=== PATIENT | female | born 1980 | race Caucasian/White ===

== ENCOUNTER → 2016-03-31 | Outpatient (CLI) | payer OTHER ==
[~2016-03-31] MED LIST: ABIL15TA2 PO; CYCL10TA PO; CYMB60CA3 PO; HYDR25T PO; LAMO25TA2 PO; LEVO200T4 PO; MORP-38 PO; NEUR600T PO; NORC10TA2 PO; NORT25CA2 PO; PROP120C PO; SERT-141 PO; ULTR50TA PO; VITA200016 PO; [UNRECOGNIZED DRUG - CODE] PO
== END ==
LOC: M PAIN 09:40
PROVIDERS: ATTEND Nurse Practitioner Family
DX: M54.5 Low back pain (principal); M79.7 Fibromyalgia; M05.79 Rheumatoid arthritis with rheumatoid factor of multiple sites without organ or systems involvement; Z79.891 Long term (current) use of opiate analgesic; Z79.899 Other long term (current) drug therapy; Z88.1 Allergy status to other antibiotic agents; Z88.8 Allergy status to other drugs, medicaments and biological substances; E11.9 Type 2 diabetes mellitus without complications; G43.909 Migraine, unspecified, not intractable, without status migrainosus; Z08 Encounter for follow-up examination after completed treatment for malignant neoplasm; Z85.850 Personal history of malignant neoplasm of thyroid

== ENCOUNTER → 2016-06-03 | Outpatient (REF) | payer OTHER ==
[~2016-06-03] MED LIST changes: -SERT-141 PO; +SERT50TA PO
[2016-06-04 11:09] LABS: PRETREATED FOLATE FOR RBCFOL 15.3 NG/ML
== END ==
LOC: M LABDRAWC 11:45
PROVIDERS: ATTEND Surgery
DX: K91.2 Postsurgical malabsorption, not elsewhere classified (principal); Z98.84 Bariatric surgery status

== ENCOUNTER → 2016-06-03 | Outpatient (REF) | payer OTHER | LOC: M SFHCCLAY 08:01 | PROVIDERS: ATTEND Nurse Practitioner | DX: E87.0 Hyperosmolality and hypernatremia (principal) ==

== ENCOUNTER → 2016-06-14 | Outpatient (CLI) | payer OTHER ==
--- NOTE | 2016-06-26 01:00 | ECWPNPC ---
PATIENT NAME: PADMINI SANTA : 1980 GENDER: FEMALE VISIT DATE: 06/14/2016 DISCHARGE DATE: 06/14/16937 VISIT LOCKED DATE TIME: PHYSICIAN: BRIANNA KIMBLE RESOURCE: BRIANNA KIMBLE REASON FOR APPOINTMENT 1. LOW BACK HISTORY OF PRESENT ILLNESS HISTORY OF PRESENT ILLNESS: HERE FOR F/U OF CHRONIC GENERALIZED BACK PAIN..RATING PAIN VAS 8/10.CURRENT MEDICATION FOR CHRONIC PAIN IS HYDROCODONE 10/325 UP TO 2 TAB PER DAY AND DILAUDID 2MG BID.HAVING SOME FATIGUE WITH THIS .DOES NOT DRIVE AFTER SHE TAKES THIS.SHE HAS EPISODES OF SEVERE LEG PAIN LATELY AFTER STOPPING RA MEDICATIONS.HAS THYROID SURGERY SCHEDULED IN 3 DAYS AT [facility]. PAIN THE PATIENT DESCRIBES THE PAIN... THE PATIENT DESCRIBES THE PAIN... THE PATIENT DESCRIBES THE PAIN... FALL RISK SCREENING: SCREENING :NO FALLS IN THE PAST YEAR CURRENT MEDICATIONS TAKING PROMETHAZINE HCL 12.5 MG TABLET 1 TABLET NEEDED ORALLY EVERY 12 HRS TAKING NORTRIPTYLINE HCL 25 MG CAPSULE 1-2 CAPS ORALLY ONCE A DAY AT BEDTIME PRN TAKING TOPIRAMATE 50 MG TABLET 1 TABLET ORALLY BEFORE BEDTIME TAKING VALIUM 5 MG TABLET 2 TABS ORALLY ONCE DAILY NEEDED TAKING VITAMIN D3 2000 UNIT CAPSULE 1 CAPSULE ORALLY ONCE A DAY TAKING TOPAMAX 100 MG TABLET 1 TABLET ORALLY BEFORE BEDTIME TAKING LEVOTHROYXINE 200 MCG 1 TAB ORALLY DAILY TAKING LEVOTHYROXINE SODIUM 150 MCG TABLET 1 TAB ORALLY DAILY TAKING FAMOTIDINE 20 MG TABLET 1 TABLET ORALLY TWICE A DAY TAKING GABAPENTIN 600 MG TABLET 1 TABLET ORALLY THREE TIMES DAILY TAKING DIAZEPAM 5 MG MISCELLANEOUS 1 TAB ORALLY TWICE A DAY TAKING DILAUDID 2 MG TABLET 1 TABLET NEEDED ORALLY EVERY 6 HRS PRN MDD4 TAKING NORCO 10-325 MG TABLET 1 TABLET NEEDED ORALLY Q4-6H PRN MDD4 TAKING SERTRALINE HCL 100 MG TABLET 2 TABLETS ORALLY ONCE A DAY TAKING MULTI VITAMIN DAILY - TABLET 1 TABLET ORALLY ONCE A DAY TAKING PEPCID COMPLETE 10-800-165 MG TABLET CHEWABLE 1 TABLET ORALLY TWICE A DAY TAKING VITAMIN B-12 1000 MCG TABLET 1 TABLET ORALLY ONCE A DAY TAKING TOPAMAX 100 MG TABLET 1 TABLET ORALLY DAILY NOT-TAKING NORCO 10-325 MG TABLET 1 TABLET NEEDED ORALLY EVERY 6 HRS MEDICATION LIST REVIEWED AND RECONCILED WITH THE PATIENT PAST MEDICAL HISTORY THYROID CANCER X 2, FIRST OPERATION 2010, SECOND ONE 2014 (?TYPE) RIGHT LUNG NODULE (WATCHING IT FOR NOW) L4 HERNIATED DISC FATTY LIVER DIABETES MIGRAINES ALLERGIES GLIPIZIDE XL: RASH: ALLERGY CIPRO: RASH: ALLERGY HYDROXYCHLOROQUINE SULFATE: INCREASED LIVER ENZYMES: ALLERGY SOCIAL HISTORY GENERAL: PAIN CLINIC PFS, CLERGY, PUBLIC HEALTH REFERRALS CLERGY REFERRAL NEEDED?NO WAS THE PROVIDER NOTIFIED OF ANY PERTINENT INFO?NO PFS REFERRAL NEEDED?NO PUBLIC HEALTH REFERRAL NEEDED?NO PATIENT: ____. REVIEW OF SYSTEMS CONSTITUTIONAL: ANY CHANGE IN YOUR MEDICAL CONDITION? NO . CHILLS NO . FEVER NO . INFECTION: DO YOU HAVE NEW INFECTIONS? NO . DO YOU HAVE HISTORY OF MRSA? NO . MUSCULOSKELETAL: ANY NEW PATTERNS OF PAIN OR NUMBNESS? YES . GASTROENTEROLOGY: ANY NEW CHANGE IN BOWEL CONTROL? NO . GENITOURINARY: ANY NEW CHANGE IN BLADDER CONTROL? NO . IS THERE A CHANCE YOU COULD BE ? NO . HEMATOLOGY/LYMPH: DO YOU TAKE ANY BLOOD THINNERS? (FOR EXAMPLE- COUMADIN, PLAVIX, AGGRENOX, PLATEL, PRADAXA, OR XARELTO) NO . WHEN WAS YOUR LAST DOSE? DATE: TIME: . NEUROLOGY: HAVE YOU FALLEN IN THE PAST 6 MONTHS? NO . ANY NEW EXTREMITY NUMBNESS OR WEAKNESS? NO . CARDIOLOGY: DO YOU HAVE A PACEMAKER OR DEFIBRILLATOR? NO . RESPIRATORY: HAVE YOU BEEN SICK IN THE PAST WEEK? NO . FEVER NO . FLU LIKE SYMPTOMS? NO . COUGH NO . INTEGUMENTARY: DO YOU HAVE ANY RASHES OR OPEN SORES? NO . ALLERGIC/IMMUNO: ARE YOU ALLERGIC TO SHELLFISH OR IV DYE? NO . ANY NEW ALLERGIES? NO . PSYCHIATRIC: DO YOU HAVE THOUGHTS OF HURTING YOURSELF OR SOMEONE ELSE? NO . ARE YOU ABUSED, NEGLECTED, OR IN AN UNSAFE ENVIRONMENT? NO . ENDOCRINOLOGY: ARE YOU DIABETIC? NO . OTHER: DO YOU NEED ANY PRESCRIPTIONS? YES . IF YES, PLEASE LIST: ____ . ANY NEW PROBLEMS WITH YOUR MEDICATIONS? NO . WHEN DID YOU LAST EAT? ____ . WHEN DID YOU LAST DRINK? ____ . WHAT DID YOU LAST DRINK? ____ . NAME OF PERSON DRIVING YOU HOME? ____ . DO YOU HAVE ANY OTHER QUESTIONS OR CONCERNS NO . REVIEWED BY: PROVIDER: BRIANNA MARINO . VITAL SIGNS WT 228.8 LBS, HT 70 IN, BMI 32.83 INDEX, BP 132/89 MM HG, HR 88 /MIN, RR 18 /MIN, TEMP 96.9 F, OXYGEN SAT % 97%, NA INITIALS SC 09:00. EXAMINATION GENERAL EXAMINATION: LUNGS:LUNG SOUNDS ARE CLEAR. HEART:HEART RATE REGULAR. MUSCULOSKELETAL:*, MUSCLE STRENGTH TESTING 5/5 BILATERAL, PALPATION: POSITIVE FOR PAIN OVER L/S SPINE. POSITIVE FOR PAIN OVER L/S PARASPINALS. MULTIPLE AREAS OF TENDER SPOTS INDICATIVE OF FIBROMYALGIA.AREA OF DISCOLORATION OVER LOWER THORACIC AND L/S PARASPINALS.PATIENT HAS BEEN USING HEATING PAD.. DIAGNOSTIC: . ASSESSMENTS CHRONIC BILATERAL LOW BACK PAIN WITHOUT SCIATICA - M54.5 (PRIMARY) FIBROMYALGIA - M79.7 CHRONIC PRESCRIPTION OPIATE USE - Z79.891 RHEUMATOID ARTHRITIS INVOLVING MULTIPLE SITES WITH POSITIVE RHEUMATOID FACTOR - M05.79 TREATMENT CHRONIC BILATERAL LOW BACK PAIN WITHOUT SCIATICA CONTINUE DILAUDID TABLET, 2 MG, 1 TABLET NEEDED, ORALLY, EVERY 6 HRS PRN MDD4, 30 DAY(S), 120, REFILLS 0 CONTINUE NORCO TABLET, 10-325 MG, 1 TABLET NEEDED, ORALLY, Q4-6H PRN MDD4, 30 DAY(S), 120, REFILLS 0 PROCEDURE CODES FA211 ESTABILISHED PATIENT [facility] CHARGE DISPOSITION & COMMUNICATION FOLLOW UP 6 WEEKS ELECTRONICALLY SIGNED BY NED GOMEZ ON 06/25/2016 AT 09:39 AM EDT DISCLAIMER : THIS IS A VISIT SUMMARY EXTRACTED FROM THE [employer] CHART. IT IS NOT A COPY OF THE [employer] PROGRESS NOTE. JAMIE
== END ==
LOC: M PAIN 08:40
PROVIDERS: ATTEND Nurse Practitioner Family
DX: G89.29 Other chronic pain (principal); M54.5 Low back pain; M79.7 Fibromyalgia; M05.79 Rheumatoid arthritis with rheumatoid factor of multiple sites without organ or systems involvement; E11.9 Type 2 diabetes mellitus without complications; G43.909 Migraine, unspecified, not intractable, without status migrainosus; E89.0 Postprocedural hypothyroidism; Z88.8 Allergy status to other drugs, medicaments and biological substances; Z79.899 Other long term (current) drug therapy; E66.9 Obesity, unspecified; Z68.32 Body mass index [BMI] 32.0-32.9, adult; F41.9 Anxiety disorder, unspecified; R74.8 Abnormal levels of other serum enzymes

== ENCOUNTER → 2016-07-28 | Outpatient (CLI) | payer MEDICARE, MEDICAID ==
[2016-07-28 12:54] LABS: INR 0.98
[2016-07-28 12:59] LABS: ALBUMIN 3.6 GM/DL (3.2-5.2); ALBUMIN/GLOBULIN RATIO 1.09 (1.00-1.93); ALKALINE PHOSPHATASE 421 U/L (45-117); ALT/SGPT 66 U/L (12-78); ANION GAP 10 MEQ/L (8-16); AST/SGOT 48 U/L (15-37); BILIRUBIN,DIRECT 0.2 MG/DL (0.0-0.2); BILIRUBIN,TOTAL 0.5 MG/DL (0.2-1.0); BLOOD UREA NITROGEN 12 MG/DL (7-18); CALCIUM LEVEL 8.3 MG/DL (8.5-10.1); CARBON DIOXIDE LEVEL 22 MEQ/L (21-32); CHLORIDE LEVEL 112 MEQ/L (98-107); CREATININE FOR GFR 0.71 MG/DL (0.55-1.02); FERRITIN 75 NG/ML (8-252); GLOMERULAR FILTRATION RATE > 60.0 (>60); GLUCOSE, FASTING 86 MG/DL (70-105); PERCENT SATURATION 14.6 % (13.2-37.4); POTASSIUM SERUM 3.8 MEQ/L (3.5-5.1); SODIUM LEVEL 144 MEQ/L (136-145); TOTAL IRON BINDING CAPACITY 267 UG/DL (250-450); TOTAL PROTEIN 6.9 GM/DL (6.4-8.2)
== END ==
LOC: M LAB 11:22
PROVIDERS: ATTEND Internal Medicine Gastroenterology
DX: R79.89 Other specified abnormal findings of blood chemistry (principal); K74.60 Unspecified cirrhosis of liver
CPT/HCPCS: 36415; 80048; 80076; 82105; 82728; 83550; 84550; 85610; G0463

== ENCOUNTER → 2016-07-28 | Outpatient (REF) | payer MEDICARE, MEDICAID | LOC: M SFHCCLAY 15:34 | PROVIDERS: ATTEND Nurse Practitioner | DX: M25.572 Pain in left ankle and joints of left foot (principal) ==

== ENCOUNTER → 2016-07-28 | Outpatient (CLI) | payer MEDICARE, MEDICAID ==
[~2016-07-28] MED LIST changes: -ABIL15TA2 PO; +ABIL1TAB12 PO; +HYDR-3363 PO; -HYDR25T PO; -NORC10TA2 PO; +NORC10TA21 PO; -ULTR50TA PO; +ULTR50TA8 PO
--- NOTE | 2016-08-18 02:35 | ECWPNPC ---
PATIENT NAME: PADMINI SANTA : 1980 GENDER: FEMALE VISIT DATE: 07/28/2016 DISCHARGE DATE: 07/28/16 1038 VISIT LOCKED DATE TIME: PHYSICIAN: BRIANNA KIMBLE RESOURCE: BRIANNA KIMBLE REASON FOR APPOINTMENT 1. BACK PAIN 6 WK F/U HISTORY OF PRESENT ILLNESS HISTORY OF PRESENT ILLNESS: HERE FOR F/U OF CHRONIC GENERALIZED BACK PAIN..RATING PAIN VAS 8/10.CURRENT MEDICATION FOR CHRONIC PAIN IS HYDROCODONE 10/325 UP TO 2 TAB PER DAY AND DILAUDID 2MG BID.HAVING SOME FATIGUE WITH THIS .DOES NOT DRIVE AFTER SHE TAKES THIS.SHE HAS EPISODES OF SEVERE LEG PAIN LATELY AFTER STOPPING RA MEDICATIONS.HAD THYROID SURGERY LAST MONTH AT [facility]. PAIN THE PATIENT DESCRIBES THE PAIN... THE PATIENT DESCRIBES THE PAIN... THE PATIENT DESCRIBES THE PAIN... THE PATIENT DESCRIBES THE PAIN... FALL RISK SCREENING: SCREENING :NO FALLS IN THE PAST YEAR CURRENT MEDICATIONS TAKING PROMETHAZINE HCL 12.5 MG TABLET 1 TABLET NEEDED ORALLY EVERY 12 HRS TAKING NORTRIPTYLINE HCL 25 MG CAPSULE 1-2 CAPS ORALLY ONCE A DAY AT BEDTIME PRN TAKING TOPIRAMATE 50 MG TABLET 1 TABLET ORALLY BEFORE BEDTIME TAKING VALIUM 5 MG TABLET 2 TABS ORALLY ONCE DAILY NEEDED TAKING TOPAMAX 100 MG TABLET 1 TABLET ORALLY BEFORE BEDTIME TAKING LEVOTHROYXINE 200 MCG 1 TAB ORALLY DAILY TAKING LEVOTHYROXINE SODIUM 50 MCG TABLET 1 TAB ORALLY DAILY TAKING GABAPENTIN 600 MG TABLET 1 TABLET ORALLY THREE TIMES DAILY TAKING DIAZEPAM 5 MG MISCELLANEOUS 1 TAB ORALLY TWICE A DAY TAKING SERTRALINE HCL 100 MG TABLET 2 TABLETS ORALLY ONCE A DAY TAKING MULTI VITAMIN DAILY - TABLET 1 TABLET ORALLY ONCE A DAY TAKING PEPCID COMPLETE 10-800-165 MG TABLET CHEWABLE 1 TABLET ORALLY TWICE A DAY TAKING VITAMIN B-12 1000 MCG TABLET 1 TABLET ORALLY ONCE A DAY TAKING TOPAMAX 100 MG TABLET 1 TABLET ORALLY DAILY TAKING DILAUDID 2 MG TABLET 1 TABLET NEEDED ORALLY EVERY 6 HRS PRN MDD4 TAKING NORCO 10-325 MG TABLET 1 TABLET NEEDED ORALLY Q4-6H PRN MDD4 TAKING VITAMIN D3 2000 UNIT CAPSULE 1 CAPSULE ORALLY ONCE A DAY TAKING FAMOTIDINE 20 MG TABLET 1 TABLET ORALLY TWICE A DAY TAKING XANAX 0.25 MG TABLET 2 TABLET ORALLY THREE TIMES DAILY NEEDED NOT-TAKING ESTRADIOL 1 MG TABLET 1 TABLET ORALLY DAILY NOT-TAKING NORCO 10-325 MG TABLET 1 TABLET NEEDED ORALLY EVERY 6 HRS MEDICATION LIST REVIEWED AND RECONCILED WITH THE PATIENT PAST MEDICAL HISTORY THYROID CANCER X 2, FIRST OPERATION 2010, SECOND ONE 2014 (?TYPE) RIGHT LUNG NODULE (WATCHING IT FOR NOW) L4 HERNIATED DISC FATTY LIVER DIABETES MIGRAINES ANXIETY OSTEOPENIA ALLERGIES GLIPIZIDE XL: RASH: ALLERGY CIPRO: RASH: ALLERGY HYDROXYCHLOROQUINE SULFATE: INCREASED LIVER ENZYMES: ALLERGY SURGICAL HISTORY COMPLETE HYSTERECTOMY DUE TO MENORRHAGIA 2012 THYROIDECTOMY, PARTIAL WAS DONE FIRST AND THEN THE REST TAKEN OUT 05/2014 TONSILECTOMY, ADENOIDECTOMY C- SECTION X 2 LAP BAND, AUGUST 2013 GALLBLADDER REMOVAL 05/2015 GASTRIC BYPASS 12/15/2015 BREAST/ NEEDLE BX 09/22/2015 THYROID NODULE REMOVED AND REST OF THYROID REMOVED 05/2016 HOSPITALIZATION/MAJOR DIAGNOSTIC PROCEDURE FOR [facility] 05/2016 REVIEW OF SYSTEMS CONSTITUTIONAL: ANY CHANGE IN YOUR MEDICAL CONDITION? YES REMOVAL OF RESIDUAL THYRIOD 05/2016 . CHILLS NO . FEVER NO . INFECTION: DO YOU HAVE NEW INFECTIONS? NO . DO YOU HAVE HISTORY OF MRSA? NO . MUSCULOSKELETAL: ANY NEW PATTERNS OF PAIN OR NUMBNESS? YES, LEFT ANKLE PAIN AND EDEMA, PT RATES PAIN 10/07 . GASTROENTEROLOGY: ANY NEW CHANGE IN BOWEL CONTROL? NO . GENITOURINARY: ANY NEW CHANGE IN BLADDER CONTROL? NO . IS THERE A CHANCE YOU COULD BE ? NO . HEMATOLOGY/LYMPH: DO YOU TAKE ANY BLOOD THINNERS? (FOR EXAMPLE- COUMADIN, PLAVIX, AGGRENOX, PLATEL, PRADAXA, OR XARELTO) NO . WHEN WAS YOUR LAST DOSE? DATE: TIME: . NEUROLOGY: HAVE YOU FALLEN IN THE PAST 6 MONTHS? NO . ANY NEW EXTREMITY NUMBNESS OR WEAKNESS? NO . CARDIOLOGY: DO YOU HAVE A PACEMAKER OR DEFIBRILLATOR? NO . RESPIRATORY: HAVE YOU BEEN SICK IN THE PAST WEEK? NO . FEVER NO . FLU LIKE SYMPTOMS? NO . COUGH NO . INTEGUMENTARY: DO YOU HAVE ANY RASHES OR OPEN SORES? NO . ALLERGIC/IMMUNO: ARE YOU ALLERGIC TO SHELLFISH OR IV DYE? NO . ANY NEW ALLERGIES? NO . PSYCHIATRIC: DO YOU HAVE THOUGHTS OF HURTING YOURSELF OR SOMEONE ELSE? NO . ARE YOU ABUSED, NEGLECTED, OR IN AN UNSAFE ENVIRONMENT? NO . ENDOCRINOLOGY: ARE YOU DIABETIC? NO . OTHER: DO YOU NEED ANY PRESCRIPTIONS? YES, HYDROCODONE-APAP 10/325, HYDROMORPHONE 2 . IF YES, PLEASE LIST: ____ . ANY NEW PROBLEMS WITH YOUR MEDICATIONS? NO . WHEN DID YOU LAST EAT? ____ . WHEN DID YOU LAST DRINK? ____ . WHAT DID YOU LAST DRINK? ____ . NAME OF PERSON DRIVING YOU HOME? ____ . DO YOU HAVE ANY OTHER QUESTIONS OR CONCERNS NO . REVIEWED BY: PROVIDER: BRIANNA MARINO . VITAL SIGNS WT 223.0 LBS, HT 70 IN, BMI 31.99 INDEX, BP 114/63 MM HG, HR 76 /MIN, RR 16 /MIN, TEMP 97.5 F, OXYGEN SAT % 98%, SAFE IN ENV? (Y/N) Y, NA INITIALS TL 0946, REVIEWED BY: EM. EXAMINATION GENERAL EXAMINATION: LUNGS:LUNG SOUNDS ARE CLEAR. HEART:HEART RATE REGULAR. MUSCULOSKELETAL:*, MUSCLE STRENGTH TESTING 5/5 BILATERAL, PALPATION: POSITIVE FOR PAIN OVER L/S SPINE. POSITIVE FOR PAIN OVER L/S PARASPINALS. MULTIPLE AREAS OF TENDER SPOTS INDICATIVE OF FIBROMYALGIA.AREA OF DISCOLORATION OVER LOWER THORACIC AND L/S PARASPINALS.PATIENT HAS BEEN USING HEATING PAD.1/4 LEFT ANKLE SWELLING. DIAGNOSTIC: . ASSESSMENTS CHRONIC BILATERAL LOW BACK PAIN WITHOUT SCIATICA - M54.5 (PRIMARY) FIBROMYALGIA - M79.7 CHRONIC PRESCRIPTION OPIATE USE - Z79.891 RHEUMATOID ARTHRITIS INVOLVING MULTIPLE SITES WITH POSITIVE RHEUMATOID FACTOR - M05.79 TREATMENT CHRONIC BILATERAL LOW BACK PAIN WITHOUT SCIATICA REFILL DILAUDID TABLET, 2 MG, 1 TABLET NEEDED, ORALLY, EVERY 6 HRS PRN MDD4, 30 DAY(S), 120, REFILLS 0 REFILL NORCO TABLET, 10-325 MG, 1 TABLET NEEDED, ORALLY, Q4-6H PRN MDD4, 30 DAY(S), 120, REFILLS 0 PROCEDURE CODES FA211 ESTABILISHED PATIENT [facility] CHARGE H8087 BMI CALC BUT PT NOT ELIG F/U PLAN G8783 BP SCR PRFRM RCMDD DEFIND SCR INTVL G8730 PAIN ASSESS POS TOOL F/U PLAN DOC 3016F PT SCRND UNHLTHY OH USE 1123F ACP DISCUSS/DSCN MKR DOCD 1036F TOBACCO NON-USER G4587 DOC MEDS VERIFIED W/PT OR RE DISPOSITION & COMMUNICATION FOLLOW UP 2 MONTHS ELECTRONICALLY SIGNED BY NED GOMEZ ON 08/16/2016 AT 06:07 PM EDT DISCLAIMER : THIS IS A VISIT SUMMARY EXTRACTED FROM THE [employer] CHART. IT IS NOT A COPY OF THE [employer] PROGRESS NOTE. JAMIE
== END ==
LOC: M PAIN 09:20
PROVIDERS: ATTEND Nurse Practitioner Family
DX: G89.29 Other chronic pain (principal); M54.5 Low back pain; M79.7 Fibromyalgia; M05.79 Rheumatoid arthritis with rheumatoid factor of multiple sites without organ or systems involvement; E11.9 Type 2 diabetes mellitus without complications; G43.009 Migraine without aura, not intractable, without status migrainosus; F41.9 Anxiety disorder, unspecified; M85.80 Other specified disorders of bone density and structure, unspecified site; D64.9 Anemia, unspecified; Z68.39 Body mass index [BMI] 39.0-39.9, adult; K74.60 Unspecified cirrhosis of liver; Z88.2 Allergy status to sulfonamides; Z88.8 Allergy status to other drugs, medicaments and biological substances; Z79.891 Long term (current) use of opiate analgesic; Z79.899 Other long term (current) drug therapy

== ENCOUNTER → 2016-08-04 | Outpatient (CLI) | payer MEDICARE, MEDICAID ==
[~2016-08-04] MED LIST changes: +ABIL15TA2 PO; -ABIL1TAB12 PO; -HYDR-3363 PO; +HYDR25T PO; +NORC10TA2 PO; -NORC10TA21 PO; +ULTR50TA PO; -ULTR50TA8 PO
--- NOTE | 2016-08-04 10:47 | REP ---
Abdominal upper quadrant ultrasound: Comparison is 05/16/2015. The the patient has a cholecystectomy. The hepatic parenchyma is echogenic compatible with hepato steatosis. Note from the technologist states the liver appears enlarged, however no liver measurements are performed. There are no focal hepatic masses. There is no intrahepatic or extrahepatic biliary duct dilatation, the common duct measures 7.4 mm in diameter which is normal in a postcholecystectomy patient. The pancreas is obscured by bowel gas. There is no right renal hydronephrosis, calculus, mass or cyst. Right kidney is normal size measuring 12.7 cm craniocaudad length. Impression: Findings are compatible with hepato steatosis. No hepatic masses. No biliary duct dilatation. The patient has a cholecystectomy. Pancreas is obscured by bowel. Right kidney is unremarkable. Signed by German Trammell MD 08/04/2016 10:39 A
== END ==
LOC: M RAD 08:30
PROVIDERS: ATTEND Internal Medicine Gastroenterology
DX: R74.8 Abnormal levels of other serum enzymes (principal)

== ENCOUNTER → 2016-08-10 | Outpatient (CLI) | payer MEDICARE, MEDICAID ==
--- NOTE | 2016-08-10 10:43 | REP ---
LEFT ANKLE, FOUR VIEW: HISTORY: Pain There is no acute fracture or dislocation. The joint space is normal in appearance. An osteophyte is present on the posterior calcaneus. IMPRESSION: Degenerative change as described above. Signed by Mynor Panchal MD 08/10/2016 11:10 A
== END ==
LOC: M SMT 09:57
PROVIDERS: ATTEND Physician Assistant
DX: M25.572 Pain in left ankle and joints of left foot (principal)

== ENCOUNTER → 2016-09-14 | Outpatient (CLI) | payer MEDICARE, MEDICAID ==
[~2016-09-14] MED LIST changes: -ABIL15TA2 PO; +ABIL1TAB12 PO; +HYDR-3363 PO; -HYDR25T PO; -NORC10TA2 PO; +NORC10TA21 PO; -ULTR50TA PO; +ULTR50TA8 PO
--- NOTE | 2016-09-14 23:21 | ECWPNPC ---
PATIENT NAME: PADMINI SANTA : 1980 GENDER: FEMALE VISIT DATE: 09/14/2016 DISCHARGE DATE: 09/14/16 1033 VISIT LOCKED DATE TIME: PHYSICIAN: BRIANAN KIMBLE RESOURCE: BRIANNA KIMBLE REASON FOR APPOINTMENT 1. BACK HISTORY OF PRESENT ILLNESS HISTORY OF PRESENT ILLNESS: HERE FOR F/U OF CHRONIC GENERALIZED BACK PAIN..RATING PAIN VAS 8/10.CURRENT MEDICATION FOR CHRONIC PAIN IS HYDROCODONE 10/325 UP TO 3 TAB PER DAY AND DILAUDID 2MG AT HS. .DOES NOT DRIVE AFTER SHE TAKES THIS.SHE HAS EPISODES OF SEVERE LEG PAIN LATELY AFTER STOPPING RA MEDICATIONS. HAD TO STOP RHEUMATOID MEDICINE DUE TO ELEVATED LIVER ENZYMES.HAD THYROID SURGERY AT [facility] TWO MONTHS AGO.HAD RADIOACTIVE IODINE TREATMENT X2 THIS PAST MONTH. PAIN THE PATIENT DESCRIBES THE PAIN... THE PATIENT DESCRIBES THE PAIN... THE PATIENT DESCRIBES THE PAIN... THE PATIENT DESCRIBES THE PAIN... THE PATIENT DESCRIBES THE PAIN... FALL RISK SCREENING: SCREENING :NO FALLS IN THE PAST YEAR CURRENT MEDICATIONS TAKING PROMETHAZINE HCL 12.5 MG TABLET 1 TABLET NEEDED ORALLY EVERY 12 HRS TAKING NORTRIPTYLINE HCL 25 MG CAPSULE 1-2 CAPS ORALLY ONCE A DAY AT BEDTIME PRN TAKING TOPIRAMATE 50 MG TABLET 1 TABLET ORALLY BEFORE BEDTIME TAKING VALIUM 5 MG TABLET 2 TABS ORALLY ONCE DAILY NEEDED TAKING TOPAMAX 100 MG TABLET 1 TABLET ORALLY BEFORE BEDTIME TAKING LEVOTHROYXINE 200 MCG 1 TAB ORALLY DAILY TAKING LEVOTHYROXINE SODIUM 50 MCG TABLET 1 TAB ORALLY DAILY TAKING SERTRALINE HCL 100 MG TABLET 2 TABLETS ORALLY ONCE A DAY TAKING MULTI VITAMIN DAILY - TABLET 1 TABLET ORALLY ONCE A DAY TAKING VITAMIN B-12 1000 MCG TABLET 1 TABLET ORALLY ONCE A DAY TAKING DILAUDID 2 MG TABLET 1 TABLET NEEDED ORALLY EVERY 6 HRS PRN MDD4 TAKING VITAMIN D3 2000 UNIT CAPSULE 1 CAPSULE ORALLY ONCE A DAY TAKING FAMOTIDINE 20 MG TABLET 1 TABLET ORALLY TWICE A DAY TAKING NORCO 10-325 MG TABLET 1 TABLET NEEDED ORALLY Q4-6H PRN MDD4 TAKING ATIVAN 0.5 MG TABLET 1 TABLET NEEDED ORALLY THREE TIMES A DAY NEEDED NOT-TAKING GABAPENTIN 600 MG TABLET 1 TABLET ORALLY THREE TIMES DAILY NOT-TAKING DIAZEPAM 5 MG MISCELLANEOUS 1 TAB ORALLY TWICE A DAY NOT-TAKING PEPCID COMPLETE 10-800-165 MG TABLET CHEWABLE 1 TABLET ORALLY TWICE A DAY NOT-TAKING TOPAMAX 100 MG TABLET 1 TABLET ORALLY DAILY NOT-TAKING XANAX 0.25 MG TABLET 2 TABLET ORALLY THREE TIMES DAILY NEEDED NOT-TAKING ESTRADIOL 1 MG TABLET 1 TABLET ORALLY DAILY NOT-TAKING NORCO 10-325 MG TABLET 1 TABLET NEEDED ORALLY EVERY 6 HRS MEDICATION LIST REVIEWED AND RECONCILED WITH THE PATIENT PAST MEDICAL HISTORY THYROID CANCER X 2, FIRST OPERATION 2010, SECOND ONE 2014 (?TYPE) RIGHT LUNG NODULE (WATCHING IT FOR NOW) L4 HERNIATED DISC FATTY LIVER DIABETES MIGRAINES ANXIETY OSTEOPENIA ALLERGIES GLIPIZIDE XL: RASH: ALLERGY CIPRO: RASH: ALLERGY HYDROXYCHLOROQUINE SULFATE: INCREASED LIVER ENZYMES: ALLERGY SOCIAL HISTORY GENERAL: TOBACCO USE ARE YOU A:FORMER SMOKER HOW LONG HAS IT BEEN SINCE YOU LAST SMOKED?1-5 YEARS BMI CARE GOAL FOLLOW-UP ABOVE NORMAL BMI FOLLOW-UPDIETARY MANAGEMENT EDUCATION, GUIDANCE, AND COUNSELING ALCOHOL SCREENING DID YOU HAVE A DRINK CONTAINING ALCOHOL IN THE PAST YEAR?NO POINTS0 INTERPRETATIONNEGATIVE RECREATIONAL DRUG USE DRUG USE?NO CAFFEINE CAFFEINE USE?YES HOW OFTEN AND HOW MUCH? 4 TEAS A DAY SEXUAL HX HAD SEX IN THE LAST 12 MONTHS (VAGINAL, ORAL, OR ANAL)?NO HAVE YOU EVER HAD AN STD?NO HIV / HEP-C SCREENING HIV TEST OFFERED TO PATIENT:YES DATE OFFERED:07/16/2016 TEST ACCEPTED:NO REASON:PATIENT DECLINED HEP-C TEST OFFERED TO PATIENT:YES DATE OFFERED:07/16/2016 TEST ACCEPTED:NO REASON:PATIENT DECLINED OCCUPATION: DISABLED. DIET: REGULAR. EXERCISE: WALKS. MARITAL STATUS: . OTHERS AT HOME: MOTHER, CHILDREN. PETS: NONE. FAITH [id number] ANGLICAN LANGUAGE LANGUAGES SPOKEN:TONGAN EDUCATION LEVEL OF EDUCATION:HIGH SCHOOL LEARNING BARRIERS / SPECIAL NEEDS CHANGE FROM LAST VISIT?NO 07/28/16 BARRIERS TO LEARNING?NO HEARING IMPAIRED?NO VISION IMPAIRED?YES :CORRECTIVE LENSES COGNITIVELY IMPAIRED?NO READINESS TO LEARN?YES LEARNING PREFERENCES?NO LEARNING CAPABILITIES PRESENT?YES EMOTIONAL BARRIERS?NO SPECIAL DEVICES?NO FERRY ENGINEER NEEDED?NO PAIN CLINIC PFS, CLERGY, PUBLIC HEALTH REFERRALS PFS REFERRAL NEEDED?NO CLERGY REFERRAL NEEDED?NO PUBLIC HEALTH REFERRAL NEEDED?NO HAS THE PATIENT BEEN EDUCATED REGARDING HIS/HER PLAN OF CARE?YES HAS THE PATIENT BEEN EDUCATED REGARDING PAIN, THE RISK FOR PAIN, THE IMPORTANCE OF EFFECTIVE PAIN MANAGEMENT, AND THE PAIN ASSESSMENT PROCESS?YES PATIENT: ____. REVIEW OF SYSTEMS REVIEWED BY: PROVIDER: BRIANNA MARINO . CONSTITUTIONAL: ANY CHANGE IN YOUR MEDICAL CONDITION? YES, IODINE RADIATION X2 WITH 2 INJECTIONS AFTER TREATMENT . CHILLS NO . FEVER NO . INFECTION: DO YOU HAVE NEW INFECTIONS? NO . DO YOU HAVE HISTORY OF MRSA? NO . MUSCULOSKELETAL: ANY NEW PATTERNS OF PAIN OR NUMBNESS? NO . GASTROENTEROLOGY: ANY NEW CHANGE IN BOWEL CONTROL? NO . GENITOURINARY: ANY NEW CHANGE IN BLADDER CONTROL? NO . IS THERE A CHANCE YOU COULD BE ? NO . HEMATOLOGY/LYMPH: DO YOU TAKE ANY BLOOD THINNERS? (FOR EXAMPLE- COUMADIN, PLAVIX, AGGRENOX, PLATEL, PRADAXA, OR XARELTO) NO . WHEN WAS YOUR LAST DOSE? DATE: TIME: . NEUROLOGY: HAVE YOU FALLEN IN THE PAST 6 MONTHS? NO . ANY NEW EXTREMITY NUMBNESS OR WEAKNESS? NO . CARDIOLOGY: DO YOU HAVE A PACEMAKER OR DEFIBRILLATOR? NO . RESPIRATORY: HAVE YOU BEEN SICK IN THE PAST WEEK? NO . FEVER NO . FLU LIKE SYMPTOMS? NO . COUGH NO . INTEGUMENTARY: DO YOU HAVE ANY RASHES OR OPEN SORES? NO . ALLERGIC/IMMUNO: ARE YOU ALLERGIC TO SHELLFISH OR IV DYE? NO . ANY NEW ALLERGIES? NO . PSYCHIATRIC: DO YOU HAVE THOUGHTS OF HURTING YOURSELF OR SOMEONE ELSE? NO . ARE YOU ABUSED, NEGLECTED, OR IN AN UNSAFE ENVIRONMENT? NO . ENDOCRINOLOGY: ARE YOU DIABETIC? NO . OTHER: DO YOU NEED ANY PRESCRIPTIONS? YES . IF YES, PLEASE LIST: ____ . ANY NEW PROBLEMS WITH YOUR MEDICATIONS? NO . WHEN DID YOU LAST EAT? ____ . WHEN DID YOU LAST DRINK? ____ . WHAT DID YOU LAST DRINK? ____ . NAME OF PERSON DRIVING YOU HOME? ____ . DO YOU HAVE ANY OTHER QUESTIONS OR CONCERNS NO . VITAL SIGNS WT 215 LBS, HT 70 IN, BMI 30.85 INDEX, BP 119/81 MM HG, HR 74 /MIN, RR 16 /MIN, TEMP 97.2 F, OXYGEN SAT % 98%, NA INITIALS SC 09:46, REVIEWED BY: ALECIA. EXAMINATION GENERAL EXAMINATION: LUNGS:LUNG SOUNDS ARE CLEAR. HEART:HEART RATE REGULAR. MUSCULOSKELETAL:*, MUSCLE STRENGTH TESTING 5/5 BILATERAL, PALPATION: POSITIVE FOR PAIN OVER L/S SPINE. POSITIVE FOR PAIN OVER L/S PARASPINALS. MULTIPLE AREAS OF TENDER SPOTS INDICATIVE OF FIBROMYALGIA.AREA OF DISCOLORATION OVER LOWER THORACIC AND L/S PARASPINALS.PATIENT HAS BEEN USING HEATING PAD.1/4 LEFT ANKLE SWELLING. DIAGNOSTIC: . ASSESSMENTS CHRONIC PRESCRIPTION OPIATE USE - Z79.891 (PRIMARY) RHEUMATOID ARTHRITIS INVOLVING MULTIPLE SITES WITH POSITIVE RHEUMATOID FACTOR - M05.79 BILATERAL SACROILIITIS - M46.1 TREATMENT CHRONIC PRESCRIPTION OPIATE USE REFILL NORCO TABLET, 10-325 MG, 1 TABLET NEEDED, ORALLY, Q4-6H PRN MDD4, 30 DAY(S), 120, REFILLS 0 REFILL DILAUDID TABLET, 2 MG, 1 TABLET NEEDED, ORALLY, EVERY 6 HRS PRN MDD4, 30 DAY(S), 120, REFILLS 0 NOTES: BILAT. SIJ INJECTION. PREVENTIVE MEDICINE PAIN CLINIC TEACHING: PROCEDURE TEACHING PRE-PROCEDURE TEACHING DONE AND PATIENT VERBALIZES UNDERSTANDING.. PROCEDURE CODES FA211 ESTABILISHED PATIENT [facility] CHARGE G8730 PAIN ASSESS POS TOOL F/U PLAN DOC G8427 DOC MEDS VERIFIED W/PT OR RE DISPOSITION & COMMUNICATION FOLLOW UP 2WK POST (REASON: BILAT. SIJ INJECTION) ELECTRONICALLY SIGNED BY NED GOMEZ ON 09/14/2016 AT 02:45 PM EDT DISCLAIMER : THIS IS A VISIT SUMMARY EXTRACTED FROM THE [employer] CHART. IT IS NOT A COPY OF THE [employer] PROGRESS NOTE. JANIED
== END ==
LOC: M PAIN 09:40
PROVIDERS: ATTEND Nurse Practitioner Family
DX: G89.29 Other chronic pain (principal); M05.79 Rheumatoid arthritis with rheumatoid factor of multiple sites without organ or systems involvement; M46.1 Sacroiliitis, not elsewhere classified; E11.9 Type 2 diabetes mellitus without complications; G43.909 Migraine, unspecified, not intractable, without status migrainosus; F41.9 Anxiety disorder, unspecified; M85.80 Other specified disorders of bone density and structure, unspecified site; Z88.8 Allergy status to other drugs, medicaments and biological substances; Z88.2 Allergy status to sulfonamides; Z79.899 Other long term (current) drug therapy; Z87.891 Personal history of nicotine dependence

== ENCOUNTER → 2016-10-01 | Outpatient (CLI) | payer MEDICARE, MEDICAID ==
[2016-10-01 12:55] LABS: ALKALINE PHOSPHATASE 278 U/L (45-117); FREE T4 1.19 NG/DL (0.76-1.46); TOTAL PROTEIN 6.7 GM/DL (6.4-8.2)
[2016-10-04 11:54] LABS: ALBUMIN % 57.6 % (55.8-66.1)
[2016-10-04 11:55] LABS: ALBUMIN 3.86 GM/DL (3.29-5.55); GAMMA GLOBULIN % 13.6 % (11.1-18.8)
== END ==
LOC: M LAB 11:02
PROVIDERS: ATTEND Internal Medicine Endocrinology, Diabetes & Metabolism
DX: E03.9 Hypothyroidism, unspecified (principal); M85.80 Other specified disorders of bone density and structure, unspecified site; C73 Malignant neoplasm of thyroid gland; R74.8 Abnormal levels of other serum enzymes

== ENCOUNTER → 2016-10-05 | Outpatient (CLI) | payer MEDICARE, MEDICAID ==
[~2016-10-05] MED LIST changes: +BUPIVACAINE HCL 0.25% 30 ML VIAL As Ordered ONE; +ISOVUE-M 300 61% 15ML VIAL (Q9967) As Ordered ONE; +LIDOCAINE 1% SDV INJ 30 ML VIAL As Ordered ONE; +TRIAMCINOLONE ACETONIDE SUSP 40 MG/ML VIAL (J3301) As Ordered ONE; +oxyCODONE 5MG TAB As Ordered ONE
--- NOTE | 2016-10-05 14:52 | REP ---
FLUOROSCOPIC GUIDANCE FOR BILATERAL SI JOINT INJECTION: 10/05/2016 CLINICAL HISTORY: Low back pain. FINDINGS: Four images from C-arm fluoroscopy provided to Dr. Coyle of the pain clinic for bilateral SI joint injections. The needle in the mid level of the SI joint and then extending further with some contrast adjacent to it. Second set of images on the right side shows a needle to the lower end of the SI joint. Fluoroscopy time: 32 seconds. Signed by Mp Winslow MD 10/05/2016 05:44 P
--- NOTE | 2016-10-19 01:10 | ECWPNPC ---
PATIENT NAME: PADMINI SANTA : 1980 GENDER: FEMALE VISIT DATE: 10/05/2016 DISCHARGE DATE: 10/05/16 1007 VISIT LOCKED DATE TIME: PHYSICIAN: DESTINY CHAIDEZ RESOURCE: DESTINY CHAIDEZ REASON FOR APPOINTMENT 1. BILAT. SIJ INJECTION HISTORY OF PRESENT ILLNESS HISTORY OF PRESENT ILLNESS: PAIN THE PATIENT DESCRIBES THE PAIN... FALL RISK SCREENING: SCREENING :NO FALLS IN THE PAST YEAR CURRENT MEDICATIONS TAKING PROMETHAZINE HCL 12.5 MG TABLET 1 TABLET NEEDED ORALLY EVERY 12 HRS, NOTES: NONE LATELY TAKING NORTRIPTYLINE HCL 25 MG CAPSULE 1-2 CAPS ORALLY ONCE A DAY AT BEDTIME PRN TAKING TOPIRAMATE 50 MG TABLET 1 TABLET ORALLY BEFORE BEDTIME, NOTES: 10/04/16 1900 TAKING VALIUM 5 MG TABLET 2 TABS ORALLY ONCE DAILY NEEDED, NOTES: NONE LATELY TAKING TOPAMAX 100 MG TABLET 1 TABLET ORALLY BEFORE BEDTIME, NOTES: 10/04/16 190 TAKING LEVOTHROYXINE 200 MCG 1 TAB ORALLY DAILY, NOTES: 10/05/16 06 TAKING LEVOTHYROXINE SODIUM 50 MCG TABLET 1 TAB ORALLY DAILY, NOTES: 10/05/16 06 TAKING SERTRALINE HCL 100 MG TABLET 2 TABLETS ORALLY ONCE A DAY, NOTES: 10/04/16 1900 TAKING MULTI VITAMIN DAILY - TABLET 1 TABLET ORALLY ONCE A DAY, NOTES: 10/03/16 1000 TAKING VITAMIN B-12 1000 MCG TABLET 1 TABLET ORALLY ONCE A DAY, NOTES: 10/03/16 1000 TAKING VITAMIN D3 2000 UNIT CAPSULE 1 CAPSULE ORALLY ONCE A DAY, NOTES: 10/04/16 1000 TAKING FAMOTIDINE 20 MG TABLET 1 TABLET ORALLY TWICE A DAY, NOTES: NONE LATELY TAKING ATIVAN 0.5 MG TABLET 1 TABLET NEEDED ORALLY THREE TIMES A DAY NEEDED, NOTES: 10/05/16 0730 TAKING NORCO 10-325 MG TABLET 1 TABLET NEEDED ORALLY Q4-6H PRN MDD4, NOTES: 10/05/16 0600 TAKING DILAUDID 2 MG TABLET 1 TABLET NEEDED ORALLY EVERY 6 HRS PRN MDD4, NOTES: 10/04/161999 NOT-TAKING GABAPENTIN 600 MG TABLET 1 TABLET ORALLY THREE TIMES DAILY NOT-TAKING DIAZEPAM 5 MG MISCELLANEOUS 1 TAB ORALLY TWICE A DAY NOT-TAKING PEPCID COMPLETE 10-800-165 MG TABLET CHEWABLE 1 TABLET ORALLY TWICE A DAY NOT-TAKING TOPAMAX 100 MG TABLET 1 TABLET ORALLY DAILY NOT-TAKING XANAX 0.25 MG TABLET 2 TABLET ORALLY THREE TIMES DAILY NEEDED NOT-TAKING ESTRADIOL 1 MG TABLET 1 TABLET ORALLY DAILY NOT-TAKING NORCO 10-325 MG TABLET 1 TABLET NEEDED ORALLY EVERY 6 HRS MEDICATION LIST REVIEWED AND RECONCILED WITH THE PATIENT PAST MEDICAL HISTORY THYROID CANCER X 2, FIRST OPERATION 2010, SECOND ONE 2014 (?TYPE) RIGHT LUNG NODULE (WATCHING IT FOR NOW) L4 HERNIATED DISC FATTY LIVER DIABETES MIGRAINES ANXIETY OSTEOPENIA ALLERGIES GLIPIZIDE XL: RASH: ALLERGY CIPRO: RASH: ALLERGY HYDROXYCHLOROQUINE SULFATE: INCREASED LIVER ENZYMES: ALLERGY SURGICAL HISTORY COMPLETE HYSTERECTOMY DUE TO MENORRHAGIA 2012 THYROIDECTOMY, PARTIAL WAS DONE FIRST AND THEN THE REST TAKEN OUT 05/2014 TONSILECTOMY, ADENOIDECTOMY C- SECTION X 2 LAP BAND, AUGUST 2013 GALLBLADDER REMOVAL 05/2015 GASTRIC BYPASS 12/15/2015 BREAST/ NEEDLE BX 09/22/2015 THYROID NODULE REMOVED AND REST OF THYROID REMOVED 05/2016 HOSPITALIZATION/MAJOR DIAGNOSTIC PROCEDURE FOR [facility] 05/2016 REVIEW OF SYSTEMS REVIEWED BY: PROVIDER: . CONSTITUTIONAL: ANY CHANGE IN YOUR MEDICAL CONDITION? NO . CHILLS NO . FEVER NO . INFECTION: DO YOU HAVE NEW INFECTIONS? NO . DO YOU HAVE HISTORY OF MRSA? NO . MUSCULOSKELETAL: ANY NEW PATTERNS OF PAIN OR NUMBNESS? NO . GASTROENTEROLOGY: ANY NEW CHANGE IN BOWEL CONTROL? NO . GENITOURINARY: ANY NEW CHANGE IN BLADDER CONTROL? NO . IS THERE A CHANCE YOU COULD BE ? NO . HEMATOLOGY/LYMPH: DO YOU TAKE ANY BLOOD THINNERS? (FOR EXAMPLE- COUMADIN, PLAVIX, AGGRENOX, PLATEL, PRADAXA, OR XARELTO) NO . WHEN WAS YOUR LAST DOSE? DATE: TIME: . NEUROLOGY: HAVE YOU FALLEN IN THE PAST 6 MONTHS? NO . ANY NEW EXTREMITY NUMBNESS OR WEAKNESS? NO . CARDIOLOGY: DO YOU HAVE A PACEMAKER OR DEFIBRILLATOR? NO . RESPIRATORY: HAVE YOU BEEN SICK IN THE PAST WEEK? NO . FEVER NO . FLU LIKE SYMPTOMS? NO . COUGH NO . INTEGUMENTARY: DO YOU HAVE ANY RASHES OR OPEN SORES? NO . ALLERGIC/IMMUNO: ARE YOU ALLERGIC TO SHELLFISH OR IV DYE? NO . ANY NEW ALLERGIES? NO . PSYCHIATRIC: DO YOU HAVE THOUGHTS OF HURTING YOURSELF OR SOMEONE ELSE? NO . ARE YOU ABUSED, NEGLECTED, OR IN AN UNSAFE ENVIRONMENT? NO . ENDOCRINOLOGY: ARE YOU DIABETIC? NO . OTHER: DO YOU NEED ANY PRESCRIPTIONS? YES, NORCO . IF YES, PLEASE LIST: ____ . ANY NEW PROBLEMS WITH YOUR MEDICATIONS? NO . WHEN DID YOU LAST EAT? 10/04/16 2100 . WHEN DID YOU LAST DRINK? 10/05/16 0600 . WHAT DID YOU LAST DRINK? WATER . NAME OF PERSON DRIVING YOU HOME? EVERARDO SANTA . DO YOU HAVE ANY OTHER QUESTIONS OR CONCERNS NO . VITAL SIGNS WT 214 LBS, HT 70 IN, BMI 30.70 INDEX, BP 121/76 MM HG, HR 84 /MIN, RR 16 /MIN, TEMP 98.2 F, OXYGEN SAT % 98%, NA INITIALS AW 0841, REVIEWED BY: CARLENE. ASSESSMENTS SACROILIITIS, NOT ELSEWHERE CLASSIFIED - M46.1 (PRIMARY) PROCEDURES PN SI PRE PROCEDURE DIAGNOSIS SACROILIITIS, SACROILIAC JOINT DYSFUNCTION POST PROCEDURE DIAGNOSIS SACROILIITIS, SACROILIAC JOINT DYSFUNCTION PROCEDURE BILATERAL SACROILIAC JOINT BLOCK SURGEON DR. DESTINY CHAIDEZ COMMERCIAL ATTORNEY NONE ANESTHESIA LOCAL PRE PROCEDURE NOTE PATIENT WITH HISTORY OF CHRONIC LOW BACK PAIN. I EVALUATED THE PATIENT AND REVIEWED THE CHART. I WENT OVER THE RISKS, ALTERNATIVES, AND BENEFITS ASSOCIATED WITH THIS PROCEDURE. THE PATIENT WOULD LIKE TO PROCEED AND GAVE CONSENT TO PERFORM THE PROCEDURE. THE PATIENT DENIES UNEXPLAINABLE WEIGHT LOSS, FEVER, CHILLS, OR NEW CHANGES IN URINARY OR BOWEL CONTROL DESCRIPTION OF PROCEDURE THE PATIENT WAS BROUGHT TO THE PROCEDURE ROOM AND PLACED IN THE PRONE POSITION. THE LUMBOSACRAL AREA WAS CLEANED WITH CHLORAPREP SOLUTION AND DRAPED ASEPTICALLY. THE PROCEDURE WAS DONE UNDER STERILE CONDITIONS. I CHECKED LATERALITY AND THE LEVEL WHERE THE PROCEDURE WAS GOING TO BE PERFORMED WITH THE PATIENT AND THE SUPPORTING STAFF AT THE MOMENT OF THE TIME OUT IN THE PROCEDURE ROOM. UNDER FLUOROSCOPIC GUIDANCE, TARGET POINT WAS SELECTED AT THE LOWER BORDER OF THE RIGHT AND LEFT SACROILIAC JOINT. TARGET POINT WAS SELECTED AFTER MEDIAL ROTATION AND TILT OF THE MAGNIFIER OF THE C-ARM. LIDOCAINE WAS USED TO NUMB THE SKIN AND SUBCUTANEOUS TISSUE BELOW IT. A SPINAL NEEDLE, 22-GAUGE, WAS ADVANCED UNDER FLUOROSCOPIC GUIDANCE AND FOLLOWING PATIENT FEEDBACK UNTIL THE TARGET AREA WAS TOUCHED. THE POSITION OF THE NEEDLE WAS VERIFIED WITH AP AND LATERAL VIEWS. AFTER PROPER POSITION OF THE NEEDLE WAS ACHIEVED, ISOVUE M DYE 30%, 0.25 ML, WAS INJECTED SHOWING SPREAD OF THE DYE. THEN, A SOLUTION OF 20 MG OF KENALOG WAS INJECTED IN RIGHT JOINT WITH 3 ML OF BUPIVACAINE 0.125%. THERE WAS NO EVIDENCE OF BLOOD, PARESTHESIA OR CEREBROSPINAL FLUID DURING THE PROCEDURE. THE PATIENT WAS SENT TO THE RECOVERY ROOM. THE PATIENT WAS MOVING THE EXTREMITIES AND DOING WELL. THERE WAS NO COMPLICATION DURING THE PROCEDURE. FLUOROSCOPY TIME WAS 32 SECONDS POST PROCEDURE NOTE THE PATIENT WILL BE SEEN IN A FOLLOW UP IN THE NEXT FEW WEEKS. INSTRUCTIONS WERE GIVEN, QUESTIONS WERE ANSWERED, AND THE PATIENT EXPRESSED UNDERSTANDING AND AGREED WITH THE PLAN. I, JORGE GREGORY, DOCUMENTED THE ABOVE INFORMATION ACTING A SCRIBE FOR DR. CHAIDEZ. I HAVE REVIEWED THE ABOVE DOCUMENT, WRITTEN BY JORGE FUNG AND I VERIFY THAT IT IS [facility] FLUORO GUIDANCE (PAIN)[id number] PROCEDURE CODES 86666 INJECT SACROILIAC JOINT 6045F RADXPS IN END [id number] PXD DISPOSITION & COMMUNICATION FOLLOW UP 3 WEEKS ELECTRONICALLY SIGNED BY DESTINY CHAIDEZ MD ON 10/18/2016 AT 05:50 PM EDT DISCLAIMER : THIS IS A VISIT SUMMARY EXTRACTED FROM THE HW CHART. IT IS NOT A COPY OF THE HW PROGRESS NOTE. MTDD
== END ==
LOC: M PAIN 08:40
PROVIDERS: ATTEND Anesthesiology
DX: G89.29 Other chronic pain (principal); M46.1 Sacroiliitis, not elsewhere classified; M53.88 Other specified dorsopathies, sacral and sacrococcygeal region; F41.9 Anxiety disorder, unspecified; G43.909 Migraine, unspecified, not intractable, without status migrainosus; M85.80 Other specified disorders of bone density and structure, unspecified site; C73 Malignant neoplasm of thyroid gland; R74.8 Abnormal levels of other serum enzymes; E03.9 Hypothyroidism, unspecified; Z79.899 Other long term (current) drug therapy
CPT/HCPCS: 81050; 82340; 82530; 82570; G0260; J3301; Q9967

== ENCOUNTER → 2016-10-05 | Outpatient (REF) | payer MEDICARE, MEDICAID ==
[~2016-10-05] MED LIST changes: -BUPIVACAINE HCL 0.25% 30 ML VIAL As Ordered ONE; -ISOVUE-M 300 61% 15ML VIAL (Q9967) As Ordered ONE; -LIDOCAINE 1% SDV INJ 30 ML VIAL As Ordered ONE; -TRIAMCINOLONE ACETONIDE SUSP 40 MG/ML VIAL (J3301) As Ordered ONE; -oxyCODONE 5MG TAB As Ordered ONE
[2016-10-05 08:09] LABS: TOTAL VOLUME, URINE 1800 ML
[2016-10-05 09:38] LABS: CALCIUM, URINE < 5.0 MG/DL
[2016-10-09 08:06] LABS: FREE CORTISOL 24HR URINE 13 ug/24 hr (0-50); FREE CORTISOL URINE 7 ug/L (Undefined)
== END ==
LOC: M LAB REF 08:05
DX: M85.80 Other specified disorders of bone density and structure, unspecified site (principal); C73 Malignant neoplasm of thyroid gland; R74.8 Abnormal levels of other serum enzymes; E03.9 Hypothyroidism, unspecified

== ENCOUNTER → 2016-11-17 | Outpatient (CLI) | payer MEDICARE, MEDICAID ==
[2016-11-17 09:50] LABS: ALBUMIN 3.7 GM/DL (3.2-5.2); ALBUMIN/GLOBULIN RATIO 1.09 (1.00-1.93); BILIRUBIN,DIRECT 0.1 MG/DL (0.0-0.2); BILIRUBIN,TOTAL 0.4 MG/DL (0.2-1.0); TOTAL PROTEIN 7.1 GM/DL (6.4-8.2)
[2016-11-20 00:06] LABS: TOTAL ALK PHOS 353 IU/L (39-117)
== END ==
LOC: M LAB 08:48
PROVIDERS: ATTEND Internal Medicine Gastroenterology
DX: R74.8 Abnormal levels of other serum enzymes (principal)

== ENCOUNTER → 2016-11-19 | Outpatient (CLI) | payer MEDICARE, MEDICAID ==
--- NOTE | 2016-12-12 23:58 | ECWPNPC ---
PATIENT NAME: PADMINI SANTA : 1980 GENDER: FEMALE VISIT DATE: 11/19/2016 DISCHARGE DATE: 11/19/16938 VISIT LOCKED DATE TIME: PHYSICIAN: BRIANNA KIMBLE RESOURCE: BRIANNA KIMBLE REASON FOR APPOINTMENT 1. BACK HISTORY OF PRESENT ILLNESS HISTORY OF PRESENT ILLNESS: HERE FOR POST PROCEDURE F/U.HAD BILATERAL SIJ ON 10-05-16.REPORTS NO IMPROVEMENT AND AGGREVATION POST PROCEDURE. PAIN THE PATIENT DESCRIBES THE PAIN... FALL RISK SCREENING: SCREENING :NO FALLS IN THE PAST YEAR CURRENT MEDICATIONS TAKING PROMETHAZINE HCL 12.5 MG TABLET 1 TABLET NEEDED ORALLY EVERY 12 HRS TAKING NORTRIPTYLINE HCL 25 MG CAPSULE 1-2 CAPS ORALLY ONCE A DAY AT BEDTIME PRN TAKING TOPIRAMATE 50 MG TABLET 1 TABLET ORALLY BEFORE BEDTIME TAKING VALIUM 5 MG TABLET 2 TABS ORALLY ONCE DAILY NEEDED TAKING TOPAMAX 100 MG TABLET 1 TABLET ORALLY BEFORE BEDTIME TAKING LEVOTHROYXINE 200 MCG 1 TAB ORALLY DAILY TAKING LEVOTHYROXINE SODIUM 50 MCG TABLET 1 TAB ORALLY DAILY TAKING SERTRALINE HCL 100 MG TABLET 2 TABLETS ORALLY ONCE A DAY TAKING MULTI VITAMIN DAILY - TABLET 1 TABLET ORALLY ONCE A DAY TAKING VITAMIN B-12 1000 MCG TABLET 1 TABLET ORALLY ONCE A DAY TAKING VITAMIN D3 2000 UNIT CAPSULE 1 CAPSULE ORALLY ONCE A DAY TAKING ATIVAN 0.5 MG TABLET 1 TABLET NEEDED ORALLY THREE TIMES A DAY NEEDED TAKING NORCO 10-325 MG TABLET 1 TABLET NEEDED ORALLY Q4-6H PRN MDD4 TAKING DILAUDID 2 MG TABLET 1 TABLET NEEDED ORALLY EVERY 6 HRS PRN MDD4 NOT-TAKING FAMOTIDINE 20 MG TABLET 1 TABLET ORALLY TWICE A DAY, NOTES: NONE LATELY NOT-TAKING GABAPENTIN 600 MG TABLET 1 TABLET ORALLY THREE TIMES DAILY NOT-TAKING DIAZEPAM 5 MG MISCELLANEOUS 1 TAB ORALLY TWICE A DAY NOT-TAKING PEPCID COMPLETE 10-800-165 MG TABLET CHEWABLE 1 TABLET ORALLY TWICE A DAY NOT-TAKING TOPAMAX 100 MG TABLET 1 TABLET ORALLY DAILY NOT-TAKING XANAX 0.25 MG TABLET 2 TABLET ORALLY THREE TIMES DAILY NEEDED NOT-TAKING ESTRADIOL 1 MG TABLET 1 TABLET ORALLY DAILY NOT-TAKING NORCO 10-325 MG TABLET 1 TABLET NEEDED ORALLY EVERY 6 HRS MEDICATION LIST REVIEWED AND RECONCILED WITH THE PATIENT PAST MEDICAL HISTORY THYROID CANCER X 2, FIRST OPERATION 2010, SECOND ONE 2014 (?TYPE) RIGHT LUNG NODULE (WATCHING IT FOR NOW) L4 HERNIATED DISC FATTY LIVER DIABETES MIGRAINES ANXIETY OSTEOPENIA ALLERGIES GLIPIZIDE XL: RASH: ALLERGY CIPRO: RASH: ALLERGY HYDROXYCHLOROQUINE SULFATE: INCREASED LIVER ENZYMES: ALLERGY REVIEW OF SYSTEMS REVIEWED BY: PROVIDER: BRIANNA MARINO . CONSTITUTIONAL: ANY CHANGE IN YOUR MEDICAL CONDITION? NO . CHILLS NO . FEVER NO . INFECTION: DO YOU HAVE NEW INFECTIONS? NO . DO YOU HAVE HISTORY OF MRSA? NO . MUSCULOSKELETAL: ANY NEW PATTERNS OF PAIN OR NUMBNESS? NO . GASTROENTEROLOGY: ANY NEW CHANGE IN BOWEL CONTROL? NO . GENITOURINARY: ANY NEW CHANGE IN BLADDER CONTROL? NO . IS THERE A CHANCE YOU COULD BE ? NO . HEMATOLOGY/LYMPH: DO YOU TAKE ANY BLOOD THINNERS? (FOR EXAMPLE- COUMADIN, PLAVIX, AGGRENOX, PLATEL, PRADAXA, OR XARELTO) NO . WHEN WAS YOUR LAST DOSE? DATE: TIME: . NEUROLOGY: HAVE YOU FALLEN IN THE PAST 6 MONTHS? NO . ANY NEW EXTREMITY NUMBNESS OR WEAKNESS? NO . CARDIOLOGY: DO YOU HAVE A PACEMAKER OR DEFIBRILLATOR? NO . RESPIRATORY: HAVE YOU BEEN SICK IN THE PAST WEEK? NO . FEVER NO . FLU LIKE SYMPTOMS? NO . COUGH NO . INTEGUMENTARY: DO YOU HAVE ANY RASHES OR OPEN SORES? NO . ALLERGIC/IMMUNO: ARE YOU ALLERGIC TO SHELLFISH OR IV DYE? NO . ANY NEW ALLERGIES? NO . PSYCHIATRIC: DO YOU HAVE THOUGHTS OF HURTING YOURSELF OR SOMEONE ELSE? NO . ARE YOU ABUSED, NEGLECTED, OR IN AN UNSAFE ENVIRONMENT? NO . ENDOCRINOLOGY: ARE YOU DIABETIC? NO . OTHER: DO YOU NEED ANY PRESCRIPTIONS? YES . IF YES, PLEASE LIST: DILAUDID . ANY NEW PROBLEMS WITH YOUR MEDICATIONS? NO . WHEN DID YOU LAST EAT? ____ . WHEN DID YOU LAST DRINK? ____ . WHAT DID YOU LAST DRINK? ____ . NAME OF PERSON DRIVING YOU HOME? ____ . DO YOU HAVE ANY OTHER QUESTIONS OR CONCERNS NEED TO TALK TO YOU ABOUT HYDROCODONE . VITAL SIGNS WT 212 LBS, HT 70 IN, BMI 30.42 INDEX, BP 117/72 MM HG, HR 80 /MIN, RR 16 /MIN, TEMP 96.5 F, OXYGEN SAT % 97%, NA INITIALS SC 09:09, REVIEWED BY: NL. EXAMINATION GENERAL EXAMINATION: LUNGS:LUNG SOUNDS ARE CLEAR. HEART:HEART RATE REGULAR. MUSCULOSKELETAL:*, MUSCLE STRENGTH TESTING 5/5 BILATERAL, PALPATION: POSITIVE FOR PAIN OVER L/S SPINE. POSITIVE FOR PAIN OVER L/S PARASPINALS. MULTIPLE AREAS OF TENDER SPOTS INDICATIVE OF FIBROMYALGIA.. DIAGNOSTIC: . ASSESSMENTS CHRONIC PRESCRIPTION OPIATE USE - Z79.891 (PRIMARY) RHEUMATOID ARTHRITIS INVOLVING MULTIPLE SITES WITH POSITIVE RHEUMATOID FACTOR - M05.79 BILATERAL SACROILIITIS - M46.1 TREATMENT CHRONIC PRESCRIPTION OPIATE USE DECREASE NORCO TABLET, 10-325 MG, 1 TABLET NEEDED, ORALLY, Q12H PRN MDD2, 30 DAY(S), 60, REFILLS 0 DECREASE DILAUDID TABLET, 2 MG, 1 TABLET NEEDED, ORALLY, Q24H PRN SEVERE PAIN MDD1, 30 DAY(S), 30, REFILLS 0 START TIZANIDINE HCL TABLET, 4 MG, 1 TABLET NEEDED, ORALLY, THREE TIMES A DAY, 30 DAY(S), 30, REFILLS 1 NOTES: ISTOP REGISTRY REVIEWED [id number] AND DEMNOSTRATES COMPLLIANCE. BRINGS IN MEDICATIONS WHICH IS APPROPRIATE FOR WHAT WAS DISPENSED. RECENT URINE TOXICOLOGY REVIEWED. NO UNAUTHORIZED MEDICATIONS. NO ILLICIT SUBSTANCES AND PRESCRIBED MEDICATIONS WERE PRESENT. , RISKS AND BENEFITS OF NARCOTIC/OPIOD MEDICATIONS WERE REVIEWED WITH PATIENT - THIS INCLUDES BUT IS NOT LIMITED TO RISK OF DEPENDANCE/DEVELOPMENT OF ADDICTION, MOOD DISTURBANCE AND DEPRESSION, OSTEOPOROSIS, HORMONAL AND LABIDAL CHANGES, RESPIRATORY DEPRESSION AND . PATIENT IS ADVISED NOT TO DRIVE WHILE ON THESE MEDICATIONS, REVIEWED WITH PATIENT THE POTENTIAL RISK OF INCREASED SEDATION, RESPIRATORY SUPPRESSION AND WITH THE COMBINATION OF BENZODIAZAPINE AND OPIOD MEDICATIONS. PATIENT STATES HE UNDERSTANDS THIS RISK AND WISHES TO CONTINUE WITH THERAPY. PROCEDURE CODES FA211 ESTABILISHED PATIENT [facility] CHARGE G8730 PAIN ASSESS POS TOOL F/U PLAN DOC G8427 DOC MEDS VERIFIED W/PT OR RE DISPOSITION & COMMUNICATION FOLLOW UP 4 WEEKS ELECTRONICALLY SIGNED BY NED GOMEZ ON 12/12/2016 AT 07:44 PM EDT DISCLAIMER : THIS IS A VISIT SUMMARY EXTRACTED FROM THE [employer] CHART. IT IS NOT A COPY OF THE [employer] PROGRESS NOTE. JAMIE
== END ==
LOC: M PAIN 08:45
PROVIDERS: ATTEND Nurse Practitioner Family
DX: G89.29 Other chronic pain (principal); M05.79 Rheumatoid arthritis with rheumatoid factor of multiple sites without organ or systems involvement; M46.1 Sacroiliitis, not elsewhere classified; E11.9 Type 2 diabetes mellitus without complications; E03.9 Hypothyroidism, unspecified; G43.009 Migraine without aura, not intractable, without status migrainosus; F41.9 Anxiety disorder, unspecified; K74.60 Unspecified cirrhosis of liver; Z88.2 Allergy status to sulfonamides; Z88.8 Allergy status to other drugs, medicaments and biological substances; Z79.899 Other long term (current) drug therapy

== ENCOUNTER → 2016-12-28 | Outpatient (CLI) | payer MEDICARE, MEDICAID ==
[2016-12-28 11:16] LABS: BASO % 0.7 % (0.0-1.0); EOS # 0.1 10^3/uL (0.0-0.50); EOS % 1.8 % (0.0-3.0); IMMATURE GRANULOCYTE % 0.2 % (0-0); LYMPH # 2.2 10^3/uL (1.5-4.5); LYMPH % 39.9 % (24.0-44.0); MEAN CORPUSCULAR HEMOGLOBIN 26.7 pg (27.0-33.0); MEAN CORPUSCULAR HGB CONC 32.5 g/dl (32.0-36.5); MEAN CORPUSCULAR VOLUME 82.3 fl (80.0-96.0); MONO # 0.4 10^3/uL (0.0-0.8); NEUTROPHILS # 2.7 10^3/uL (1.8-7.7); NEUTROPHILS % 49.4 % (36.0-66.0); PLATELET COUNT, AUTOMATED 148 10^3/uL (150-450); RED CELL DISTRIBUTION WIDTH 15.1 % (11.5-14.5); WHITE BLOOD COUNT 5.5 10^3/uL (4.0-10.0)
[2016-12-28 11:47] LABS: VITAMIN B12 LEVEL 442 PG/ML (247-911)
[2016-12-28 11:51] LABS: ALBUMIN 3.5 GM/DL (3.2-5.2); ALBUMIN/GLOBULIN RATIO 1.06 (1.00-1.93); ALKALINE PHOSPHATASE 237 U/L (45-117); ALT/SGPT 36 U/L (12-78); ANION GAP 8 MEQ/L (8-16); AST/SGOT 29 U/L (7-37); BILIRUBIN,TOTAL 0.4 MG/DL (0.2-1.0); BLOOD UREA NITROGEN 11 MG/DL (7-18); CALCIUM LEVEL 8.3 MG/DL (8.5-10.1); CARBON DIOXIDE LEVEL 24 MEQ/L (21-32); CHLORIDE LEVEL 111 MEQ/L (98-107); CREATININE FOR GFR 0.57 MG/DL (0.55-1.02); FERRITIN 18 NG/ML (8-252); GLOMERULAR FILTRATION RATE > 60.0 (>60); GLUCOSE, FASTING 85 MG/DL (70-105); MAGNESIUM LEVEL 2.2 MG/DL (1.8-2.4); PHOSPHORUS LEVEL 3.7 MG/DL (2.5-4.9); POTASSIUM SERUM 3.7 MEQ/L (3.5-5.1); SODIUM LEVEL 143 MEQ/L (136-145); TOTAL PROTEIN 6.8 GM/DL (6.4-8.2)
[2016-12-28 13:23] LABS: PRETREATED FOLATE FOR RBCFOL 13.6 NG/ML
== END ==
LOC: M LAB 10:47
PROVIDERS: ATTEND Surgery
DX: K91.2 Postsurgical malabsorption, not elsewhere classified (principal); Z98.84 Bariatric surgery status; E55.9 Vitamin D deficiency, unspecified; E89.0 Postprocedural hypothyroidism

== ENCOUNTER → 2016-12-28 | Outpatient (CLI) | payer MEDICARE, MEDICAID ==
[2016-12-28 11:48] LABS: FREE T4 1.5 NG/DL (0.76-1.46)
== END ==
LOC: M LAB 10:43
PROVIDERS: ATTEND Internal Medicine Endocrinology, Diabetes & Metabolism
DX: E89.0 Postprocedural hypothyroidism (principal)

== ENCOUNTER → 2017-01-06 | Outpatient (CLI) | payer MEDICARE, MEDICAID ==
--- NOTE | 2017-01-25 01:03 | ECWPNPC ---
PATIENT NAME: PADMINI SANTA : 1980 GENDER: FEMALE VISIT DATE: 01/06/2017 DISCHARGE DATE: 01/06/17 1437 VISIT LOCKED DATE TIME: PHYSICIAN: BRIANNA KIMBLE RESOURCE: BRIANNA KIMBLE HISTORY OF PRESENT ILLNESS HISTORY OF PRESENT ILLNESS: HERE FOR F/U OF CHRONIC GENERALIZED BACK PAIN..RATING PAIN VAS 9/10.FELL 3 WEEKS AGO AND WAS EVALUATED AT ER FOR BACK ,LEG AND ABDOMINAL PAIN.CHIEF CONCERN FOR PATIENT IS BILATERAL LEG PAINL>R AND SWELLING OF LEFT LOWER EXTREMITY.CURRENT MEDICATION FOR CHRONIC PAIN IS HYDROCODONE 10/325 UP TO 3 TAB PER DAY AND DILAUDID 2MG AT HS. .DOES NOT DRIVE AFTER SHE TAKES THIS.SHE HAS EPISODES OF SEVERE LEG PAIN LATELY AFTER STOPPING RA MEDICATIONS. HAD TO STOP RHEUMATOID MEDICINE DUE TO ELEVATED LIVER ENZYMES.HAD THYROID SURGERY AT [facility] SEVERAL MONTHS AGO.HAD RADIOACTIVE IODINE TREATMENTS FINISHED 3-4 MONTHS AGO. PAIN THE PATIENT DESCRIBES THE PAIN... THE PATIENT DESCRIBES THE PAIN... THE PATIENT DESCRIBES THE PAIN... THE PATIENT DESCRIBES THE PAIN... THE PATIENT DESCRIBES THE PAIN... THE PATIENT DESCRIBES THE PAIN... FALL RISK SCREENING: SCREENING :NO FALLS IN THE PAST YEAR CURRENT MEDICATIONS TAKING PROMETHAZINE HCL 12.5 MG TABLET 1 TABLET NEEDED ORALLY EVERY 12 HRS TAKING NORTRIPTYLINE HCL 25 MG CAPSULE 1-2 CAPS ORALLY ONCE A DAY AT BEDTIME PRN TAKING TOPIRAMATE 50 MG TABLET 1 TABLET ORALLY BEFORE BEDTIME TAKING TOPAMAX 100 MG TABLET 1 TABLET ORALLY BEFORE BEDTIME TAKING LEVOTHROYXINE 200 MCG 1 TAB ORALLY DAILY TAKING LEVOTHYROXINE SODIUM 50 MCG TABLET 1 TAB ORALLY DAILY TAKING SERTRALINE HCL 100 MG TABLET 2 TABLETS ORALLY ONCE A DAY TAKING MULTI VITAMIN DAILY - TABLET 1 TABLET ORALLY ONCE A DAY TAKING VITAMIN B-12 1000 MCG TABLET 1 TABLET ORALLY ONCE A DAY TAKING VITAMIN D3 2000 UNIT CAPSULE 1 CAPSULE ORALLY ONCE A DAY TAKING ATIVAN 0.5 MG TABLET 1 TABLET NEEDED ORALLY THREE TIMES A DAY NEEDED TAKING DILAUDID 2 MG TABLET 1 TABLET NEEDED ORALLY Q24H PRN SEVERE PAIN MDD1 TAKING TIZANIDINE HCL 4 MG TABLET 1 TABLET NEEDED ORALLY THREE TIMES A DAY TAKING NORCO 10-325 MG TABLET 1 TABLET NEEDED ORALLY Q12H PRN MDD2 TAKING XANAX 0.25 MG TABLET 2 TABLET ORALLY THREE TIMES DAILY NEEDED NOT-TAKING VALIUM 5 MG TABLET 2 TABS ORALLY ONCE DAILY NEEDED NOT-TAKING FAMOTIDINE 20 MG TABLET 1 TABLET ORALLY TWICE A DAY, NOTES: NONE LATELY NOT-TAKING GABAPENTIN 600 MG TABLET 1 TABLET ORALLY THREE TIMES DAILY NOT-TAKING DIAZEPAM 5 MG MISCELLANEOUS 1 TAB ORALLY TWICE A DAY NOT-TAKING PEPCID COMPLETE 10-800-165 MG TABLET CHEWABLE 1 TABLET ORALLY TWICE A DAY NOT-TAKING TOPAMAX 100 MG TABLET 1 TABLET ORALLY DAILY NOT-TAKING ESTRADIOL 1 MG TABLET 1 TABLET ORALLY DAILY NOT-TAKING NORCO 10-325 MG TABLET 1 TABLET NEEDED ORALLY EVERY 6 HRS MEDICATION LIST REVIEWED AND RECONCILED WITH THE PATIENT PAST MEDICAL HISTORY THYROID CANCER X 2, FIRST OPERATION 2010, SECOND ONE 2014 (?TYPE) RIGHT LUNG NODULE (WATCHING IT FOR NOW) L4 HERNIATED DISC FATTY LIVER DIABETES MIGRAINES ANXIETY OSTEOPENIA ALLERGIES GLIPIZIDE XL: RASH: ALLERGY CIPRO: RASH: ALLERGY HYDROXYCHLOROQUINE SULFATE: INCREASED LIVER ENZYMES: ALLERGY SURGICAL HISTORY COMPLETE HYSTERECTOMY DUE TO MENORRHAGIA 2012 THYROIDECTOMY, PARTIAL WAS DONE FIRST AND THEN THE REST TAKEN OUT 05/2014 TONSILECTOMY, ADENOIDECTOMY C- SECTION X 2 LAP BAND, AUGUST 2013 GALLBLADDER REMOVAL 05/2015 GASTRIC BYPASS 12/15/2015 BREAST/ NEEDLE BX 09/22/2015 THYROID NODULE REMOVED AND REST OF THYROID REMOVED 05/2016 SOCIAL HISTORY GENERAL: TOBACCO USE ARE YOU A:FORMER SMOKER HOW LONG HAS IT BEEN SINCE YOU LAST SMOKED?1-5 YEARS LUNG CANCER SCREENING SMOKING STATUS:FORMER SMOKER BMI CARE GOAL FOLLOW-UP ABOVE NORMAL BMI FOLLOW-UPDIETARY MANAGEMENT EDUCATION, GUIDANCE, AND COUNSELING ALCOHOL SCREENING DID YOU HAVE A DRINK CONTAINING ALCOHOL IN THE PAST YEAR?NO POINTS0 INTERPRETATIONNEGATIVE RECREATIONAL DRUG USE DRUG USE?NO CAFFEINE CAFFEINE USE?YES HOW OFTEN AND HOW MUCH? 4 TEAS A DAY SEXUAL HX HAD SEX IN THE LAST 12 MONTHS (VAGINAL, ORAL, OR ANAL)?NO HAVE YOU EVER HAD AN STD?NO HIV / HEP-C SCREENING HIV TEST OFFERED TO PATIENT:YES DATE OFFERED:07/16/2016 TEST ACCEPTED:NO HEP-C TEST OFFERED TO PATIENT:YES DATE OFFERED:07/16/2016 REASON:PATIENT DECLINED TEST ACCEPTED:NO REASON:PATIENT DECLINED OCCUPATION: DISABLED. DIET: REGULAR. EXERCISE: WALKS. MARITAL STATUS: . OTHERS AT HOME: MOTHER, CHILDREN. PETS: NONE. SHINTO [id number] ROMAN CATHOLIC LANGUAGE LANGUAGES SPOKEN:FINNISH EDUCATION LEVEL OF EDUCATION:HIGH SCHOOL LEARNING BARRIERS / SPECIAL NEEDS CHANGE FROM LAST VISIT?NO 07/28/16 BARRIERS TO LEARNING?NO HEARING IMPAIRED?NO VISION IMPAIRED?YES COGNITIVELY IMPAIRED?NO :CORRECTIVE LENSES READINESS TO LEARN?YES LEARNING PREFERENCES?NO LEARNING CAPABILITIES PRESENT?YES EMOTIONAL BARRIERS?NO SPECIAL DEVICES?NO PIECE HAND NEEDED?NO PAIN CLINIC PFS, CLERGY, PUBLIC HEALTH REFERRALS PFS REFERRAL NEEDED?NO CLERGY REFERRAL NEEDED?NO PUBLIC HEALTH REFERRAL NEEDED?NO HAS THE PATIENT BEEN EDUCATED REGARDING HIS/HER PLAN OF CARE?YES HAS THE PATIENT BEEN EDUCATED REGARDING PAIN, THE RISK FOR PAIN, THE IMPORTANCE OF EFFECTIVE PAIN MANAGEMENT, AND THE PAIN ASSESSMENT PROCESS?YES PATIENT: ____. ADVANCE DIRECTIVES HEALTH CARE PROXY?NO DECLINES INFOMATION AT THIS TIME DO YOU HAVE A DNR?NO LIVING WILL?NO POWER OF DIGITAL SALES MANAGER?NO DECLINES HOSPITALIZATION/MAJOR DIAGNOSTIC PROCEDURE FOR [facility] 05/2016 REVIEW OF SYSTEMS REVIEWED BY: PROVIDER: BRIANNA MARINO . CONSTITUTIONAL: ANY CHANGE IN YOUR MEDICAL CONDITION? NO . CHILLS NO . FEVER NO . INFECTION: DO YOU HAVE NEW INFECTIONS? NO . DO YOU HAVE HISTORY OF MRSA? NO . MUSCULOSKELETAL: ANY NEW PATTERNS OF PAIN OR NUMBNESS? YES, PT C/O LEG PAIN AND PAIN IS CREEPING HIGHER IN THE BACK . GASTROENTEROLOGY: ANY NEW CHANGE IN BOWEL CONTROL? NO . GENITOURINARY: ANY NEW CHANGE IN BLADDER CONTROL? NO . IS THERE A CHANCE YOU COULD BE ? NO . HEMATOLOGY/LYMPH: DO YOU TAKE ANY BLOOD THINNERS? (FOR EXAMPLE- COUMADIN, PLAVIX, AGGRENOX, PLATEL, PRADAXA, OR XARELTO) NO . WHEN WAS YOUR LAST DOSE? DATE: TIME: . NEUROLOGY: HAVE YOU FALLEN IN THE PAST 6 MONTHS? YES, PT STATES THREE WEEKS AGO FALLING DOWN 5 STEPS FROM LEFT LEG PAIN. DARLINE LANDING WAS TILE, PT WENT TO ER WHERE A MRI OF ABD DONE AND DOPPLER TO CHECK FOR PULSES IN FEET. PT WAS TX'D WITH PAIN MEDS AND SENT HOME . ANY NEW EXTREMITY NUMBNESS OR WEAKNESS? NO . CARDIOLOGY: DO YOU HAVE A PACEMAKER OR DEFIBRILLATOR? NO . RESPIRATORY: HAVE YOU BEEN SICK IN THE PAST WEEK? NO . FEVER NO . FLU LIKE SYMPTOMS? NO . COUGH NO . INTEGUMENTARY: DO YOU HAVE ANY RASHES OR OPEN SORES? NO . ALLERGIC/IMMUNO: ARE YOU ALLERGIC TO SHELLFISH OR IV DYE? NO . ANY NEW ALLERGIES? NO . PSYCHIATRIC: DO YOU HAVE THOUGHTS OF HURTING YOURSELF OR SOMEONE ELSE? NO . ARE YOU ABUSED, NEGLECTED, OR IN AN UNSAFE ENVIRONMENT? NO . ENDOCRINOLOGY: ARE YOU DIABETIC? NO . OTHER: DO YOU NEED ANY PRESCRIPTIONS? NO . IF YES, PLEASE LIST: ____ . ANY NEW PROBLEMS WITH YOUR MEDICATIONS? NO . WHEN DID YOU LAST EAT? ____ . WHEN DID YOU LAST DRINK? ____ . WHAT DID YOU LAST DRINK? ____ . NAME OF PERSON DRIVING YOU HOME? ____ . DO YOU HAVE ANY OTHER QUESTIONS OR CONCERNS NO . VITAL SIGNS WT 228.2 LBS, HT 70 IN, BMI 32.74 INDEX, BP 131/62 MM HG, HR 84 /MIN, RR 16 /MIN, TEMP 96.9 F, OXYGEN SAT % 97%, NA INITIALS SC 13:18, REVIEWED BY: MARK. EXAMINATION GENERAL EXAMINATION: GENERAL APPEARANCE:AWAKE,ALERT. PSYCHAFFECT FLAT. LUNGS:LUNG CHAN ARE CLEAR TO AUSCULTATION BILATERALLY. GOOD MOVEMENT OF AIR. HEART:S1, S2 IN A REGULAR RATE AND RHYTHM. NO SIGNIFICANT MURMURS, RUBS OR GALLOPS NOTED. LUMBAR SACRAL SPINEMUSCLE STRENGTH TESTING 5/5 BILATERAL LOWER EXTREMITIES, TRIGGER POINTS:, ELICITED WITH PALPATION OVER MID THORACIC MUSCLES.. PERIPHERAL PULSES:PEDAL PULSES NOT PALPABLE.BILATERAL FEET WARM TO TOUCH.HUERTA CAPILLARY REFILL BILAT.MILD ANKLE SWELLING NOTED LEFT ANKLE. ASSESSMENTS ACUTE BILATERAL THORACIC BACK PAIN - M54.6 (PRIMARY) INTERVERTEBRAL DISC DISORDER WITH RADICULOPATHY OF LUMBOSACRAL REGION - M51.17 RHEUMATOID ARTHRITIS INVOLVING MULTIPLE SITES WITH POSITIVE RHEUMATOID FACTOR - M05.79 TREATMENT ACUTE BILATERAL THORACIC BACK PAIN STOP TIZANIDINE HCL TABLET, 4 MG, 1 TABLET NEEDED, ORALLY, THREE TIMES A DAY REFILL DILAUDID TABLET, 2 MG, 1 TABLET NEEDED, ORALLY, Q24H PRN SEVERE PAIN MDD1, 30 DAY(S), 30, REFILLS 0 REFILL NORCO TABLET, 10-325 MG, 1 TABLET NEEDED, ORALLY, Q12H PRN MDD2, 30 DAY(S), 60, REFILLS 0 START ROBAXIN TABLET, 500 MG, 1, ORALLY, Q8H PRN PAIN, 30 DAY(S), 45, REFILLS 2 [facility] MRI SPINE,THORACIC WITHOUT [id number] 01/06/2017 2:38:07 PM > NO AUTH REQUIRED, MEDICARE PART A/B NOTES: ISTOP REGISTRY REVIEWED AND DEMNOSTRATES COMPLLIANCE. BRINGS IN MEDICATIONS WHICH IS APPROPRIATE FOR WHAT WAS DISPENSED. RECENT URINE TOXICOLOGY REVIEWED. NO UNAUTHORIZED MEDICATIONS. NO ILLICIT SUBSTANCES AND PRESCRIBED MEDICATIONS WERE PRESENT. URINE TOX TODAY, RISKS AND BENEFITS OF NARCOTIC/OPIOD MEDICATIONS WERE REVIEWED WITH PATIENT - THIS INCLUDES BUT IS NOT LIMITED TO RISK OF DEPENDANCE/DEVELOPMENT OF ADDICTION, MOOD DISTURBANCE AND DEPRESSION, OSTEOPOROSIS, HORMONAL AND LABIDAL CHANGES, RESPIRATORY DEPRESSION AND . PATIENT IS ADVISED NOT TO DRIVE WHILE ON THESE MEDICATIONS, REVIEWED WITH PATIENT THE POTENTIAL RISK OF INCREASED SEDATION, RESPIRATORY SUPPRESSION AND WITH THE COMBINATION OF BENZODIAZAPINE AND OPIOD MEDICATIONS. PATIENT STATES HE UNDERSTANDS THIS RISK AND WISHES TO CONTINUE WITH THERAPY. CLINICAL NOTES: JUANCARLOS PT HAND OUT PRINTED, REVIEWED AND GIVEN TO PT. PROCEDURE CODES FA211 ESTABILISHED PATIENT [facility] CHARGE G8730 PAIN ASSESS POS TOOL F/U PLAN DOC G8427 DOC MEDS VERIFIED W/PT OR RE DISPOSITION & COMMUNICATION FOLLOW UP 4 WEEKS ELECTRONICALLY SIGNED BY NED GOMEZ ON 01/24/2017 AT 07:44 PM EST DISCLAIMER : THIS IS A VISIT SUMMARY EXTRACTED FROM THE [employer] CHART. IT IS NOT A COPY OF THE [employer] PROGRESS NOTE. JAMIE
== END ==
LOC: M PAIN 13:00
PROVIDERS: ATTEND Nurse Practitioner Family
DX: G89.29 Other chronic pain (principal); M51.17 Intervertebral disc disorders with radiculopathy, lumbosacral region; M05.79 Rheumatoid arthritis with rheumatoid factor of multiple sites without organ or systems involvement; E89.0 Postprocedural hypothyroidism; G43.009 Migraine without aura, not intractable, without status migrainosus; F41.9 Anxiety disorder, unspecified; K74.60 Unspecified cirrhosis of liver; E55.9 Vitamin D deficiency, unspecified; Z88.8 Allergy status to other drugs, medicaments and biological substances; Z79.899 Other long term (current) drug therapy; Z87.891 Personal history of nicotine dependence; Z98.84 Bariatric surgery status

== ENCOUNTER → 2017-01-10 | Outpatient (CLI) | payer MEDICARE, MEDICAID ==
--- NOTE | 2017-01-11 09:50 | REP ---
MRI THORACIC SPINE WITHOUT CONTRAST: HISTORY: Back pain. A small central disc protrusion is present at the T5-6 level. There is minimal effacement of the thecal sac without spinal cord compression. The T5 neural foramina are patent. A small central disc protrusion is present at the T7-8 level. There is minimal effacement of the thecal sac without spinal cord compression. The T7 neural foramina are patent. A small central disc protrusion is present at the T8-9 level. There is minimal effacement of the thecal sac without spinal cord compression. The T8 neural foramina are patent. A small central disc protrusion is present at the T9-10 level. There is minimal effacement of the thecal sac without spinal cord compression. The T9 neural foramina are patent. There is no other disc bulge or herniation. The remaining neural foramina are patent. The spinal cord is normal in signal intensity. A hemangioma is present in the T8 vertebral body. Normal signal intensity is present in the remaining thoracic vertebral bodies. IMPRESSION: Small disc protrusion of the T5-6 and T7-8 through T9-10 levels without spinal cord compression. Signed by Mynor Panchal MD 01/11/2017 10:01 A
== END ==
LOC: M RAD 17:39
PROVIDERS: ATTEND Nurse Practitioner Family
DX: M54.6 Pain in thoracic spine (principal)

== ENCOUNTER → 2017-01-17 | Outpatient (CLI) | payer MEDICARE, MEDICAID ==
[2017-01-17 09:22] LABS: REASON FOR REVIEW COMPREHENSIVE REVIEW
[2017-01-17 09:56] LABS: TOTAL PROTEIN 6.8 GM/DL (6.4-8.2)
[2017-01-18 13:49] LABS: ALBUMIN 3.88 GM/DL (3.29-5.55); GAMMA GLOBULIN % 13.3 % (11.1-18.8)
== END ==
LOC: M LAB 08:23
PROVIDERS: ATTEND Family Medicine
DX: D72.821 Monocytosis (symptomatic) (principal)

== ENCOUNTER → 2017-02-03 | Outpatient (CLI) | payer MEDICARE, MEDICAID | LOC: M PAIN 09:45 | DX: M51.17 Intervertebral disc disorders with radiculopathy, lumbosacral region (principal); M05.79 Rheumatoid arthritis with rheumatoid factor of multiple sites without organ or systems involvement; E11.9 Type 2 diabetes mellitus without complications; G43.909 Migraine, unspecified, not intractable, without status migrainosus; F41.9 Anxiety disorder, unspecified; E55.9 Vitamin D deficiency, unspecified; M85.80 Other specified disorders of bone density and structure, unspecified site; Z98.84 Bariatric surgery status; Z86.39 Personal history of other endocrine, nutritional and metabolic disease; Z87.891 Personal history of nicotine dependence; Z88.6 Allergy status to analgesic agent; Z88.2 Allergy status to sulfonamides; Z88.8 Allergy status to other drugs, medicaments and biological substances; Z79.891 Long term (current) use of opiate analgesic; Z79.899 Other long term (current) drug therapy | CPT/HCPCS: G0463 ==

== ENCOUNTER 2017-03-07 10:54 | Outpatient (CLI) | payer MEDICARE, MEDICAID ==
[2017-03-07] MEDS: NS IV (11:48)
[2017-03-07] MEDS: IRON SUCROSE IV (11:48)
== END 2017-03-07 15:45 | disposition home or self-care (01) ==
LOC: M INFU 10:54
DX: D50.9 Iron deficiency anemia, unspecified (principal); I10 Essential (primary) hypertension; K21.9 Gastro-esophageal reflux disease without esophagitis; E03.9 Hypothyroidism, unspecified; M54.5 Low back pain; F32.9 Major depressive disorder, single episode, unspecified; F41.9 Anxiety disorder, unspecified; Z79.891 Long term (current) use of opiate analgesic; Z79.899 Other long term (current) drug therapy; Z88.1 Allergy status to other antibiotic agents; Z88.8 Allergy status to other drugs, medicaments and biological substances; Z87.891 Personal history of nicotine dependence; Z98.84 Bariatric surgery status
CPT/HCPCS: 96365

== ENCOUNTER → 2017-03-17 | Outpatient (CLI) | payer MEDICARE, MEDICAID ==
[2017-03-17 14:53] LABS: BASO % 0.8 % (0.0-1.0); EOS # 0.1 10^3/uL (0.0-0.50); EOS % 2.1 % (0.0-3.0); HEMATOCRIT 39.3 % (36.0-47.0); HEMOGLOBIN 12.6 g/dl (12.0-16.0); IMMATURE GRANULOCYTE % 0.2 % (0-0); LYMPH # 2.3 10^3/uL (1.5-4.5); LYMPH % 47.1 % (24.0-44.0); MEAN CORPUSCULAR HEMOGLOBIN 26.4 pg (27.0-33.0); MEAN CORPUSCULAR HGB CONC 32.1 g/dl (32.0-36.5); MEAN CORPUSCULAR VOLUME 82.2 fl (80.0-96.0); MONO # 0.2 10^3/uL (0.0-0.8); MONO % 4.8 % (0.0-5.0); NEUTROPHILS # 2.2 10^3/uL (1.8-7.7); PLATELET COUNT, AUTOMATED 146 10^3/uL (150-450); RED BLOOD COUNT 4.78 10^6/uL (4.00-5.40); RED CELL DISTRIBUTION WIDTH 15.5 % (11.5-14.5); WHITE BLOOD COUNT 4.8 10^3/uL (4.0-10.0)
[2017-03-17 15:16] LABS: FERRITIN 157 NG/ML (8-252); IRON (FE) 55 UG/DL (50-170); PERCENT SATURATION 18.5 % (13.2-45.0); TOTAL IRON BINDING CAPACITY 298 UG/DL (250-450)
== END ==
LOC: M LAB 14:15
DX: E61.1 Iron deficiency (principal)
CPT/HCPCS: 83550

== ENCOUNTER → 2017-03-23 | Outpatient (CLI) | payer MEDICARE, MEDICAID | LOC: M PAIN 09:00 | DX: G89.29 Other chronic pain (principal); M51.17 Intervertebral disc disorders with radiculopathy, lumbosacral region; M05.79 Rheumatoid arthritis with rheumatoid factor of multiple sites without organ or systems involvement; K76.0 Fatty (change of) liver, not elsewhere classified; E11.9 Type 2 diabetes mellitus without complications; G43.909 Migraine, unspecified, not intractable, without status migrainosus; R91.1 Solitary pulmonary nodule; F41.9 Anxiety disorder, unspecified; M85.80 Other specified disorders of bone density and structure, unspecified site; Z79.891 Long term (current) use of opiate analgesic; Z87.891 Personal history of nicotine dependence; Z85.850 Personal history of malignant neoplasm of thyroid; Z79.899 Other long term (current) drug therapy; Z88.8 Allergy status to other drugs, medicaments and biological substances; Z88.6 Allergy status to analgesic agent; Z88.1 Allergy status to other antibiotic agents; Z98.84 Bariatric surgery status | CPT/HCPCS: G0463 ==

== ENCOUNTER → 2017-03-27 | Outpatient (CLI) | payer MEDICARE, MEDICAID ==
[2017-03-27 13:30] LABS: ALBUMIN 3.9 GM/DL (3.2-5.2); ANION GAP 9 MEQ/L (8-16); BLOOD UREA NITROGEN 12 MG/DL (7-18); CALCIUM LEVEL 8.4 MG/DL (8.5-10.1); CARBON DIOXIDE LEVEL 24 MEQ/L (21-32); CHLORIDE LEVEL 112 MEQ/L (98-107); CREATININE FOR GFR 0.71 MG/DL (0.55-1.02); FREE T4 1.21 NG/DL (0.76-1.46); GLOMERULAR FILTRATION RATE > 60.0 (>60); GLUCOSE, FASTING 80 MG/DL (70-100); PHOSPHORUS LEVEL 3.5 MG/DL (2.5-4.9); POTASSIUM SERUM 4.2 MEQ/L (3.5-5.1); SODIUM LEVEL 145 MEQ/L (136-145)
[2017-03-28 10:10] LABS: TOTAL 25(OH) VITAMIN D 57.1 NG/ML (30.0-100.0)
[2017-03-29 14:15] LABS: THRYOGLOBULIN ANTIBODIES (ATA) < 1.0 IU/mL (0.0-0.9); THYROGLOBULIN QUANTITATIVE < 0.1 ng/mL (1.5-38.5)
== END ==
LOC: M LAB 12:17
DX: C73 Malignant neoplasm of thyroid gland (principal); E89.0 Postprocedural hypothyroidism; E55.9 Vitamin D deficiency, unspecified
CPT/HCPCS: 84443

== ENCOUNTER → 2017-04-07 | Outpatient (REF) | payer MEDICARE, MEDICAID | LOC: M SFHCPLAZ 11:22 | DX: R35.0 Frequency of micturition (principal) | CPT/HCPCS: 87186 ==

== ENCOUNTER → 2017-04-14 | Outpatient (REF) | payer MEDICARE, MEDICAID ==
[2017-04-14 12:41] LABS: BASO # 0.1 10^3/uL (0.0-0.2); EOS # 0.1 10^3/uL (0.0-0.50); EOS % 2.2 % (0.0-3.0); HEMATOCRIT 39.8 % (36.0-47.0); HEMOGLOBIN 12.5 g/dl (12.0-16.0); IMMATURE GRANULOCYTE % 0.2 % (0-3.0); LYMPH # 2.2 10^3/uL (1.5-4.5); LYMPH % 43.5 % (24.0-44.0); MEAN CORPUSCULAR HEMOGLOBIN 26.5 pg (27.0-33.0); MEAN CORPUSCULAR HGB CONC 31.4 g/dl (32.0-36.5); MEAN CORPUSCULAR VOLUME 84.5 fl (80.0-96.0); MONO # 0.4 10^3/uL (0.0-0.8); MONO % 7.1 % (0.0-5.0); NEUTROPHILS # 2.3 10^3/uL (1.8-7.7); PLATELET COUNT, AUTOMATED 131 10^3/uL (150-450); RED BLOOD COUNT 4.71 10^6/uL (4.00-5.40); RED CELL DISTRIBUTION WIDTH 15.1 % (11.5-14.5)
[2017-04-14 12:58] LABS: C REACTIVE PROTEIN QUANTITATIV 0.89 MG/DL (0.00-0.30); FREE T3 2.6 PG/ML (2.2-4.0)
[2017-04-14 12:58] LABS: IRON (FE) 50 UG/DL (50-170)
[2017-04-14 13:15] LABS: ERYTHROCYTE SEDIMENTATION RATE 38 mm/hr (0-20)
[2017-04-14 13:19] LABS: ESTIMATED AVERAGE GLUCOSE 105 MG/DL (60-110); HEMOGLOBIN A1c 5.3 %
[2017-04-19 00:06] LABS: ANCA-ATYPICAL <1:20 titer (Neg:<1:20); ANTI DOUBLE STRAND-DNA AB 2 IU/mL (0-9); ANTI-SMOOTH MUSCLE ANTIBODY 8 Units (0-19); ANTINUCLEAR ANTIBODIES DIRECT Negative (Negative); CYTOPLASMIC NEUTROP AB ANCA-C <1:20 titer (Neg:<1:20); PERINUCLEAR AB ANCA-P <1:20 titer (Neg:<1:20)
== END ==
LOC: M SFHCPLAZ 07:58
DX: R74.8 Abnormal levels of other serum enzymes (principal); D69.6 Thrombocytopenia, unspecified; G62.9 Polyneuropathy, unspecified; E61.1 Iron deficiency; E89.0 Postprocedural hypothyroidism; R73.01 Impaired fasting glucose
CPT/HCPCS: 83540

== ENCOUNTER → 2017-04-21 | Outpatient (CLI) | payer MEDICARE, MEDICAID | LOC: M PAIN 10:00 | DX: M54.6 Pain in thoracic spine (principal); M05.79 Rheumatoid arthritis with rheumatoid factor of multiple sites without organ or systems involvement; G89.29 Other chronic pain; E89.0 Postprocedural hypothyroidism; Z79.891 Long term (current) use of opiate analgesic; Z79.899 Other long term (current) drug therapy; Z88.8 Allergy status to other drugs, medicaments and biological substances; Z85.850 Personal history of malignant neoplasm of thyroid; Z87.891 Personal history of nicotine dependence | CPT/HCPCS: G0463 ==

== ENCOUNTER 2017-05-04 08:33 | Outpatient (CLI) | payer MEDICARE, MEDICAID ==
[2017-05-04] MEDS: NS IV (10:14)
[2017-05-04] MEDS: IRON SUCROSE IV (10:14)
[2017-05-04] MEDS: NS 1,000 ML IV (13:56)
== END 2017-05-04 16:25 | disposition home or self-care (01) ==
LOC: M INFU 08:33
DX: D50.9 Iron deficiency anemia, unspecified (principal); I10 Essential (primary) hypertension; E03.9 Hypothyroidism, unspecified; E11.9 Type 2 diabetes mellitus without complications; K21.9 Gastro-esophageal reflux disease without esophagitis; F32.9 Major depressive disorder, single episode, unspecified; F41.9 Anxiety disorder, unspecified; Z79.891 Long term (current) use of opiate analgesic; Z79.899 Other long term (current) drug therapy; Z88.8 Allergy status to other drugs, medicaments and biological substances; Z85.850 Personal history of malignant neoplasm of thyroid
CPT/HCPCS: J1756

== ENCOUNTER → 2017-05-13 | Outpatient (CLI) | payer MEDICARE, MEDICAID ==
[2017-05-13 10:33] LABS: RHEUMATOID FACTOR QUANT < 10.0 IU/ML (0-15.0)
[2017-05-18 00:06] LABS: ANTI DOUBLE STRAND-DNA AB 2 IU/mL (0-9); ANTI-MITOCHONDRIAL ANTIBODY 1.3 Units (0.0-20.0); ANTI-SINGLE STRAND DNA Ab IgG 57 EU (0-19)
== END ==
LOC: M LAB 09:39
DX: K74.60 Unspecified cirrhosis of liver (principal)
CPT/HCPCS: 86255

== ENCOUNTER → 2017-05-23 | Outpatient (CLI) | payer MEDICARE, MEDICAID | LOC: M PAIN 09:15 | DX: M51.17 Intervertebral disc disorders with radiculopathy, lumbosacral region (principal); G89.29 Other chronic pain; M05.79 Rheumatoid arthritis with rheumatoid factor of multiple sites without organ or systems involvement; E11.9 Type 2 diabetes mellitus without complications; G43.909 Migraine, unspecified, not intractable, without status migrainosus; F41.9 Anxiety disorder, unspecified; M85.80 Other specified disorders of bone density and structure, unspecified site; Z79.891 Long term (current) use of opiate analgesic; Z79.899 Other long term (current) drug therapy; Z88.2 Allergy status to sulfonamides; Z88.6 Allergy status to analgesic agent; Z88.8 Allergy status to other drugs, medicaments and biological substances; Z98.84 Bariatric surgery status; Z87.891 Personal history of nicotine dependence | CPT/HCPCS: G0463 ==

== ENCOUNTER → 2017-05-30 | Outpatient (CLI) | payer MEDICARE, MEDICAID ==
[2017-05-30 13:42] LABS: BASO % 0.9 % (0.0-1.0); EOS # 0.1 10^3/uL (0.0-0.50); EOS % 3.2 % (0.0-3.0); HEMATOCRIT 39.9 % (36.0-47.0); HEMOGLOBIN 12.9 g/dl (12.0-15.5); IMMATURE GRANULOCYTE % 0.2 % (0-3.0); LYMPH # 2.2 10^3/uL (1.5-4.5); LYMPH % 49.5 % (24.0-44.0); MEAN CORPUSCULAR HEMOGLOBIN 27.6 pg (27.0-33.0); MEAN CORPUSCULAR HGB CONC 32.3 g/dl (32.0-36.5); MEAN CORPUSCULAR VOLUME 85.3 fl (80.0-96.0); MONO # 0.3 10^3/uL (0.0-0.8); MONO % 6.2 % (0.0-5.0); NEUTROPHILS # 1.7 10^3/uL (1.8-7.7); PLATELET COUNT, AUTOMATED 133 10^3/uL (150-450); RED BLOOD COUNT 4.68 10^6/uL (4.00-5.40); RED CELL DISTRIBUTION WIDTH 15.7 % (11.5-14.5); WHITE BLOOD COUNT 4.3 10^3/uL (4.0-10.0)
[2017-05-30 13:53] LABS: HEMATOCRIT 39.9 % (36.0-47.0)
[2017-05-30 13:53] LABS: ESTIMATED AVERAGE GLUCOSE 100 MG/DL (60-110); HEMOGLOBIN A1c 5.1 %
[2017-05-30 13:59] LABS: ALBUMIN 3.8 GM/DL (3.2-5.2); ALBUMIN/GLOBULIN RATIO 1.19 (1.00-1.93); ALKALINE PHOSPHATASE 403 U/L (45-117); ALT/SGPT 65 U/L (12-78); ANION GAP 7 MEQ/L (8-16); AST/SGOT 55 U/L (7-37); BILIRUBIN,TOTAL 0.4 MG/DL (0.2-1.0); BLOOD UREA NITROGEN 9 MG/DL (7-18); CALCIUM LEVEL 8.4 MG/DL (8.5-10.1); CARBON DIOXIDE LEVEL 21 MEQ/L (21-32); CHLORIDE LEVEL 117 MEQ/L (98-107); CREATININE FOR GFR 0.73 MG/DL (0.55-1.30); FERRITIN 148 NG/ML (8-252); GLOMERULAR FILTRATION RATE > 60.0 (>60); GLUCOSE, FASTING 105 MG/DL (70-100); IRON (FE) 55 UG/DL (50-170); MAGNESIUM LEVEL 2.4 MG/DL (1.8-2.4); PERCENT SATURATION 21.4 % (13.2-45.0); PHOSPHORUS LEVEL 3.8 MG/DL (2.5-4.9); POTASSIUM SERUM 3.5 MEQ/L (3.5-5.1); SODIUM LEVEL 145 MEQ/L (136-145); TOTAL IRON BINDING CAPACITY 257 UG/DL (250-450)
[2017-05-30 14:05] LABS: TOTAL 25(OH) VITAMIN D 58.8 NG/ML (30.0-100.0); VITAMIN B12 LEVEL 388 PG/ML (247-911)
[2017-05-31 12:17] LABS: PRETREATED FOLATE FOR RBCFOL 8.3 NG/ML; RBC FOLATE 436.8 NG/ML (280-791)
== END ==
LOC: M LAB 12:35
DX: K91.2 Postsurgical malabsorption, not elsewhere classified (principal); E55.9 Vitamin D deficiency, unspecified; Z98.84 Bariatric surgery status

== ENCOUNTER → 2017-05-30 | Outpatient (CLI) | payer MEDICARE, MEDICAID ==
[2017-05-30 13:41] LABS: URIC ACID 5.3 MG/DL (2.6-6.0)
[2017-05-30 13:41] LABS: IRON (FE) 52 UG/DL (50-170)
[2017-06-03 00:07] LABS: SOLUBLE LIVER ANTIGEN IgG ABY 1.3 units (0.0-20.0)
[2017-06-03 00:07] LABS: LIVER-KIDNEY MICROSOMAL ABY 0.8 Units (0.0-20.0)
== END ==
LOC: M LAB 12:38
DX: E61.1 Iron deficiency (principal); M13.0 Polyarthritis, unspecified; K74.60 Unspecified cirrhosis of liver; K91.2 Postsurgical malabsorption, not elsewhere classified; E55.9 Vitamin D deficiency, unspecified; Z98.84 Bariatric surgery status
CPT/HCPCS: 83550

== ENCOUNTER → 2017-05-31 | Outpatient (REF) | payer MEDICARE, MEDICAID ==
[2017-05-31 13:27] LABS: COLLAGEN EPINEPHRINE 149 SECONDS (74-162)
[2017-06-02 08:11] LABS: F8 ACTIVITY FOR F8 PANEL 146 % (57-163); F8 ACTIVITY vWB FOR F8 PANEL 125 % (50-200); F8 ANTIGEN FOR F8 PANEL 182 % (50-200); INTERPRETATION: Note (.)
== END ==
LOC: M LAB REF 12:46
DX: D69.6 Thrombocytopenia, unspecified (principal)
CPT/HCPCS: 85246

== ENCOUNTER → 2017-07-12 | Outpatient (CLI) | payer MEDICARE, MEDICAID | LOC: M RAD 09:07 | DX: M13.0 Polyarthritis, unspecified (principal) | CPT/HCPCS: 73120 ==

== ENCOUNTER → 2017-07-18 | Outpatient (CLI) | payer MEDICARE, MEDICAID | LOC: M PAIN 11:30 | DX: M51.17 Intervertebral disc disorders with radiculopathy, lumbosacral region (principal); M05.79 Rheumatoid arthritis with rheumatoid factor of multiple sites without organ or systems involvement; G89.29 Other chronic pain; E11.9 Type 2 diabetes mellitus without complications; G43.909 Migraine, unspecified, not intractable, without status migrainosus; F41.9 Anxiety disorder, unspecified; M85.80 Other specified disorders of bone density and structure, unspecified site; Z79.891 Long term (current) use of opiate analgesic; Z79.899 Other long term (current) drug therapy; Z88.6 Allergy status to analgesic agent; Z88.8 Allergy status to other drugs, medicaments and biological substances; Z98.84 Bariatric surgery status; Z87.891 Personal history of nicotine dependence | CPT/HCPCS: G0463 ==

== ENCOUNTER 2017-08-05 20:07 | Emergency (ER) | payer MEDICARE, MEDICAID | END 2017-08-05 22:45 | disposition home or self-care (01) | LOC: M ED 20:07 | DX: M79.671 Pain in right foot (principal); Z88.8 Allergy status to other drugs, medicaments and biological substances; Z88.1 Allergy status to other antibiotic agents; Z79.899 Other long term (current) drug therapy; Z79.890 Hormone replacement therapy | CPT/HCPCS: 93971 ==

== ENCOUNTER → 2017-09-16 | Outpatient (CLI) | payer MEDICARE, MEDICAID | LOC: M PAIN 08:30 | DX: M51.17 Intervertebral disc disorders with radiculopathy, lumbosacral region (principal); G89.29 Other chronic pain; M05.79 Rheumatoid arthritis with rheumatoid factor of multiple sites without organ or systems involvement; E11.9 Type 2 diabetes mellitus without complications; G43.909 Migraine, unspecified, not intractable, without status migrainosus; F41.9 Anxiety disorder, unspecified; M85.80 Other specified disorders of bone density and structure, unspecified site; K74.60 Unspecified cirrhosis of liver; Z79.84 Long term (current) use of oral hypoglycemic drugs; Z79.891 Long term (current) use of opiate analgesic; Z79.899 Other long term (current) drug therapy; Z88.6 Allergy status to analgesic agent; Z88.8 Allergy status to other drugs, medicaments and biological substances; Z85.850 Personal history of malignant neoplasm of thyroid; Z98.84 Bariatric surgery status | CPT/HCPCS: G0463 ==

== ENCOUNTER → 2017-11-21 | Outpatient (CLI) | payer MEDICARE, MEDICAID | LOC: M PAIN 08:30 | DX: M51.17 Intervertebral disc disorders with radiculopathy, lumbosacral region (principal); G89.29 Other chronic pain; M05.79 Rheumatoid arthritis with rheumatoid factor of multiple sites without organ or systems involvement; E11.9 Type 2 diabetes mellitus without complications; G43.909 Migraine, unspecified, not intractable, without status migrainosus; F41.9 Anxiety disorder, unspecified; M85.80 Other specified disorders of bone density and structure, unspecified site; Z79.84 Long term (current) use of oral hypoglycemic drugs; Z79.891 Long term (current) use of opiate analgesic; Z79.899 Other long term (current) drug therapy; Z88.6 Allergy status to analgesic agent; Z88.8 Allergy status to other drugs, medicaments and biological substances; Z85.850 Personal history of malignant neoplasm of thyroid; Z98.84 Bariatric surgery status; Z87.891 Personal history of nicotine dependence | CPT/HCPCS: G0463 ==

== ENCOUNTER → 2017-12-19 | Outpatient (CLI) | payer MEDICARE, MEDICAID | LOC: M PAIN 09:15 | DX: M51.17 Intervertebral disc disorders with radiculopathy, lumbosacral region (principal); M05.79 Rheumatoid arthritis with rheumatoid factor of multiple sites without organ or systems involvement; G62.9 Polyneuropathy, unspecified; R91.1 Solitary pulmonary nodule; K76.0 Fatty (change of) liver, not elsewhere classified; E11.9 Type 2 diabetes mellitus without complications; G43.909 Migraine, unspecified, not intractable, without status migrainosus; F41.9 Anxiety disorder, unspecified; E89.0 Postprocedural hypothyroidism; M85.80 Other specified disorders of bone density and structure, unspecified site; Z87.891 Personal history of nicotine dependence; Z85.850 Personal history of malignant neoplasm of thyroid; Z79.84 Long term (current) use of oral hypoglycemic drugs; Z79.891 Long term (current) use of opiate analgesic; Z79.899 Other long term (current) drug therapy; Z98.84 Bariatric surgery status; Z90.710 Acquired absence of both cervix and uterus; Z88.1 Allergy status to other antibiotic agents; Z88.6 Allergy status to analgesic agent; Z88.8 Allergy status to other drugs, medicaments and biological substances | CPT/HCPCS: G0463 ==

== ENCOUNTER → 2018-01-10 | Outpatient (REF) | payer MEDICARE, MEDICAID ==
[2018-01-10 12:21] LABS: CARBOXYHEMOGLOBIN 2.2 % (0.0-1.5)
== END ==
LOC: M LAB REF 12:07
DX: R53.1 Weakness (principal); R53.83 Other fatigue
CPT/HCPCS: 82375

== ENCOUNTER → 2018-01-18 | Outpatient (CLI) | payer MEDICARE, MEDICAID ==
[2018-01-18 17:23] LABS: FREE T4 1.29 NG/DL (0.76-1.46); IRON (FE) 41 UG/DL (50-170); PERCENT SATURATION 16.1 % (13.2-45.0); TOTAL IRON BINDING CAPACITY 254 UG/DL (250-450)
== END ==
LOC: M LAB 16:31
DX: R53.83 Other fatigue (principal)
CPT/HCPCS: 83550

== ENCOUNTER → 2018-01-18 | Outpatient (CLI) | payer MEDICARE, MEDICAID | LOC: M PAIN 10:15 | DX: M51.17 Intervertebral disc disorders with radiculopathy, lumbosacral region (principal); G89.29 Other chronic pain; M05.79 Rheumatoid arthritis with rheumatoid factor of multiple sites without organ or systems involvement; G62.9 Polyneuropathy, unspecified; E11.9 Type 2 diabetes mellitus without complications; G43.909 Migraine, unspecified, not intractable, without status migrainosus; F41.9 Anxiety disorder, unspecified; M85.80 Other specified disorders of bone density and structure, unspecified site; Z79.84 Long term (current) use of oral hypoglycemic drugs; Z79.891 Long term (current) use of opiate analgesic; Z79.899 Other long term (current) drug therapy; Z88.2 Allergy status to sulfonamides; Z88.6 Allergy status to analgesic agent; Z88.8 Allergy status to other drugs, medicaments and biological substances; Z86.018 Personal history of other benign neoplasm; Z85.850 Personal history of malignant neoplasm of thyroid; Z87.891 Personal history of nicotine dependence; Z98.84 Bariatric surgery status | CPT/HCPCS: 83550; G0463 ==

== ENCOUNTER → 2018-02-03 | Outpatient (CLI) | payer MEDICARE, MEDICAID | LOC: M INFU 11:59 | DX: Z53.20 Procedure and treatment not carried out because of patient's decision for unspecified reasons (principal) ==

== ENCOUNTER → 2018-02-17 | Outpatient (CLI) | payer MEDICARE, MEDICAID ==
[~2018-02-17] MED LIST changes: +BACL10TA2 PO; +CALC600T60 PO; +CODE15TA PO; +GAS-80CH PO; +HYDR-3719 PO; +HYDR2TAB2 PO; -LAMO25TA2 PO; +LAMO25TA4 PO; +LEVO200T31 PO; +LEVO50TA45 PO; +LORA0.5T11 PO; +MORP15TASA PO; +PREG50CA PO; +REXU1TAB2 PO; +SERT-138 PO; +TIZA4CAP PO; +TROK1CAP8 PO; +VITA100T20 PO; +VITADRO5 PO
[2018-02-17 08:50] LABS: BASO % 0.8 % (0.0-1.0); EOS # 0.1 10^3/uL (0.0-0.50); EOS % 2.8 % (0.0-3.0); HEMATOCRIT 43.1 % (36.0-47.0); HEMOGLOBIN 13.8 g/dl (12.0-15.5); LYMPH # 1.9 10^3/uL (1.5-4.5); LYMPH % 38.6 % (24.0-44.0); MEAN CORPUSCULAR HEMOGLOBIN 27.1 pg (27.0-33.0); MEAN CORPUSCULAR VOLUME 84.5 fl (80.0-96.0); MONO # 0.3 10^3/uL (0.0-0.8); MONO % 6.7 % (0.0-5.0); NEUTROPHILS # 2.5 10^3/uL (1.8-7.7); NEUTROPHILS % 50.9 % (36.0-66.0); PLATELET COUNT, AUTOMATED 148 10^3/uL (150-450)
[2018-02-17 09:09] LABS: FREE T4 1.11 NG/DL (0.76-1.46); PERCENT SATURATION 19.3 % (13.2-45.0); THYROID STIMULATING HORMONE 1.17 uIU/ML (0.358-3.740)
== END ==
LOC: M LAB 08:17
PROVIDERS: ATTEND Physician Assistant
DX: D50.9 Iron deficiency anemia, unspecified (principal)

== ENCOUNTER → 2018-03-24 | Outpatient (CLI) | payer MEDICARE, MEDICAID ==
[~2018-03-24] MED LIST changes: +DOCU100T8 PO; +FLUO40CA PO; +NUCY75TA11 PO; +VIST50CA PO; +VYVA30CA4 PO; +[UNRECOGNIZED DRUG - CODE] PO
--- NOTE | 2018-04-08 00:41 | ECWPNPC ---
PATIENT NAME: PADMINI SANTA : 1980 GENDER: FEMALE VISIT DATE: 03/24/2018 DISCHARGE DATE: 03/24/18 1135 VISIT LOCKED DATE TIME: PHYSICIAN: BRIANNA KIMBLE RESOURCE: BRIANNA KIMBLE REASON FOR APPOINTMENT 1. BACK PAIN HISTORY OF PRESENT ILLNESS HISTORY OF PRESENT ILLNESS: HERE FOR F/U /MED MANAGEMENT OF CHRONIC LOW BACK PAIN AND BILAT. LEG PAIN.RATING PAIN VAS 6/10.SHE CONTINUES TO DO VERY WELL AFTER INCREASE OF NUCYNTA ER TO 250MG BID AT LAST VISIT.REPORTING LESS USE OF NUCYNTA 75MG PRN FOR PAIN.REPORTING IMPROVED ACTIVITY TOLERANCE FOR THE FIRST TIME IN YEARS. PAIN THE PATIENT DESCRIBES THE PAIN... THE PATIENT DESCRIBES THE PAIN... FALL RISK SCREENING: SCREENING :NO FALLS IN THE PAST YEAR CURRENT MEDICATIONS TAKING VENOFER 20 MG/ML SOLUTION DIRECTED INTRAVENOUS NEEDED TAKING PROMETHAZINE HCL 12.5 MG TABLET 1 TABLET NEEDED ORALLY EVERY 12 HRS TAKING TOPAMAX 200 MG TABLET 1 TABLET ORALLY BEFORE BEDTIME TAKING LEVOTHYROXINE SODIUM 150 MCG TABLET 1 TAB ORALLY DAILY TAKING SERTRALINE HCL 100 MG TABLET 2 TABLETS ORALLY ONCE A DAY TAKING MULTI VITAMIN DAILY - TABLET 1 TABLET ORALLY ONCE A DAY TAKING VITAMIN B-12 1000 MCG TABLET 1 TABLET ORALLY ONCE A DAY TAKING VITAMIN D3 5000 UNIT CAPSULE 1 CAPSULE ORALLY ONCE A DAY TAKING ATIVAN 0.5 MG TABLET 1 TABLET NEEDED ORALLY THREE TIMES A DAY NEEDED TAKING TROKENDI XR 200 MG CAPSULE EXTENDED RELEASE 24 HOUR 1 CAPSULE ORALLY ONCE A DAY TAKING CALCIUM 600 MG TABLET 1 TABLET WITH MEALS ORALLY THREE TIMES A DAY TAKING GAS-X 80 MG TABLET CHEWABLE 1 TABLET AFTER MEALS AND AT BEDTIME NEEDED ORALLY FOUR TIMES A DAY TAKING VITAMIN C 500 MG TABLET CHEWABLE 1 TABLET ORALLY ONCE A DAY TAKING PREPARATION H 0.25-88.44 % SUPPOSITORY DIRECTED RECTAL BIDPRN TAKING LEVOTHROYXINE 200 MCG 1 TAB ORALLY DAILY TAKING OMEPRAZOLE 40 MG CAPSULE DELAYED RELEASE 1 CAPSULE ORALLY BID, NOTES: DR. MORELAND TAKING CETIRIZINE HCL 10 MG TABLET 1 TABLET ORALLY ONCE A DAY, NOTES: USES OTC MED TAKING REXULTI 1 MG TABLET 1 TABLET ORALLY ONCE A DAY TAKING DRISDOL 66401 UNIT CAPSULE 1 CAPSULE ORALLY WEEKLY TAKING TRIAMCINOLONE ACETONIDE 0.5 % CREAM 1 APPLICATION TO AFFECTED AREA EXTERNALLY TWICE A DAY TAKING LYRICA 75 MG CAPSULE 1 CAPSULE ORALLY THREE TIMES DAILY. CODE D. DX: M79.7 TAKING METFORMIN & DIET MANAGE PROD 500 MG MISCELLANEOUS ORALLY BID, NOTES: FOR WEIGHT LOSS ONLY TAKING WRIST BRACE - MISCELLANEOUS DIRECTED WEAR ON L AND R WRIST NIGHTLY FOR CARPAL TUNNEL. DX: G56.02,G56.01, NOTES: PLEASE DISPENSE LEFT AND RIGHT WRIST BRACES TAKING PHENTERMINE HCL 15 MG CAPSULE 1 CAPSULE ORALLY ONCE A DAY TAKING CYCLOBENZAPRINE HCL 10 MG TABLET 1 TABLET NEEDED ORALLY THREE TIMES A DAY TAKING LIDODERM 5 % PATCH 1 PATCH TO SKIN REMOVE AFTER 12 HOURS EXTERNALLY ONCE A DAY TAKING COLACE 100 MG CAPSULE 2 ORALLY BID TAKING NUCYNTA 75 MG TABLET 1 TABLET ORALLY Q8H PRN MDD3 TAKING NUCYNTA ER 250 MG TABLET EXTENDED RELEASE 12 HOUR 1 TABLET ORALLY EVERY 12 HRS MDD2 NOT-TAKING LYRICA 75 MG CAPSULE 1 CAPSULE ORALLY THREE TIMES A DAY, NOTES: DUPLICATE NOT-TAKING SUCRALFATE 1 GM TABLET 1 TABLET AT BEDTIME ON AN EMPTY STOMACH BEFORE MEALS ORALLY QID, NOTES: DR. MORELAND NOT-TAKING BUPROPION HCL ER (XL) 150 MG TABLET EXTENDED RELEASE 24 HOUR 1 TABLET IN THE MORNING ORALLY ONCE A DAY NOT-TAKING FLUTICASONE PROPIONATE 50 MCG/ACT SUSPENSION 1 SPRAY IN EACH NOSTRIL NASALLY ONCE A DAY NOT-TAKING OXYCODONE HCL 15 MG TABLET 1 TABLET ORALLY EVERY 12H PRN MDD2 NOT-TAKING VERAPAMIL HCL 40 MG TABLET 1 TABLET ORALLY 1/2 TAB TWICE A DAY FOR 1 WEEK, THEN 1 TAB TWICE A DAY NOT-TAKING AMOXICILLIN-POT CLAVULANATE 875-125 MG TABLET 1 TABLET ORALLY EVERY 12 HRS NOT-TAKING VENOFER 20 MG/ML SOLUTION INFUSE 21ML PER HOSPITAL PROTOCOL INTRAVENOUS ONCE DISCONTINUED VENOFER 20 MG/ML SOLUTION DIRECTED INTRAVENOUS INFUSE 500 MG PER HOSPITAL PROTOCOL MEDICATION LIST REVIEWED AND RECONCILED WITH THE PATIENT PAST MEDICAL HISTORY THYROID CANCER X 2, FIRST OPERATION 2010, SECOND ONE 2014 (?TYPE) RIGHT LUNG NODULE (WATCHING IT FOR NOW) L4 HERNIATED DISC FATTY LIVER DIABETES MIGRAINES ANXIETY OSTEOPENIA ALLERGIES GLIPIZIDE XL: RASH: ALLERGY CIPRO: RASH: ALLERGY HYDROXYCHLOROQUINE SULFATE: INCREASED LIVER ENZYMES: ALLERGY NSAIDS : HAD PREVIOUS GASTRIC BYPASS: ALLERGY SURGICAL HISTORY COMPLETE HYSTERECTOMY DUE TO MENORRHAGIA 2012 THYROIDECTOMY, PARTIAL WAS DONE FIRST AND THEN THE REST TAKEN OUT 05/2014 TONSILECTOMY, ADENOIDECTOMY C- SECTION X 2 LAP BAND, AUGUST 2013 GALLBLADDER REMOVAL 05/2015 GASTRIC BYPASS 12/15/2015 BREAST/ NEEDLE BX 09/22/2015 THYROID NODULE REMOVED AND REST OF THYROID REMOVED 05/2016 FAMILY HISTORY MOTHER ALIVE COLON CANCER STAGE 4 NO COLOSTOMYDAD ALIVE SEIZUREES HTN DM2 HEART DISEASE3 BROTHERS HEALTHY0 SISITERS2 DAUGHTERS HEALTHY1 SON. SOCIAL HISTORY GENERAL: TOBACCO USE ARE YOU A:FORMER SMOKER HOW LONG HAS IT BEEN SINCE YOU LAST SMOKED?5-10 YEARS LUNG CANCER SCREENING SMOKING STATUS:FORMER SMOKER BMI CARE GOAL FOLLOW-UP ABOVE NORMAL BMI FOLLOW-UPDIETARY MANAGEMENT EDUCATION, GUIDANCE, AND COUNSELING ALCOHOL SCREENING DID YOU HAVE A DRINK CONTAINING ALCOHOL IN THE PAST YEAR?NO POINTS0 INTERPRETATIONNEGATIVE RECREATIONAL DRUG USE DRUG USE?NO CAFFEINE CAFFEINE USE?YES HOW OFTEN AND HOW MUCH? 4 TEAS A DAY SEXUAL HX HAD SEX IN THE LAST 12 MONTHS (VAGINAL, ORAL, OR ANAL)?NO HAVE YOU EVER HAD AN STD?NO HIV / HEP-C SCREENING HIV TEST OFFERED TO PATIENT:YES DATE OFFERED:07/16/2016 TEST ACCEPTED:NO REASON:PATIENT DECLINED HEP-C TEST OFFERED TO PATIENT:YES DATE OFFERED:07/16/2016 TEST ACCEPTED:NO REASON:PATIENT DECLINED SIKHISM [id number] [employer] LANGUAGE LANGUAGES SPOKEN:TURKISH EDUCATION LEVEL OF EDUCATION:HIGH SCHOOL LEARNING BARRIERS / SPECIAL NEEDS CHANGE FROM LAST VISIT?NO BARRIERS TO LEARNING?NO HEARING IMPAIRED?NO VISION IMPAIRED?YES :CORRECTIVE LENSES COGNITIVELY IMPAIRED?NO READINESS TO LEARN?YES LEARNING PREFERENCES?NO LEARNING CAPABILITIES PRESENT?YES EMOTIONAL BARRIERS?NO SPECIAL DEVICES?NO 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 DIET: REGULAR. EXERCISE: WALKS. MARITAL STATUS: . OTHERS AT HOME: MOTHER, CHILDREN. PAIN CLINIC PFS, CLERGY, PUBLIC HEALTH REFERRALS PFS REFERRAL NEEDED?NO CLERGY REFERRAL NEEDED?NO PUBLIC HEALTH REFERRAL NEEDED?NO WAS THE PROVIDER NOTIFIED OF ANY PERTINENT INFO?YES HAS THE PATIENT BEEN EDUCATED REGARDING HIS/HER PLAN OF CARE?YES HAS THE PATIENT BEEN EDUCATED REGARDING PAIN, THE RISK FOR PAIN, THE IMPORTANCE OF EFFECTIVE PAIN MANAGEMENT, AND THE PAIN ASSESSMENT PROCESS?YES ADVANCE DIRECTIVE ADVANCE DIRECTIVE DISCUSSED WITH PATIENT:YES DECLINES INFORMATION REVIEWED 01/18/18 NL. HOSPITALIZATION/MAJOR DIAGNOSTIC PROCEDURE FOR [facility] 05/2016 REVIEW OF SYSTEMS REVIEWED BY: PROVIDER: BRIANNA MARINO . CONSTITUTIONAL: ANY CHANGE IN YOUR MEDICAL CONDITION? NO . CHILLS NO . FEVER NO . INFECTION: DO YOU HAVE NEW INFECTIONS? NO . DO YOU HAVE HISTORY OF MRSA? NO . MUSCULOSKELETAL: ANY NEW PATTERNS OF PAIN OR NUMBNESS? NO . GASTROENTEROLOGY: ANY NEW CHANGE IN BOWEL CONTROL? NO . GENITOURINARY: ANY NEW CHANGE IN BLADDER CONTROL? NO . IS THERE A CHANCE YOU COULD BE ? NO . HEMATOLOGY/LYMPH: DO YOU TAKE ANY BLOOD THINNERS? (FOR EXAMPLE- COUMADIN, PLAVIX, AGGRENOX, PLATEL, PRADAXA, OR XARELTO) NO . WHEN WAS YOUR LAST DOSE? DATE: TIME: . NEUROLOGY: HAVE YOU FALLEN IN THE PAST 12 MONTHS? NO . ANY NEW EXTREMITY NUMBNESS OR WEAKNESS? NO . CARDIOLOGY: DO YOU HAVE A PACEMAKER OR DEFIBRILLATOR? NO . RESPIRATORY: HAVE YOU BEEN SICK IN THE PAST WEEK? NO . FEVER NO . FLU LIKE SYMPTOMS? NO . COUGH NO . INTEGUMENTARY: DO YOU HAVE ANY RASHES OR OPEN SORES? NO . ALLERGIC/IMMUNO: ARE YOU ALLERGIC TO IV DYE? NO . ANY NEW ALLERGIES? NO . PSYCHIATRIC: DO YOU HAVE THOUGHTS OF HURTING YOURSELF OR SOMEONE ELSE? NO . ARE YOU ABUSED, NEGLECTED, OR IN AN UNSAFE ENVIRONMENT? NO . ENDOCRINOLOGY: ARE YOU DIABETIC? NO . OTHER: DO YOU NEED ANY PRESCRIPTIONS? YES, ALL BUT CYCLOBENZAPRINE . IF YES, PLEASE LIST: ____ . ANY NEW PROBLEMS WITH YOUR MEDICATIONS? NO . WHEN DID YOU LAST EAT? ____ . WHEN DID YOU LAST DRINK? ____ . WHAT DID YOU LAST DRINK? ____ . NAME OF PERSON DRIVING YOU HOME? ____ . DO YOU HAVE ANY OTHER QUESTIONS OR CONCERNS NO . VITAL SIGNS WT 250.6 LBS, HT 70 IN, BMI 35.95 INDEX, BP 145/72 MM HG, HR 107 /MIN, RR 18 /MIN, TEMP 96.8 F, OXYGEN SAT % 98%, NA INITIALS AW 1113, REVIEWED BY: EM. EXAMINATION GENERAL EXAMINATION: GENERAL APPEARANCE:AWAKE,ALERT ,PLEAASANT . PSYCHAFFECT NORMAL . LUNGS:LUNG CHAN ARE CLEAR TO AUSCULTATION BILATERALLY. GOOD MOVEMENT OF AIR . HEART:S1, S2 IN A REGULAR RATE AND RHYTHM. NO SIGNIFICANT MURMURS, RUBS OR GALLOPS NOTED . ASSESSMENTS INTERVERTEBRAL DISC DISORDER WITH RADICULOPATHY OF LUMBOSACRAL REGION - M51.17 (PRIMARY) RHEUMATOID ARTHRITIS INVOLVING MULTIPLE SITES WITH POSITIVE RHEUMATOID FACTOR - M05.79 CHRONIC PRESCRIPTION OPIATE USE - Z79.891 NEUROPATHY - G62.9 TREATMENT INTERVERTEBRAL DISC DISORDER WITH RADICULOPATHY OF LUMBOSACRAL REGION REFILL NUCYNTA TABLET, 75 MG, 1 TABLET, ORALLY, Q8H PRN MDD3, 30 DAY(S), 90, REFILLS 0 REFILL NUCYNTA ER TABLET EXTENDED RELEASE 12 HOUR, 250 MG, 1 TABLET, ORALLY, EVERY 12 HRS MDD2, 30 DAY(S), 60, REFILLS 0 NOTES: ISTOP REGISTRY REVIEWED AND DEMONSTRATES COMPLLIANCE. (REF # [id number] ) BRINGS IN MEDICATIONS WHICH IS APPROPRIATE FOR WHAT WAS DISPENSED. RECENT URINE TOXICOLOGY REVIEWED. NO UNAUTHORIZED MEDICATIONS. NO ILLICIT SUBSTANCES AND PRESCRIBED MEDICATIONS WERE PRESENT. , RISKS AND BENEFITS OF NARCOTIC/OPIOD MEDICATIONS WERE REVIEWED WITH PATIENT - THIS INCLUDES BUT IS NOT LIMITED TO RISK OF DEPENDANCE/DEVELOPMENT OF ADDICTION, MOOD DISTURBANCE AND DEPRESSION, OSTEOPOROSIS, HORMONAL AND LABIDAL CHANGES, RESPIRATORY DEPRESSION AND . PATIENT IS ADVISED NOT TO DRIVE OR DRINK ALCOHOL WHILE ON THESE MEDICATIONS. PROCEDURE CODES FA211 ESTABILISHED PATIENT [facility] CHARGE DISPOSITION & COMMUNICATION FOLLOW UP 3 MONTHS ELECTRONICALLY SIGNED BY NED DIEZ ON 04/07/2018 AT 02:15 PM EST DISCLAIMER : THIS IS A VISIT SUMMARY EXTRACTED FROM THE [employer] CHART. IT IS NOT A COPY OF THE [employer] PROGRESS NOTE. JANIED
== END ==
LOC: M PAIN 11:30
PROVIDERS: ATTEND Nurse Practitioner Family
DX: M51.17 Intervertebral disc disorders with radiculopathy, lumbosacral region (principal); M05.79 Rheumatoid arthritis with rheumatoid factor of multiple sites without organ or systems involvement; G62.9 Polyneuropathy, unspecified; G89.29 Other chronic pain; E11.9 Type 2 diabetes mellitus without complications; G43.909 Migraine, unspecified, not intractable, without status migrainosus; F41.9 Anxiety disorder, unspecified; E89.0 Postprocedural hypothyroidism; M85.80 Other specified disorders of bone density and structure, unspecified site; E66.9 Obesity, unspecified; Z68.35 Body mass index [BMI] 35.0-35.9, adult; Z79.84 Long term (current) use of oral hypoglycemic drugs; Z79.899 Other long term (current) drug therapy; Z88.2 Allergy status to sulfonamides; Z88.6 Allergy status to analgesic agent; Z88.8 Allergy status to other drugs, medicaments and biological substances; Z98.84 Bariatric surgery status; Z87.891 Personal history of nicotine dependence

== ENCOUNTER → 2018-04-07 | Outpatient (CLI) | payer MEDICARE, MEDICAID ==
[2018-04-07 12:43] LABS: ALBUMIN 3.8 GM/DL (3.2-5.2); BLOOD UREA NITROGEN 8 MG/DL (7-18); CALCIUM LEVEL 8.5 MG/DL (8.5-10.1); CARBON DIOXIDE LEVEL 25 MEQ/L (21-32); CHLORIDE LEVEL 110 MEQ/L (98-107); CREATININE FOR GFR 0.68 MG/DL (0.55-1.30); GLOMERULAR FILTRATION RATE > 60.0 (>60); GLUCOSE, FASTING 108 MG/DL (70-100); PHOSPHORUS LEVEL 2.7 MG/DL (2.5-4.9); POTASSIUM SERUM 3.5 MEQ/L (3.5-5.1); SODIUM LEVEL 141 MEQ/L (136-145); THYROID STIMULATING HORMONE 0.057 uIU/ML (0.358-3.740); THYROXINE (T4) 16.9 UG/DL (4.5-12.0)
[2018-04-07 12:58] LABS: THYROGLOBULIN ANTIBODY < 15.0 U/ML (<60.0)
== END ==
LOC: M LAB 11:16
PROVIDERS: ATTEND Internal Medicine Endocrinology, Diabetes & Metabolism
DX: E89.0 Postprocedural hypothyroidism (principal)

== ENCOUNTER → 2018-04-18 | Outpatient (CLI) | payer MEDICARE, MEDICAID ==
--- NOTE | 2018-04-18 20:11 | REP ---
Whole body radionuclide PET scan for restaging of thyroid carcinoma: There are no comparison PET scan studies. Whole-body scanning is performed from skull base to the upper thighs. Neck and supraclavicular areas: There are no hypermetabolic foci. Chest: There are no hypermetabolic foci. Abdomen, pelvis and upper thighs: There are no hypermetabolic foci. Impression: Negative radionuclide PET scan. There are no hypermetabolic foci. The study is performed with 8.71 mCi of F 18 Electronically Signed by German Trammell MD 04/18/2018 08:02 P
== END ==
LOC: M PLARAD 13:17
PROVIDERS: ATTEND Internal Medicine Hematology & Oncology
DX: C73 Malignant neoplasm of thyroid gland (principal)
CPT/HCPCS: 78815; A9552

== ENCOUNTER → 2018-05-02 | Outpatient (REF) | payer MEDICARE, MEDICAID ==
[~2018-05-02] MED LIST changes: +B121000T SL; +VITA1CAP25 PO; +VYVA60CA PO
[2018-05-02 10:50] LABS: PARTIAL THROMBOPLASTIN TIME 35.4 SECONDS (25.4-37.6)
[2018-05-02 10:54] LABS: APTT 1:2 SUBSTITUTION 35.5 SECONDS
== END ==
LOC: M LAB REF 10:08
PROVIDERS: ATTEND Internal Medicine Hematology & Oncology
DX: C73 Malignant neoplasm of thyroid gland (principal); M79.10 Myalgia, unspecified site; M79.81 Nontraumatic hematoma of soft tissue; Z98.84 Bariatric surgery status; Z79.899 Other long term (current) drug therapy

== ENCOUNTER → 2018-05-08 | Outpatient (CLI) | payer MEDICARE, MEDICAID ==
[2018-05-08 10:12] LABS: BASO % 0.6 % (0.0-1.0); EOS % 0.2 % (0.0-3.0); HEMATOCRIT 39.9 % (36.0-47.0); HEMOGLOBIN 12.8 g/dl (12.0-15.5); LYMPH # 1.8 10^3/uL (1.5-4.5); LYMPH % 37.5 % (24.0-44.0); MEAN CORPUSCULAR HEMOGLOBIN 26.9 pg (27.0-33.0); MEAN CORPUSCULAR HGB CONC 32.1 g/dl (32.0-36.5); MONO # 0.4 10^3/uL (0.0-0.8); MONO % 8.6 % (0.0-5.0); NEUTROPHILS # 2.6 10^3/uL (1.8-7.7); NEUTROPHILS % 52.9 % (36.0-66.0); PLATELET COUNT, AUTOMATED 145 10^3/uL (150-450); RED BLOOD COUNT 4.75 10^6/uL (4.00-5.40); WHITE BLOOD COUNT 4.9 10^3/uL (4.0-10.0)
[2018-05-08 10:20] LABS: HEMATOCRIT 39.9 % (36.0-47.0)
[2018-05-08 10:41] LABS: ALBUMIN 3.7 GM/DL (3.2-5.2); ALT/SGPT 42 U/L (12-78); BILIRUBIN,TOTAL 0.4 MG/DL (0.2-1.0); BLOOD UREA NITROGEN 10 MG/DL (7-18); CALCIUM LEVEL 8.1 MG/DL (8.5-10.1); CARBON DIOXIDE LEVEL 24 MEQ/L (21-32); CHLORIDE LEVEL 112 MEQ/L (98-107); CREATININE FOR GFR 0.72 MG/DL (0.55-1.30); FERRITIN 55 NG/ML (8-252); GLOMERULAR FILTRATION RATE > 60.0 (>60); GLUCOSE, FASTING 83 MG/DL (70-100); IRON (FE) 57 UG/DL (50-170); MAGNESIUM LEVEL 2.3 MG/DL (1.8-2.4); PERCENT SATURATION 19.9 % (13.2-45.0); PHOSPHORUS LEVEL 3.5 MG/DL (2.5-4.9); SODIUM LEVEL 143 MEQ/L (136-145); TOTAL IRON BINDING CAPACITY 287 UG/DL (250-450); TOTAL PROTEIN 6.8 GM/DL (6.4-8.2)
[2018-05-08 10:59] LABS: TOTAL 25(OH) VITAMIN D 19.2 NG/ML (30.0-100.0)
[2018-05-08 11:25] LABS: VITAMIN B12 LEVEL 342 PG/ML (247-911)
[2018-05-08 12:15] LABS: HEMOGLOBIN A1c 5.7 %
== END ==
LOC: M LAB 09:32
PROVIDERS: ATTEND Surgery
DX: K91.2 Postsurgical malabsorption, not elsewhere classified (principal); Z98.84 Bariatric surgery status; E55.9 Vitamin D deficiency, unspecified

== ENCOUNTER → 2018-06-22 | Outpatient (CLI) | payer MEDICARE, MEDICAID ==
[~2018-06-22] MED LIST changes: -NORC10TA21 PO; +NORC1TAB5 PO; +SERT-141 PO; -SERT50TA PO; -VITA100T20 PO; +VITA100T51 PO
--- NOTE | 2018-07-09 00:04 | ECWPNPC ---
PATIENT NAME: PADMINI SANTA : 1980 GENDER: FEMALE VISIT DATE: 06/22/2018 DISCHARGE DATE: 06/22/18927 VISIT LOCKED DATE TIME: PHYSICIAN: BRIANNA KIMBLE RESOURCE: BRIANNA KIMBLE REASON FOR APPOINTMENT 1. BACK PAIN HISTORY OF PRESENT ILLNESS HISTORY OF PRESENT ILLNESS: HERE FOR F/U /MED MANAGEMENT OF CHRONIC LOW BACK PAIN AND BILAT. LEG PAIN.RATING PAIN VAS 7/10.SHE CONTINUES TO DO VERY WELL AFTER INCREASE OF NUCYNTA ER TO 250MG BID SEVERAL MONTHS AGO.REPORTING LESS USE OF NUCYNTA 75MG PRN FOR PAIN.REPORTING IMPROVED ACTIVITY TOLERANCE. PAIN THE PATIENT DESCRIBES THE PAIN... THE PATIENT DESCRIBES THE PAIN... THE PATIENT DESCRIBES THE PAIN... FALL RISK SCREENING: SCREENING :NO FALLS REPORTED IN THE LAST YEAR CURRENT MEDICATIONS TAKING VENOFER 20 MG/ML SOLUTION DIRECTED INTRAVENOUS NEEDED TAKING PROMETHAZINE HCL 12.5 MG TABLET 1 TABLET NEEDED ORALLY EVERY 12 HRS TAKING LEVOTHYROXINE SODIUM 175 MCG TABLET 1 TAB ORALLY DAILY, NOTES: TOTAL OF 225 MCG TAKING MULTI VITAMIN DAILY - TABLET 1 TABLET ORALLY ONCE A DAY TAKING VITAMIN B-12 1000 MCG TABLET 1 TABLET ORALLY ONCE A DAY TAKING VITAMIN D3 5000 UNIT CAPSULE 1 CAPSULE ORALLY ONCE A DAY TAKING ATIVAN 0.5 MG TABLET 1 TABLET NEEDED ORALLY THREE TIMES A DAY NEEDED TAKING TROKENDI XR 200 MG CAPSULE EXTENDED RELEASE 24 HOUR 1 CAPSULE ORALLY ONCE A DAY TAKING CALCIUM 600 MG TABLET 1 TABLET WITH MEALS ORALLY THREE TIMES A DAY TAKING GAS-X 80 MG TABLET CHEWABLE 1 TABLET AFTER MEALS AND AT BEDTIME NEEDED ORALLY FOUR TIMES A DAY TAKING VITAMIN C 500 MG TABLET CHEWABLE 1 TABLET ORALLY ONCE A DAY TAKING PREPARATION H 0.25-88.44 % SUPPOSITORY DIRECTED RECTAL BIDPRN TAKING OMEPRAZOLE 40 MG CAPSULE DELAYED RELEASE 1 CAPSULE ORALLY BID, NOTES: DR. MORELAND TAKING CETIRIZINE HCL 10 MG TABLET 1 TABLET ORALLY ONCE A DAY, NOTES: USES OTC MED TAKING REXULTI 1 MG TABLET 1 TABLET ORALLY ONCE A DAY TAKING DRISDOL 92789 UNIT CAPSULE 1 CAPSULE ORALLY WEEKLY TAKING METFORMIN & DIET MANAGE PROD 500 MG MISCELLANEOUS ORALLY BID, NOTES: FOR WEIGHT LOSS ONLY TAKING WRIST BRACE - MISCELLANEOUS DIRECTED WEAR ON L AND R WRIST NIGHTLY FOR CARPAL TUNNEL. DX: G56.02,G56.01, NOTES: PLEASE DISPENSE LEFT AND RIGHT WRIST BRACES TAKING CYCLOBENZAPRINE HCL 10 MG TABLET 1 TABLET NEEDED ORALLY THREE TIMES A DAY TAKING LIDODERM 5 % PATCH 1 PATCH TO SKIN REMOVE AFTER 12 HOURS EXTERNALLY ONCE A DAY TAKING COLACE 100 MG CAPSULE 2 ORALLY BID TAKING NUCYNTA 75 MG TABLET 1 TABLET ORALLY Q8H PRN MDD3 TAKING NUCYNTA ER 250 MG TABLET EXTENDED RELEASE 12 HOUR 1 TABLET ORALLY EVERY 12 HRS MDD2 TAKING LEVOTHYROXINE SODIUM 50 MCG TABLET 1 TABLET ON AN EMPTY STOMACH IN THE MORNING ORALLY ONCE A DAY, NOTES: TOTAL OF 225 MCG TAKING PROZAC 40 MG CAPSULE 1 CAPSULE ORALLY ONCE A DAY TAKING HYDROXYZINE PAMOATE 50 MG CAPSULE 1 CAPSULE NEEDED ORALLY EVERY 6 HRS TAKING VYVANSE 70 MG CAPSULE 1 CAPSULE IN THE MORNING ORALLY ONCE A DAY NOT-TAKING TOPAMAX 200 MG TABLET 1 TABLET ORALLY BEFORE BEDTIME NOT-TAKING SERTRALINE HCL 100 MG TABLET 2 TABLETS ORALLY ONCE A DAY NOT-TAKING LEVOTHROYXINE 200 MCG 1 TAB ORALLY DAILY NOT-TAKING TRIAMCINOLONE ACETONIDE 0.5 % CREAM 1 APPLICATION TO AFFECTED AREA EXTERNALLY TWICE A DAY NOT-TAKING LYRICA 75 MG CAPSULE 1 CAPSULE ORALLY THREE TIMES DAILY. CODE D. DX: M79.7 NOT-TAKING PHENTERMINE HCL 15 MG CAPSULE 1 CAPSULE ORALLY ONCE A DAY NOT-TAKING LYRICA 75 MG CAPSULE 1 CAPSULE ORALLY THREE TIMES A DAY, NOTES: DUPLICATE NOT-TAKING SUCRALFATE 1 GM TABLET 1 TABLET AT BEDTIME ON AN EMPTY STOMACH BEFORE MEALS ORALLY QID, NOTES: DR. MORELAND NOT-TAKING BUPROPION HCL ER (XL) 150 MG TABLET EXTENDED RELEASE 24 HOUR 1 TABLET IN THE MORNING ORALLY ONCE A DAY NOT-TAKING FLUTICASONE PROPIONATE 50 MCG/ACT SUSPENSION 1 SPRAY IN EACH NOSTRIL NASALLY ONCE A DAY NOT-TAKING OXYCODONE HCL 15 MG TABLET 1 TABLET ORALLY EVERY 12H PRN MDD2 NOT-TAKING VERAPAMIL HCL 40 MG TABLET 1 TABLET ORALLY 1/2 TAB TWICE A DAY FOR 1 WEEK, THEN 1 TAB TWICE A DAY NOT-TAKING AMOXICILLIN-POT CLAVULANATE 875-125 MG TABLET 1 TABLET ORALLY EVERY 12 HRS NOT-TAKING VENOFER 20 MG/ML SOLUTION INFUSE 21ML PER HOSPITAL PROTOCOL INTRAVENOUS ONCE MEDICATION LIST REVIEWED AND RECONCILED WITH THE PATIENT PAST MEDICAL HISTORY THYROID CANCER X 2, FIRST OPERATION 2010, SECOND ONE 2014 (?TYPE) RIGHT LUNG NODULE (WATCHING IT FOR NOW) L4 HERNIATED DISC FATTY LIVER DIABETES MIGRAINES ANXIETY OSTEOPENIA CHRONIC PAIN ALLERGIES GLIPIZIDE XL: RASH - ALLERGY CIPRO: RASH - ALLERGY HYDROXYCHLOROQUINE SULFATE: INCREASED LIVER ENZYMES - ALLERGY NSAIDS : HAD PREVIOUS GASTRIC BYPASS - ALLERGY SURGICAL HISTORY COMPLETE HYSTERECTOMY DUE TO MENORRHAGIA 2012 THYROIDECTOMY, PARTIAL WAS DONE FIRST AND THEN THE REST TAKEN OUT 05/2014 TONSILECTOMY, ADENOIDECTOMY C- SECTION X 2 LAP BAND, AUGUST 2013 GALLBLADDER REMOVAL 05/2015 GASTRIC BYPASS 12/15/2015 BREAST/ NEEDLE BX 09/22/2015 THYROID NODULE REMOVED AND REST OF THYROID REMOVED 05/2016 FAMILY HISTORY MOTHER ALIVE COLON CANCER STAGE 4 NO COLOSTOMY\NDAD ALIVE SEIZUREES HTN DM2 HEART DISEASE\N3 BROTHERS HEALTHY\N0 SISITERS\N2 DAUGHTERS HEALTHY\N1 SON. SOCIAL HISTORY GENERAL: TOBACCO USE ARE YOU A:FORMER SMOKER HOW LONG HAS IT BEEN SINCE YOU LAST SMOKED?5-10 YEARS HIV / HEP-C SCREENING HIV TEST OFFERED TO PATIENT:YES DATE OFFERED:07/16/2016 TEST ACCEPTED:NO REASON:PATIENT DECLINED HEP-C TEST OFFERED TO PATIENT:YES DATE OFFERED:07/16/2016 TEST ACCEPTED:NO REASON:PATIENT DECLINED OTHERS AT HOME: MOTHER, CHILDREN. EDUCATION LEVEL OF EDUCATION:HIGH SCHOOL DIET: REGULAR. LANGUAGE LANGUAGES SPOKEN:URUGUAYAN BMI CARE GOAL FOLLOW-UP ABOVE NORMAL BMI FOLLOW-UPDIETARY MANAGEMENT EDUCATION, GUIDANCE, AND COUNSELING RECREATIONAL DRUG USE DRUG USE?NO EXERCISE: WALKS. LEARNING BARRIERS / SPECIAL NEEDS CHANGE FROM LAST VISIT?NO BARRIERS TO LEARNING?NO HEARING IMPAIRED?NO VISION IMPAIRED?YES :CORRECTIVE LENSES COGNITIVELY IMPAIRED?NO READINESS TO LEARN?YES LEARNING PREFERENCES?NO LEARNING CAPABILITIES PRESENT?YES EMOTIONAL BARRIERS?NO SPECIAL DEVICES?NO SUPERVISOR WARPING DEPARTMENT NEEDED?NO LUNG CANCER SCREENING SMOKING STATUS:FORMER SMOKER PAIN CLINIC PFS, CLERGY, PUBLIC HEALTH REFERRALS PFS REFERRAL NEEDED?NO CLERGY REFERRAL NEEDED?NO PUBLIC HEALTH REFERRAL NEEDED?NO WAS THE PROVIDER NOTIFIED OF ANY PERTINENT INFO?YES HAS THE PATIENT BEEN EDUCATED REGARDING HIS/HER PLAN OF CARE?YES HAS THE PATIENT BEEN EDUCATED REGARDING PAIN, THE RISK FOR PAIN, THE IMPORTANCE OF EFFECTIVE PAIN MANAGEMENT, AND THE PAIN ASSESSMENT PROCESS?YES LATEX QUESTIONNAIRE LATEX ALLERGY : HAVE YOU EVER DEVELOPED ANY TYPE OF REACTION AFTER HANDLING LATEX PRODUCTS SUCH RUBBER GLOVES, CONDOMS, DIAPHRAGMS, BALLOONS, SOCKS, OR UNDERWEAR?NO LATEX ALLERGY : HAVE YOU EVER DEVELOPED ANY TYPE OF REACTION DURING OR AFTER DENTAL APPOINTMENT, VAGINAL/RECTAL EXAMINATION, SURGICAL PROCEDURE, OR ANY OTHER EXPOSURE?NO LATEX RISK : HAVE YOU EVER HAD ANY DIFFICULTY BREATHING OR HIVES AFTER EATING OR HANDLING ANY FRUITS, OR VEGETABLES; SUCH KIWI, BANANAS, STONE FRUITS, OR CHESTNUTSNO LATEX RISK : DO YOU HAVE A PREVIOUS PERSONAL HISTORY OF MORE THAN NINE SURGERIES, SPINA BIFIDA, OR REPEATED CATHERTIZATIONS? YES - PLEASE INDICATE : > 9 SURGERIES LATEX RISK : ARE YOU FREQUENTLY EXPOSED TO LATEX PRODUCTS IN YOUR OCCUPATION?NO DATE ASKED : 06/22/2018 CAFFEINE CAFFEINE USE?YES HOW OFTEN AND HOW MUCH? 4 TEAS A DAY ADVANCE DIRECTIVE ADVANCE DIRECTIVE DISCUSSED WITH PATIENT:YES PATIENT DECLINES HCP INFORMATION. SIKHISM [id number] RESTORATION MARITAL STATUS: . ALCOHOL SCREENING DID YOU HAVE A DRINK CONTAINING ALCOHOL IN THE PAST YEAR?NO POINTS0 INTERPRETATIONNEGATIVE OCCUPATION: DISABLED. SEXUAL HX HAD SEX IN THE LAST 12 MONTHS (VAGINAL, ORAL, OR ANAL)?NO HAVE YOU EVER HAD AN STD?NO REVIEWED 01/18/18 NLREVIEWED WITH PATIENT 06/22/18 0858 JS. HOSPITALIZATION/MAJOR DIAGNOSTIC PROCEDURE FOR [facility] 05/2016 REVIEW OF SYSTEMS REVIEWED BY: PROVIDER: BRIANNA MARINO . CONSTITUTIONAL: ANY CHANGE IN YOUR MEDICAL CONDITION? NO . CHILLS NO . FEVER NO . INFECTION: DO YOU HAVE NEW INFECTIONS? NO . DO YOU HAVE HISTORY OF MRSA? NO . MUSCULOSKELETAL: ANY NEW PATTERNS OF PAIN OR NUMBNESS? NO . GASTROENTEROLOGY: ANY NEW CHANGE IN BOWEL CONTROL? NO . GENITOURINARY: ANY NEW CHANGE IN BLADDER CONTROL? NO . IS THERE A CHANCE YOU COULD BE ? NO . HEMATOLOGY/LYMPH: DO YOU TAKE ANY BLOOD THINNERS? (FOR EXAMPLE- COUMADIN, PLAVIX, AGGRENOX, PLATEL, PRADAXA, OR XARELTO) NO . WHEN WAS YOUR LAST DOSE? DATE: TIME: . NEUROLOGY: HAVE YOU FALLEN IN THE PAST 12 MONTHS? NO . ANY NEW EXTREMITY NUMBNESS OR WEAKNESS? NO . CARDIOLOGY: DO YOU HAVE A PACEMAKER OR DEFIBRILLATOR? NO . RESPIRATORY: HAVE YOU BEEN SICK IN THE PAST WEEK? NO . FEVER NO . FLU LIKE SYMPTOMS? NO . COUGH NO . INTEGUMENTARY: DO YOU HAVE ANY RASHES OR OPEN SORES? NO . ALLERGIC/IMMUNO: ARE YOU ALLERGIC TO IV DYE? NO . ANY NEW ALLERGIES? NO . PSYCHIATRIC: DO YOU HAVE THOUGHTS OF HURTING YOURSELF OR SOMEONE ELSE? NO . ARE YOU ABUSED, NEGLECTED, OR IN AN UNSAFE ENVIRONMENT? NO . ENDOCRINOLOGY: ARE YOU DIABETIC? NO . OTHER: DO YOU NEED ANY PRESCRIPTIONS? YES . IF YES, PLEASE LIST: ____NUCYNTA, NUCYNTA ER, CYCLOBENZAPRINE, COLACE . ANY NEW PROBLEMS WITH YOUR MEDICATIONS? NO . WHEN DID YOU LAST EAT? ____ . WHEN DID YOU LAST DRINK? ____ . WHAT DID YOU LAST DRINK? ____ . NAME OF PERSON DRIVING YOU HOME? ____ . DO YOU HAVE ANY OTHER QUESTIONS OR CONCERNS NO . VITAL SIGNS WT 252 LBS, HT 70 IN, BMI 36.15 INDEX, BP 133/76 MM HG, HR 98 /MIN, RR 16 /MIN, TEMP 97.2 F, OXYGEN SAT % 97%, SAFE IN ENV? (Y/N) YES, NA INITIALS AK 08:37, REVIEWED BY: MARY. EXAMINATION GENERAL EXAMINATION: GENERAL APPEARANCE:AWAKE,ALERT ,PLEASANT . PSYCHAFFECT NORMAL . LUNGS:LUNG CHAN ARE CLEAR TO AUSCULTATION BILATERALLY. GOOD MOVEMENT OF AIR . HEART:S1, S2 IN A REGULAR RATE AND RHYTHM. NO SIGNIFICANT MURMURS, RUBS OR GALLOPS NOTED . ASSESSMENTS INTERVERTEBRAL DISC DISORDER WITH RADICULOPATHY OF LUMBOSACRAL REGION - M51.17 (PRIMARY) CHRONIC PRESCRIPTION OPIATE USE - Z79.891 TREATMENT INTERVERTEBRAL DISC DISORDER WITH RADICULOPATHY OF LUMBOSACRAL REGION REFILL NUCYNTA TABLET, 75 MG, 1 TABLET, ORALLY, Q8H PRN MDD3, 30 DAY(S), 90, REFILLS 0 REFILL NUCYNTA ER TABLET EXTENDED RELEASE 12 HOUR, 250 MG, 1 TABLET, ORALLY, EVERY 12 HRS MDD2, 30 DAY(S), 60, REFILLS 0 CONTINUE COLACE CAPSULE, 100 MG, 2, ORALLY, BID CONTINUE LIDODERM PATCH, 5 %, 1 PATCH TO SKIN REMOVE AFTER 12 HOURS, EXTERNALLY, ONCE A DAY NOTES: ISTOP REGISTRY REVIEWED AND DEMONSTRATES COMPLLIANCE. (REF #[id number] ) BRINGS IN MEDICATIONS WHICH IS APPROPRIATE FOR WHAT WAS DISPENSED. RECENT URINE TOXICOLOGY REVIEWED. NO UNAUTHORIZED MEDICATIONS. NO ILLICIT SUBSTANCES AND PRESCRIBED MEDICATIONS WERE PRESENT. URINE TOX [facility] NARCOTIC AGREEMENT WAS UPDATED REVIEWED AND SIGNED TODAY BY THE PATIENT. SEE ATTACHED DOCUMENT FOR FULL DETAILS; SPECIFIC ISSUES WERE REVIEWED: 1) KEEP PAIN MEDS IN THEIR ORIGINAL BOTTLES AND ANY WEEKLY PLANNERS ARE TO BE BROUGHT TO THE PAIN CENTER AT EVERY VISIT. 2) THE PATIENT IS NOT TO INCREASE DOSING OR TIMING OF THEIR PAIN MEDICATION WITHOUT SPECIFIC DIRECTION OF THEIR PAIN CENTERPROVIDER (NOT ER OR OTHER PROVIDERS). 3) ALL PAIN MEDS ARE TO BE KEPT SECURED, IN A LOCKED BOX. 4) NO PAIN MEDS ARE TO BE SHARED WITH ANY OTHER PERSON FOR ANY REASON. 5) NO PAIN MEDS MAY BE TAKEN FROM ANY FRIENDS OR RELATIVES FOR ANY REASON 6) NO MEDS OR SUBSTANCES WHICH ARE NOT LEGAL ARE TO BE USED- NO MARIJUANA, NO COCAINE, AMPHETAMINES, HEROIN, OR OTHERS ARE EVER TO BE USED. 7)URINE TESTING IS DONE TO ACCOUNT FOR MEDS AND SUBSTANCES BEING TAKEN AND WILL BE DONE RANDOMLY., RISKS AND BENEFITS OF NARCOTIC/OPIOD MEDICATIONS WERE REVIEWED WITH PATIENT - THIS INCLUDES BUT IS NOT LIMITED TO RISK OF DEPENDANCE/DEVELOPMENT OF ADDICTION, MOOD DISTURBANCE AND DEPRESSION, OSTEOPOROSIS, HORMONAL AND LABIDAL CHANGES, RESPIRATORY DEPRESSION AND . PATIENT IS ADVISED NOT TO DRIVE OR DRINK ALCOHOL WHILE ON THESE MEDICATIONS. PROCEDURE CODES [id number] ESTABILISHED PATIENT [facility] FAC[facility] CHARGE DISPOSITION & COMMUNICATION FOLLOW UP 3 MONTHS ELECTRONICALLY SIGNED BY NED DIEZ ON 07/08/2018 AT 08:02 AM EDT DISCLAIMER : THIS IS A VISIT SUMMARY EXTRACTED FROM THE [employer] CHART. IT IS NOT A COPY OF THE [employer] PROGRESS NOTE. JAMIE
== END ==
LOC: M PAIN 08:30
PROVIDERS: ATTEND Nurse Practitioner Family
DX: M51.17 Intervertebral disc disorders with radiculopathy, lumbosacral region (principal); G89.29 Other chronic pain; E11.9 Type 2 diabetes mellitus without complications; G43.909 Migraine, unspecified, not intractable, without status migrainosus; Z86.59 Personal history of other mental and behavioral disorders; M85.88 Other specified disorders of bone density and structure, other site; Z98.84 Bariatric surgery status; Z87.891 Personal history of nicotine dependence; Z88.1 Allergy status to other antibiotic agents; Z88.6 Allergy status to analgesic agent; Z88.8 Allergy status to other drugs, medicaments and biological substances; Z79.84 Long term (current) use of oral hypoglycemic drugs; Z79.891 Long term (current) use of opiate analgesic; Z79.899 Other long term (current) drug therapy

== ENCOUNTER → 2018-07-05 | Outpatient (REF) | payer MEDICARE, MEDICAID ==
[~2018-07-05] MED LIST changes: +VITA500T PO; +VYVA70CA3 PO
[2018-07-19 06:51] LABS: THYROGLOBULIN QUANTITATIVE < 0.1 NG/ML
[2018-07-19 06:52] LABS: THRYOGLOBULIN ANTIBODIES (ATA) < 1.0 IU/ML
== END ==
LOC: M LAB REF 11:13
PROVIDERS: ATTEND Internal Medicine Hematology & Oncology
DX: Z85.850 Personal history of malignant neoplasm of thyroid (principal); D69.6 Thrombocytopenia, unspecified; K76.9 Liver disease, unspecified

== ENCOUNTER → 2018-07-10 | Outpatient (CLI) | payer MEDICARE, MEDICAID ==
[~2018-07-10] MED LIST changes: -VITA500T PO; -VYVA70CA3 PO
[2018-07-10 14:05] LABS: BASO % 0.6 % (0.0-1.0); HEMATOCRIT 39.4 % (36.0-47.0); LYMPH # 1.8 10^3/uL (1.5-4.5); LYMPH % 37.7 % (24.0-44.0); MEAN CORPUSCULAR HEMOGLOBIN 26.6 pg (27.0-33.0); MEAN CORPUSCULAR VOLUME 80.7 fl (80.0-96.0); MONO # 0.4 10^3/uL (0.0-0.8); MONO % 7.6 % (0.0-5.0); NEUTROPHILS # 2.6 10^3/uL (1.8-7.7); NEUTROPHILS % 53.9 % (36.0-66.0); PLATELET COUNT, AUTOMATED 144 10^3/uL (150-450); RED BLOOD COUNT 4.88 10^6/uL (4.00-5.40); WHITE BLOOD COUNT 4.8 10^3/uL (4.0-10.0)
[2018-07-10 14:31] LABS: ALBUMIN 3.6 GM/DL (3.2-5.2); ALT/SGPT 143 U/L (12-78); BILIRUBIN,TOTAL 0.6 MG/DL (0.2-1.0); BLOOD UREA NITROGEN 10 MG/DL (7-18); CALCIUM LEVEL 8.5 MG/DL (8.5-10.1); CARBON DIOXIDE LEVEL 21 MEQ/L (21-32); CHLORIDE LEVEL 110 MEQ/L (98-107); CREATININE FOR GFR 0.87 MG/DL (0.55-1.30); FERRITIN 82 NG/ML (8-252); GLOMERULAR FILTRATION RATE > 60.0 (>60); GLUCOSE, FASTING 125 MG/DL (70-100); IRON (FE) 53 UG/DL (50-170); PERCENT SATURATION 20.2 % (13.2-45.0); POTASSIUM SERUM 3.4 MEQ/L (3.5-5.1); SODIUM LEVEL 140 MEQ/L (136-145); TOTAL IRON BINDING CAPACITY 263 UG/DL (250-450); TOTAL PROTEIN 6.7 GM/DL (6.4-8.2)
[2018-07-10 14:37] LABS: FOLATE 10.2 NG/ML (>5.4); VITAMIN B12 LEVEL 346 PG/ML (247-911)
== END ==
LOC: M LAB 13:31
PROVIDERS: ATTEND Physician Assistant
DX: D50.9 Iron deficiency anemia, unspecified (principal)

== ENCOUNTER → 2018-09-14 | Outpatient (CLI) | payer MEDICARE, MEDICAID ==
[~2018-09-14] MED LIST changes: +CYAN1000VL IM; +VITA500T PO; +VYVA70CA3 PO; +[UNRECOGNIZED DRUG - CODE] PO; -[UNRECOGNIZED DRUG - CODE] PO
[2018-09-14 12:49] LABS: ALBUMIN 3.6 GM/DL (3.2-5.2); BLOOD UREA NITROGEN 11 MG/DL (7-18); CALCIUM LEVEL 8.4 MG/DL (8.5-10.1); CARBON DIOXIDE LEVEL 21 MEQ/L (21-32); CHLORIDE LEVEL 114 MEQ/L (98-107); CREATININE FOR GFR 0.76 MG/DL (0.55-1.30); FREE T4 2.06 NG/DL (0.76-1.46); GLOMERULAR FILTRATION RATE > 60.0 (>60); GLUCOSE, FASTING 77 MG/DL (70-100); MAGNESIUM LEVEL 2.3 MG/DL (1.8-2.4); PHOSPHORUS LEVEL 3.4 MG/DL (2.5-4.9); POTASSIUM SERUM 3.4 MEQ/L (3.5-5.1); SODIUM LEVEL 143 MEQ/L (136-145); THYROID STIMULATING HORMONE < 0.005 uIU/ML (0.358-3.740); TOTAL 25(OH) VITAMIN D 43.1 NG/ML (30.0-100.0)
[2018-09-14 12:50] LABS: PTH INTACT 94.9 PG/ML (18.5-88.0)
[2018-09-14 13:34] LABS: HEMOGLOBIN A1c 5.2 %
[2018-09-14 20:49] LABS: CALCIUM,RANDOM URINE 14.5 MG/DL
[2018-09-15 08:07] LABS: THRYOGLOBULIN ANTIBODIES (ATA) < 1.0 IU/mL (0.0-0.9); THYROGLOBULIN QUANTITATIVE < 0.1 ng/mL (1.5-38.5)
== END ==
LOC: M LAB 10:53
PROVIDERS: ATTEND Internal Medicine Endocrinology, Diabetes & Metabolism
DX: C73 Malignant neoplasm of thyroid gland (principal); E89.0 Postprocedural hypothyroidism; Z86.39 Personal history of other endocrine, nutritional and metabolic disease; E28.319 Asymptomatic premature menopause

== ENCOUNTER → 2018-09-27 | Outpatient (CLI) | payer MEDICARE, MEDICAID ==
[~2018-09-27] MED LIST changes: -LORA0.5T11 PO; +LORA0.5T5 PO; -MORP-38 PO; +MORP-69 PO; +[UNRECOGNIZED DRUG - CODE] IM
--- NOTE | 2018-10-14 01:36 | ECWPNPC ---
PATIENT NAME: PADMINI SANTA : 1980 GENDER: FEMALE VISIT DATE: 09/27/2018 DISCHARGE DATE: 09/27/18929 VISIT LOCKED DATE TIME: PHYSICIAN: BRIANNA KIMBLE RESOURCE: BRIANNA KIMBLE REASON FOR APPOINTMENT 1. BACK PAIN HISTORY OF PRESENT ILLNESS HISTORY OF PRESENT ILLNESS: HERE FOR F/U /MED MANAGEMENT OF CHRONIC LOW BACK PAIN AND BILAT. LEG PAIN.RATING PAIN VAS 8/10.SHE IS REPORTING AN INCREASE IN GENERALIZED PAIN OVER THE PAST MONTH.REPORTING MORE USE OF NUCYNTA 75MG PRN FOR PAIN.HAS BEEN MOVING AND PACKING OVER THE PAST MONTH WHICH MAY HAVE AGGREVATED HER PAIN. PAIN THE PATIENT DESCRIBES THE PAIN... THE PATIENT DESCRIBES THE PAIN... THE PATIENT DESCRIBES THE PAIN... THE PATIENT DESCRIBES THE PAIN... FALL RISK SCREENING: SCREENING :NO FALLS REPORTED IN THE LAST YEAR CURRENT MEDICATIONS TAKING VENOFER 20 MG/ML SOLUTION DIRECTED INTRAVENOUS NEEDED TAKING LEVOTHYROXINE SODIUM 175 MCG TABLET 1 TAB ORALLY DAILY, NOTES: TOTAL OF 225 MCG TAKING MULTI VITAMIN DAILY - TABLET 1 TABLET ORALLY ONCE A DAY TAKING VITAMIN B-12 1000 MCG TABLET 1 TABLET ORALLY ONCE A DAY TAKING VITAMIN D3 5000 UNIT CAPSULE 1 CAPSULE ORALLY ONCE A DAY TAKING ATIVAN 0.5 MG TABLET 1 TABLET NEEDED ORALLY THREE TIMES A DAY NEEDED TAKING TROKENDI XR 200 MG CAPSULE EXTENDED RELEASE 24 HOUR 1 CAPSULE ORALLY ONCE A DAY TAKING CALCIUM 600 MG TABLET 1 TABLET WITH MEALS ORALLY THREE TIMES A DAY TAKING GAS-X 80 MG TABLET CHEWABLE 1 TABLET AFTER MEALS AND AT BEDTIME NEEDED ORALLY FOUR TIMES A DAY TAKING VITAMIN C 500 MG TABLET CHEWABLE 1 TABLET ORALLY ONCE A DAY TAKING OMEPRAZOLE 40 MG CAPSULE DELAYED RELEASE 1 CAPSULE ORALLY BID, NOTES: DR. MORELAND TAKING CETIRIZINE HCL 10 MG TABLET 1 TABLET ORALLY ONCE A DAY, NOTES: USES OTC MED TAKING REXULTI 1 MG TABLET 1 TABLET ORALLY ONCE A DAY TAKING METFORMIN & DIET MANAGE PROD 500 MG MISCELLANEOUS ORALLY BID, NOTES: FOR WEIGHT LOSS ONLY TAKING WRIST BRACE - MISCELLANEOUS DIRECTED WEAR ON L AND R WRIST NIGHTLY FOR CARPAL TUNNEL. DX: G56.02,G56.01, NOTES: PLEASE DISPENSE LEFT AND RIGHT WRIST BRACES TAKING CYCLOBENZAPRINE HCL 10 MG TABLET 1 TABLET NEEDED ORALLY THREE TIMES A DAY TAKING LEVOTHYROXINE SODIUM 50 MCG TABLET 1 TABLET ON AN EMPTY STOMACH IN THE MORNING ORALLY ONCE A DAY, NOTES: TOTAL OF 225 MCG TAKING PROZAC 40 MG CAPSULE 1 CAPSULE ORALLY ONCE A DAY TAKING HYDROXYZINE PAMOATE 50 MG CAPSULE 1 CAPSULE NEEDED ORALLY EVERY 6 HRS TAKING VYVANSE 70 MG CAPSULE 1 CAPSULE IN THE MORNING ORALLY ONCE A DAY TAKING COLACE 100 MG CAPSULE 2 ORALLY BID TAKING LIDODERM 5 % PATCH 1 PATCH TO SKIN REMOVE AFTER 12 HOURS EXTERNALLY ONCE A DAY TAKING MIRVASO 0.33% DIRECTED TOPICALLY DAILY IN THE AM THIN LAYER TO WHOLE FACE EXCEPT EYELIDS AND AROUND MOUTH TAKING NUCYNTA 75 MG TABLET 1 TABLET ORALLY Q8H PRN MDD3 TAKING NUCYNTA ER 250 MG TABLET EXTENDED RELEASE 12 HOUR 1 TABLET ORALLY EVERY 12 HRS MDD2 NOT-TAKING PROMETHAZINE HCL 12.5 MG TABLET 1 TABLET NEEDED ORALLY EVERY 12 HRS NOT-TAKING PREPARATION H 0.25-88.44 % SUPPOSITORY DIRECTED RECTAL BIDPRN NOT-TAKING DRISDOL 10168 UNIT CAPSULE 1 CAPSULE ORALLY WEEKLY NOT-TAKING TOPAMAX 200 MG TABLET 1 TABLET ORALLY BEFORE BEDTIME NOT-TAKING SERTRALINE HCL 100 MG TABLET 2 TABLETS ORALLY ONCE A DAY NOT-TAKING LEVOTHROYXINE 200 MCG 1 TAB ORALLY DAILY NOT-TAKING TRIAMCINOLONE ACETONIDE 0.5 % CREAM 1 APPLICATION TO AFFECTED AREA EXTERNALLY TWICE A DAY NOT-TAKING LYRICA 75 MG CAPSULE 1 CAPSULE ORALLY THREE TIMES DAILY. CODE D. DX: M79.7 NOT-TAKING PHENTERMINE HCL 15 MG CAPSULE 1 CAPSULE ORALLY ONCE A DAY NOT-TAKING LYRICA 75 MG CAPSULE 1 CAPSULE ORALLY THREE TIMES A DAY, NOTES: DUPLICATE NOT-TAKING SUCRALFATE 1 GM TABLET 1 TABLET AT BEDTIME ON AN EMPTY STOMACH BEFORE MEALS ORALLY QID, NOTES: DR. MORELAND NOT-TAKING BUPROPION HCL ER (XL) 150 MG TABLET EXTENDED RELEASE 24 HOUR 1 TABLET IN THE MORNING ORALLY ONCE A DAY NOT-TAKING FLUTICASONE PROPIONATE 50 MCG/ACT SUSPENSION 1 SPRAY IN EACH NOSTRIL NASALLY ONCE A DAY NOT-TAKING OXYCODONE HCL 15 MG TABLET 1 TABLET ORALLY EVERY 12H PRN MDD2 NOT-TAKING VERAPAMIL HCL 40 MG TABLET 1 TABLET ORALLY 1/2 TAB TWICE A DAY FOR 1 WEEK, THEN 1 TAB TWICE A DAY NOT-TAKING AMOXICILLIN-POT CLAVULANATE 875-125 MG TABLET 1 TABLET ORALLY EVERY 12 HRS NOT-TAKING VENOFER 20 MG/ML SOLUTION INFUSE 21ML PER HOSPITAL PROTOCOL INTRAVENOUS ONCE DISCONTINUED RHOFADE 1 % CREAM 1 APPLICATION TO AFFECTED AREA EXTERNALLY DAILY IN THE AM TO WHOLE FACE MEDICATION LIST REVIEWED AND RECONCILED WITH THE PATIENT PAST MEDICAL HISTORY THYROID CANCER X 2, FIRST OPERATION 2010, SECOND ONE 2014 (?TYPE) RIGHT LUNG NODULE (WATCHING IT FOR NOW) L4 HERNIATED DISC FATTY LIVER DIABETES MIGRAINES ANXIETY OSTEOPENIA CHRONIC PAIN ALLERGIES GLIPIZIDE XL: RASH - ALLERGY CIPRO: RASH - ALLERGY HYDROXYCHLOROQUINE SULFATE: INCREASED LIVER ENZYMES - ALLERGY NSAIDS : HAD PREVIOUS GASTRIC BYPASS - ALLERGY SURGICAL HISTORY COMPLETE HYSTERECTOMY DUE TO MENORRHAGIA 2012 THYROIDECTOMY, PARTIAL WAS DONE FIRST AND THEN THE REST TAKEN OUT 05/2014 TONSILECTOMY, ADENOIDECTOMY C- SECTION X 2 LAP BAND, AUGUST 2013 GALLBLADDER REMOVAL 05/2015 GASTRIC BYPASS 12/15/2015 BREAST/ NEEDLE BX 09/22/2015 THYROID NODULE REMOVED AND REST OF THYROID REMOVED 05/2016 FAMILY HISTORY MOTHER ALIVE COLON CANCER STAGE 4 NO COLOSTOMY\NDAD ALIVE SEIZUREES HTN DM2 HEART DISEASE\N3 BROTHERS HEALTHY\N0 SISITERS\N2 DAUGHTERS HEALTHY\N1 SONMATERNAL GRANDMOTHER HAD SKIN CANCER, UNSURE WHAT TYPE. UNSURE OF FAMILY HX OF PANCREATIC CANCER. SOCIAL HISTORY GENERAL: TOBACCO USE ARE YOU A:FORMER SMOKER HOW LONG HAS IT BEEN SINCE YOU LAST SMOKED?5-10 YEARS HIV / HEP-C SCREENING HIV TEST OFFERED TO PATIENT:YES DATE OFFERED:07/16/2016 TEST ACCEPTED:NO REASON:PATIENT DECLINED HEP-C TEST OFFERED TO PATIENT:YES DATE OFFERED:07/16/2016 TEST ACCEPTED:NO REASON:PATIENT DECLINED OTHERS AT HOME: MOTHER, CHILDREN. EDUCATION LEVEL OF EDUCATION:HIGH SCHOOL DIET: REGULAR. LANGUAGE LANGUAGES SPOKEN:[place] BMI CARE GOAL FOLLOW-UP ABOVE NORMAL BMI FOLLOW-UPDIETARY MANAGEMENT EDUCATION, GUIDANCE, AND COUNSELING RECREATIONAL DRUG USE DRUG USE?NO EXERCISE: WALKS. LEARNING BARRIERS / SPECIAL NEEDS CHANGE FROM LAST VISIT?NO 07/31/18 BARRIERS TO LEARNING?NO HEARING IMPAIRED?NO VISION IMPAIRED?YES :CORRECTIVE LENSES COGNITIVELY IMPAIRED?NO READINESS TO LEARN?YES LEARNING PREFERENCES?NO LEARNING CAPABILITIES PRESENT?YES EMOTIONAL BARRIERS?NO SPECIAL DEVICES?NO INDUSTRIAL GARAGE SERVICER NEEDED?NO LUNG CANCER SCREENING SMOKING STATUS:FORMER SMOKER PAIN CLINIC PFS, CLERGY, PUBLIC HEALTH REFERRALS PFS REFERRAL NEEDED?NO CLERGY REFERRAL NEEDED?NO PUBLIC HEALTH REFERRAL NEEDED?NO WAS THE PROVIDER NOTIFIED OF ANY PERTINENT INFO?YES HAS THE PATIENT BEEN EDUCATED REGARDING HIS/HER PLAN OF CARE?YES HAS THE PATIENT BEEN EDUCATED REGARDING PAIN, THE RISK FOR PAIN, THE IMPORTANCE OF EFFECTIVE PAIN MANAGEMENT, AND THE PAIN ASSESSMENT PROCESS?YES LATEX QUESTIONNAIRE LATEX ALLERGY : HAVE YOU EVER DEVELOPED ANY TYPE OF REACTION AFTER HANDLING LATEX PRODUCTS SUCH RUBBER GLOVES, CONDOMS, DIAPHRAGMS, BALLOONS, SOCKS, OR UNDERWEAR?NO LATEX ALLERGY : HAVE YOU EVER DEVELOPED ANY TYPE OF REACTION DURING OR AFTER DENTAL APPOINTMENT, VAGINAL/RECTAL EXAMINATION, SURGICAL PROCEDURE, OR ANY OTHER EXPOSURE?NO LATEX RISK : HAVE YOU EVER HAD ANY DIFFICULTY BREATHING OR HIVES AFTER EATING OR HANDLING ANY FRUITS, OR VEGETABLES; SUCH KIWI, BANANAS, STONE FRUITS, OR CHESTNUTSNO LATEX RISK : DO YOU HAVE A PREVIOUS PERSONAL HISTORY OF MORE THAN NINE SURGERIES, SPINA BIFIDA, OR REPEATED CATHERIZATIONS? YES - PLEASE INDICATE : > 9 SURGERIES LATEX RISK : ARE YOU FREQUENTLY EXPOSED TO LATEX PRODUCTS IN YOUR OCCUPATION?NO DATE ASKED : 06/22/2018 CAFFEINE CAFFEINE USE?YES HOW OFTEN AND HOW MUCH? 4 TEAS A DAY ADVANCE DIRECTIVE ADVANCE DIRECTIVE DISCUSSED WITH PATIENT:YES PATIENT DECLINES HCP INFORMATION. [id number] STATUS: . ALCOHOL SCREENING DID YOU HAVE A DRINK CONTAINING ALCOHOL IN THE PAST YEAR?NO POINTS0 INTERPRETATIONNEGATIVE OCCUPATION: DISABLED. SEXUAL HX HAD SEX IN THE LAST 12 MONTHS (VAGINAL, ORAL, OR ANAL)?NO HAVE YOU EVER HAD AN STD?NO REVIEWED 01/18/18 NLREVIEWED WITH PATIENT 06/22/18 0858 JS. HOSPITALIZATION/MAJOR DIAGNOSTIC PROCEDURE FOR [facility] 05/2016 REVIEW OF SYSTEMS REVIEWED BY: PROVIDER: BRIANNA MARINO . CONSTITUTIONAL: ANY CHANGE IN YOUR MEDICAL CONDITION? NO . CHILLS NO . FEVER NO . INFECTION: DO YOU HAVE NEW INFECTIONS? NO . DO YOU HAVE HISTORY OF MRSA? NO . MUSCULOSKELETAL: ANY NEW PATTERNS OF PAIN OR NUMBNESS? NO . GASTROENTEROLOGY: ANY NEW CHANGE IN BOWEL CONTROL? YES, PT C/O DIARRHEA X2 IN PAST 3 MOS, BARELY MAKING IT TO TOILET . GENITOURINARY: ANY NEW CHANGE IN BLADDER CONTROL? YES, PT C/O URGENCY X 2 IN PAST 3 MOS BARELY MAKING IT TO TOILET . IS THERE A CHANCE YOU COULD BE ? NO . HEMATOLOGY/LYMPH: DO YOU TAKE ANY BLOOD THINNERS? (FOR EXAMPLE- COUMADIN, PLAVIX, AGGRENOX, PLATEL, PRADAXA, OR XARELTO) NO . WHEN WAS YOUR LAST DOSE? DATE: TIME: . NEUROLOGY: HAVE YOU FALLEN IN THE PAST 12 MONTHS? NO . ANY NEW EXTREMITY NUMBNESS OR WEAKNESS? YES, BILAT LEG PAIN AND WEAKNESS X 1 MONTH . CARDIOLOGY: DO YOU HAVE A PACEMAKER OR DEFIBRILLATOR? NO . RESPIRATORY: HAVE YOU BEEN SICK IN THE PAST WEEK? NO . FEVER NO . FLU LIKE SYMPTOMS? NO . COUGH NO . INTEGUMENTARY: DO YOU HAVE ANY RASHES OR OPEN SORES? NO . ALLERGIC/IMMUNO: ARE YOU ALLERGIC TO IV DYE? NO . ANY NEW ALLERGIES? NO . PSYCHIATRIC: DO YOU HAVE THOUGHTS OF HURTING YOURSELF OR SOMEONE ELSE? NO . ARE YOU ABUSED, NEGLECTED, OR IN AN UNSAFE ENVIRONMENT? NO . ENDOCRINOLOGY: ARE YOU DIABETIC? NO . OTHER: DO YOU NEED ANY PRESCRIPTIONS? NO . IF YES, PLEASE LIST: ____ . ANY NEW PROBLEMS WITH YOUR MEDICATIONS? NO . WHEN DID YOU LAST EAT? ____ . WHEN DID YOU LAST DRINK? ____ . WHAT DID YOU LAST DRINK? ____ . NAME OF PERSON DRIVING YOU HOME? ____ . DO YOU HAVE ANY OTHER QUESTIONS OR CONCERNS NO . VITAL SIGNS WT 242.4 LBS, HT 70 IN, BMI 34.78 INDEX, BP 132/87 MM HG, HR 117 /MIN, RR 18 /MIN, TEMP 98.0 F, OXYGEN SAT % 99%, NA INITIALS SC 08:52, REVIEWED BY: EM. EXAMINATION GENERAL EXAMINATION: GENERALAWAKE,ALERT ,PLEASANT . PSYCHAFFECT NORMAL . LUNGS:LUNG CHAN ARE CLEAR TO AUSCULTATION BILATERALLY. GOOD MOVEMENT OF AIR . HEART:S1, S2 IN A REGULAR RATE AND RHYTHM. NO SIGNIFICANT MURMURS, RUBS OR GALLOPS NOTED . ASSESSMENTS INTERVERTEBRAL DISC DISORDER WITH RADICULOPATHY OF LUMBOSACRAL REGION - M51.17 (PRIMARY) TREATMENT INTERVERTEBRAL DISC DISORDER WITH RADICULOPATHY OF LUMBOSACRAL REGION REFILL NUCYNTA TABLET, 75 MG, 1 TABLET, ORALLY, Q8H PRN MDD3, 30 DAY(S), 90, REFILLS 0 REFILL NUCYNTA ER TABLET EXTENDED RELEASE 12 HOUR, 250 MG, 1 TABLET, ORALLY, EVERY 12 HRS MDD2, 30 DAY(S), 60, REFILLS 0 NOTES: WE DISCUSSED WAITING 2 MONTHS BEFORE WE MAKE ANY MEDICATION CHANGES.SHE IS HAVING ALOT OF INSTABILITY AT THIS TIME WITH THYROID AND STRESS.WILL CONSIDER MRI L/S SPINE AND MEDICATION CHANGES AT F/U IN 2 MONTHS, ISTOP REGISTRY REVIEWED AND DEMONSTRATES COMPLLIANCE. BRINGS IN MEDICATIONS WHICH IS APPROPRIATE FOR WHAT WAS DISPENSED. RECENT URINE TOXICOLOGY REVIEWED. NO UNAUTHORIZED MEDICATIONS. NO ILLICIT SUBSTANCES AND PRESCRIBED MEDICATIONS WERE PRESENT. , RISKS AND BENEFITS OF NARCOTIC/OPIOD MEDICATIONS WERE REVIEWED WITH PATIENT - THIS INCLUDES BUT IS NOT LIMITED TO RISK OF DEPENDANCE/DEVELOPMENT OF ADDICTION, MOOD DISTURBANCE AND DEPRESSION, OSTEOPOROSIS, HORMONAL AND LABIDAL CHANGES, RESPIRATORY DEPRESSION AND . PATIENT IS ADVISED NOT TO DRIVE OR DRINK ALCOHOL WHILE ON THESE MEDICATIONS. PROCEDURE CODES FA211 ESTABILISHED PATIENT [facility] CHARGE DISPOSITION & COMMUNICATION FOLLOW UP 2 MONTHS (REASON: MED MGMNT) ELECTRONICALLY SIGNED BY NED DIEZ ON 10/13/2018 AT 03:13 PM EDT DISCLAIMER : THIS IS A VISIT SUMMARY EXTRACTED FROM THE [employer] CHART. IT IS NOT A COPY OF THE [employer] PROGRESS NOTE. JAMIE
== END ==
LOC: M PAIN 08:45
PROVIDERS: ATTEND Nurse Practitioner Family
DX: M51.17 Intervertebral disc disorders with radiculopathy, lumbosacral region (principal); G89.29 Other chronic pain; G43.909 Migraine, unspecified, not intractable, without status migrainosus; Z86.59 Personal history of other mental and behavioral disorders; M85.88 Other specified disorders of bone density and structure, other site; Z98.84 Bariatric surgery status; Z87.891 Personal history of nicotine dependence; Z88.2 Allergy status to sulfonamides; Z88.6 Allergy status to analgesic agent; Z88.8 Allergy status to other drugs, medicaments and biological substances; Z79.891 Long term (current) use of opiate analgesic; Z79.899 Other long term (current) drug therapy

== ENCOUNTER → 2018-10-20 | Outpatient (CLI) | payer MEDICARE, MEDICAID ==
[2018-10-20 15:03] LABS: ALT/SGPT 117 U/L (12-78); BILIRUBIN,TOTAL 0.7 MG/DL (0.2-1.0); BLOOD UREA NITROGEN 8 MG/DL (7-18); CALCIUM LEVEL 8.6 MG/DL (8.5-10.1); CARBON DIOXIDE LEVEL 23 MEQ/L (21-32); CHLORIDE LEVEL 110 MEQ/L (98-107); CREATININE FOR GFR 0.95 MG/DL (0.55-1.30); GLOMERULAR FILTRATION RATE > 60.0 (>60); GLUCOSE, FASTING 175 MG/DL (70-100); POTASSIUM SERUM 3.2 MEQ/L (3.5-5.1); SODIUM LEVEL 142 MEQ/L (136-145)
[2018-10-20 15:04] LABS: ALBUMIN 3.6 GM/DL (3.2-5.2); TOTAL PROTEIN 6.6 GM/DL (6.4-8.2)
== END ==
LOC: M LAB 14:05
PROVIDERS: ATTEND Physician Assistant
DX: D68.59 Other primary thrombophilia (principal)

== ENCOUNTER → 2018-11-09 | Outpatient (CLI) | payer MEDICARE, MEDICAID ==
[~2018-11-09] MED LIST changes: +LORA0.5T11 PO; -LORA0.5T5 PO; -[UNRECOGNIZED DRUG - CODE] IM
[2018-11-09 10:59] LABS: BASO % 0.5 % (0.0-1.0); HEMATOCRIT 43.2 % (36.0-47.0); HEMOGLOBIN 14.3 g/dl (12.0-15.5); LYMPH # 2.1 10^3/uL (1.5-5.0); LYMPH % 35.7 % (24.0-44.0); MEAN CORPUSCULAR HEMOGLOBIN 27.2 pg (27.0-33.0); MEAN CORPUSCULAR HGB CONC 33.1 g/dl (32.0-36.5); MEAN CORPUSCULAR VOLUME 82.1 fl (80.0-96.0); MONO # 0.4 10^3/uL (0.0-0.8); MONO % 6.5 % (0.0-5.0); NEUTROPHILS # 3.3 10^3/uL (1.5-8.5); PLATELET COUNT, AUTOMATED 178 10^3/uL (150-450); RED BLOOD COUNT 5.26 10^6/uL (4.00-5.40); WHITE BLOOD COUNT 5.9 10^3/uL (4.0-10.0)
[2018-11-09 11:29] LABS: ALBUMIN 3.7 GM/DL (3.2-5.2); ALT/SGPT 50 U/L (12-78); BILIRUBIN,TOTAL 0.4 MG/DL (0.2-1.0); BLOOD UREA NITROGEN 7 MG/DL (7-18); CALCIUM LEVEL 8.5 MG/DL (8.5-10.1); CARBON DIOXIDE LEVEL 22 MEQ/L (21-32); CHLORIDE LEVEL 108 MEQ/L (98-107); CREATININE FOR GFR 0.73 MG/DL (0.55-1.30); FERRITIN 70 NG/ML (8-252); GLOMERULAR FILTRATION RATE > 60.0 (>60); GLUCOSE, FASTING 146 MG/DL (70-100); IRON (FE) 53 UG/DL (50-170); PERCENT SATURATION 19.7 % (13.2-45.0); POTASSIUM SERUM 3.7 MEQ/L (3.5-5.1); SODIUM LEVEL 144 MEQ/L (136-145); TOTAL IRON BINDING CAPACITY 269 UG/DL (250-450)
== END ==
LOC: M LAB 10:00
PROVIDERS: ATTEND Physician Assistant
DX: E87.6 Hypokalemia (principal); D50.9 Iron deficiency anemia, unspecified

== ENCOUNTER → 2018-12-13 | Outpatient (CLI) | payer MEDICARE, MEDICAID ==
--- NOTE | 2018-12-18 13:06 | ECWPNPC ---
PATIENT NAME: PADMINI SANTA : 1980 GENDER: FEMALE VISIT DATE: 12/13/2018 DISCHARGE DATE: 12/13/18 1035 VISIT LOCKED DATE TIME: PHYSICIAN: BRIANNA KIMBLE RESOURCE: BRIANNA KIMBLE REASON FOR APPOINTMENT 1. BACK PAIN HISTORY OF PRESENT ILLNESS HISTORY OF PRESENT ILLNESS: HERE FOR F/U /MED MANAGEMENT OF CHRONIC LOW BACK PAIN AND BILAT. LEG PAIN.RATING PAIN VAS 8/10.PAIN LEVEL IS HIGH TODAY DUE TO RECENT MUSCLE STRAIN BUT OVERALL SHE IS DOING WELL WITH CURRENT MEDICATION. PAIN THE PATIENT DESCRIBES THE PAIN... THE PATIENT DESCRIBES THE PAIN... THE PATIENT DESCRIBES THE PAIN... THE PATIENT DESCRIBES THE PAIN... THE PATIENT DESCRIBES THE PAIN... FALL RISK SCREENING: SCREENING :NO FALLS REPORTED IN THE LAST YEAR CURRENT MEDICATIONS TAKING VENOFER 20 MG/ML SOLUTION DIRECTED INTRAVENOUS NEEDED TAKING LEVOTHYROXINE SODIUM 175 MCG TABLET 1 TAB ORALLY DAILY, NOTES: TOTAL OF 200 MCG TAKING MULTI VITAMIN DAILY - TABLET 1 TABLET ORALLY ONCE A DAY TAKING VITAMIN B-12 1000 MCG TABLET 1 TABLET ORALLY ONCE A DAY TAKING VITAMIN D3 5000 UNIT CAPSULE 1 CAPSULE ORALLY ONCE A DAY TAKING ATIVAN 0.5 MG TABLET 1 TABLET NEEDED ORALLY THREE TIMES A DAY NEEDED TAKING TROKENDI XR 200 MG CAPSULE EXTENDED RELEASE 24 HOUR 1 CAPSULE ORALLY ONCE A DAY TAKING CALCIUM 600 MG TABLET 1 TABLET WITH MEALS ORALLY THREE TIMES A DAY TAKING GAS-X 80 MG TABLET CHEWABLE 1 TABLET AFTER MEALS AND AT BEDTIME NEEDED ORALLY FOUR TIMES A DAY TAKING VITAMIN C 500 MG TABLET CHEWABLE 1 TABLET ORALLY ONCE A DAY TAKING OMEPRAZOLE 40 MG CAPSULE DELAYED RELEASE 1 CAPSULE ORALLY BID, NOTES: DR. MORELAND TAKING CETIRIZINE HCL 10 MG TABLET 1 TABLET ORALLY ONCE A DAY, NOTES: USES OTC MED TAKING REXULTI 1 MG TABLET 1 TABLET ORALLY ONCE A DAY TAKING METFORMIN & DIET MANAGE PROD 500 MG MISCELLANEOUS ORALLY BID, NOTES: FOR WEIGHT LOSS ONLY TAKING WRIST BRACE - MISCELLANEOUS DIRECTED WEAR ON L AND R WRIST NIGHTLY FOR CARPAL TUNNEL. DX: G56.02,G56.01, NOTES: PLEASE DISPENSE LEFT AND RIGHT WRIST BRACES TAKING CYCLOBENZAPRINE HCL 10 MG TABLET 1 TABLET NEEDED ORALLY THREE TIMES A DAY TAKING LEVOTHYROXINE SODIUM 50 MCG TABLET 1 TABLET ON AN EMPTY STOMACH IN THE MORNING ORALLY ONCE A DAY, NOTES: TOTAL OF 225 MCG TAKING PROZAC 40 MG CAPSULE 1 CAPSULE ORALLY ONCE A DAY TAKING HYDROXYZINE PAMOATE 50 MG CAPSULE 1 CAPSULE NEEDED ORALLY EVERY 6 HRS TAKING VYVANSE 70 MG CAPSULE 1 CAPSULE IN THE MORNING ORALLY ONCE A DAY TAKING COLACE 100 MG CAPSULE 2 ORALLY BID TAKING LIDODERM 5 % PATCH 1 PATCH TO SKIN REMOVE AFTER 12 HOURS EXTERNALLY ONCE A DAY TAKING MIRVASO 0.33% DIRECTED TOPICALLY DAILY IN THE AM THIN LAYER TO WHOLE FACE EXCEPT EYELIDS AND AROUND MOUTH TAKING MIRVASO 0.33 % GEL APPLY A THIN LAYER DIRECTED DAILY IN THE MORNING TO WHOLE FACE EXCEPT EYELIDS AND AROUND MOUTH TAKING NUCYNTA 75 MG TABLET 1 TABLET ORALLY Q8H PRN MDD3 TAKING NUCYNTA ER 250 MG TABLET EXTENDED RELEASE 12 HOUR 1 TABLET ORALLY EVERY 12 HRS MDD2 NOT-TAKING PROMETHAZINE HCL 12.5 MG TABLET 1 TABLET NEEDED ORALLY EVERY 12 HRS NOT-TAKING PREPARATION H 0.25-88.44 % SUPPOSITORY DIRECTED RECTAL BIDPRN NOT-TAKING DRISDOL 80819 UNIT CAPSULE 1 CAPSULE ORALLY WEEKLY NOT-TAKING TOPAMAX 200 MG TABLET 1 TABLET ORALLY BEFORE BEDTIME NOT-TAKING SERTRALINE HCL 100 MG TABLET 2 TABLETS ORALLY ONCE A DAY NOT-TAKING LEVOTHROYXINE 200 MCG 1 TAB ORALLY DAILY NOT-TAKING TRIAMCINOLONE ACETONIDE 0.5 % CREAM 1 APPLICATION TO AFFECTED AREA EXTERNALLY TWICE A DAY NOT-TAKING LYRICA 75 MG CAPSULE 1 CAPSULE ORALLY THREE TIMES DAILY. CODE D. DX: M79.7 NOT-TAKING PHENTERMINE HCL 15 MG CAPSULE 1 CAPSULE ORALLY ONCE A DAY NOT-TAKING LYRICA 75 MG CAPSULE 1 CAPSULE ORALLY THREE TIMES A DAY, NOTES: DUPLICATE NOT-TAKING SUCRALFATE 1 GM TABLET 1 TABLET AT BEDTIME ON AN EMPTY STOMACH BEFORE MEALS ORALLY QID, NOTES: DR. MORELAND NOT-TAKING BUPROPION HCL ER (XL) 150 MG TABLET EXTENDED RELEASE 24 HOUR 1 TABLET IN THE MORNING ORALLY ONCE A DAY NOT-TAKING FLUTICASONE PROPIONATE 50 MCG/ACT SUSPENSION 1 SPRAY IN EACH NOSTRIL NASALLY ONCE A DAY NOT-TAKING OXYCODONE HCL 15 MG TABLET 1 TABLET ORALLY EVERY 12H PRN MDD2 NOT-TAKING VERAPAMIL HCL 40 MG TABLET 1 TABLET ORALLY 1/2 TAB TWICE A DAY FOR 1 WEEK, THEN 1 TAB TWICE A DAY NOT-TAKING AMOXICILLIN-POT CLAVULANATE 875-125 MG TABLET 1 TABLET ORALLY EVERY 12 HRS NOT-TAKING VENOFER 20 MG/ML SOLUTION INFUSE 21ML PER HOSPITAL PROTOCOL INTRAVENOUS ONCE MEDICATION LIST REVIEWED AND RECONCILED WITH THE PATIENT PAST MEDICAL HISTORY THYROID CANCER X 2, FIRST OPERATION 2010, SECOND ONE 2014 (?TYPE) RIGHT LUNG NODULE (WATCHING IT FOR NOW) L4 HERNIATED DISC FATTY LIVER DIABETES MIGRAINES ANXIETY OSTEOPENIA CHRONIC PAIN ALLERGIES GLIPIZIDE XL: RASH - ALLERGY CIPRO: RASH - ALLERGY HYDROXYCHLOROQUINE SULFATE: INCREASED LIVER ENZYMES - ALLERGY NSAIDS : HAD PREVIOUS GASTRIC BYPASS - ALLERGY SURGICAL HISTORY COMPLETE HYSTERECTOMY DUE TO MENORRHAGIA 2012 THYROIDECTOMY, PARTIAL WAS DONE FIRST AND THEN THE REST TAKEN OUT 05/2014 TONSILECTOMY, ADENOIDECTOMY C- SECTION X 2 LAP BAND, AUGUST 2013 GALLBLADDER REMOVAL 05/2015 GASTRIC BYPASS 12/15/2015 BREAST/ NEEDLE BX 09/22/2015 THYROID NODULE REMOVED AND REST OF THYROID REMOVED 05/2016 FAMILY HISTORY MOTHER ALIVE COLON CANCER STAGE 4 NO COLOSTOMY\NDAD ALIVE SEIZUREES HTN DM2 HEART DISEASE\N3 BROTHERS HEALTHY\N0 SISITERS\N2 DAUGHTERS HEALTHY\N1 SONMATERNAL GRANDMOTHER HAD SKIN CANCER, UNSURE WHAT TYPE. UNSURE OF FAMILY HX OF PANCREATIC CANCER. SOCIAL HISTORY GENERAL: TOBACCO USE ARE YOU A:FORMER SMOKER HOW LONG HAS IT BEEN SINCE YOU LAST SMOKED?5-10 YEARS HIV / HEP-C SCREENING HIV TEST OFFERED TO PATIENT:YES DATE OFFERED:07/16/2016 TEST ACCEPTED:NO HEP-C TEST OFFERED TO PATIENT:YES DATE OFFERED:07/16/2016 REASON:PATIENT DECLINED TEST ACCEPTED:NO REASON:PATIENT DECLINED OTHERS AT HOME: MOTHER, CHILDREN. EDUCATION LEVEL OF EDUCATION:HIGH SCHOOL DIET: REGULAR. LANGUAGE LANGUAGES SPOKEN:[place] BMI CARE GOAL FOLLOW-UP ABOVE NORMAL BMI FOLLOW-UPDIETARY MANAGEMENT EDUCATION, GUIDANCE, AND COUNSELING RECREATIONAL DRUG USE DRUG USE?NO EXERCISE: WALKS. LEARNING BARRIERS / SPECIAL NEEDS CHANGE FROM LAST VISIT?NO 07/31/18 BARRIERS TO LEARNING?NO HEARING IMPAIRED?NO VISION IMPAIRED?YES COGNITIVELY IMPAIRED?NO :CORRECTIVE LENSES READINESS TO LEARN?YES LEARNING PREFERENCES?NO LEARNING CAPABILITIES PRESENT?YES EMOTIONAL BARRIERS?NO SPECIAL DEVICES?NO HAND COLLATOR NEEDED?NO LUNG CANCER SCREENING SMOKING STATUS:FORMER SMOKER PAIN CLINIC PFS, CLERGY, PUBLIC HEALTH REFERRALS PFS REFERRAL NEEDED?NO CLERGY REFERRAL NEEDED?NO PUBLIC HEALTH REFERRAL NEEDED?NO WAS THE PROVIDER NOTIFIED OF ANY PERTINENT INFO?YES HAS THE PATIENT BEEN EDUCATED REGARDING HIS/HER PLAN OF CARE?YES HAS THE PATIENT BEEN EDUCATED REGARDING PAIN, THE RISK FOR PAIN, THE IMPORTANCE OF EFFECTIVE PAIN MANAGEMENT, AND THE PAIN ASSESSMENT PROCESS?YES LATEX QUESTIONNAIRE LATEX ALLERGY : HAVE YOU EVER DEVELOPED ANY TYPE OF REACTION AFTER HANDLING LATEX PRODUCTS SUCH RUBBER GLOVES, CONDOMS, DIAPHRAGMS, BALLOONS, SOCKS, OR UNDERWEAR?NO LATEX ALLERGY : HAVE YOU EVER DEVELOPED ANY TYPE OF REACTION DURING OR AFTER DENTAL APPOINTMENT, VAGINAL/RECTAL EXAMINATION, SURGICAL PROCEDURE, OR ANY OTHER EXPOSURE?NO LATEX RISK : HAVE YOU EVER HAD ANY DIFFICULTY BREATHING OR HIVES AFTER EATING OR HANDLING ANY FRUITS, OR VEGETABLES; SUCH KIWI, BANANAS, STONE FRUITS, OR CHESTNUTSNO LATEX RISK : DO YOU HAVE A PREVIOUS PERSONAL HISTORY OF MORE THAN NINE SURGERIES, SPINA BIFIDA, OR REPEATED CATHERIZATIONS? YES - PLEASE INDICATE : > 9 SURGERIES LATEX RISK : ARE YOU FREQUENTLY EXPOSED TO LATEX PRODUCTS IN YOUR OCCUPATION?NO DATE ASKED : 12/13/2018 CAFFEINE CAFFEINE USE?YES HOW OFTEN AND HOW MUCH? 4 TEAS A DAY ADVANCE DIRECTIVE ADVANCE DIRECTIVE DISCUSSED WITH PATIENT:YES PATIENT DECLINES HCP INFORMATION, PT DECLINES ASSIST WITH PAPERWORK [id number] STATUS: . ALCOHOL SCREENING DID YOU HAVE A DRINK CONTAINING ALCOHOL IN THE PAST YEAR?NO POINTS0 INTERPRETATIONNEGATIVE OCCUPATION: DISABLED. SEXUAL HX HAD SEX IN THE LAST 12 MONTHS (VAGINAL, ORAL, OR ANAL)?NO HAVE YOU EVER HAD AN STD?NO REVIEWED 01/18/18 NLREVIEWED WITH PATIENT 06/22/18 0858 JS. HOSPITALIZATION/MAJOR DIAGNOSTIC PROCEDURE FOR [facility] 05/2016 REVIEW OF SYSTEMS REVIEWED BY: PROVIDER: BRIANNA MARINO . CONSTITUTIONAL: ANY CHANGE IN YOUR MEDICAL CONDITION? NO . CHILLS NO . FEVER NO . INFECTION: DO YOU HAVE NEW INFECTIONS? NO . DO YOU HAVE HISTORY OF MRSA? NO . MUSCULOSKELETAL: ANY NEW PATTERNS OF PAIN OR NUMBNESS? NO . GASTROENTEROLOGY: ANY NEW CHANGE IN BOWEL CONTROL? NO . GENITOURINARY: ANY NEW CHANGE IN BLADDER CONTROL? NO . IS THERE A CHANCE YOU COULD BE ? NO . HEMATOLOGY/LYMPH: DO YOU TAKE ANY BLOOD THINNERS? (FOR EXAMPLE- COUMADIN, PLAVIX, AGGRENOX, PLATEL, PRADAXA, OR XARELTO) NO . WHEN WAS YOUR LAST DOSE? DATE: TIME: . NEUROLOGY: HAVE YOU FALLEN IN THE PAST 12 MONTHS? YES, PT STATES THAT SHE FELL WHILE IN SHOWER, BRUSING, NO REPORT TO ED . ANY NEW EXTREMITY NUMBNESS OR WEAKNESS? NO . CARDIOLOGY: DO YOU HAVE A PACEMAKER OR DEFIBRILLATOR? NO . RESPIRATORY: HAVE YOU BEEN SICK IN THE PAST WEEK? NO . FEVER NO . FLU LIKE SYMPTOMS? NO . COUGH NO . INTEGUMENTARY: DO YOU HAVE ANY RASHES OR OPEN SORES? NO . ALLERGIC/IMMUNO: ARE YOU ALLERGIC TO IV DYE? NO . ANY NEW ALLERGIES? NO . PSYCHIATRIC: DO YOU HAVE THOUGHTS OF HURTING YOURSELF OR SOMEONE ELSE? NO . ARE YOU ABUSED, NEGLECTED, OR IN AN UNSAFE ENVIRONMENT? NO . ENDOCRINOLOGY: ARE YOU DIABETIC? NO . OTHER: DO YOU NEED ANY PRESCRIPTIONS? YES, NUCYNTA . IF YES, PLEASE LIST: ____ . ANY NEW PROBLEMS WITH YOUR MEDICATIONS? NO . WHEN DID YOU LAST EAT? ____ . WHEN DID YOU LAST DRINK? ____ . WHAT DID YOU LAST DRINK? ____ . NAME OF PERSON DRIVING YOU HOME? ____ . DO YOU HAVE ANY OTHER QUESTIONS OR CONCERNS NO . VITAL SIGNS WT 245.8 LBS, HT 70 IN, BMI 35.26 INDEX, BP 134/86 MM HG, HR 112 /MIN, TEMP 97.1 F, OXYGEN SAT % 98%, SAFE IN ENV? (Y/N) Y, NA INITIALS AW [id number], REVIEWED BY: EJSU. EXAMINATION GENERAL EXAMINATION: GENERAL AWAKE,ALERT ,PLEASANT . PSYCH AFFECT NORMAL . LUNGS: LUNG CHAN ARE CLEAR TO AUSCULTATION BILATERALLY. GOOD MOVEMENT OF AIR . HEART: S1, S2 IN A REGULAR RATE AND RHYTHM. NO SIGNIFICANT MURMURS, RUBS OR GALLOPS NOTED . MUSCULOSKELETAL: TENDER OVER LEFT ANTERIOR T10-12 INTERCOSTAL REGION.NO REDDNESS OR SWELLINGPAIN IS AGGREVATED WITH ROJM SPINE. ASSESSMENTS RIB PAIN ON LEFT SIDE - R07.81 (PRIMARY) RHEUMATOID ARTHRITIS INVOLVING MULTIPLE SITES WITH POSITIVE RHEUMATOID FACTOR - M05.79 TREATMENT RIB PAIN ON LEFT SIDE REFILL NUCYNTA TABLET, 75 MG, 1 TABLET, ORALLY, Q8H PRN MDD3, 30 DAY(S), 90, REFILLS 0 REFILL NUCYNTA ER TABLET EXTENDED RELEASE 12 HOUR, 250 MG, 1 TABLET, ORALLY, EVERY 12 HRS MDD2, 30 DAY(S), 60, REFILLS 0 NOTES: SHOWER CHAIR, ISTOP REGISTRY REVIEWED AND DEMONSTRATES COMPLLIANCE. BRINGS IN MEDICATIONS WHICH IS APPROPRIATE FOR WHAT WAS DISPENSED. RECENT URINE TOXICOLOGY REVIEWED. NO UNAUTHORIZED MEDICATIONS. NO ILLICIT SUBSTANCES AND PRESCRIBED MEDICATIONS WERE PRESENT. URINE TOX TODAY, RISKS OF NARCOTIC/OPIOD MEDICATIONS INCLUDES BUT IS NOT LIMITED TO RISK OF DEPENDANCE/DEVELOPMENT OF ADDICTION, MOOD DISTURBANCE AND DEPRESSION, OSTEOPOROSIS, HORMONAL AND LABIDAL CHANGES, RESPIRATORY DEPRESSION AND . PATIENT IS ADVISED NOT TO DRIVE OR DRINK ALCOHOL WHILE ON THESE MEDICATIONS. PROCEDURE CODES [id number] ESTABILISHED PATIENT [facility] CHARGE DISPOSITION & COMMUNICATION FOLLOW UP 3 MONTHS ELECTRONICALLY SIGNED BY NED DIEZ ON 12/13/2018 AT 02:45 PM EDT DISCLAIMER : THIS IS A VISIT SUMMARY EXTRACTED FROM THE [employer] CHART. IT IS NOT A COPY OF THE [employer] PROGRESS NOTE. JAMIE
== END ==
LOC: M PAIN 09:45
PROVIDERS: ATTEND Nurse Practitioner Family
DX: R07.81 Pleurodynia (principal); M05.79 Rheumatoid arthritis with rheumatoid factor of multiple sites without organ or systems involvement; G89.29 Other chronic pain; E11.9 Type 2 diabetes mellitus without complications; G43.909 Migraine, unspecified, not intractable, without status migrainosus; Z86.59 Personal history of other mental and behavioral disorders; M85.88 Other specified disorders of bone density and structure, other site; Z98.84 Bariatric surgery status; Z87.891 Personal history of nicotine dependence; Z88.6 Allergy status to analgesic agent; Z88.8 Allergy status to other drugs, medicaments and biological substances; Z79.84 Long term (current) use of oral hypoglycemic drugs; Z79.891 Long term (current) use of opiate analgesic; Z79.899 Other long term (current) drug therapy

== ENCOUNTER → 2019-01-31 | Outpatient (CLI) | payer MEDICARE, MEDICAID ==
[2019-01-31 09:02] LABS: BASO % 0.5 % (0.0-1.0); HEMATOCRIT 38.8 % (36.0-47.0); HEMOGLOBIN 12.5 g/dl (12.0-15.5); LYMPH # 2.2 10^3/uL (1.5-5.0); LYMPH % 33.3 % (24.0-44.0); MEAN CORPUSCULAR HEMOGLOBIN 26.3 pg (27.0-33.0); MEAN CORPUSCULAR HGB CONC 32.2 g/dl (32.0-36.5); MEAN CORPUSCULAR VOLUME 81.7 fl (80.0-96.0); MONO # 0.5 10^3/uL (0.0-0.8); MONO % 7.1 % (0.0-5.0); NEUTROPHILS # 3.8 10^3/uL (1.5-8.5); NEUTROPHILS % 58.6 % (36.0-66.0); PLATELET COUNT, AUTOMATED 185 10^3/uL (150-450); RED BLOOD COUNT 4.75 10^6/uL (4.00-5.40); WHITE BLOOD COUNT 6.5 10^3/uL (4.0-10.0)
[2019-01-31 09:32] LABS: ALBUMIN 3.7 GM/DL (3.2-5.2); ALT/SGPT 39 U/L (12-78); BILIRUBIN,TOTAL 0.5 MG/DL (0.2-1.0); BLOOD UREA NITROGEN 11 MG/DL (7-18); CALCIUM LEVEL 8.6 MG/DL (8.5-10.1); CARBON DIOXIDE LEVEL 24 MEQ/L (21-32); CHLORIDE LEVEL 115 MEQ/L (98-107); CREATININE FOR GFR 0.66 MG/DL (0.55-1.30); FERRITIN 26 NG/ML (8-252); GLOMERULAR FILTRATION RATE > 60.0 (>60); GLUCOSE, FASTING 92 MG/DL (70-100); IRON (FE) 39 UG/DL (50-170); PERCENT SATURATION 13.2 % (13.2-45.0); POTASSIUM SERUM 3.3 MEQ/L (3.5-5.1); SODIUM LEVEL 146 MEQ/L (136-145); THYROXINE (T4) 12.3 UG/DL (4.5-12.0); TOTAL IRON BINDING CAPACITY 296 UG/DL (250-450)
[2019-01-31 10:21] LABS: FOLATE 6.2 NG/ML; HEMOGLOBIN A1c 5.5 %; VITAMIN B12 LEVEL 515 PG/ML
== END ==
LOC: M LAB 07:58
PROVIDERS: ATTEND Family Medicine
DX: E87.6 Hypokalemia (principal); E03.9 Hypothyroidism, unspecified; E11.9 Type 2 diabetes mellitus without complications; D50.9 Iron deficiency anemia, unspecified

== ENCOUNTER → 2019-02-26 | Outpatient (CLI) | payer MEDICARE, MEDICAID ==
[~2019-02-26] MED LIST changes: +[UNRECOGNIZED DRUG - CODE] IM
[2019-02-26 13:17] LABS: FREE T4 1.46 NG/DL (0.76-1.46)
== END ==
LOC: M LAB 12:05
PROVIDERS: ATTEND Internal Medicine Endocrinology, Diabetes & Metabolism
DX: E89.0 Postprocedural hypothyroidism (principal)

== ENCOUNTER → 2019-03-15 | Outpatient (CLI) | payer MEDICARE, MEDICAID ==
[~2019-03-15] MED LIST changes: -LORA0.5T11 PO; +LORA0.5T5 PO
--- NOTE | 2019-03-16 04:36 | ECWPNPC ---
PATIENT NAME: PADMINI SANTA : 1980 GENDER: FEMALE VISIT DATE: 03/15/2019 DISCHARGE DATE: 03/15/19 0952 VISIT LOCKED DATE TIME: PHYSICIAN: BRIANNA KIMBLE RESOURCE: BRIANNA KIMBLE REASON FOR APPOINTMENT 1. 3 MONTHS HISTORY OF PRESENT ILLNESS HISTORY OF PRESENT ILLNESS: HERE FOR ROUTINE F/U OF GENERALIZED BODY PAIN.HAVING SEVERE FLARE UP IN OVERALL GENERALIZED PAIN OVER THE PAST FEW MONTHS. RATING PAIN VAS 8/10. A FEW MONTHS AGO SHE HAD A SEVERE ONSET OF RIGHT ANTERIOR PAIN UNDER BREAST. THIS OCCURRED AFTER SHOVELING. THIS GOT BETTER AND THEN REOCCURRED WITH TWISTING THE OTHER DAY. FEELS HER CURRENT MEDICATION IS INEFFECTIVE DIAGNOSIS OF RHEUMATOID ARTHRITIS BUT IS UNABLE TO TAKE ANTI-RHEUMATOID MEDICATION DUE TO LIVER DYSFUNCTION. FINDING IT DIFFICULT TO GET ON AND OFF TOILET DUE TO PAIN IN HER LEGS. FINDING IT DIFFICULT TO BRIM POUNCER THE SHOWER DUE TO GENERALIZED JOINT PAIN AND FATIGUE. PAIN THE PATIENT DESCRIBES THE PAIN... FALL RISK SCREENING: SCREENING :NO FALLS REPORTED IN THE LAST YEAR CURRENT MEDICATIONS TAKING VENOFER 20 MG/ML SOLUTION DIRECTED INTRAVENOUS NEEDED TAKING LEVOTHYROXINE SODIUM 175 MCG TABLET 1 TAB ORALLY DAILY, NOTES: TOTAL OF 200 MCG TAKING MULTI VITAMIN DAILY - TABLET 1 TABLET ORALLY ONCE A DAY TAKING VITAMIN B-12 1000 MCG TABLET 1 TABLET ORALLY ONCE A DAY TAKING VITAMIN D3 5000 UNIT CAPSULE 1 CAPSULE ORALLY ONCE A DAY TAKING ATIVAN 0.5 MG TABLET 1 TABLET NEEDED ORALLY THREE TIMES A DAY NEEDED TAKING TROKENDI XR 200 MG CAPSULE EXTENDED RELEASE 24 HOUR 1 CAPSULE ORALLY ONCE A DAY TAKING CALCIUM 600 MG TABLET 1 TABLET WITH MEALS ORALLY THREE TIMES A DAY TAKING GAS-X 80 MG TABLET CHEWABLE 1 TABLET AFTER MEALS AND AT BEDTIME NEEDED ORALLY FOUR TIMES A DAY TAKING VITAMIN C 500 MG TABLET CHEWABLE 1 TABLET ORALLY ONCE A DAY TAKING OMEPRAZOLE 40 MG CAPSULE DELAYED RELEASE 1 CAPSULE ORALLY BID, NOTES: DR. MORELAND TAKING CETIRIZINE HCL 10 MG TABLET 1 TABLET ORALLY ONCE A DAY, NOTES: USES OTC MED TAKING REXULTI 1 MG TABLET 1 TABLET ORALLY ONCE A DAY TAKING METFORMIN & DIET MANAGE PROD 500 MG MISCELLANEOUS ORALLY BID, NOTES: FOR WEIGHT LOSS ONLY TAKING WRIST BRACE - MISCELLANEOUS DIRECTED WEAR ON L AND R WRIST NIGHTLY FOR CARPAL TUNNEL. DX: G56.02,G56.01, NOTES: PLEASE DISPENSE LEFT AND RIGHT WRIST BRACES TAKING CYCLOBENZAPRINE HCL 10 MG TABLET 1 TABLET NEEDED ORALLY THREE TIMES A DAY TAKING LEVOTHYROXINE SODIUM 50 MCG TABLET 1 TABLET ON AN EMPTY STOMACH IN THE MORNING ORALLY ONCE A DAY, NOTES: TOTAL OF 225 MCG TAKING PROZAC 40 MG CAPSULE 1 CAPSULE ORALLY ONCE A DAY TAKING VYVANSE 70 MG CAPSULE 1 CAPSULE IN THE MORNING ORALLY ONCE A DAY TAKING COLACE 100 MG CAPSULE 2 ORALLY BID TAKING LIDODERM 5 % PATCH 1 PATCH TO SKIN REMOVE AFTER 12 HOURS EXTERNALLY ONCE A DAY TAKING MIRVASO 0.33% DIRECTED TOPICALLY DAILY IN THE AM THIN LAYER TO WHOLE FACE EXCEPT EYELIDS AND AROUND MOUTH TAKING NUCYNTA 75 MG TABLET 1 TABLET ORALLY Q8H PRN MDD3 TAKING NUCYNTA ER 250 MG TABLET EXTENDED RELEASE 12 HOUR 1 TABLET ORALLY EVERY 12 HRS MDD2 NOT-TAKING HYDROXYZINE PAMOATE 50 MG CAPSULE 1 CAPSULE NEEDED ORALLY EVERY 6 HRS NOT-TAKING MIRVASO 0.33 % GEL APPLY A THIN LAYER DIRECTED DAILY IN THE MORNING TO WHOLE FACE EXCEPT EYELIDS AND AROUND MOUTH NOT-TAKING PROMETHAZINE HCL 12.5 MG TABLET 1 TABLET NEEDED ORALLY EVERY 12 HRS NOT-TAKING PREPARATION H 0.25-88.44 % SUPPOSITORY DIRECTED RECTAL BIDPRN NOT-TAKING DRISDOL 12019 UNIT CAPSULE 1 CAPSULE ORALLY WEEKLY NOT-TAKING TOPAMAX 200 MG TABLET 1 TABLET ORALLY BEFORE BEDTIME NOT-TAKING SERTRALINE HCL 100 MG TABLET 2 TABLETS ORALLY ONCE A DAY NOT-TAKING LEVOTHROYXINE 200 MCG 1 TAB ORALLY DAILY NOT-TAKING TRIAMCINOLONE ACETONIDE 0.5 % CREAM 1 APPLICATION TO AFFECTED AREA EXTERNALLY TWICE A DAY NOT-TAKING LYRICA 75 MG CAPSULE 1 CAPSULE ORALLY THREE TIMES DAILY. CODE D. DX: M79.7 NOT-TAKING PHENTERMINE HCL 15 MG CAPSULE 1 CAPSULE ORALLY ONCE A DAY NOT-TAKING LYRICA 75 MG CAPSULE 1 CAPSULE ORALLY THREE TIMES A DAY, NOTES: DUPLICATE NOT-TAKING SUCRALFATE 1 GM TABLET 1 TABLET AT BEDTIME ON AN EMPTY STOMACH BEFORE MEALS ORALLY QID, NOTES: DR. MORELAND NOT-TAKING BUPROPION HCL ER (XL) 150 MG TABLET EXTENDED RELEASE 24 HOUR 1 TABLET IN THE MORNING ORALLY ONCE A DAY NOT-TAKING FLUTICASONE PROPIONATE 50 MCG/ACT SUSPENSION 1 SPRAY IN EACH NOSTRIL NASALLY ONCE A DAY NOT-TAKING OXYCODONE HCL 15 MG TABLET 1 TABLET ORALLY EVERY 12H PRN MDD2 NOT-TAKING VERAPAMIL HCL 40 MG TABLET 1 TABLET ORALLY 1/2 TAB TWICE A DAY FOR 1 WEEK, THEN 1 TAB TWICE A DAY NOT-TAKING AMOXICILLIN-POT CLAVULANATE 875-125 MG TABLET 1 TABLET ORALLY EVERY 12 HRS NOT-TAKING VENOFER 20 MG/ML SOLUTION INFUSE 21ML PER HOSPITAL PROTOCOL INTRAVENOUS ONCE MEDICATION LIST REVIEWED AND RECONCILED WITH THE PATIENT PAST MEDICAL HISTORY THYROID CANCER X 2, FIRST OPERATION 2010, SECOND ONE 2014 (?TYPE) RIGHT LUNG NODULE (WATCHING IT FOR NOW) L4 HERNIATED DISC FATTY LIVER DIABETES MIGRAINES ANXIETY OSTEOPENIA CHRONIC PAIN ALLERGIES GLIPIZIDE XL: RASH - ALLERGY CIPRO: RASH - ALLERGY HYDROXYCHLOROQUINE SULFATE: INCREASED LIVER ENZYMES - ALLERGY NSAIDS : HAD PREVIOUS GASTRIC BYPASS - ALLERGY SURGICAL HISTORY COMPLETE HYSTERECTOMY DUE TO MENORRHAGIA 2012 THYROIDECTOMY, PARTIAL WAS DONE FIRST AND THEN THE REST TAKEN OUT 05/2014 TONSILECTOMY, ADENOIDECTOMY C- SECTION X 2 LAP BAND, AUGUST 2013 GALLBLADDER REMOVAL 05/2015 GASTRIC BYPASS 12/15/2015 BREAST/ NEEDLE BX 09/22/2015 THYROID NODULE REMOVED AND REST OF THYROID REMOVED 05/2016 FAMILY HISTORY MOTHER ALIVE COLON CANCER STAGE 4 NO COLOSTOMY\NDAD ALIVE SEIZUREES HTN DM2 HEART DISEASE\N3 BROTHERS HEALTHY\N0 SISITERS\N2 DAUGHTERS HEALTHY\N1 SONMATERNAL GRANDMOTHER HAD SKIN CANCER, UNSURE WHAT TYPE. UNSURE OF FAMILY HX OF PANCREATIC CANCER. SOCIAL HISTORY GENERAL: TOBACCO USE ARE YOU A:FORMER SMOKER HOW LONG HAS IT BEEN SINCE YOU LAST SMOKED?5-10 YEARS HIV / HEP-C SCREENING HIV TEST OFFERED TO PATIENT:YES DATE OFFERED:07/16/2016 TEST ACCEPTED:NO HEP-C TEST OFFERED TO PATIENT:YES DATE OFFERED:07/16/2016 REASON:PATIENT DECLINED TEST ACCEPTED:NO REASON:PATIENT DECLINED OTHERS AT HOME: MOTHER, CHILDREN. EDUCATION LEVEL OF EDUCATION:HIGH SCHOOL DIET: REGULAR. LANGUAGE LANGUAGES SPOKEN:TELUGU BMI CARE GOAL FOLLOW-UP ABOVE NORMAL BMI FOLLOW-UPDIETARY MANAGEMENT EDUCATION, GUIDANCE, AND COUNSELING RECREATIONAL DRUG USE DRUG USE?NO EXERCISE: WALKS. LEARNING BARRIERS / SPECIAL NEEDS CHANGE FROM LAST VISIT?NO 07/31/18 BARRIERS TO LEARNING?NO HEARING IMPAIRED?NO VISION IMPAIRED?YES COGNITIVELY IMPAIRED?NO :CORRECTIVE LENSES READINESS TO LEARN?YES LEARNING PREFERENCES?NO LEARNING CAPABILITIES PRESENT?YES EMOTIONAL BARRIERS?NO SPECIAL DEVICES?NO MEMBERSHIP SECRETARY NEEDED?NO LUNG CANCER SCREENING SMOKING STATUS:FORMER SMOKER PAIN CLINIC PFS, CLERGY, PUBLIC HEALTH REFERRALS PFS REFERRAL NEEDED?NO CLERGY REFERRAL NEEDED?NO PUBLIC HEALTH REFERRAL NEEDED?NO WAS THE PROVIDER NOTIFIED OF ANY PERTINENT INFO?YES HAS THE PATIENT BEEN EDUCATED REGARDING HIS/HER PLAN OF CARE?YES HAS THE PATIENT BEEN EDUCATED REGARDING PAIN, THE RISK FOR PAIN, THE IMPORTANCE OF EFFECTIVE PAIN MANAGEMENT, AND THE PAIN ASSESSMENT PROCESS?YES LATEX QUESTIONNAIRE LATEX ALLERGY : HAVE YOU EVER DEVELOPED ANY TYPE OF REACTION AFTER HANDLING LATEX PRODUCTS SUCH RUBBER GLOVES, CONDOMS, DIAPHRAGMS, BALLOONS, SOCKS, OR UNDERWEAR?NO LATEX ALLERGY : HAVE YOU EVER DEVELOPED ANY TYPE OF REACTION DURING OR AFTER DENTAL APPOINTMENT, VAGINAL/RECTAL EXAMINATION, SURGICAL PROCEDURE, OR ANY OTHER EXPOSURE?NO LATEX RISK : HAVE YOU EVER HAD ANY DIFFICULTY BREATHING OR HIVES AFTER EATING OR HANDLING ANY FRUITS, OR VEGETABLES; SUCH KIWI, BANANAS, STONE FRUITS, OR CHESTNUTSNO LATEX RISK : DO YOU HAVE A PREVIOUS PERSONAL HISTORY OF MORE THAN NINE SURGERIES, SPINA BIFIDA, OR REPEATED CATHERIZATIONS? YES - PLEASE INDICATE : > 9 SURGERIES LATEX RISK : ARE YOU FREQUENTLY EXPOSED TO LATEX PRODUCTS IN YOUR OCCUPATION?NO DATE ASKED : 12/13/2018 CAFFEINE CAFFEINE USE?YES HOW OFTEN AND HOW MUCH? 4 TEAS A DAY ADVANCE DIRECTIVE ADVANCE DIRECTIVE DISCUSSED WITH PATIENT:YES 03/15/2019 INFORMATION ON HCP GIVEN TO PATIENT AT THIS TIME, DECLINED ASSISTANCE IN FILLING OUT FORM. JS HOAHAOISM [id number] RASTAFARI MARITAL STATUS: . ALCOHOL SCREENING DID YOU HAVE A DRINK CONTAINING ALCOHOL IN THE PAST YEAR?NO POINTS0 INTERPRETATIONNEGATIVE OCCUPATION: DISABLED. SEXUAL HX HAD SEX IN THE LAST 12 MONTHS (VAGINAL, ORAL, OR ANAL)?NO HAVE YOU EVER HAD AN STD?NO REVIEWED 01/18/18 NLREVIEWED WITH PATIENT 06/22/18 0858 JSREVIEWED WITH PATIENT 03/15/2019 0905 MARY. HOSPITALIZATION/MAJOR DIAGNOSTIC PROCEDURE FOR [facility] 05/2016 REVIEW OF SYSTEMS REVIEWED BY: PROVIDER: BRIANNA MARINO . CONSTITUTIONAL: ANY CHANGE IN YOUR MEDICAL CONDITION? NO . CHILLS NO . FEVER NO . INFECTION: DO YOU HAVE NEW INFECTIONS? NO . DO YOU HAVE HISTORY OF MRSA? NO . MUSCULOSKELETAL: ANY NEW PATTERNS OF PAIN OR NUMBNESS? YES, STATES PAIN WORSENING AND SHE IS HAVING CRAMPS IN HER RIGHT HAND CAUSING HER TO NOT BE ABLE TO STRIGHTENER HER FINGERS AT TIMES . GASTROENTEROLOGY: ANY NEW CHANGE IN BOWEL CONTROL? NO . GENITOURINARY: ANY NEW CHANGE IN BLADDER CONTROL? NO . IS THERE A CHANCE YOU COULD BE ? NO . HEMATOLOGY/LYMPH: DO YOU TAKE ANY BLOOD THINNERS? (FOR EXAMPLE- COUMADIN, PLAVIX, AGGRENOX, PLATEL, PRADAXA, OR XARELTO) NO . WHEN WAS YOUR LAST DOSE? DATE: TIME: . NEUROLOGY: HAVE YOU FALLEN IN THE PAST 12 MONTHS? YES, STATES 2 FALLS RECENTLY - ONE TIME HER LEGS GAVE OUT ON HER AND THE OTHER TIME SHE GOT DIZZY AND FELL. STATES JUST SORENESS AFTER, NO MAJOR INJURIES, NO ED VISIT . ANY NEW EXTREMITY NUMBNESS OR WEAKNESS? NO . CARDIOLOGY: DO YOU HAVE A PACEMAKER OR DEFIBRILLATOR? NO . RESPIRATORY: HAVE YOU BEEN SICK IN THE PAST WEEK? NO . FEVER NO . FLU LIKE SYMPTOMS? NO . COUGH NO . INTEGUMENTARY: DO YOU HAVE ANY RASHES OR OPEN SORES? NO . ALLERGIC/IMMUNO: ARE YOU ALLERGIC TO IV DYE? NO . ANY NEW ALLERGIES? NO . PSYCHIATRIC: DO YOU HAVE THOUGHTS OF HURTING YOURSELF OR SOMEONE ELSE? NO . ARE YOU ABUSED, NEGLECTED, OR IN AN UNSAFE ENVIRONMENT? NO . ENDOCRINOLOGY: ARE YOU DIABETIC? NO . OTHER: DO YOU NEED ANY PRESCRIPTIONS? YES . IF YES, PLEASE LIST: ____LIDOCAINE PATCHES . ANY NEW PROBLEMS WITH YOUR MEDICATIONS? NO . WHEN DID YOU LAST EAT? ____ . WHEN DID YOU LAST DRINK? ____ . WHAT DID YOU LAST DRINK? ____ . NAME OF PERSON DRIVING YOU HOME? ____ . DO YOU HAVE ANY OTHER QUESTIONS OR CONCERNS YES, STATES PAIN IS GETTING BAD AGAIN . VITAL SIGNS WT 250.2 LBS, HT 70 IN, BMI 35.90 INDEX, BP 139/86 MM HG, HR 109 /MIN, RR 18 /MIN, TEMP 97.9 F, OXYGEN SAT % 97%, SAFE IN ENV? (Y/N) YES, REVIEWED BY: GIULIANO VENEGAS 03/15/2018 8:50. EXAMINATION GENERAL EXAMINATION: GENERAL AWAKE,ALERT ,PLEASANT . PSYCH AFFECT NORMAL . LUNGS: LUNG CHAN ARE CLEAR TO AUSCULTATION BILATERALLY. GOOD MOVEMENT OF AIR . HEART: S1, S2 IN A REGULAR RATE AND RHYTHM. NO SIGNIFICANT MURMURS, RUBS OR GALLOPS NOTED . MUSCULOSKELETAL: TENDER OVER LEFT ANTERIOR T10-12 INTERCOSTAL REGION.NO REDDNESS OR SWELLINGPAIN IS AGGREVATED WITH ROJM SPINE. ASSESSMENTS RIB PAIN ON RIGHT SIDE - R07.81 (PRIMARY) INFLAMMATORY ARTHROPATHY - M19.90 TREATMENT RIB PAIN ON RIGHT SIDE REFILL LIDODERM PATCH, 5 %, 1 PATCH TO SKIN REMOVE AFTER 12 HOURS, EXTERNALLY, ONCE A DAY ON 12HR OFF 12HR, 30 DAYS, 30, REFILLS 2 NOTES: DUE TO IMPAIRED MOBILITY SECONDARY TO INFLAMMATORY ARTHRITIS AND A EXACERBATION OF HER PAIN AND IMMOBILITY OVER THE PAST FEW MONTHS A SHOWER CHAIR AND TOILET SEAT LIFT IS MEDICALLY NECESSARY. OTHERS INCREASE NUCYNTA TABLET, 100 MG, 1 TABLET, ORALLY, Q8H PRN MDD3, 30 DAY(S), 90, REFILLS 0 REFILL NUCYNTA ER TABLET EXTENDED RELEASE 12 HOUR, 250 MG, 1 TABLET, ORALLY, EVERY 12 HRS MDD2, 30 DAY(S), 60, REFILLS 0 START METHYLPREDNISOLONE TABLET THERAPY PACK, 4 MG, DIRECTED, ORALLY, DIRECTED, 10 DAY(S), 1, REFILLS [address] CHEST WITHOUT [id number] PROCEDURE CODES FA211 ESTABILISHED PATIENT [facility] CHARGE DISPOSITION & COMMUNICATION FOLLOW UP 6 WEEKS (REASON: F/U ACUTE FLARE UP/MED MGMNT) ELECTRONICALLY SIGNED BY NED DIEZ ON 03/15/2019 AT 11:27 AM EST DISCLAIMER : THIS IS A VISIT SUMMARY EXTRACTED FROM THE [facility] CHART. IT IS NOT A COPY OF THE [employer] PROGRESS NOTE. JAMIE
== END ==
LOC: M PAIN 08:45
PROVIDERS: ATTEND Nurse Practitioner Family
DX: R07.81 Pleurodynia (principal); M19.90 Unspecified osteoarthritis, unspecified site

== ENCOUNTER → 2019-03-19 | Outpatient (CLI) | payer MEDICARE, MEDICAID ==
--- NOTE | 2019-03-19 08:21 | REP ---
CT chest without contrast: History: Rib pain. Left-sided. Comparison chest CT study July 15, 2015. Comparison is made with images from PET/CT which was done April 18, 2018. There is apparently a history of thyroid malignancy. CT findings: Preliminary digital emissions repair technician radiograph is unremarkable. There is a 8 mm focus of nodular scarring in the right upper lobe posteriorly which is unchanged from the 2016 study. No pulmonary mass lesion, significant pulmonary nodule, or infiltrate is seen. The lung garcia are otherwise clear. There is no evidence of pleural or pericardial effusion. There are surgical clips in the thyroid bed. The visualized supraclavicular soft tissues and neck soft tissues are unremarkable. The patient is status post gastric bypass and cholecystectomy . Normal adrenals are seen. The visualized upper abdominal structures are otherwise unremarkable. On bone window settings, there are multiple healing rib fractures on the right involving rib numbers 3, 4, 5, and 7. These involve the anterior rib ends on the right side. There is subtle deformity involving the anterior end of the left 7th rib which may be a healing or healed fracture. It is a change from the July 15, 2015 study. No other rib lesion is seen on the left side. There is no evidence of chest wall mass or pleural-based lesion. Impression: There are multiple healing rib fractures on the right anterior chest, rib numbers 3, 4, 5, and 7. There is subtle deformity of the left anterior 7th rib which may be a healed or healing fracture. No other rib lesion is seen. Postoperative changes in the abdomen and thyroid bed. Otherwise no active disease. Electronically Signed by Michael Choi MD 03/19/2019 10:57 A
== END ==
LOC: M RAD 06:50
PROVIDERS: ATTEND Nurse Practitioner Family
DX: R07.81 Pleurodynia (principal)

== ENCOUNTER 2019-04-08 18:21 | Inpatient (IN) | payer MEDICARE, MEDICAID ==
[~2019-04-08] VITALS: Ht 177.8 cm; Wt 115.1 kg
[2019-04-08 19:37] LABS: HEMATOCRIT 38.7 % (36.0-47.0); MEAN CORPUSCULAR HEMOGLOBIN 26.7 pg (27.0-33.0); MEAN CORPUSCULAR VOLUME 86.2 fl (80.0-96.0); RED BLOOD COUNT 4.49 10^6/uL (4.00-5.40); WHITE BLOOD COUNT 2.5 10^3/uL (4.0-10.0)
[2019-04-08 19:38] LABS: BASO % 0.8 % (0.0-1.0); LYMPH # 0.8 10^3/uL (1.5-5.0); LYMPH % 32.9 % (24.0-44.0); MONO # 0.3 10^3/uL (0.0-0.8); NEUTROPHILS # 1.4 10^3/uL (1.5-8.5); NEUTROPHILS % 56.3 % (36.0-66.0); PLATELET COUNT, AUTOMATED 137 10^3/uL (150-450)
[2019-04-08 20:15] LABS: ALBUMIN 3.4 GM/DL (3.2-5.2); ALT/SGPT 136 U/L (12-78); BILIRUBIN,DIRECT 1.5 MG/DL (0.0-0.2); BLOOD UREA NITROGEN 13 MG/DL (7-18); CALCIUM LEVEL 8.6 MG/DL (8.5-10.1); CARBON DIOXIDE LEVEL 22 MEQ/L (21-32); CHLORIDE LEVEL 108 MEQ/L (98-107); CREATININE FOR GFR 0.83 MG/DL (0.55-1.30); GLOMERULAR FILTRATION RATE > 60.0 (>60); GLUCOSE, FASTING 112 MG/DL (70-100); LIPASE 193 U/L (73-393); POTASSIUM SERUM 3.2 MEQ/L (3.5-5.1); SODIUM LEVEL 138 MEQ/L (136-145); THYROID STIMULATING HORMONE 0.478 uIU/ML (0.358-3.740)
[2019-04-08] MEDS ORDERED: NS 1,000 ML IV ONE (20:15)
[2019-04-08] MEDS ORDERED: diphenhydrAMINE INJ 50MG/ML VIAL (J1200) IV ONE (20:15)
[2019-04-08] MEDS ORDERED: KETOROLAC 30 MG/ML VIAL (J1885) IV ONE (20:15)
[2019-04-08] MEDS ORDERED: BREXPIPRAZOLE 0.5MG TABLET (REXULTI) PO SCH (21:00)
[2019-04-08] MEDS ORDERED: HumaLOG INSULIN (NovoLOG) PER UNIT SC SCH (21:00)
[2019-04-08] MEDS ORDERED: CETIRIZINE (ZyrTEC) 10 MG TAB PO SCH (21:00)
[2019-04-08 21:06] LABS: INR 1.14; PROTHROMBIN TIME 14.3 SECONDS (11.8-14.0)
[2019-04-08 21:07] LABS: PARTIAL THROMBOPLASTIN TIME 41.2 SECONDS (25.0-38.4)
[2019-04-08] MEDS ORDERED: ISOVUE-370 76% 100ML VIAL (Q9967) As Ordered ONE (21:10)
--- NOTE | 2019-04-08 22:07 | REPVR ---
PROCEDURE INFORMATION: Exam: CT Abdomen And Pelvis With Contrast Exam date and time: 04/08/2019 9:12 PM Age: 38 years old Clinical indication: Abdominal pain; Localized; Right upper quadrant (ruq); Additional info: Ruq pain, elevated bili/lfts, low back pain TECHNIQUE: Imaging protocol: Computed tomography of the abdomen and pelvis with intravenous contrast. Radiation optimization: All CT scans at this facility use at least one of these dose optimization techniques: automated exposure control; mA and/or kV adjustment per patient size (includes targeted exams where dose is matched to clinical indication); or iterative reconstruction. Contrast material: ISOVUE 370; Contrast volume: 100 ml; Contrast route: IV; COMPARISON: PT PET/CT Skull/mid thigh 04/18/2018 3:10 PM FINDINGS: Lungs: There is bibasilar compressive atelectasis. Liver: Examination of the liver demonstrates a lobular surface contour, and enlargement of the left and caudate lobes, findings consistent with cirrhosis. Hepatic steatosis. Gallbladder and bile ducts: There has been a cholecystectomy. Pancreas: Normal. No ductal dilation. Spleen: There is moderate splenomegaly with a maximum span of 17 centimeters. No focal abnormalities demonstrated. Adrenals: Normal. No mass. Kidneys and ureters: Normal. No hydronephrosis. Stomach and bowel: This patient is status post gastric bypass surgery. There is increased feces throughout the colon consistent with constipation. Appendix: No evidence of appendicitis. Intraperitoneal space: Unremarkable. No free air. No significant fluid collection. Vasculature: Unremarkable. No abdominal aortic aneurysm. Lymph nodes: Unremarkable. No enlarged lymph nodes. Bladder: Unremarkable as visualized. Reproductive: There has been a hysterectomy. Bones/joints: Old rib fractures right 5th and 7th ribs. Moderate central spinal stenosis L3-L4 and mild central spinal stenosis L4-L5. Soft tissues: Unremarkable. IMPRESSION: 1. Examination of the liver demonstrates a lobular surface contour, and enlargement of the left and caudate lobes, findings consistent with cirrhosis. Hepatic steatosis. 2. There has been a cholecystectomy. 3. There is moderate splenomegaly with a maximum span of 17 centimeters. No focal abnormalities demonstrated. 4. This patient is status post gastric bypass surgery. 5. There has been a hysterectomy. 6. There is increased feces throughout the colon consistent with constipation. Electronically signed by: Wes Headley On 04/08/2019 22:07:10 PM
--- NOTE | 2019-04-08 23:26 | HPEPDOC ---
[facility] Medical History & Physical Date of Admission Apr 08, 2019 Date of Service: Apr 08, 2019 Primary Care Physician: A Other Provider Vandana PATRICIA Attending Physician: KATTY ANGELES MD History and Physical TIME OF SERVICE: 11:20 PM CHIEF COMPLAINT: Abdominal pain HISTORY OF PRESENT ILLNESS: This is a 38 year old female who has been having 8/10 in severity, sharp, intermittent, right upper abdominal quadrant pain for few weeks that became much worse yesterday. Yesterday, she also developed itchy skin and this morning she noticed that her urine was dark. Today she presented to urgent care's clinic who recommended that she come to the hospital for additional evaluation. She denies having fever, chills, weight loss, or any changes in her medications over the last 3 months. REVIEW OF SYSTEMS: 12 point review of systems negative except as listed in HPI PAST MEDICAL/ SURGICAL HISTORY: BYRD with liver cirrhosis (per Dr. Coleman's progress note a biopsy was done during lap brigido / in 2017 her MELD score was 6 and Child-Cruz Class was A) Splenomegaly Migraines NIDDM Osteopenia History of Thyroid cancer with 2 recurrences requiring 3 thyroidectomies, and chemoradiation including radioactive iodine therapy / Acquired hypothyroidism Depression Fibromyalgia DJD of the lumbar spine/ herniated cervical disc Status post 2 Status post hysterectomy to manage menorrhagia Status post lap cholecystectomy Status post gastric bypass. Status post tonsillectomy and adenoidectomy Status post resection of hyperplastic colonic polyps Right lung thyroid nodule that is being monitored SOCIAL HISTORY: She quit smoking She has 3 children FAMILY HISTORY: Mother had stage IV colon cancer Aunts have ovarian cancer & breast cancer Father has seizure disorder, diabetes & hypertension Grandmother had skin cancer ALLERGIES: Please see below. HOME MEDICATIONS: Please see below. PHYSICAL EXAMINATION: VITAL SIGNS: Please see below. GEN: well-nourished / well developed/ NAD INTEGUMENT: not flushed/ not jaundice / her skin is dry HEENT: NCAT / lips acyanotic /mucus membranes moist and pink / sclera anicteric CVS: RRR/NMRG/ radial pulses intact /trace lower extremity edema LUNGS: clear to auscultation bilaterally on room air ABDOMEN: Contour (obese) / soft & not tender with palpation MSK/EXTREMITIES: range of motion intact in all 4 extremities NEURO: CN 2-12 are grossly intact / speech is not dysarthric PSYCH: alert and oriented to person place and time/ able to understand and follow all commands LABORATORY DATA: See below. IMAGING: CT abdomen and pelvis " IMPRESSION: 1. Examination of the liver demonstrates a lobular surface contour, and enlargement of the left and caudate lobes, findings consistent with cirrhosis. Hepatic steatosis. 2. There has been a cholecystectomy. 3. There is moderate splenomegaly with a maximum span of 17 centimeters. No focal abnormalities demonstrated. 4. This patient is status post gastric bypass surgery. 5. There has been a hysterectomy. 6. There is increased feces throughout the colon consistent with constipation. " MICROBIOLOGY: Please see below. ASSESSMENT: Ms. Atkinson is a 38 yr old F with a history of BRYD/liver cirrhosis, splenomegaly, migraines, NIDDM, hypothyroidism after thyroidectomy scar, depression, fibro-myalgia, gastric bypass who is admitted for evaluation of right upper quadrant pain, and pruritus likely due to cholestasis. PLAN: 1. Right upper quadrant pain Possibly due to viral hepatitis vs other cause to be determined. CT of the abdomen did not show ascites. Her liver function appears to be worsening. Plan: Admit to medical floor/follow-up hepatitis panel/GI consult 2. Liver cirrhosis / BYRD Her LFTs have increased since January 2019 Today, her MELD score is 11 Plan: trend LFTs, follow-up hepatitis panel /encouraged her to schedule follow up appointment with once she is discharged, in the meanwhile, we will request records from his office 3. Pruritus Likely due to cholestasis. Her urine is positive for urobilinogen and her LFTs are acutely elevated day compared to values in January 2019. Her symptoms haven't improved despite receiving Benadryl Plan: will start cetirizine, if her symptoms don't improve, will add cholestyramine 4. Splenomegaly with leukopenia and thrombocytopenia possibly due to portal hypertension? Plan: f/u w to see if she needs an ultrasound with Doppler studies to assess for portal HTN 5. Constipation Likely opiate-induced Plan: MiraLAX and senna 6. Migraines - Plan: topiramate 7. NIDDM (A1C 5.5% Jan 2019) - Plan: diabetic diet / f/u accuchecks/ hypoglycemia protocol / sliding scale insulin 8. Osteopenia - Plan: f/u w PCP for DEXA if not already done 9. Acquired hypothyroidism / s/p thyroidectomy for thyroid cancer - Plan: levothyroxine 10. Depression / Fibromyalgia - Plan: bupropion, fluoxetine, tapentadol 11. Obesity (BMI 46) complicates care. She has had bariatric surgery DVT PROPHYLAXIS: Lovenox DISPOSITION: Home after more than two midnight's stay Vital Signs Vital Signs Date Time Temp Pulse Resp B/P (MAP) Pulse Ox O2 Delivery O2 Flow Rate FiO2 04/08/19 19:34 04/08/19 18:22 98.5 110 18 100 Room Air Laboratory Data Labs 24H Laboratory Tests 2 04/08/19 19:28: Prothrombin Time 14.3H, Prothromb Time International Ratio 1.14, Activated Partial Thromboplast Time 41.2H 04/08/19 19:30: POC Glucose (Misc Panel) 117H, POC Sodium (Misc Panel) 136, POC Potassium (Misc Panel) 3.2L, POC Chloride (Misc Panel) 105, POC Total CO2 (Misc Panel) 20.0L, POC Blood Urea Nitrogen (Misc Panel 12, POC Ionized Calcium (Misc Panel) 4.6, POC Creatinine (Misc Panel) 0.7, POC Hematocrit (Misc Panel) 36.0L 04/08/19 19:33: Immature Granulocyte % (Auto) 0.0, Neutrophils (%) (Auto) 56.3, Lymphocytes (%) (Auto) 32.9, Monocytes (%) (Auto) 10.0H, Eosinophils (%) (Auto) 0.0, Basophils (%) (Auto) 0.8, Neutrophils # (Auto) 1.4L, Lymphocytes # (Auto) 0.8L, Monocytes # (Auto) 0.3, Eosinophils # (Auto) 0.0, Basophils # (Auto) 0.0, Nucleated Red Blood Cells % (auto) 0.0, Anion Gap 8, Glomerular Filtration Rate > 60.0, Calcium Level 8.6, Total Bilirubin 2.0H, Direct Bilirubin 1.5H, Aspartate Amino Transf (AST/SGOT) 109H, Alanine Aminotransferase (ALT/SGPT) 136H, Alkaline Phosphatase 351H, Total Protein 7.0, Albumin 3.4, Albumin/Globulin Ratio 0.94L, Lipase 193, Thyroid Stimulating Hormone (TSH) 0.478 04/08/19 19:54: Urine Color YELLOW, Urine Appearance CLEAR, Urine pH 6.0, Urine Specific Brandon 1.008, Urine Protein NEGATIVE, Urine Glucose (UA) NEGATIVE, Urine Ketones NEGATIVE, Urine Blood NEGATIVE, Urine Nitrite NEGATIVE, Urine Bilirubin NEGATIVE, Urine Urobilinogen 2.0H, Urine Leukocyte Esterase TRACEH, Urine WBC (Auto) 3, Urine RBC (Auto) 3, Urine Hyaline Casts (Auto) 0, Urine Bacteria (Auto) 1+H, Urine Squamous Epithelial Cells 1, Urine Sperm (Auto) CBC/BMP Laboratory Tests 04/08/19 19:33 Microbiology Microbiology 04/08/19 Urine Culture, Received Pending Home Medications Scheduled Brexpiprazole (Rexulti) 1 Mg Tablet, 1 MG PO QHS Bupropion Hcl (Bupropion Xl) 150 Mg Tab.er.24h, 150 MG PO DAILY NEW RX, HAS NOT STARTED Cholestyramine (Cholestyramine Packet) 4 Gm Powd.pack, 2 GM PO BID@1200,2000 Cyanocobalamin (Cyanocobalamin Injection) 1,000 Mcg/1 Ml Vial, 1 ML IM Q30D Fluoxetine Hcl (Fluoxetine HCl) 40 Mg Cap, 40 MG PO DAILY Hydroxyzine HCl (Hydroxyzine HCl) 25 Mg Tablet, 25 MG PO TID Levothyroxine Sodium (Levoxyl) 200 Mcg Tab, 200 MCG PO DAILY Lisdexamfetamine Dimesylate (Vyvanse) 70 Mg Capsule, 70 MG PO DAILY Tapentadol HCl (Nucynta ER) 250 Mg Tab.er.12h, 250 MG PO Q12H Topiramate (Trokendi Xr) 200 Mg Cap, 200 MG PO QHS Scheduled PRN Cyclobenzaprine HCl (Cyclobenzaprine HCl) 10 Mg Tab, 10 MG PO TID PRN for MUSCLE SPASMS Docusate Sodium (Docusate Sodium) 100 Mg Tab, 100 MG PO BID PRN for CONSTIPATION Lorazepam (Lorazepam) 0.5 Mg Tab, 0.5 MG PO TID PRN for ANXIETY Simethicone (Simethicone) 80 Mg Tab.chew, 80 MG PO TID PRN for GAS PAIN Tapentadol HCl (Nucynta) 100 Mg Tablet, 100 MG PO Q8H PRN for PAIN Allergies Coded Allergies: ciprofloxacin (Verified Allergy, Intermediate, Rash, abdominal pain, ) glipizide (Verified Allergy, Unknown, Reaction not reported, 06/16/18) NSAIDS (Non-Steroidal Anti-Inflamma (Verified Adverse Reaction, Mild, Unable to take due to lap band, 06/16/18) A-FIB/CHADSVASC A-FIB History Current/History of A-Fib/PAF?: No Current PO Anticoag Therapy: No KATTY ANGELES MD Apr 08, 2019 23:26
[2019-04-08] MEDS ORDERED: SIMETHICONE 80 MG CHEW TAB PO PRN (23:30)
[2019-04-08] MEDS ORDERED: DOCUSATE SODIUM 100 MG CAP PO PRN (23:30)
[2019-04-08] MEDS ORDERED: CYCLOBENZAPRINE 10 MG TAB PO PRN (23:30)
[2019-04-08] MEDS ORDERED: TOPIRAMATE (TopAMAX) 100 MG TAB PO SCH (23:30)
[2019-04-08] MEDS ORDERED: ENTER DRUG NAME HERE (PATIENT'S OWN MED) PO PRN (23:30)
[2019-04-08] MEDS ORDERED: LORazepam 0.5 MG TAB PO PRN (23:30)
[2019-04-08] MEDS ORDERED: ENTER DRUG NAME HERE (PATIENT'S OWN MED) PO SCH (23:30)
[2019-04-08] MEDS ORDERED: REXU1TAB3 PO (23:36)
[2019-04-08] MEDS ORDERED: SIME40TA PO (23:36)
[2019-04-08] MEDS ORDERED: CYAN1000VL IM (23:36)
[2019-04-08] MEDS ORDERED: BUPR150T3 PO (23:36)
[2019-04-08] MEDS ORDERED: [UNRECOGNIZED DRUG - CODE] PO (23:40)
[2019-04-08] MEDS ORDERED: NUCY100T16 PO (23:40)
[2019-04-08] MEDS ORDERED: DEXM10TA3 PO (23:40)
[2019-04-09 00:16] LABS: MONO REFLEX EBV COMP NEGATIVE (NEGATIVE)
[2019-04-09 00:30] VITALS: BP 118/74
[2019-04-09] MEDS ORDERED: SENNA 8.6 MG TAB (SENOKOT) PO PRN (00:30)
[2019-04-09] MEDS ORDERED: GLUCAGON FOR INJ 1 MG VIAL (J1610) SC PRN (00:45)
[2019-04-09] MEDS ORDERED: DEXTROSE 50% 50 ML SYRINGE IV PRN (00:45)
[2019-04-09] MEDS ORDERED: GLUCOSE 4 GM CHEW TABLET PO PRN (00:45)
[2019-04-09] MEDS ORDERED: LEVOTHYROXINE 100MCG TABLET (0.1MG) PO SCH (06:00)
[2019-04-09] MEDS ORDERED: ENOXAPARIN 40 MG/0.4 ML SYRINGE (J1650) SC SCH (06:00)
[2019-04-09 06:25] VITALS: BP 100/64
[2019-04-09 06:28] LABS: HEMATOCRIT 36.9 % (36.0-47.0); HEMOGLOBIN 11.3 g/dl (12.0-15.5); MEAN CORPUSCULAR HEMOGLOBIN 26.6 pg (27.0-33.0); MEAN CORPUSCULAR HGB CONC 30.6 g/dl (32.0-36.5); MEAN CORPUSCULAR VOLUME 86.8 fl (80.0-96.0); PLATELET COUNT, AUTOMATED 143 10^3/uL (150-450); RED BLOOD COUNT 4.25 10^6/uL (4.00-5.40); WHITE BLOOD COUNT 2.7 10^3/uL (4.0-10.0)
[2019-04-09 06:50] LABS: INR 1.14; PROTHROMBIN TIME 14.4 SECONDS (11.8-14.0)
[2019-04-09 06:55] LABS: ALBUMIN 3.2 GM/DL (3.2-5.2); ALT/SGPT 141 U/L (12-78); BLOOD UREA NITROGEN 12 MG/DL (7-18); CALCIUM LEVEL 8.6 MG/DL (8.5-10.1); CARBON DIOXIDE LEVEL 22 MEQ/L (21-32); CHLORIDE LEVEL 114 MEQ/L (98-107); CREATININE FOR GFR 0.74 MG/DL (0.55-1.30); GLOMERULAR FILTRATION RATE > 60.0 (>60); GLUCOSE, FASTING 108 MG/DL (70-100); POTASSIUM SERUM 3.4 MEQ/L (3.5-5.1); SODIUM LEVEL 145 MEQ/L (136-145); TOTAL PROTEIN 5.9 GM/DL (6.4-8.2)
[2019-04-09] MEDS ORDERED: POTASSIUM CHLORIDE 10 MEQ SR TABLET PO ONE (07:15)
[2019-04-09] MEDS: HumaLOG INSULIN (NovoLOG) PER UNIT SC SCH ×2 (07:30→12:00)
[2019-04-09] MEDS ORDERED: NUCYNTA 75 MG PO PRN (08:00)
[2019-04-09] MEDS ORDERED: MOM 30ML SUSPENSION UDC PO PRN (08:30)
[2019-04-09] MEDS ORDERED: MOM 30ML SUSPENSION UDC PO ONE (08:30)
[2019-04-09] MEDS ORDERED: ENTER DRUG NAME HERE (PATIENT'S OWN MED) PO SCH ×3 (09:00→21:00)
[2019-04-09] MEDS ORDERED: FLUoxetine 20 MG CAP PO SCH (09:00)
[2019-04-09] MEDS ORDERED: buPROPion **XL** TABLET 150MG (WELLBUTRIN XL) PO SCH (09:00)
[2019-04-09] MEDS ORDERED: SENOKOT S TAB PO SCH (09:00)
[2019-04-09] MEDS ORDERED: MIRALAX *UNIT DOSE* 17GM PACKET PO SCH ×2 (09:00)
[2019-04-09] MEDS: hydrOXYzine 25 MG TAB PO SCH ×2 (09:19→15:14)
--- NOTE | 2019-04-09 10:12 | IPN ---
DATE: 04/09/2019 SUBJECTIVE: The patient still complains of generalized pruritus, not much improved from yesterday. She also complains of right upper quadrant pain described as achiness and soreness without any radiation, better when she lies still, unchanged with position and ambulation. She describes this in the right upper quadrant. No nausea or vomiting. Still tolerating liquid diet. Afebrile. No chills overnight. The patient denies any abdominal distention, feeling of fullness or lower extremity edema. Has not had any weight gain. Denies coffee ground emesis, hematemesis, bright red blood per rectum, melena, or black tarry stools. She follows with a coil builder, but has not been seen in over 1 year. The patient denies any alcohol use. No recent use of acetaminophen as well. OBJECTIVE: PHYSICAL EXAMINATION: VITAL SIGNS: Temperature 98.3, pulse 89, respiratory rate 18, blood pressure 100/64, 97% on room air. GENERAL: She is awake, alert, oriented times three. She does have some erythema on the face, upper extremities, very mild and very mild jaundice. Able to speak in full sentences. No confusion. No conversational dyspnea. No jugular venous distention (JVD) or thyromegaly. Moist mucous membranes. No cervical lymphadenopathy. LUNGS: Clear to auscultation. No wheezing, rales or rhonchi. HEART: S1, S2. Sinus rhythm. No murmurs, rubs or gallops. ABDOMEN: Obese, soft, slightly tender in right upper quadrant. No rebound, guarding. Positive bowel sounds times four quadrants. No costovertebral angle tenderness. EXTREMITIES: No cyanosis, clubbing, or pitting edema. LABORATORY DATA: White count 2.7, hemoglobin 11, hematocrit 36, platelet count 143. Sodium 145, potassium 3.4, chloride 114, bicarbonate 22, BUN 12, creatinine 0.74, glucose 108, total bilirubin 1, direct bilirubin 1.5, AST 115, ALT 141, alkaline phosphatase 324. Urine culture is pending. CT of the abdomen and pelvis 04/08/2019 showed lobular liver contour consistent with liver cirrhosis, hepatosteatosis, cholecystectomy, moderate splenomegaly, maximum span of 17 cm, status post gastric bypass, hysterectomy, increased feces in the colon consistent with constipation. ASSESSMENT AND PLAN: This is a 38-year-old female with a history of nonalcoholic steatohepatitis, follows with Dr. Coleman with liver cirrhosis, splenomegaly, migraines, qmb-gpkoxdz-vecnqxvlw diabetes, thyroid cancer with two recurrences, status post thyroidectomy, chemotherapy, radiation, radioactive iodine therapy, and acquired hypothyroidism, osteopenia, depression, fibromyalgia, herniated cervical disc, degenerative joint disease of the lumbar spine, who presents to the emergency room with right upper quadrant abdominal pain, generalized pruritus, was seen at urgent care with recommendations to be further evaluated at [facility]. IMPRESSION: 1. Decompensated nonalcoholic steatohepatitis induced liver cirrhosis. Initial model for end-stage liver disease (MELD) score on admission was 11. The patient's bilirubin has improved, liver function tests improving as well. For symptomatic relief, the patient will be given low dose cholestyramine, Benadryl cream, Atarax. GI has been consulted. Bilirubin is improved. Defer to GI if the patient requires prednisone. 2. Constipation. We will start on MiraLAX and Senokot S, may be contributing to slight abdominal pain. 3. Hypokalemia. Supplemented. 4. Obesity. Body Mass Index (BMI) is 36.4, status post gastric bypass surgery. Outpatient weight loss program. 5. Rty-fdvtszg-bklfbcxes type 2 diabetes, weight loss. Check A1/c and lipid panel. 6. History of migraines. Currently no acute complaints. 7. Thyroid cancer with recurrence, status post thyroidectomy, chemotherapy, radiation, radioactive iodine therapy and acquired hypothyroidism. Check TSH, T3 and T4. On chronic Synthroid. MTDD
[2019-04-09] MEDS ORDERED: CHOLESTYRAMINE 4 GM PWD PKT PO SCH (12:00)
[2019-04-09 13:23] LABS: HEPATITIS A ANTIBODY IGM NEGATIVE (NEGATIVE); HEPATITIS B CORE ANTIBODY IGM NEGATIVE (NEGATIVE); HEPATITIS B SURFACE ANTIGEN NEGATIVE (NEGATIVE); HEPATITIS C VIRUS ABY INDEX < 0.0 INDEX (<0.8)
[2019-04-09] MEDS ORDERED: HYDR-3363 PO (14:34)
[2019-04-09] MEDS ORDERED: CHOL4PW PO (14:34)
[2019-04-11 00:06] LABS: ANTI-MITOCHONDRIAL ANTIBODY <20.0 Units (0.0-20.0); ANTINUCLEAR ANTIBODIES DIRECT Negative (Negative); CYTOMEGALOVIRUS IgG ANTIBODY >10.00 U/mL (0.00-0.59); CYTOMEGALOVIRUS IgM ANTIBODY 34.1 AU/mL (0.0-29.9); EBV AB TO NUCLEAR ANTIGEN 96.3 U/mL (0.0-17.9); EBV VIRAL CAPSID AG IgG >600.0 U/mL (0.0-17.9); EBV VIRAL CAPSID AG IgM <36.0 U/mL (0.0-35.9)
--- NOTE | 2019-04-19 19:22 | DSES ---
DATE OF ADMISSION: 04/08/2019 DATE OF DISCHARGE: 04/09/2019 PRIMARY DISCHARGE DIAGNOSES: 1. Nonalcoholic steatohepatitis (BYRD), cholestasis causing pruritus. 2. Cholecystectomy. 3. Splenomegaly. 4. History of gastric bypass. 5. Constipation. 6. History of migraines. 7. Nnp-rnyhowd-mjraewlku diabetes mellitus, A1/c of 5.5 in January. 8. Osteopenia. 9. Hypothyroidism secondary to thyroidectomy for thyroid cancer. 10. Depression. 11. Fibromyalgia. 12. Obesity, Body Mass Index (BMI) of 46, status post bariatric surgery. DISCHARGE MEDICATIONS: - cholestyramine 2 grams twice a day - hydroxyzine 25 mg three times a day - Rexulti 1 mg at night - bupropion XL 150 mg daily - cyanocobalamin every 30 days - cyclobenzaprine 10 mg three times a day as needed - Colace 100 mg twice a day as needed - fluoxetine 40 mg daily - Levoxyl 200 mcg daily - Vyvanse 70 mg daily - Ativan 0.5 mg twice a day for anxiety - simethicone 80 mg three times a day as needed - Nucynta 250 mg every 12 hours, 100 mg every 8 hours as needed - topiramate 200 mg at night DISCHARGE INSTRUCTIONS: Immediate followup with assistant education director and primary care physician within 1 week of hospital discharge. HOSPITAL COURSE: This is a 38-year-old female with a history of nonalcoholic steatohepatitis (BYRD), liver cirrhosis with Child-Cruz class A, model for end-stage liver disease (MELD) score of 6, who had a liver biopsy done by Dr. Coleman in 2017 showing liver cirrhosis, splenomegaly, migraines, aqp-dftpqka-agyigbfml diabetes mellitus, thyroid cancer with two recurrences, status post three thyroidectomies and chemotherapy and radiation, including radioactive iodine therapy with acquired hypothyroidism, depression, fibromyalgia, prior gastric bypass surgery, colonic polyps, which were hyperplastic, who presented to the emergency room with a few week history of right upper quadrant sharp abdominal pain intermittently, described as 8 out of 10 pain, which was worsened the day prior to presentation, as well as dark urine and generalized pruritus. The patient has no fevers, chills, weight gain or weight loss. Has had no changes in medications. CT of the abdomen and pelvis showed a liver cirrhosis, hepatosteatosis, splenomegaly with maximum span of 17 cm and constipation. The patient was leukopenic and thrombocytopenic with subsequent pancytopenia on 04/09/2019 not requiring any blood transfusion or platelet transfusion. Total bilirubin was 2, direct bilirubin of 1.5. AST and ALT were 109 and 136, respectively. Lipase was normal. She had episodes of hypokalemia, which was supplemented at 3.2 and 3.4, respectively. Urine culture was negative. For pruritus, the patient was given cholestyramine and hydroxyzine. The patient had symptomatic improvement and was subsequently discharged to him with immediate followup with her assistant education director. PHYSICAL EXAMINATION: On discharge: Temperature 98.3, pulse 89, respiratory rate 18, blood pressure 100/64, 97% on room air. GENERAL: The patient is awake, alert, oriented times three. Anicteric sclerae. No jaundice. Able to speak in full sentences. No thyromegaly. No jugular venous distention (JVD). Moist mucous membranes. No cervical lymphadenopathy. LUNGS: Clear to auscultation. No wheezing, rales or rhonchi. HEART: S1, S2. Sinus rhythm. ABDOMEN: Soft, slightly tender in the right upper quadrant. No rebound or guarding. Positive bowel sounds. No costovertebral angle tenderness. No ascites or fluid wave. EXTREMITIES: No cyanosis, clubbing or pitting edema. LABORATORY DATA: On discharge: White count 2.7, hemoglobin 11, hematocrit 36, platelet count 143. Sodium 145, potassium 3.4, chloride 114, bicarbonate 22, BUN 12, creatinine 0.74, glucose 108, total bilirubin 1, direct bilirubin 1.5, AST 150, ALT 141, alkaline phosphatase 324. IMAGING STUDIES: CT of the abdomen and pelvis showed lobular liver contour, consistent with liver cirrhosis, hepatosteatosis, cholecystectomy, moderate splenomegaly, maximum span of 17 cm, status post gastric bypass, hysterectomy, feces in the colon consistent with constipation. Microbiology: Urine culture negative. Time spent on discharge: 30 minutes. [facility]
[2019-04-20] MEDS ORDERED: CYAN1000VL IM (14:20)
[2019-04-20] MEDS ORDERED: 3ML25MIS IM (14:26)
== END 2019-04-09 15:35 | disposition home or self-care (01) | DRG 442 ==
LOC: M ED 18:21 → M ED INP 23:07 → ENRESERV 23:22 → M MS5PR 04-09 00:30
PROVIDERS: ADMIT Internal Medicine; ATTEND General Practice
DX: K75.81 Nonalcoholic steatohepatitis (NASH) (principal); K76.6 Portal hypertension; Z68.41 Body mass index [BMI] 40.0-44.9, adult; R10.11 Right upper quadrant pain; G43.909 Migraine, unspecified, not intractable, without status migrainosus; E11.9 Type 2 diabetes mellitus without complications; M85.9 Disorder of bone density and structure, unspecified; C73 Malignant neoplasm of thyroid gland; E89.0 Postprocedural hypothyroidism; F32.9 Major depressive disorder, single episode, unspecified; M79.7 Fibromyalgia; M51.36 Other intervertebral disc degeneration, lumbar region; Z90.79 Acquired absence of other genital organ(s); Z90.49 Acquired absence of other specified parts of digestive tract; Z98.84 Bariatric surgery status; Z87.891 Personal history of nicotine dependence; L29.9 Pruritus, unspecified; R16.1 Splenomegaly, not elsewhere classified; D72.819 Decreased white blood cell count, unspecified; D69.6 Thrombocytopenia, unspecified; K59.00 Constipation, unspecified; E66.9 Obesity, unspecified; Z79.899 Other long term (current) drug therapy; Z88.1 Allergy status to other antibiotic agents; Z88.8 Allergy status to other drugs, medicaments and biological substances; E87.6 Hypokalemia; Z92.21 Personal history of antineoplastic chemotherapy; Z92.3 Personal history of irradiation

== ENCOUNTER → 2019-04-21 | Outpatient (CLI) | payer MEDICARE, MEDICAID ==
[~2019-04-21] MED LIST changes: +3ML25MIS IM; +BUPR150T3 PO; +CHOL4PW PO; +DEXM10TA3 PO; +NUCY100T16 PO; +REXU1TAB3 PO; +SIME40TA PO
--- NOTE | 2019-04-21 15:39 | REPVR ---
PROCEDURE INFORMATION: Exam: MR Abdomen Without Contrast; Liver Exam date and time: 04/21/2019 12:03 PM Age: 38 years old Clinical indication: Abnormal findings; Abnormal lab test; Other: Elevated alp; Patient HX: Mrcp ordered TECHNIQUE: Imaging protocol: MR Abdomen without contrast. Exam focused on the liver. 3D rendering: MIP and/or 3D reconstructed images were created by the technologist. COMPARISON: PT PET/CT Skull/mid thigh 04/18/2018 3:10 PM COMPARISON MORE: CT ABD/PEL W/IV CONTRAST ONLY 04/08/2019 9:09:47 PM FINDINGS: Liver: There is diffuse moderate enlargement of the liver measuring 22 cm.There is a finely nodular contour to the liver with periportal atrophy and hypertrophy of the caudate lobe, consistent with cirrhosis. Gallbladder and bile ducts: There has been a cholecystectomy. There is no obstruction or defect in the biliary tree. There is tapering of the distal duct at the ampulla on the MRCP and the conventional T2 weighted coronal images. There is subtle prominence of the ampulla measuring about 8 mm in diameter best seen on axial image 201: 10 but also suggested on MRCP source image [id number]. Pancreas: Normal. Spleen: There is moderate nonspecific splenomegaly measuring 15.5 cm. Kidneys and ureters: Normal kidneys. Visualized ureters are unremarkable. Intraperitoneal space: No free fluid. IMPRESSION: 1. There is moderate nonspecific splenomegaly measuring 15.5 cm. 2. There is diffuse moderate enlargement of the liver measuring 22 cm.There is a finely nodular contour to the liver with periportal atrophy and hypertrophy of the caudate lobe, consistent with cirrhosis. 3. There is no obstruction or defect in the biliary tree. There is tapering of the distal duct at the ampulla on the MRCP and the conventional T2 weighted coronal images. There is subtle prominence of the ampulla measuring about 8 mm in diameter best seen on axial image 201: 10 but also suggested on MRCP source image [id number]. Electronically signed by: Cristino Crump On 04/21/2019 15:39:26 PM
== END ==
LOC: M RAD 11:52
DX: R74.8 Abnormal levels of other serum enzymes (principal); R16.2 Hepatomegaly with splenomegaly, not elsewhere classified; Z90.49 Acquired absence of other specified parts of digestive tract; K76.89 Other specified diseases of liver

== ENCOUNTER → 2019-04-23 | Outpatient (CLI) | payer MEDICARE, MEDICAID ==
[2019-04-23 10:19] LABS: FREE T4 1.66 NG/DL (0.76-1.46); THYROID STIMULATING HORMONE 0.088 uIU/ML (0.358-3.740)
== END ==
LOC: M LAB 09:00
PROVIDERS: ATTEND Internal Medicine Endocrinology, Diabetes & Metabolism
DX: E03.9 Hypothyroidism, unspecified (principal)

== ENCOUNTER → 2019-04-23 | Outpatient (CLI) | payer MEDICARE, MEDICAID ==
[2019-04-23 09:43] LABS: HEMATOCRIT 40.5 % (36.0-47.0); HEMOGLOBIN 12.9 g/dl (12.0-15.5); LYMPH # 1.4 10^3/uL (1.5-5.0); LYMPH % 33.1 % (24.0-44.0); MEAN CORPUSCULAR HEMOGLOBIN 26.9 pg (27.0-33.0); MEAN CORPUSCULAR HGB CONC 31.9 g/dl (32.0-36.5); MEAN CORPUSCULAR VOLUME 84.4 fl (80.0-96.0); MONO # 0.3 10^3/uL (0.0-0.8); NEUTROPHILS # 2.4 10^3/uL (1.5-8.5); NEUTROPHILS % 57.7 % (36.0-66.0); PLATELET COUNT, AUTOMATED 172 10^3/uL (150-450); WHITE BLOOD COUNT 4.1 10^3/uL (4.0-10.0)
[2019-04-23 10:09] LABS: ALT/SGPT 66 U/L (12-78); BILIRUBIN,TOTAL 0.5 MG/DL (0.2-1.0); BLOOD UREA NITROGEN 12 MG/DL (7-18); CALCIUM LEVEL 8.4 MG/DL (8.5-10.1); CARBON DIOXIDE LEVEL 22 MEQ/L (21-32); CHLORIDE LEVEL 112 MEQ/L (98-107); CREATININE FOR GFR 0.73 MG/DL (0.55-1.30); GLOMERULAR FILTRATION RATE > 60.0 (>60); GLUCOSE, FASTING 108 MG/DL (70-100); POTASSIUM SERUM 3.7 MEQ/L (3.5-5.1); SODIUM LEVEL 141 MEQ/L (136-145)
[2019-04-23 10:10] LABS: ALBUMIN 3.7 GM/DL (3.2-5.2); FERRITIN 150 NG/ML (8-252); IRON (FE) 56 UG/DL (50-170); TOTAL IRON BINDING CAPACITY 254 UG/DL (250-450); TOTAL PROTEIN 6.8 GM/DL (6.4-8.2)
[2019-04-23 10:21] LABS: VITAMIN B12 LEVEL > 2000 PG/ML
[2019-04-23 10:23] LABS: FOLATE 12.2 NG/ML
== END ==
LOC: M LAB 08:57
PROVIDERS: ATTEND Physician Assistant
DX: D50.9 Iron deficiency anemia, unspecified (principal); E87.6 Hypokalemia; E03.9 Hypothyroidism, unspecified

== ENCOUNTER → 2019-05-23 | Outpatient (CLI) | payer MEDICARE, MEDICAID ==
[~2019-05-23] MED LIST changes: +BD I1MIS14 SC
--- NOTE | 2019-05-25 02:38 | ECWPNPC ---
PATIENT NAME: PADMINI SANTA : 1980 GENDER: FEMALE VISIT DATE: 05/23/2019 DISCHARGE DATE: 05/23/19 1125 VISIT LOCKED DATE TIME: PHYSICIAN: BRIANNA KIMBLE RESOURCE: BRIANNA KIMBLE REASON FOR APPOINTMENT 1. F/U ACUTE FLARE UP/MED MGMNT HISTORY OF PRESENT ILLNESS HISTORY OF PRESENT ILLNESS: HERE FOR FOLLOW-UP OF CHRONIC LOW BACK PAIN AND RIGHT POSTERIOR THIGH PAIN. DESCRIBES PAIN CONSTANT AND ACHING. RATING PAIN VAS 6/10. AT LAST VISIT, WE INCREASED NUCYNTA SHORT ACTING TO 100 MG STRENGTH. SHE IS USING THIS APPROXIMATELY 2 TIMES A DAY. ALSO ON NUCYNTA EXTENDED RELEASE 250 MG TWICE A DAY. TODAY WE DISCUSSED TRYING TO USE A HALF A TABLET OF NUCYNTA 100 MG TO 1 WHOLE TABLET INFREQUENTLY FOR SEVERE PAIN EPISODES ONLY. WE ARE TRYING TO PRESERVE INEFFECTIVENESS AND DECREASE CHANCES OF TOLERANCE. PAIN THE PATIENT DESCRIBES THE PAIN... FALL RISK SCREENING: SCREENING :NO FALLS REPORTED IN THE LAST YEAR CURRENT MEDICATIONS TAKING VENOFER 20 MG/ML SOLUTION DIRECTED INTRAVENOUS NEEDED TAKING LEVOTHYROXINE SODIUM 175 MCG TABLET 1 TAB ORALLY DAILY, NOTES: TOTAL OF 200 MCG TAKING MULTI VITAMIN DAILY - TABLET 1 TABLET ORALLY ONCE A DAY TAKING VITAMIN B-12 1000 MCG TABLET 1 TABLET ORALLY ONCE A DAY TAKING VITAMIN D3 5000 UNIT CAPSULE 1 CAPSULE ORALLY ONCE A DAY TAKING ATIVAN 0.5 MG TABLET 1 TABLET NEEDED ORALLY THREE TIMES A DAY NEEDED TAKING TROKENDI XR 200 MG CAPSULE EXTENDED RELEASE 24 HOUR 1 CAPSULE ORALLY ONCE A DAY TAKING CALCIUM 600 MG TABLET 1 TABLET WITH MEALS ORALLY THREE TIMES A DAY TAKING GAS-X 80 MG TABLET CHEWABLE 1 TABLET AFTER MEALS AND AT BEDTIME NEEDED ORALLY FOUR TIMES A DAY TAKING VITAMIN C 500 MG TABLET CHEWABLE 1 TABLET ORALLY ONCE A DAY TAKING OMEPRAZOLE 40 MG CAPSULE DELAYED RELEASE 1 CAPSULE ORALLY BID, NOTES: DR. MORELAND TAKING CETIRIZINE HCL 10 MG TABLET 1 TABLET ORALLY ONCE A DAY, NOTES: USES OTC MED TAKING REXULTI 1 MG TABLET 1 TABLET ORALLY ONCE A DAY TAKING METFORMIN & DIET MANAGE PROD 500 MG MISCELLANEOUS ORALLY BID, NOTES: FOR WEIGHT LOSS ONLY TAKING WRIST BRACE - MISCELLANEOUS DIRECTED WEAR ON L AND R WRIST NIGHTLY FOR CARPAL TUNNEL. DX: G56.02,G56.01, NOTES: PLEASE DISPENSE LEFT AND RIGHT WRIST BRACES TAKING CYCLOBENZAPRINE HCL 10 MG TABLET 1 TABLET NEEDED ORALLY THREE TIMES A DAY TAKING LEVOTHYROXINE SODIUM 50 MCG TABLET 1 TABLET ON AN EMPTY STOMACH IN THE MORNING ORALLY ONCE A DAY, NOTES: TOTAL OF 225 MCG TAKING PROZAC 40 MG CAPSULE 1 CAPSULE ORALLY ONCE A DAY TAKING COLACE 100 MG CAPSULE 2 ORALLY BID TAKING MIRVASO 0.33% DIRECTED TOPICALLY DAILY IN THE AM THIN LAYER TO WHOLE FACE EXCEPT EYELIDS AND AROUND MOUTH TAKING LIDODERM 5 % PATCH 1 PATCH TO SKIN REMOVE AFTER 12 HOURS EXTERNALLY ONCE A DAY ON 12HR OFF 12HR TAKING NUCYNTA 100 MG TABLET 1 TABLET ORALLY Q8H PRN MDD3 TAKING NUCYNTA ER 250 MG TABLET EXTENDED RELEASE 12 HOUR 1 TABLET ORALLY EVERY 12 HRS MDD2 TAKING DEXMETHYLPHENIDATE HCL 10 MG TABLET 1 TABLET ORALLY TWICE A DAY NOT-TAKING VYVANSE 70 MG CAPSULE 1 CAPSULE IN THE MORNING ORALLY ONCE A DAY NOT-TAKING METHYLPREDNISOLONE 4 MG TABLET THERAPY PACK DIRECTED ORALLY DIRECTED NOT-TAKING HYDROXYZINE PAMOATE 50 MG CAPSULE 1 CAPSULE NEEDED ORALLY EVERY 6 HRS NOT-TAKING MIRVASO 0.33 % GEL APPLY A THIN LAYER DIRECTED DAILY IN THE MORNING TO WHOLE FACE EXCEPT EYELIDS AND AROUND MOUTH NOT-TAKING PROMETHAZINE HCL 12.5 MG TABLET 1 TABLET NEEDED ORALLY EVERY 12 HRS NOT-TAKING PREPARATION H 0.25-88.44 % SUPPOSITORY DIRECTED RECTAL BIDPRN NOT-TAKING DRISDOL 46441 UNIT CAPSULE 1 CAPSULE ORALLY WEEKLY NOT-TAKING TOPAMAX 200 MG TABLET 1 TABLET ORALLY BEFORE BEDTIME NOT-TAKING SERTRALINE HCL 100 MG TABLET 2 TABLETS ORALLY ONCE A DAY NOT-TAKING LEVOTHROYXINE 200 MCG 1 TAB ORALLY DAILY NOT-TAKING TRIAMCINOLONE ACETONIDE 0.5 % CREAM 1 APPLICATION TO AFFECTED AREA EXTERNALLY TWICE A DAY NOT-TAKING LYRICA 75 MG CAPSULE 1 CAPSULE ORALLY THREE TIMES DAILY. CODE D. DX: M79.7 NOT-TAKING PHENTERMINE HCL 15 MG CAPSULE 1 CAPSULE ORALLY ONCE A DAY NOT-TAKING LYRICA 75 MG CAPSULE 1 CAPSULE ORALLY THREE TIMES A DAY, NOTES: DUPLICATE NOT-TAKING SUCRALFATE 1 GM TABLET 1 TABLET AT BEDTIME ON AN EMPTY STOMACH BEFORE MEALS ORALLY QID, NOTES: DR. MORELAND NOT-TAKING BUPROPION HCL ER (XL) 150 MG TABLET EXTENDED RELEASE 24 HOUR 1 TABLET IN THE MORNING ORALLY ONCE A DAY NOT-TAKING FLUTICASONE PROPIONATE 50 MCG/ACT SUSPENSION 1 SPRAY IN EACH NOSTRIL NASALLY ONCE A DAY NOT-TAKING OXYCODONE HCL 15 MG TABLET 1 TABLET ORALLY EVERY 12H PRN MDD2 NOT-TAKING VERAPAMIL HCL 40 MG TABLET 1 TABLET ORALLY 1/2 TAB TWICE A DAY FOR 1 WEEK, THEN 1 TAB TWICE A DAY NOT-TAKING AMOXICILLIN-POT CLAVULANATE 875-125 MG TABLET 1 TABLET ORALLY EVERY 12 HRS NOT-TAKING VENOFER 20 MG/ML SOLUTION INFUSE 21ML PER HOSPITAL PROTOCOL INTRAVENOUS ONCE MEDICATION LIST REVIEWED AND RECONCILED WITH THE PATIENT PAST MEDICAL HISTORY THYROID CANCER X 2, FIRST OPERATION 2010, SECOND ONE 2014 (?TYPE) RIGHT LUNG NODULE (WATCHING IT FOR NOW) L4 HERNIATED DISC FATTY LIVER DIABETES MIGRAINES ANXIETY OSTEOPENIA CHRONIC PAIN ALLERGIES GLIPIZIDE XL: RASH - ALLERGY CIPRO: RASH - ALLERGY HYDROXYCHLOROQUINE SULFATE: INCREASED LIVER ENZYMES - ALLERGY NSAIDS : HAD PREVIOUS GASTRIC BYPASS - ALLERGY SURGICAL HISTORY COMPLETE HYSTERECTOMY DUE TO MENORRHAGIA 2012 THYROIDECTOMY, PARTIAL WAS DONE FIRST AND THEN THE REST TAKEN OUT 05/2014 TONSILECTOMY, ADENOIDECTOMY C- SECTION X 2 LAP BAND, AUGUST 2013 GALLBLADDER REMOVAL 05/2015 GASTRIC BYPASS 12/15/2015 BREAST/ NEEDLE BX 09/22/2015 THYROID NODULE REMOVED AND REST OF THYROID REMOVED 05/2016 FAMILY HISTORY MOTHER ALIVE COLON CANCER STAGE 4 NO COLOSTOMY\NDAD ALIVE SEIZUREES HTN DM2 HEART DISEASE\N3 BROTHERS HEALTHY\N0 SISITERS\N2 DAUGHTERS HEALTHY\N1 SONMATERNAL GRANDMOTHER HAD SKIN CANCER, UNSURE WHAT TYPE. UNSURE OF FAMILY HX OF PANCREATIC CANCER. SOCIAL HISTORY GENERAL: TOBACCO USE ARE YOU A:FORMER SMOKER HOW LONG HAS IT BEEN SINCE YOU LAST SMOKED?5-10 YEARS HIV / HEP-C SCREENING HIV TEST OFFERED TO PATIENT:YES DATE OFFERED:07/16/2016 TEST ACCEPTED:NO HEP-C TEST OFFERED TO PATIENT:YES DATE OFFERED:07/16/2016 REASON:PATIENT DECLINED TEST ACCEPTED:NO REASON:PATIENT DECLINED OTHERS AT HOME: MOTHER, CHILDREN. EDUCATION LEVEL OF EDUCATION:HIGH SCHOOL DIET: REGULAR. LANGUAGE LANGUAGES SPOKEN:ARABIC NEW PATIENT PAIN DIARY TODAY'S VISITNOTES 05/23/2019 PATIENT DESCRIBES PAIN :ACHING, HAVE IT ALL THE TIME FROM 0-10, WHAT LEVEL IS YOUR PAIN TODAY?6 BMI CARE GOAL FOLLOW-UP ABOVE NORMAL BMI FOLLOW-UPDIETARY MANAGEMENT EDUCATION, GUIDANCE, AND COUNSELING RECREATIONAL DRUG USE DRUG USE?NO EXERCISE: WALKS. LEARNING BARRIERS / SPECIAL NEEDS CHANGE FROM LAST VISIT?NO 07/31/18 BARRIERS TO LEARNING?NO HEARING IMPAIRED?NO VISION IMPAIRED?YES COGNITIVELY IMPAIRED?NO :CORRECTIVE LENSES READINESS TO LEARN?YES LEARNING PREFERENCES?NO LEARNING CAPABILITIES PRESENT?YES EMOTIONAL BARRIERS?NO SPECIAL DEVICES?NO SENSOR SPECIALIST NEEDED?NO LUNG CANCER SCREENING SMOKING STATUS:FORMER SMOKER PAIN CLINIC PFS, CLERGY, PUBLIC HEALTH REFERRALS PFS REFERRAL NEEDED?NO CLERGY REFERRAL NEEDED?NO PUBLIC HEALTH REFERRAL NEEDED?NO WAS THE PROVIDER NOTIFIED OF ANY PERTINENT INFO?YES HAS THE PATIENT BEEN EDUCATED REGARDING HIS/HER PLAN OF CARE?YES HAS THE PATIENT BEEN EDUCATED REGARDING PAIN, THE RISK FOR PAIN, THE IMPORTANCE OF EFFECTIVE PAIN MANAGEMENT, AND THE PAIN ASSESSMENT PROCESS?YES LATEX QUESTIONNAIRE LATEX ALLERGY : HAVE YOU EVER DEVELOPED ANY TYPE OF REACTION AFTER HANDLING LATEX PRODUCTS SUCH RUBBER GLOVES, CONDOMS, DIAPHRAGMS, BALLOONS, SOCKS, OR UNDERWEAR?NO LATEX ALLERGY : HAVE YOU EVER DEVELOPED ANY TYPE OF REACTION DURING OR AFTER DENTAL APPOINTMENT, VAGINAL/RECTAL EXAMINATION, SURGICAL PROCEDURE, OR ANY OTHER EXPOSURE?NO LATEX RISK : HAVE YOU EVER HAD ANY DIFFICULTY BREATHING OR HIVES AFTER EATING OR HANDLING ANY FRUITS, OR VEGETABLES; SUCH KIWI, BANANAS, STONE FRUITS, OR CHESTNUTSNO LATEX RISK : DO YOU HAVE A PREVIOUS PERSONAL HISTORY OF MORE THAN NINE SURGERIES, SPINA BIFIDA, OR REPEATED CATHERIZATIONS? YES - PLEASE INDICATE : > 9 SURGERIES LATEX RISK : ARE YOU FREQUENTLY EXPOSED TO LATEX PRODUCTS IN YOUR OCCUPATION?NO DATE ASKED : 12/13/2018 CAFFEINE CAFFEINE USE?YES HOW OFTEN AND HOW MUCH? 4 TEAS A DAY ADVANCE DIRECTIVE ADVANCE DIRECTIVE DISCUSSED WITH PATIENT:YES HCP - EVERARDO SANTA (MOTHER) [id number] HOLINESS MARITAL STATUS: . ALCOHOL SCREENING DID YOU HAVE A DRINK CONTAINING ALCOHOL IN THE PAST YEAR?NO POINTS0 INTERPRETATIONNEGATIVE OCCUPATION: DISABLED. SEXUAL HX HAD SEX IN THE LAST 12 MONTHS (VAGINAL, ORAL, OR ANAL)?NO HAVE YOU EVER HAD AN STD?NO HOSPITALIZATION/MAJOR DIAGNOSTIC PROCEDURE FOR [facility] 05/2016 LIVER FAILURE 03/2019 REVIEW OF SYSTEMS REVIEWED BY: PROVIDER: BRIANNA MARINO . CONSTITUTIONAL: ANY CHANGE IN YOUR MEDICAL CONDITION? YES, HOSPITALIZD IN [facility] FOR LIVER FAILURE - BEING FOLLOWED CLOSELY FOR THIS . CHILLS NO . FEVER NO . INFECTION: DO YOU HAVE NEW INFECTIONS? NO . DO YOU HAVE HISTORY OF MRSA? NO . MUSCULOSKELETAL: ANY NEW PATTERNS OF PAIN OR NUMBNESS? YES, NUMBNESS/TINGLING IN LEFT ARM - APPROX 1 MONTH . GASTROENTEROLOGY: ANY NEW CHANGE IN BOWEL CONTROL? NO . GENITOURINARY: ANY NEW CHANGE IN BLADDER CONTROL? NO . IS THERE A CHANCE YOU COULD BE ? NO . HEMATOLOGY/LYMPH: DO YOU TAKE ANY BLOOD THINNERS? (FOR EXAMPLE- COUMADIN, PLAVIX, AGGRENOX, PLATEL, PRADAXA, OR XARELTO) NO . WHEN WAS YOUR LAST DOSE? DATE: TIME: . NEUROLOGY: HAVE YOU FALLEN IN THE PAST 12 MONTHS? NO . ANY NEW EXTREMITY NUMBNESS OR WEAKNESS? YES, INCREASED LEFT ARM TINGLING X 1 MONTH . CARDIOLOGY: DO YOU HAVE A PACEMAKER OR DEFIBRILLATOR? NO . RESPIRATORY: HAVE YOU BEEN SICK IN THE PAST WEEK? NO . FEVER NO . FLU LIKE SYMPTOMS? NO . COUGH NO . INTEGUMENTARY: DO YOU HAVE ANY RASHES OR OPEN SORES? NO . ALLERGIC/IMMUNO: ARE YOU ALLERGIC TO IV DYE? NO . ANY NEW ALLERGIES? NO . PSYCHIATRIC: DO YOU HAVE THOUGHTS OF HURTING YOURSELF OR SOMEONE ELSE? NO . ARE YOU ABUSED, NEGLECTED, OR IN AN UNSAFE ENVIRONMENT? NO . ENDOCRINOLOGY: ARE YOU DIABETIC? NO . OTHER: DO YOU NEED ANY PRESCRIPTIONS? NO . IF YES, PLEASE LIST: ____ . ANY NEW PROBLEMS WITH YOUR MEDICATIONS? NO . WHEN DID YOU LAST EAT? ____ . WHEN DID YOU LAST DRINK? ____ . WHAT DID YOU LAST DRINK? ____ . NAME OF PERSON DRIVING YOU HOME? ____ . DO YOU HAVE ANY OTHER QUESTIONS OR CONCERNS NO . VITAL SIGNS WT 252.4 LBS, HT 70 IN, BMI 36.21 INDEX, BP 137/87 MM HG, HR 124 /MIN, RR 18 /MIN, TEMP 96.7 F, OXYGEN SAT % 100%, SAFE IN ENV? (Y/N) YES, NA INITIALS AW 1037, REVIEWED BY: MARY. EXAMINATION GENERAL EXAMINATION: GENERALNO ACUTE DISTRESS, WELL NOURISHED AND HYDRATED. PSYCHAPPROPRIATE MOOD AND AFFECT . FACE:UNREMARKABLE. ASSESSMENTS RIB PAIN ON RIGHT SIDE - R07.81 (PRIMARY) INFLAMMATORY ARTHROPATHY - M19.90 TREATMENT RIB PAIN ON RIGHT SIDE REFILL NUCYNTA TABLET, 100 MG, 1 TABLET, ORALLY, Q8H PRN MDD3, 30 DAY(S), 90, REFILLS 0 REFILL NUCYNTA ER TABLET EXTENDED RELEASE 12 HOUR, 250 MG, 1 TABLET, ORALLY, EVERY 12 HRS MDD2, 30 DAY(S), 60, REFILLS 0 NOTES: RECOMMEND SHE CLEAR ALL MEDICATIONS THAT WE PRESCRIBE AND DOSAGES WITH GASTROENTEROLOGY/[place]a [place].RECOMMEND USING NUCYNTA 100 MG HALF TABLET TO ONE TABLET NEEDED FOR SEVERE PAIN EPISODES ONLY AN ATTEMPT TO PRESERVE EFFECTIVENESS., ISTOP REGISTRY REVIEWED AND DEMONSTRATES COMPLLIANCE. (REF # ) BRINGS IN MEDICATIONS WHICH IS APPROPRIATE FOR WHAT WAS DISPENSED. RECENT URINE TOXICOLOGY REVIEWED. NO UNAUTHORIZED MEDICATIONS. NO ILLICIT SUBSTANCES AND PRESCRIBED MEDICATIONS WERE PRESENT. URINE TOX TODAY, RISKS OF NARCOTIC/OPIOD MEDICATIONS INCLUDES BUT IS NOT LIMITED TO RISK OF DEPENDANCE/DEVELOPMENT OF ADDICTION, MOOD DISTURBANCE AND DEPRESSION, OSTEOPOROSIS, HORMONAL AND LABIDAL CHANGES, RESPIRATORY DEPRESSION AND . PATIENT IS ADVISED NOT TO DRIVE OR DRINK ALCOHOL WHILE ON THESE MEDICATIONS. PROCEDURE CODES FA211 ESTABILISHED PATIENT [facility] CHARGE DISPOSITION & COMMUNICATION FOLLOW UP 3 MONTHS ELECTRONICALLY SIGNED BY NED DIEZ ON 05/24/2019 AT 08:51 PM EDT DISCLAIMER : THIS IS A VISIT SUMMARY EXTRACTED FROM THE [employer] CHART. IT IS NOT A COPY OF THE [employer] PROGRESS NOTE. JAMIE
== END ==
LOC: M PAIN 10:45
PROVIDERS: ATTEND Nurse Practitioner Family
DX: R07.81 Pleurodynia (principal); M19.90 Unspecified osteoarthritis, unspecified site; E11.9 Type 2 diabetes mellitus without complications; Z79.84 Long term (current) use of oral hypoglycemic drugs; Z79.899 Other long term (current) drug therapy; Z87.891 Personal history of nicotine dependence; Z88.1 Allergy status to other antibiotic agents; Z88.8 Allergy status to other drugs, medicaments and biological substances

== ENCOUNTER → 2019-08-30 | Outpatient (CLI) | payer MEDICARE, MEDICAID ==
[~2019-08-30] MED LIST changes: +CYCL-707 PO; -CYCL10TA PO; +VITA-243 PO; -VITA500T PO
[2019-08-30 11:31] LABS: FREE T4 1.05 NG/DL (0.76-1.46); THYROID STIMULATING HORMONE 16.9 uIU/ML (0.358-3.740)
== END ==
LOC: M LAB 09:09
PROVIDERS: ATTEND Internal Medicine Endocrinology, Diabetes & Metabolism
DX: E89.0 Postprocedural hypothyroidism (principal)

== ENCOUNTER → 2019-08-30 | Outpatient (CLI) | payer MEDICARE, MEDICAID ==
[2019-08-30 10:50] LABS: BASO % 0.4 % (0.0-1.0); HEMATOCRIT 42.1 % (36.0-47.0); HEMOGLOBIN 13.5 g/dl (12.0-15.5); LYMPH # 2.1 10^3/uL (1.5-5.0); LYMPH % 38.8 % (24.0-44.0); MEAN CORPUSCULAR HEMOGLOBIN 27.5 pg (27.0-33.0); MEAN CORPUSCULAR HGB CONC 32.1 g/dl (32.0-36.5); MEAN CORPUSCULAR VOLUME 85.7 fl (80.0-96.0); MONO # 0.4 10^3/uL (0.0-0.8); MONO % 7.3 % (0.0-5.0); NEUTROPHILS # 2.9 10^3/uL (1.5-8.5); NEUTROPHILS % 53.3 % (36.0-66.0); PLATELET COUNT, AUTOMATED 178 10^3/uL (150-450); RED BLOOD COUNT 4.91 10^6/uL (4.00-5.40); WHITE BLOOD COUNT 5.3 10^3/uL (4.0-10.0)
== END ==
LOC: M LAB 09:14
PROVIDERS: ATTEND Internal Medicine Hematology
DX: D50.9 Iron deficiency anemia, unspecified (principal)

== ENCOUNTER → 2019-10-17 | Outpatient (POV) | payer MEDICARE, MEDICAID ==
[~2019-10-17] MED LIST changes: +DEXM1CAP19 PO; +TIRO150C3 PO; +TIRO25CA3 PO; +TIRO75CA3 PO
== END ==
LOC: M PAIN 09:00
PROVIDERS: ATTEND Nurse Practitioner Family
DX: M54.5 Low back pain (principal)

== ENCOUNTER → 2019-11-07 | Outpatient (CLI) | payer MEDICARE, MEDICAID ==
[2019-11-07 15:34] LABS: BASO % 0.4 % (0.0-1.0); HEMATOCRIT 43.3 % (36.0-47.0); HEMOGLOBIN 14.4 g/dl (12.0-15.5); LYMPH # 2.2 10^3/uL (1.5-5.0); LYMPH % 28.2 % (24.0-44.0); MEAN CORPUSCULAR HEMOGLOBIN 28.7 pg (27.0-33.0); MEAN CORPUSCULAR HGB CONC 33.3 g/dl (32.0-36.5); MEAN CORPUSCULAR VOLUME 86.3 fl (80.0-96.0); MONO # 0.4 10^3/uL (0.0-0.8); MONO % 5.2 % (0.0-5.0); NEUTROPHILS # 5.2 10^3/uL (1.5-8.5); NEUTROPHILS % 65.9 % (36.0-66.0); PLATELET COUNT, AUTOMATED 188 10^3/uL (150-450); RED BLOOD COUNT 5.02 10^6/uL (4.00-5.40); WHITE BLOOD COUNT 7.8 10^3/uL (4.0-10.0)
[2019-11-07 15:56] LABS: ALBUMIN 3.6 GM/DL (3.2-5.2); ALT/SGPT 54 U/L (12-78); BILIRUBIN,TOTAL 0.4 MG/DL (0.2-1.0); BLOOD UREA NITROGEN 7 MG/DL (7-18); CALCIUM LEVEL 8.4 MG/DL (8.5-10.1); CARBON DIOXIDE LEVEL 25 MEQ/L (21-32); CHLORIDE LEVEL 111 MEQ/L (98-107); CREATININE FOR GFR 0.69 MG/DL (0.55-1.30); GLOMERULAR FILTRATION RATE > 60.0 (>60); GLUCOSE, FASTING 167 MG/DL (70-100); POTASSIUM SERUM 3.4 MEQ/L (3.5-5.1); SODIUM LEVEL 142 MEQ/L (136-145); TOTAL PROTEIN 6.7 GM/DL (6.4-8.2)
== END ==
LOC: M LAB 14:34
PROVIDERS: ATTEND Nurse Practitioner Family
DX: D50.9 Iron deficiency anemia, unspecified (principal); E87.6 Hypokalemia; E11.9 Type 2 diabetes mellitus without complications; K74.60 Unspecified cirrhosis of liver

== ENCOUNTER → 2019-11-14 | Outpatient (CLI) | payer MEDICARE, MEDICAID ==
--- NOTE | 2019-11-29 12:58 | REP ---
LIMITED ABDOMINAL UTLRASOUND: 11/14/19 CLINICAL: Cirrhosis. TECHNIQUE: Real time leung scale and color evaluation using curved array transducers. FINDINGS: The liver is enlarged measuring 21cm in craniocaudal length with normal echotexture and contour. No focal hepatic lesion identified. The pancreas is incompletely evaluated due to interposed bowel gas but visualized portions appear normal> Patient is status post cholecystectomy. Common bile duct measures 6.5mm diameter. The right kidney is normal in reniform shape without hydronephrosis and measures 11.9 x 5.2 x 4.6cm. no ascites in the visualized right upper quadrant. IMPRESSION: 1. Hepatomegaly without focal hepatic lesion identified. 2. Prior cholecystectomy. MTDD
== END ==
LOC: M RAD 07:36
PROVIDERS: ATTEND Internal Medicine Gastroenterology
DX: K75.81 Nonalcoholic steatohepatitis (NASH) (principal); K74.60 Unspecified cirrhosis of liver; R16.0 Hepatomegaly, not elsewhere classified; Z90.49 Acquired absence of other specified parts of digestive tract

== ENCOUNTER → 2019-11-16 | Outpatient (CLI) | payer MEDICARE, MEDICAID ==
[2019-11-16 13:26] LABS: ALBUMIN 3.6 GM/DL (3.2-5.2); ALT/SGPT 49 U/L (12-78); BILIRUBIN,TOTAL 0.5 MG/DL (0.2-1.0); BLOOD UREA NITROGEN 10 MG/DL (7-18); CALCIUM LEVEL 8.7 MG/DL (8.5-10.1); CARBON DIOXIDE LEVEL 22 MEQ/L (21-32); CHLORIDE LEVEL 114 MEQ/L (98-107); CREATININE FOR GFR 0.68 MG/DL (0.55-1.30); GLOMERULAR FILTRATION RATE > 60.0 (>60); GLUCOSE, FASTING 85 MG/DL (70-100); POTASSIUM SERUM 3.9 MEQ/L (3.5-5.1); SODIUM LEVEL 142 MEQ/L (136-145); TOTAL PROTEIN 6.9 GM/DL (6.4-8.2)
[2019-11-16 14:50] LABS: HEMOGLOBIN A1c 5.4 %
== END ==
LOC: M LAB 09:14
PROVIDERS: ATTEND Nurse Practitioner Family
DX: K74.60 Unspecified cirrhosis of liver (principal); E11.9 Type 2 diabetes mellitus without complications

== ENCOUNTER → 2019-11-26 | Outpatient (CLI) | payer MEDICARE, MEDICAID | LOC: M LAB 09:41 | PROVIDERS: ATTEND Nurse Practitioner Family | DX: K74.60 Unspecified cirrhosis of liver (principal) ==

== ENCOUNTER → 2019-12-17 | Outpatient (CLI) | payer MEDICARE, MEDICAID ==
--- NOTE | 2019-12-18 08:44 | ECWPNPC ---
PATIENT NAME: PADMINI SANTA : 1980 GENDER: FEMALE VISIT DATE: 12/17/2019 DISCHARGE DATE: 12/17/19 1017 VISIT LOCKED DATE TIME: PHYSICIAN: BRIANNA KIMBLE RESOURCE: BRIANNA KIMBLE REASON FOR APPOINTMENT 1. MED MGMT HISTORY OF PRESENT ILLNESS DEPRESSION SCREENING: PHQ-2 (2015 EDITION) LITTLE INTEREST OR PLEASURE IN DOING THINGS?SEVERAL DAYS FEELING DOWN, DEPRESSED, OR HOPELESS?SEVERAL DAYS TOTAL SCORE2 GENERAL: HERE FOR FOLLOW-UP AND MEDICINE MANAGEMENT FOR CHRONIC GENERALIZED JOINT PAIN WITH A HISTORY OF RHEUMATOID ARTHRITIS. HISTORY OF MULTIPLE COMORBIDITIES. BACLOFEN 5 MG 3 TIMES A DAY WAS STARTED AT HER LAST VISIT A FEW MONTHS AGO. REPORTS THAT WAS HELPING INITIALLY AND THEN RECENTLY PAIN DOES NOT SEEM TO BE HELPED WITH BACLOFEN. DISCUSSED INCREASING DOSE. ALSO REPORTING NEW ONSET OF RIGHT HAND WEAKNESS. STATES SHE'S DROPPING THINGS FREQUENTLY. ALSO HAVING ISSUES WITH ANKLE SWELLING. I'VE ADVISED HER TO ADDRESS THESE ISSUES WITH PRIMARY CARE.-. FALL RISK SCREENING: SCREENING :NO FALLS REPORTED IN THE LAST YEAR 2 THAT SHE REMEMBERS. PAIN SCREENING: PATIENT HAS A COMPLAINT OF ACUTE OR CHRONIC PAIN :YES LOCATION OF PAIN:LOW BACK AND LEGS INTENSITY OF PAIN (SCALE OF 1 TO 10):8 WHAT DOES YOUR PAIN FEEL LIKE:SHARP DURATION:CONTINOUS PAIN IS INCREASED BY:ACTIVITIES, PROLONGED STANDING PAIN IS DECREASED BY:USE OF PAIN MEDICATIONS, SITTING NURSING NOTE: -. PAIN CENTER INTAKE QUESTIONS: DO YOU HAVE A HISTORY OF MRSA? :NO DO YOU TAKE A BLOOD THINNERS? :NO DO YOU HAVE ANY BLEEDING DISORDERS? :YES CLOTTING DISORDER ANY NEW NUMBNESS OR WEAKNESS IN YOUR LEGS OR ARMS? :YES MORE IN RIGHT ARM ANY PACEMAKER,DEFIBRILLATOR, OR DORSAL COLUMN STIMULATOR? :NO DO YOU HAVE ANY RASHES OR OPEN SORES? :NO ARE YOU ALLERGIC TO IV DYE? :NO ARE YOU DIABETIC? :NO ANY NEW PROBLEMS WITH YOUR MEDICATIONS? :NO HAVE YOU RECEIVED A VACCINE IN THE PAST 30 DAYS? :NO DO YOU PLAN TO RECEIVE A VACCINE IN THE NEXT 21 DAYS? :YES FLU VAC AT SOME POINT DO YOU NEED ANY PRESCRIPTION? :NO DO YOU TAKE ANY IMMUNOSUPPRESSIVE MEDICATIONS? :NO IS THERE A CHANCE YOU COULD BE ? :NO ARE YOU BREAST FEEDING? :NO CURRENT MEDICATIONS TAKING VENOFER 20 MG/ML SOLUTION DIRECTED INTRAVENOUS NEEDED TAKING MULTI VITAMIN DAILY - TABLET 1 TABLET ORALLY ONCE A DAY TAKING VITAMIN B-12 1000 MCG TABLET 1 TABLET ORALLY ONCE A DAY TAKING VITAMIN D3 5000 UNIT CAPSULE 1 CAPSULE ORALLY ONCE A DAY TAKING ATIVAN 0.5 MG TABLET 1 TABLET NEEDED ORALLY THREE TIMES A DAY NEEDED TAKING TROKENDI XR 200 MG CAPSULE EXTENDED RELEASE 24 HOUR 1 CAPSULE ORALLY ONCE A DAY TAKING CALCIUM 600 MG TABLET 1 TABLET WITH MEALS ORALLY THREE TIMES A DAY TAKING GAS-X 80 MG TABLET CHEWABLE 1 TABLET AFTER MEALS AND AT BEDTIME NEEDED ORALLY FOUR TIMES A DAY TAKING VITAMIN C 500 MG TABLET CHEWABLE 1 TABLET ORALLY ONCE A DAY TAKING OMEPRAZOLE 40 MG CAPSULE DELAYED RELEASE 1 CAPSULE ORALLY BID, NOTES: DR. MORELAND TAKING REXULTI 1 MG TABLET 1 TABLET ORALLY ONCE A DAY TAKING METFORMIN & DIET MANAGE PROD 500 MG MISCELLANEOUS ORALLY BID, NOTES: FOR WEIGHT LOSS ONLY TAKING WRIST BRACE - MISCELLANEOUS DIRECTED WEAR ON L AND R WRIST NIGHTLY FOR CARPAL TUNNEL. DX: G56.02,G56.01, NOTES: PLEASE DISPENSE LEFT AND RIGHT WRIST BRACES TAKING PROZAC 40 MG CAPSULE 1 CAPSULE ORALLY ONCE A DAY TAKING COLACE 100 MG CAPSULE 2 ORALLY BID TAKING MIRVASO 0.33% DIRECTED TOPICALLY DAILY IN THE AM THIN LAYER TO WHOLE FACE EXCEPT EYELIDS AND AROUND MOUTH TAKING LIDODERM 5 % PATCH 1 PATCH TO SKIN REMOVE AFTER 12 HOURS EXTERNALLY ONCE A DAY ON 12HR OFF 12HR TAKING DEXMETHYLPHENIDATE HCL 10 MG TABLET 1 TABLET ORALLY TWICE A DAY TAKING NUCYNTA 100 MG TABLET 1 TABLET ORALLY Q8H PRN MDD3 TAKING NUCYNTA ER 250 MG TABLET EXTENDED RELEASE 12 HOUR 1 TABLET ORALLY EVERY 12 HRS MDD2 TAKING TIROSINT-CORTES 175 MCG/ML SOLUTION 1 ML IN THE MORNING BEFORE BREAKFAST ORALLY ONCE A DAY TAKING BACLOFEN 10 MG TABLET 1 TABLET WITH FOOD OR MILK ORALLY THREE TIMES A DAY NOT-TAKING CYCLOBENZAPRINE HCL 10 MG TABLET 1 TABLET NEEDED ORALLY THREE TIMES A DAY NOT-TAKING CETIRIZINE HCL 10 MG TABLET 1 TABLET ORALLY ONCE A DAY, NOTES: USES OTC MED NOT-TAKING LEVOTHYROXINE SODIUM 50 MCG TABLET 1 TABLET ON AN EMPTY STOMACH IN THE MORNING ORALLY ONCE A DAY, NOTES: TOTAL OF 225 MCG NOT-TAKING LEVOTHYROXINE SODIUM 175 MCG TABLET 1 TAB ORALLY DAILY, NOTES: TOTAL OF 200 MCG NOT-TAKING VYVANSE 70 MG CAPSULE 1 CAPSULE IN THE MORNING ORALLY ONCE A DAY NOT-TAKING METHYLPREDNISOLONE 4 MG TABLET THERAPY PACK DIRECTED ORALLY DIRECTED NOT-TAKING HYDROXYZINE PAMOATE 50 MG CAPSULE 1 CAPSULE NEEDED ORALLY EVERY 6 HRS NOT-TAKING MIRVASO 0.33 % GEL APPLY A THIN LAYER DIRECTED DAILY IN THE MORNING TO WHOLE FACE EXCEPT EYELIDS AND AROUND MOUTH NOT-TAKING PROMETHAZINE HCL 12.5 MG TABLET 1 TABLET NEEDED ORALLY EVERY 12 HRS NOT-TAKING PREPARATION H 0.25-88.44 % SUPPOSITORY DIRECTED RECTAL BIDPRN NOT-TAKING DRISDOL 26711 UNIT CAPSULE 1 CAPSULE ORALLY WEEKLY NOT-TAKING TOPAMAX 200 MG TABLET 1 TABLET ORALLY BEFORE BEDTIME NOT-TAKING SERTRALINE HCL 100 MG TABLET 2 TABLETS ORALLY ONCE A DAY NOT-TAKING LEVOTHROYXINE 200 MCG 1 TAB ORALLY DAILY NOT-TAKING TRIAMCINOLONE ACETONIDE 0.5 % CREAM 1 APPLICATION TO AFFECTED AREA EXTERNALLY TWICE A DAY NOT-TAKING LYRICA 75 MG CAPSULE 1 CAPSULE ORALLY THREE TIMES DAILY. CODE D. DX: M79.7 NOT-TAKING PHENTERMINE HCL 15 MG CAPSULE 1 CAPSULE ORALLY ONCE A DAY NOT-TAKING LYRICA 75 MG CAPSULE 1 CAPSULE ORALLY THREE TIMES A DAY, NOTES: DUPLICATE NOT-TAKING SUCRALFATE 1 GM TABLET 1 TABLET AT BEDTIME ON AN EMPTY STOMACH BEFORE MEALS ORALLY QID, NOTES: DR. MORELAND NOT-TAKING BUPROPION HCL ER (XL) 150 MG TABLET EXTENDED RELEASE 24 HOUR 1 TABLET IN THE MORNING ORALLY ONCE A DAY NOT-TAKING FLUTICASONE PROPIONATE 50 MCG/ACT SUSPENSION 1 SPRAY IN EACH NOSTRIL NASALLY ONCE A DAY NOT-TAKING OXYCODONE HCL 15 MG TABLET 1 TABLET ORALLY EVERY 12H PRN MDD2 NOT-TAKING VERAPAMIL HCL 40 MG TABLET 1 TABLET ORALLY 1/2 TAB TWICE A DAY FOR 1 WEEK, THEN 1 TAB TWICE A DAY NOT-TAKING AMOXICILLIN-POT CLAVULANATE 875-125 MG TABLET 1 TABLET ORALLY EVERY 12 HRS NOT-TAKING VENOFER 20 MG/ML SOLUTION INFUSE 21ML PER HOSPITAL PROTOCOL INTRAVENOUS ONCE MEDICATION LIST REVIEWED AND RECONCILED WITH THE PATIENT PAST MEDICAL HISTORY THYROID CANCER X 2, FIRST OPERATION 2010, SECOND ONE 2014 (?TYPE) RIGHT LUNG NODULE (WATCHING IT FOR NOW) L4 HERNIATED DISC FATTY LIVER DIABETES MIGRAINES ANXIETY OSTEOPENIA CHRONIC PAIN ALLERGIES GLIPIZIDE XL: RASH - ALLERGY CIPRO: RASH - ALLERGY HYDROXYCHLOROQUINE SULFATE: INCREASED LIVER ENZYMES - ALLERGY NSAIDS : HAD PREVIOUS GASTRIC BYPASS - ALLERGY SURGICAL HISTORY COMPLETE HYSTERECTOMY DUE TO MENORRHAGIA 2012 THYROIDECTOMY, PARTIAL WAS DONE FIRST AND THEN THE REST TAKEN OUT 05/2014 TONSILECTOMY, ADENOIDECTOMY C- SECTION X 2 LAP BAND, AUGUST 2013 GALLBLADDER REMOVAL 05/2015 GASTRIC BYPASS 12/15/2015 BREAST/ NEEDLE BX 09/22/2015 THYROID NODULE REMOVED AND REST OF THYROID REMOVED 05/2016 ER VISIT CHEST PAIN/ PULLED MUSCLE AND INFLAMATION RIGHT SIDE 11/29/2019 FAMILY HISTORY MOTHER ALIVE COLON CANCER STAGE 4 NO COLOSTOMY\NDAD ALIVE SEIZUREES HTN DM2 HEART DISEASE\N3 BROTHERS HEALTHY\N0 SISITERS\N2 DAUGHTERS HEALTHY\N1 SONMATERNAL GRANDMOTHER HAD SKIN CANCER, UNSURE WHAT TYPE. UNSURE OF FAMILY HX OF PANCREATIC CANCER. SOCIAL HISTORY GENERAL: TOBACCO USE ARE YOU A:FORMER SMOKER HOW LONG HAS IT BEEN SINCE YOU LAST SMOKED?5-10 YEARS LATEX QUESTIONNAIRE LATEX ALLERGY : HAVE YOU EVER DEVELOPED ANY TYPE OF REACTION AFTER HANDLING LATEX PRODUCTS SUCH RUBBER GLOVES, CONDOMS, DIAPHRAGMS, BALLOONS, SOCKS, OR UNDERWEAR?NO LATEX ALLERGY : HAVE YOU EVER DEVELOPED ANY TYPE OF REACTION DURING OR AFTER DENTAL APPOINTMENT, VAGINAL/RECTAL EXAMINATION, SURGICAL PROCEDURE, OR ANY OTHER EXPOSURE?NO LATEX RISK : HAVE YOU EVER HAD ANY DIFFICULTY BREATHING OR HIVES AFTER EATING OR HANDLING ANY FRUITS, OR VEGETABLES; SUCH KIWI, BANANAS, STONE FRUITS, OR CHESTNUTSNO LATEX RISK : DO YOU HAVE A PREVIOUS PERSONAL HISTORY OF MORE THAN NINE SURGERIES, SPINA BIFIDA, OR REPEATED CATHERIZATIONS? YES - PLEASE INDICATE : > 9 SURGERIES LATEX RISK : ARE YOU FREQUENTLY EXPOSED TO LATEX PRODUCTS IN YOUR OCCUPATION?NO DATE ASKED : 12/17/2019 LUNG CANCER SCREENING SMOKING STATUS:FORMER SMOKER BMI CARE GOAL FOLLOW-UP ABOVE NORMAL BMI FOLLOW-UPDIETARY MANAGEMENT EDUCATION, GUIDANCE, AND COUNSELING ALCOHOL SCREENING DID YOU HAVE A DRINK CONTAINING ALCOHOL IN THE PAST YEAR?NO POINTS0 INTERPRETATIONNEGATIVE RECREATIONAL DRUG USE DRUG USE?NO CAFFEINE CAFFEINE USE?YES HOW OFTEN AND HOW MUCH? 4 TEAS A DAY SEXUAL HX HAD SEX IN THE LAST 12 MONTHS (VAGINAL, ORAL, OR ANAL)?NO HAVE YOU EVER HAD AN STD?NO HIV / HEP-C SCREENING HIV TEST OFFERED TO PATIENT:YES DATE OFFERED:07/16/2016 TEST ACCEPTED:NO HEP-C TEST OFFERED TO PATIENT:YES DATE OFFERED:07/16/2016 REASON:PATIENT DECLINED TEST ACCEPTED:NO REASON:PATIENT DECLINED MANDAEISM [id number] [employer] LANGUAGE LANGUAGES SPOKEN:BULGARIAN EDUCATION LEVEL OF EDUCATION:HIGH SCHOOL LEARNING BARRIERS / SPECIAL NEEDS CHANGE FROM LAST VISIT?NO 07/31/18 BARRIERS TO LEARNING?NO HEARING IMPAIRED?NO VISION IMPAIRED?YES COGNITIVELY IMPAIRED?NO :CORRECTIVE LENSES READINESS TO LEARN?YES LEARNING PREFERENCES?NO LEARNING CAPABILITIES PRESENT?YES EMOTIONAL BARRIERS?NO SPECIAL DEVICES?NO 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 DIET: REGULAR. EXERCISE: WALKS. MARITAL STATUS: . OTHERS AT HOME: MOTHER, CHILDREN. NEW PATIENT PAIN DIARY TODAY'S VISIT NOTES 05/23/2019, PATIENT DESCRIBES PAIN : ACHING, HAVE IT ALL THE TIME, FROM 0-10, WHAT LEVEL IS YOUR PAIN TODAY? 6. PAIN CLINIC PFS, CLERGY, PUBLIC HEALTH REFERRALS PFS REFERRAL NEEDED?NO CLERGY REFERRAL NEEDED?NO PUBLIC HEALTH REFERRAL NEEDED?NO WAS THE PROVIDER NOTIFIED OF ANY PERTINENT INFO?YES HAS THE PATIENT BEEN EDUCATED REGARDING HIS/HER PLAN OF CARE?YES HAS THE PATIENT BEEN EDUCATED REGARDING PAIN, THE RISK FOR PAIN, THE IMPORTANCE OF EFFECTIVE PAIN MANAGEMENT, AND THE PAIN ASSESSMENT PROCESS?YES ADVANCE DIRECTIVE ADVANCE DIRECTIVE DISCUSSED WITH PATIENT:YES HCP - EVERARDO ARINA (MOTHER) HOSPITALIZATION/MAJOR DIAGNOSTIC PROCEDURE FOR [facility] 05/2016 LIVER FAILURE 03/2019 REVIEW OF SYSTEMS REVIEWED BY: PROVIDER: BRIANNA MARINO . CONSTITUTIONAL: ANY CHANGE IN YOUR MEDICAL CONDITION? YES, HOSPITALIZD IN [facility] FOR LIVER FAILURE - BEING FOLLOWED CLOSELY FOR THIS . CHILLS NO . FEVER NO . INFECTION: DO YOU HAVE NEW INFECTIONS? NO . DO YOU HAVE HISTORY OF MRSA? NO . MUSCULOSKELETAL: ANY UNUSUAL JOINT PAIN OR SWELLING NOT MENTIONED YES, NUMBNESS/TINGLING IN LEFT ARM - APPROX 1 MONTH . GASTROENTEROLOGY: ANY NEW CHANGE IN BOWEL CONTROL? NO . GENITOURINARY: ANY NEW CHANGE IN BLADDER CONTROL? NO . IS THERE A CHANCE YOU COULD BE ? NO . HEMATOLOGY/LYMPH: DO YOU TAKE ANY BLOOD THINNERS? (FOR EXAMPLE- COUMADIN, PLAVIX, AGGRENOX, PLATEL, PRADAXA, OR XARELTO) NO . WHEN WAS YOUR LAST DOSE? DATE: TIME: . NEUROLOGY: HAVE YOU FALLEN IN THE PAST 12 MONTHS? NO . OTHER NEW NUMBNESS OR PAIN PATTERNS NOT MENTIONED YES, INCREASED LEFT ARM TINGLING X 1 MONTH . CARDIOLOGY: DO YOU HAVE A PACEMAKER OR DEFIBRILLATOR? NO . RESPIRATORY: HAVE YOU BEEN SICK IN THE PAST WEEK? NO . FEVER NO . FLU LIKE SYMPTOMS? NO . COUGH NO . INTEGUMENTARY: DO YOU HAVE ANY RASHES OR OPEN SORES? NO . ALLERGIC/IMMUNO: ARE YOU ALLERGIC TO IV DYE? NO . ANY NEW ALLERGIES? NO . PSYCHIATRIC: DO YOU HAVE THOUGHTS OF HURTING YOURSELF OR SOMEONE ELSE? NO . ARE YOU ABUSED, NEGLECTED, OR IN AN UNSAFE ENVIRONMENT? NO . ENDOCRINOLOGY: ARE YOU DIABETIC? NO . OTHER: DO YOU NEED ANY PRESCRIPTIONS? NO . IF YES, PLEASE LIST: ____ . ANY NEW PROBLEMS WITH YOUR MEDICATIONS? NO . WHEN DID YOU LAST EAT? ____ . WHEN DID YOU LAST DRINK? ____ . WHAT DID YOU LAST DRINK? ____ . NAME OF PERSON DRIVING YOU HOME? ____ . DO YOU HAVE ANY OTHER QUESTIONS OR CONCERNS NO . VITAL SIGNS WT 259.2 LBS, HT 70 IN, BMI 37.19 INDEX, BP 135/72 MM HG, HR 93 /MIN, RR 18 /MIN, TEMP 96.9 F, OXYGEN SAT % 96%, SAFE IN ENV? (Y/N) YES, NA INITIALS AW 0924, REVIEWED BY: MARY. EXAMINATION GENERAL EXAMINATION: GENERAL AWAKE,ALERT ,PLEASANT . PSYCH AFFECT NORMAL . LUNGS: LUNG CHAN ARE CLEAR TO AUSCULTATION BILATERALLY. GOOD MOVEMENT OF AIR . HEART: S1, S2 IN A REGULAR RATE AND RHYTHM. NO SIGNIFICANT MURMURS, RUBS OR GALLOPS NOTED . MUSCULOSKELETAL: TENDER OVER LEFT ANTERIOR T10-12 INTERCOSTAL REGION.NO REDDNESS OR SWELLINGPAIN IS AGGREVATED WITH ROJM SPINE. ASSESSMENTS CHRONIC PRESCRIPTION OPIATE USE - Z79.899 (PRIMARY) RHEUMATOID ARTHRITIS INVOLVING MULTIPLE SITES WITH POSITIVE RHEUMATOID FACTOR - M05.79 TREATMENT CHRONIC PRESCRIPTION OPIATE USE REFILL COLACE CAPSULE, 100 MG, 1 CAP, ORALLY, BID, 30 DAYS, 60 CAPSULE, REFILLS 5 REFILL NUCYNTA TABLET, 100 MG, 1 TABLET, ORALLY, Q8H PRN MDD3, 30 DAY(S), 90, REFILLS 0 REFILL NUCYNTA ER TABLET EXTENDED RELEASE 12 HOUR, 250 MG, 1 TABLET, ORALLY, EVERY 12 HRS MDD2, 30 DAY(S), 60, REFILLS 0 INCREASE BACLOFEN TABLET, 10 MG, 1 TABLET WITH FOOD OR MILK, ORALLY, THREE TIMES A DAY, 30 DAY(S), 90, REFILLS 2 NOTES: ISTOP REGISTRY REVIEWED AND DEMONSTRATES COMPLLIANCE. BRINGS IN MEDICATIONS WHICH IS APPROPRIATE FOR WHAT WAS DISPENSED. RECENT URINE TOXICOLOGY REVIEWED. NO UNAUTHORIZED MEDICATIONS. NO ILLICIT SUBSTANCES AND PRESCRIBED MEDICATIONS WERE PRESENT. URINE TOXICOLOGY TODAY , RISKS OF NARCOTIC/OPIOD MEDICATIONS INCLUDES BUT IS NOT LIMITED TO RISK OF DEPENDANCE/DEVELOPMENT OF ADDICTION, MOOD DISTURBANCE AND DEPRESSION, OSTEOPOROSIS, HORMONAL AND LABIDAL CHANGES, RESPIRATORY DEPRESSION AND . PATIENT IS ADVISED NOT TO DRIVE OR DRINK ALCOHOL WHILE ON THESE MEDICATIONS. PROCEDURE CODES [id number] ESTABILISHED PATIENT [facility] CHARGE DISPOSITION & COMMUNICATION FOLLOW UP 3 MONTHS (REASON: MEDICATION MANAGEMENT) ELECTRONICALLY SIGNED BY NED DIEZ ON 12/18/2019 AT 08:42 AM EDT DISCLAIMER : THIS IS A VISIT SUMMARY EXTRACTED FROM THE [employer] CHART. IT IS NOT A COPY OF THE [employer] PROGRESS NOTE. JAMIE
== END ==
LOC: M PAIN 09:15
PROVIDERS: ATTEND Nurse Practitioner Family
DX: G89.29 Other chronic pain (principal); M05.79 Rheumatoid arthritis with rheumatoid factor of multiple sites without organ or systems involvement; E11.9 Type 2 diabetes mellitus without complications; K76.0 Fatty (change of) liver, not elsewhere classified; G43.909 Migraine, unspecified, not intractable, without status migrainosus; E89.0 Postprocedural hypothyroidism; F41.9 Anxiety disorder, unspecified; M85.80 Other specified disorders of bone density and structure, unspecified site; Z79.891 Long term (current) use of opiate analgesic; Z87.891 Personal history of nicotine dependence; Z85.850 Personal history of malignant neoplasm of thyroid; Z79.84 Long term (current) use of oral hypoglycemic drugs; Z79.899 Other long term (current) drug therapy; Z88.1 Allergy status to other antibiotic agents; Z88.6 Allergy status to analgesic agent; Z88.8 Allergy status to other drugs, medicaments and biological substances

== ENCOUNTER → 2020-03-18 | Outpatient (CLI) | payer MEDICARE, MEDICAID ==
[~2020-03-18] MED LIST changes: -BUPR150T3 PO; +BUPR150T4 PO
--- NOTE | 2020-03-20 06:00 | ECWPNPC ---
PATIENT NAME: PADMINI SANTA : 1980 GENDER: FEMALE VISIT DATE: 03/18/2020 DISCHARGE DATE: 03/18/20940 VISIT LOCKED DATE TIME: PHYSICIAN: BRIANNA KIMBLE RESOURCE: BRIANNA KIMBLE REASON FOR APPOINTMENT 1. MEDICATION MANAGEMENT HISTORY OF PRESENT ILLNESS GENERAL: HERE FOR FOLLOW-UP OF CHRONIC GENERALIZED JOINT PAIN WITH A HISTORY OF RHEUMATOID ARTHRITIS. HISTORY OF MULTIPLE COMORBIDITIES. FINDS CURRENT CHRONIC PAIN MEDICATION SOMEWHAT HELPFUL. DENIES ADVERSE SIDE EFFECTS. BEGAN TO HAVE LEFT EYE PAIN AND LEFT FACIAL REDNESS 3 DAYS AGO AND WAS SEEN BY DISCHARGE DOOR OPERATOR. HE COULD NOT FIND ANY OCULAR PROBLEMS. TODAY I'VE ENCOURAGED HER TO CONTACT PRIMARY CARE WITH THIS INFORMATION. ALSO DISCUSSED USE OF BACLOFEN EVERY 6 HOURS IF NEEDED. STATES SOMETIMES SHE CAN TAKE BACLOFEN INSTEAD OF NUCYNTA FOR BREAKTHROUGH PAIN. -. FALL RISK SCREENING: SCREENING :ONE FALL WITHOUT INJURY IN THE PAST YEAR PAIN SCREENING: PATIENT HAS A COMPLAINT OF ACUTE OR CHRONIC PAIN :YES LOCATION OF PAIN:LOW BACK INTENSITY OF PAIN (SCALE OF 1 TO 10):8 WHAT DOES YOUR PAIN FEEL LIKE:SHOOTING DURATION:CONTINOUS, CONSTANT, ALL DAY PAIN IS INCREASED BY:ACTIVITIES PAIN IS DECREASED BY:USE OF PAIN MEDICATIONS HEATING PACK NURSING NOTE: -. PAIN CENTER INTAKE QUESTIONS: DO YOU HAVE A HISTORY OF MRSA? :NO DO YOU TAKE A BLOOD THINNERS? :NO DO YOU HAVE ANY BLEEDING DISORDERS? :YES CLOTTING DISORDER ANY NEW NUMBNESS OR WEAKNESS IN YOUR LEGS OR ARMS? :NO ANY PACEMAKER,DEFIBRILLATOR, OR DORSAL COLUMN STIMULATOR? :NO DO YOU HAVE ANY RASHES OR OPEN SORES? :NO ARE YOU ALLERGIC TO IV DYE? :NO ARE YOU DIABETIC? :NO ANY NEW PROBLEMS WITH YOUR MEDICATIONS? :NO HAVE YOU RECEIVED A VACCINE IN THE PAST 30 DAYS? :NO DO YOU PLAN TO RECEIVE A VACCINE IN THE NEXT 21 DAYS? :NO DO YOU NEED ANY PRESCRIPTION? :YES NUCYNTA AND BACLOFEN DO YOU TAKE ANY IMMUNOSUPPRESSIVE MEDICATIONS? :NO IS THERE A CHANCE YOU COULD BE ? :NO ARE YOU BREAST FEEDING? :NO CURRENT MEDICATIONS TAKING COLACE 100 MG CAPSULE 1 CAP ORALLY BID TAKING VENOFER 20 MG/ML SOLUTION DIRECTED INTRAVENOUS NEEDED TAKING MULTI VITAMIN DAILY - TABLET 1 TABLET ORALLY ONCE A DAY TAKING VITAMIN B-12 1000 MCG TABLET 1 TABLET ORALLY ONCE A DAY TAKING ATIVAN 0.5 MG TABLET 1 TABLET NEEDED ORALLY THREE TIMES A DAY NEEDED TAKING TROKENDI XR 200 MG CAPSULE EXTENDED RELEASE 24 HOUR 1 CAPSULE ORALLY ONCE A DAY TAKING CALCIUM 600 MG TABLET 1 TABLET WITH MEALS ORALLY THREE TIMES A DAY TAKING GAS-X 80 MG TABLET CHEWABLE 1 TABLET AFTER MEALS AND AT BEDTIME NEEDED ORALLY FOUR TIMES A DAY TAKING VITAMIN C 500 MG TABLET CHEWABLE 1 TABLET ORALLY ONCE A DAY TAKING OMEPRAZOLE 40 MG CAPSULE DELAYED RELEASE 1 CAPSULE ORALLY BID, NOTES: DR. MORELAND TAKING REXULTI 1 MG TABLET 1 TABLET ORALLY ONCE A DAY TAKING METFORMIN & DIET MANAGE PROD 500 MG MISCELLANEOUS ORALLY BID, NOTES: FOR WEIGHT LOSS ONLY TAKING WRIST BRACE - MISCELLANEOUS DIRECTED WEAR ON L AND R WRIST NIGHTLY FOR CARPAL TUNNEL. DX: G56.02,G56.01, NOTES: PLEASE DISPENSE LEFT AND RIGHT WRIST BRACES TAKING PROZAC 40 MG CAPSULE 1 CAPSULE ORALLY ONCE A DAY TAKING MIRVASO 0.33% DIRECTED TOPICALLY DAILY IN THE AM THIN LAYER TO WHOLE FACE EXCEPT EYELIDS AND AROUND MOUTH TAKING LIDODERM 5 % PATCH 1 PATCH TO SKIN REMOVE AFTER 12 HOURS EXTERNALLY ONCE A DAY ON 12HR OFF 12HR TAKING DEXMETHYLPHENIDATE HCL 10 MG TABLET 1 TABLET ORALLY TWICE A DAY TAKING TIROSINT-CORTES 175 MCG/ML SOLUTION 1 ML IN THE MORNING BEFORE BREAKFAST ORALLY ONCE A DAY TAKING BACLOFEN 10 MG TABLET 1 TABLET WITH FOOD OR MILK ORALLY THREE TIMES A DAY TAKING NUCYNTA 100 MG TABLET 1 TABLET ORALLY Q8H PRN MDD3 TAKING NUCYNTA ER 250 MG TABLET EXTENDED RELEASE 12 HOUR 1 TABLET ORALLY EVERY 12 HRS MDD2 TAKING PREDNISOLONE ACETATE 1 % SUSPENSION 1 DROP INTO AFFECTED EYE OPHTHALMIC TWICE A DAY TAKING KETOROLAC TROMETHAMINE 0.4 % SOLUTION 1 DROP INTO AFFECTED EYE OPHTHALMIC FOUR TIMES A DAY NOT-TAKING VITAMIN D3 5000 UNIT CAPSULE 1 CAPSULE ORALLY ONCE A DAY NOT-TAKING BACLOFEN 10 MG TABLET 1 TABLET WITH FOOD OR MILK ORALLY THREE TIMES A DAY NOT-TAKING CYCLOBENZAPRINE HCL 10 MG TABLET 1 TABLET NEEDED ORALLY THREE TIMES A DAY NOT-TAKING CETIRIZINE HCL 10 MG TABLET 1 TABLET ORALLY ONCE A DAY, NOTES: USES OTC MED NOT-TAKING LEVOTHYROXINE SODIUM 50 MCG TABLET 1 TABLET ON AN EMPTY STOMACH IN THE MORNING ORALLY ONCE A DAY, NOTES: TOTAL OF 225 MCG NOT-TAKING LEVOTHYROXINE SODIUM 175 MCG TABLET 1 TAB ORALLY DAILY, NOTES: TOTAL OF 200 MCG NOT-TAKING VYVANSE 70 MG CAPSULE 1 CAPSULE IN THE MORNING ORALLY ONCE A DAY NOT-TAKING METHYLPREDNISOLONE 4 MG TABLET THERAPY PACK DIRECTED ORALLY DIRECTED NOT-TAKING HYDROXYZINE PAMOATE 50 MG CAPSULE 1 CAPSULE NEEDED ORALLY EVERY 6 HRS NOT-TAKING MIRVASO 0.33 % GEL APPLY A THIN LAYER DIRECTED DAILY IN THE MORNING TO WHOLE FACE EXCEPT EYELIDS AND AROUND MOUTH NOT-TAKING PROMETHAZINE HCL 12.5 MG TABLET 1 TABLET NEEDED ORALLY EVERY 12 HRS NOT-TAKING PREPARATION H 0.25-88.44 % SUPPOSITORY DIRECTED RECTAL BIDPRN NOT-TAKING DRISDOL 27176 UNIT CAPSULE 1 CAPSULE ORALLY WEEKLY NOT-TAKING TOPAMAX 200 MG TABLET 1 TABLET ORALLY BEFORE BEDTIME NOT-TAKING SERTRALINE HCL 100 MG TABLET 2 TABLETS ORALLY ONCE A DAY NOT-TAKING LEVOTHROYXINE 200 MCG 1 TAB ORALLY DAILY NOT-TAKING TRIAMCINOLONE ACETONIDE 0.5 % CREAM 1 APPLICATION TO AFFECTED AREA EXTERNALLY TWICE A DAY NOT-TAKING LYRICA 75 MG CAPSULE 1 CAPSULE ORALLY THREE TIMES DAILY. CODE D. DX: M79.7 NOT-TAKING PHENTERMINE HCL 15 MG CAPSULE 1 CAPSULE ORALLY ONCE A DAY NOT-TAKING LYRICA 75 MG CAPSULE 1 CAPSULE ORALLY THREE TIMES A DAY, NOTES: DUPLICATE NOT-TAKING SUCRALFATE 1 GM TABLET 1 TABLET AT BEDTIME ON AN EMPTY STOMACH BEFORE MEALS ORALLY QID, NOTES: DR. MORELAND NOT-TAKING BUPROPION HCL ER (XL) 150 MG TABLET EXTENDED RELEASE 24 HOUR 1 TABLET IN THE MORNING ORALLY ONCE A DAY NOT-TAKING FLUTICASONE PROPIONATE 50 MCG/ACT SUSPENSION 1 SPRAY IN EACH NOSTRIL NASALLY ONCE A DAY NOT-TAKING OXYCODONE HCL 15 MG TABLET 1 TABLET ORALLY EVERY 12H PRN MDD2 NOT-TAKING VERAPAMIL HCL 40 MG TABLET 1 TABLET ORALLY 1/2 TAB TWICE A DAY FOR 1 WEEK, THEN 1 TAB TWICE A DAY NOT-TAKING AMOXICILLIN-POT CLAVULANATE 875-125 MG TABLET 1 TABLET ORALLY EVERY 12 HRS NOT-TAKING VENOFER 20 MG/ML SOLUTION INFUSE 21ML PER HOSPITAL PROTOCOL INTRAVENOUS ONCE MEDICATION LIST REVIEWED AND RECONCILED WITH THE PATIENT PAST MEDICAL HISTORY THYROID CANCER X 2, FIRST OPERATION 2010, SECOND ONE 2014 (?TYPE) RIGHT LUNG NODULE (WATCHING IT FOR NOW) L4 HERNIATED DISC FATTY LIVER DIABETES MIGRAINES ANXIETY OSTEOPENIA CHRONIC PAIN ALLERGIES GLIPIZIDE XL: RASH - ALLERGY CIPRO: RASH - ALLERGY HYDROXYCHLOROQUINE SULFATE: INCREASED LIVER ENZYMES - ALLERGY NSAIDS : HAD PREVIOUS GASTRIC BYPASS - ALLERGY SURGICAL HISTORY COMPLETE HYSTERECTOMY DUE TO MENORRHAGIA 2012 THYROIDECTOMY, PARTIAL WAS DONE FIRST AND THEN THE REST TAKEN OUT 05/2014 TONSILECTOMY, ADENOIDECTOMY C- SECTION X 2 LAP BAND, AUGUST 2013 GALLBLADDER REMOVAL 05/2015 GASTRIC BYPASS 12/15/2015 BREAST/ NEEDLE BX 09/22/2015 THYROID NODULE REMOVED AND REST OF THYROID REMOVED 05/2016 ER VISIT CHEST PAIN/ PULLED MUSCLE AND INFLAMATION RIGHT SIDE 11/29/2019 19 TEETH PULLED 11/29/2019 FAMILY HISTORY MOTHER ALIVE COLON CANCER STAGE 4 NO COLOSTOMY\NDAD ALIVE SEIZUREES HTN DM2 HEART DISEASE\N3 BROTHERS HEALTHY\N0 SISITERS\N2 DAUGHTERS HEALTHY\N1 SONMATERNAL GRANDMOTHER HAD SKIN CANCER, UNSURE WHAT TYPE. UNSURE OF FAMILY HX OF PANCREATIC CANCER. SOCIAL HISTORY GENERAL: TOBACCO USE ARE YOU A:FORMER SMOKER HOW LONG HAS IT BEEN SINCE YOU LAST SMOKED?5-10 YEARS LATEX QUESTIONNAIRE LATEX ALLERGY : HAVE YOU EVER DEVELOPED ANY TYPE OF REACTION AFTER HANDLING LATEX PRODUCTS SUCH RUBBER GLOVES, CONDOMS, DIAPHRAGMS, BALLOONS, SOCKS, OR UNDERWEAR?NO LATEX ALLERGY : HAVE YOU EVER DEVELOPED ANY TYPE OF REACTION DURING OR AFTER DENTAL APPOINTMENT, VAGINAL/RECTAL EXAMINATION, SURGICAL PROCEDURE, OR ANY OTHER EXPOSURE?NO LATEX RISK : HAVE YOU EVER HAD ANY DIFFICULTY BREATHING OR HIVES AFTER EATING OR HANDLING ANY FRUITS, OR VEGETABLES; SUCH KIWI, BANANAS, STONE FRUITS, OR CHESTNUTSNO LATEX RISK : DO YOU HAVE A PREVIOUS PERSONAL HISTORY OF MORE THAN NINE SURGERIES, SPINA BIFIDA, OR REPEATED CATHERIZATIONS? YES - PLEASE INDICATE : > 9 SURGERIES LATEX RISK : ARE YOU FREQUENTLY EXPOSED TO LATEX PRODUCTS IN YOUR OCCUPATION?NO DATE ASKED : 03/18/2020 LUNG CANCER SCREENING SMOKING STATUS:FORMER SMOKER BMI CARE GOAL FOLLOW-UP ABOVE NORMAL BMI FOLLOW-UPDIETARY MANAGEMENT EDUCATION, GUIDANCE, AND COUNSELING ALCOHOL SCREENING DID YOU HAVE A DRINK CONTAINING ALCOHOL IN THE PAST YEAR?NO POINTS0 INTERPRETATIONNEGATIVE RECREATIONAL DRUG USE DRUG USE?NO CAFFEINE CAFFEINE USE?YES HOW OFTEN AND HOW MUCH? 4 TEAS A DAY SEXUAL HX HAD SEX IN THE LAST 12 MONTHS (VAGINAL, ORAL, OR ANAL)?NO HAVE YOU EVER HAD AN STD?NO HIV / HEP-C SCREENING HIV TEST OFFERED TO PATIENT:YES DATE OFFERED:07/16/2016 TEST ACCEPTED:NO HEP-C TEST OFFERED TO PATIENT:YES DATE OFFERED:07/16/2016 REASON:PATIENT DECLINED TEST ACCEPTED:NO REASON:PATIENT DECLINED GNOSTICISM [id number] [place] LANGUAGE LANGUAGES SPOKEN:GUAMANIAN EDUCATION LEVEL OF EDUCATION:HIGH SCHOOL LEARNING BARRIERS / SPECIAL NEEDS CHANGE FROM LAST VISIT?YES BARRIERS TO LEARNING?NO HEARING IMPAIRED?NO VISION IMPAIRED?YES :CORRECTIVE LENSES COGNITIVELY IMPAIRED?NO READINESS TO LEARN?YES LEARNING PREFERENCES?NO LEARNING CAPABILITIES PRESENT?YES EMOTIONAL BARRIERS?NO SPECIAL DEVICES?YES :CANE ACCOUNT EXECUTIVE AGRIBUSINESS NEEDED?NO OCCUPATION: DISABLED. DIET: REGULAR. EXERCISE: WALKS. MARITAL STATUS: . OTHERS AT HOME: MOTHER, CHILDREN. TODAY'S VISIT NOTES 05/23/2019, PATIENT DESCRIBES PAIN : ACHING, HAVE IT ALL THE TIME, FROM 0-10, WHAT LEVEL IS YOUR PAIN TODAY? 6. PAIN CLINIC PFS, CLERGY, PUBLIC HEALTH REFERRALS PFS REFERRAL NEEDED?NO CLERGY REFERRAL NEEDED?NO PUBLIC HEALTH REFERRAL NEEDED?NO WAS THE PROVIDER NOTIFIED OF ANY PERTINENT INFO?YES HAS THE PATIENT BEEN EDUCATED REGARDING HIS/HER PLAN OF CARE?YES HAS THE PATIENT BEEN EDUCATED REGARDING PAIN, THE RISK FOR PAIN, THE IMPORTANCE OF EFFECTIVE PAIN MANAGEMENT, AND THE PAIN ASSESSMENT PROCESS?YES ADVANCE DIRECTIVE ADVANCE DIRECTIVE DISCUSSED WITH PATIENT:YES HCP - EVERARDO SANTA (MOTHER) HOSPITALIZATION/MAJOR DIAGNOSTIC PROCEDURE FOR [facility] 05/2016 LIVER FAILURE 03/2019 REVIEW OF SYSTEMS CONSTITUTIONAL: ANY RECENT FEVER NO . CHILLS NO . WEIGHT CHANGE OF UNKNOWN REASONS NO . GASTROENTEROLOGY: NEW UNEXPLAINABLE CHANGES IN BOWEL CONTROL NO . CONSTIPATION NO . GENITOURINARY: ANY NEW CHANGE IN BLADDER CONTROL? NO . NEUROLOGY: NEW ONSET DIZZINESS OR NEUROLOGICAL CHANGES NOT MENTIONED NO . NEW NUMBNESS OR PAIN PATTERNS NOT MENTIONED AND PERTINENT TO TODAY'S VISIT NO . CARDIOLOGY: NEW CHEST PRESSURE NO . NEW CHEST PAIN NO . RESPIRATORY: UNEXPLAINABLE COUGH NO . NEW SHORTNESS OF BREATH NO . VITAL SIGNS WT 262 LBS, HT 70 IN, BMI 37.59 INDEX, BP 115/69 MM HG, HR 78 /MIN, RR 18 /MIN, TEMP 96.4 F, OXYGEN SAT % 95%, SAFE IN ENV? (Y/N) YEST.SHANI KHAN. EXAMINATION GENERAL EXAMINATION: GENERALAWAKE,ALERT ,PLEASANT . PSYCHAFFECT NORMAL . LUNGS:LUNG CHAN ARE CLEAR TO AUSCULTATION BILATERALLY. GOOD MOVEMENT OF AIR . HEART:S1, S2 IN A REGULAR RATE AND RHYTHM. NO SIGNIFICANT MURMURS, RUBS OR GALLOPS NOTED . ASSESSMENTS INFLAMMATORY ARTHROPATHY - M19.90 (PRIMARY) RHEUMATOID ARTHRITIS INVOLVING MULTIPLE SITES WITH POSITIVE RHEUMATOID FACTOR - M05.79 CHRONIC PRESCRIPTION OPIATE USE - Z79.891 TREATMENT INFLAMMATORY ARTHROPATHY CONTINUE COLACE CAPSULE, 100 MG, 1 CAP, ORALLY, BID INCREASE BACLOFEN TABLET, 10 MG, 1 TABLET WITH FOOD OR MILK, ORALLY, Q6H PRN, 30 DAY(S), 120, REFILLS 5 REFILL NUCYNTA TABLET, 100 MG, 1 TABLET, ORALLY, Q8H PRN MDD3, 30 DAY(S), 90, REFILLS 0 REFILL NUCYNTA ER TABLET EXTENDED RELEASE 12 HOUR, 250 MG, 1 TABLET, ORALLY, EVERY 12 HRS MDD2, 30 DAY(S), 60, REFILLS 0 NOTES: TODAY I'VE ADVISED HER TO INCREASE BACLOFEN 10 MG TO EVERY 6 HOURS NEEDED FOR SEVERE PAIN EPISODES. SHE WILL BE USING THIS FOURTH DOSE ONLY IF NECESSARY FOR SEVERE PAIN EPISODES. CONTINUE FOLLOW-UP FOR LEFT EYE PAIN AND FACIAL REDNESS WITH PRIMARY CARE. FOLLOW-UP IS SCHEDULED IN 3 MONTHS. , ISTOP REGISTRY REVIEWED AND DEMONSTRATES COMPLLIANCE. BRINGS IN MEDICATIONS WHICH IS APPROPRIATE FOR WHAT WAS DISPENSED. RECENT URINE TOXICOLOGY REVIEWED. NO UNAUTHORIZED MEDICATIONS. NO ILLICIT SUBSTANCES AND PRESCRIBED MEDICATIONS WERE PRESENT. , RISKS OF NARCOTIC/OPIOD MEDICATIONS INCLUDES BUT IS NOT LIMITED TO RISK OF DEPENDANCE/DEVELOPMENT OF ADDICTION, MOOD DISTURBANCE AND DEPRESSION, OSTEOPOROSIS, HORMONAL AND LABIDAL CHANGES, RESPIRATORY DEPRESSION AND . PATIENT IS ADVISED NOT TO DRIVE OR DRINK ALCOHOL WHILE ON THESE MEDICATIONS. PROCEDURE CODES FA211 ESTABILISHED [facility]IENT [facility] F[facility] CHARGE DISPOSITION & COMMUNICATION FOLLOW UP 3 MONTHS (REASON: MEDICATION MANAGEMENT/INFLAMMATORY ARTHROPATHY/URINE TOXICOLOGY) ELECTRONICALLY SIGNED BY NED DIEZ ON 03/19/2020 AT 10:17 AM EST DISCLAIMER : THIS IS A VISIT SUMMARY EXTRACTED FROM THE [employer] CHART. IT IS NOT A COPY OF THE [employer] PROGRESS NOTE. JAMIE
== END ==
LOC: M PAIN 09:00
PROVIDERS: ATTEND Nurse Practitioner Family
DX: M19.90 Unspecified osteoarthritis, unspecified site (principal); G89.29 Other chronic pain; M05.79 Rheumatoid arthritis with rheumatoid factor of multiple sites without organ or systems involvement; G43.909 Migraine, unspecified, not intractable, without status migrainosus; Z86.59 Personal history of other mental and behavioral disorders; Z98.84 Bariatric surgery status; Z87.891 Personal history of nicotine dependence; Z88.1 Allergy status to other antibiotic agents; Z88.6 Allergy status to analgesic agent; Z88.8 Allergy status to other drugs, medicaments and biological substances; Z79.891 Long term (current) use of opiate analgesic; Z79.899 Other long term (current) drug therapy

== ENCOUNTER → 2020-05-07 | Outpatient (CLI) | payer MEDICARE, MEDICAID ==
[~2020-05-07] MED LIST changes: +BUPR150T12 PO; -BUPR150T4 PO; -SIME40TA PO; +SIME80CH6 PO
[2020-05-07 09:20] LABS: ALBUMIN 3.8 GM/DL (3.2-5.2); ALT/SGPT 33 U/L (12-78); BILIRUBIN,TOTAL 0.4 MG/DL (0.2-1.0); BLOOD UREA NITROGEN 8 MG/DL (7-18); CALCIUM LEVEL 8.5 MG/DL (8.5-10.1); CARBON DIOXIDE LEVEL 27 MEQ/L (21-32); CHLORIDE LEVEL 109 MEQ/L (98-107); CHOLESTEROL LEVEL 183 MG/DL (<200); CREATININE FOR GFR 0.76 MG/DL (0.55-1.30); GLOMERULAR FILTRATION RATE > 60.0 (>58); GLUCOSE, FASTING 116 MG/DL (70-100); HDL CHOLESTEROL 50 MG/DL (>40); LDL CHOLESTEROL 113 MG/DL (<100); NON-HDL-C 133 MG/DL; POTASSIUM SERUM 3.7 MEQ/L (3.5-5.1); SODIUM LEVEL 142 MEQ/L (136-145); TOTAL PROTEIN 6.8 GM/DL (6.4-8.2); TRIGLYCERIDES LEVEL 100 MG/DL (<150)
[2020-05-07 09:29] LABS: CREATININE, URINE 52.4 MG/DL; MALB URINE SIEMENS 5.4 MG/L; MAU/CREAT RATIO 10.3 MCG/MG (0.0-30.0)
[2020-05-07 09:52] LABS: HEMOGLOBIN A1c 5.6 %
== END ==
LOC: M LAB 08:01
PROVIDERS: ATTEND Nurse Practitioner Family
DX: E11.9 Type 2 diabetes mellitus without complications (principal)

== ENCOUNTER → 2020-06-16 | Outpatient (CLI) | payer OTHER, MEDICARE, MEDICAID ==
--- NOTE | 2020-06-18 07:06 | ECWPNPC ---
PATIENT NAME: PADMINI SANTA : 1980 GENDER: FEMALE VISIT DATE: 06/16/2020 DISCHARGE DATE: 06/16/20 1012 VISIT LOCKED DATE TIME: PHYSICIAN: BRIANNA KIMBLE RESOURCE: BRIANNA KIMBLE REASON FOR APPOINTMENT 1. MEDICATION MANAGEMENT/LOW BACK HISTORY OF PRESENT ILLNESS DEPRESSION SCREENING: PHQ-2 (2015 EDITION) LITTLE INTEREST OR PLEASURE IN DOING THINGS?SEVERAL DAYS FEELING DOWN, DEPRESSED, OR HOPELESS?NOT AT ALL TOTAL SCORE1 GENERAL: HERE FOR F/U OF CHRONIC PAIN ASSOCIATED WITH AUTOIMMUNE DISEASE.LATELY FEELS HER SHORT ACTING NUCYNTA 100MG ISNT EFFECTIVE ANYMORE.HAS BEEN IN ALOT OF PAIN LATELY DESPITE INCREASES IN PAIN MEDICATION.BRINGS IN HER MEDICATION THAT IS APPROPRIATE FOR WHAT WAS DISPENSED.RECENT URINE TOX WNL.REVIEWED MEDICATION PLAN.SHE IS ASKING TO SWITCH TO TRAMADOL FOR BREAKTHRU PAIN. -. FALL RISK SCREENING: SCREENING : NO FALLS REPORTED IN THE LAST YEAR. PAIN SCREENING: PATIENT HAS A COMPLAINT OF ACUTE OR CHRONIC PAIN :YES LOCATION OF PAIN:LOW BACK INTENSITY OF PAIN (SCALE OF 1 TO 10):8 WHAT DOES YOUR PAIN FEEL LIKE:SHARP, SHOOTING DURATION:CONTINOUS, CONSTANT, ALL DAY PAIN IS INCREASED BY:ACTIVITIES PAIN IS DECREASED BY:USE OF PAIN MEDICATIONS NURSING NOTE: -. PAIN CENTER INTAKE QUESTIONS: DO YOU HAVE A HISTORY OF MRSA? :NO DO YOU TAKE A BLOOD THINNERS? :NO DO YOU HAVE ANY BLEEDING DISORDERS? :YES CLOTTING DISORDER ANY NEW NUMBNESS OR WEAKNESS IN YOUR LEGS OR ARMS? :NO ANY PACEMAKER,DEFIBRILLATOR, OR DORSAL COLUMN STIMULATOR? :NO DO YOU HAVE ANY RASHES OR OPEN SORES? :NO ARE YOU ALLERGIC TO IV DYE? :NO ARE YOU DIABETIC? :NO ANY NEW PROBLEMS WITH YOUR MEDICATIONS? :NO HAVE YOU RECEIVED A VACCINE IN THE PAST 30 DAYS? :YES IF SO WHAT VACCINE AND WHEN? 2ND COVID 05/21/2020 DO YOU PLAN TO RECEIVE A VACCINE IN THE NEXT 21 DAYS? :NO DO YOU NEED ANY PRESCRIPTION? :YES NUCYNTA AND BACLOFEN DO YOU TAKE ANY IMMUNOSUPPRESSIVE MEDICATIONS? :NO IS THERE A CHANCE YOU COULD BE ? :NO ARE YOU BREAST FEEDING? :NO CURRENT MEDICATIONS TAKING VENOFER 20 MG/ML SOLUTION DIRECTED INTRAVENOUS NEEDED TAKING MULTI VITAMIN DAILY - TABLET 1 TABLET ORALLY ONCE A DAY TAKING VITAMIN B-12 1000 MCG TABLET 1 TABLET ORALLY ONCE A DAY TAKING ATIVAN 0.5 MG TABLET 1 TABLET NEEDED ORALLY THREE TIMES A DAY NEEDED TAKING TROKENDI XR 200 MG CAPSULE EXTENDED RELEASE 24 HOUR 1 CAPSULE ORALLY ONCE A DAY TAKING CALCIUM 600 MG TABLET 1 TABLET WITH MEALS ORALLY THREE TIMES A DAY TAKING GAS-X 80 MG TABLET CHEWABLE 1 TABLET AFTER MEALS AND AT BEDTIME NEEDED ORALLY FOUR TIMES A DAY TAKING VITAMIN C 500 MG TABLET CHEWABLE 1 TABLET ORALLY ONCE A DAY TAKING OMEPRAZOLE 40 MG CAPSULE DELAYED RELEASE 1 CAPSULE ORALLY BID, NOTES: DR. MORELAND TAKING REXULTI 1 MG TABLET 1 TABLET ORALLY ONCE A DAY TAKING METFORMIN & DIET MANAGE PROD 500 MG MISCELLANEOUS ORALLY BID, NOTES: FOR WEIGHT LOSS ONLY TAKING WRIST BRACE - MISCELLANEOUS DIRECTED WEAR ON L AND R WRIST NIGHTLY FOR CARPAL TUNNEL. DX: G56.02,G56.01, NOTES: PLEASE DISPENSE LEFT AND RIGHT WRIST BRACES TAKING PROZAC 40 MG CAPSULE 1 CAPSULE ORALLY ONCE A DAY TAKING MIRVASO 0.33% DIRECTED TOPICALLY DAILY IN THE AM THIN LAYER TO WHOLE FACE EXCEPT EYELIDS AND AROUND MOUTH TAKING LIDODERM 5 % PATCH 1 PATCH TO SKIN REMOVE AFTER 12 HOURS EXTERNALLY ONCE A DAY ON 12HR OFF 12HR TAKING TIROSINT-CORTES 175 MCG/ML SOLUTION 1 ML IN THE MORNING BEFORE BREAKFAST ORALLY ONCE A DAY TAKING COLACE 100 MG CAPSULE 1 CAP ORALLY BID TAKING NUCYNTA 100 MG TABLET 1 TABLET ORALLY Q8H PRN MDD3 TAKING NUCYNTA ER 250 MG TABLET EXTENDED RELEASE 12 HOUR 1 TABLET ORALLY EVERY 12 HRS MDD2 TAKING BACLOFEN 10 MG TABLET 1 TABLET WITH FOOD OR MILK ORALLY Q6H PRN TAKING METHYLPHENIDATE HCL 20 MG TABLET 1 TABLET ON AN EMPTY STOMACH ORALLY THREE A DAY NOT-TAKING DEXMETHYLPHENIDATE HCL 10 MG TABLET 1 TABLET ORALLY TWICE A DAY NOT-TAKING PREDNISOLONE ACETATE 1 % SUSPENSION 1 DROP INTO AFFECTED EYE OPHTHALMIC TWICE A DAY NOT-TAKING KETOROLAC TROMETHAMINE 0.4 % SOLUTION 1 DROP INTO AFFECTED EYE OPHTHALMIC FOUR TIMES A DAY NOT-TAKING METHYLPHENIDATE 20 MG/9HR PATCH 1 PATCH TO SKIN APPLY TO ALTERNATING HIPS TRANSDERMAL ONCE A DAY NOT-TAKING VITAMIN D3 5000 UNIT CAPSULE 1 CAPSULE ORALLY ONCE A DAY NOT-TAKING BACLOFEN 10 MG TABLET 1 TABLET WITH FOOD OR MILK ORALLY THREE TIMES A DAY NOT-TAKING CYCLOBENZAPRINE HCL 10 MG TABLET 1 TABLET NEEDED ORALLY THREE TIMES A DAY NOT-TAKING CETIRIZINE HCL 10 MG TABLET 1 TABLET ORALLY ONCE A DAY, NOTES: USES OTC MED NOT-TAKING LEVOTHYROXINE SODIUM 50 MCG TABLET 1 TABLET ON AN EMPTY STOMACH IN THE MORNING ORALLY ONCE A DAY, NOTES: TOTAL OF 225 MCG NOT-TAKING LEVOTHYROXINE SODIUM 175 MCG TABLET 1 TAB ORALLY DAILY, NOTES: TOTAL OF 200 MCG NOT-TAKING VYVANSE 70 MG CAPSULE 1 CAPSULE IN THE MORNING ORALLY ONCE A DAY NOT-TAKING METHYLPREDNISOLONE 4 MG TABLET THERAPY PACK DIRECTED ORALLY DIRECTED NOT-TAKING HYDROXYZINE PAMOATE 50 MG CAPSULE 1 CAPSULE NEEDED ORALLY EVERY 6 HRS NOT-TAKING MIRVASO 0.33 % GEL APPLY A THIN LAYER DIRECTED DAILY IN THE MORNING TO WHOLE FACE EXCEPT EYELIDS AND AROUND MOUTH NOT-TAKING PROMETHAZINE HCL 12.5 MG TABLET 1 TABLET NEEDED ORALLY EVERY 12 HRS NOT-TAKING PREPARATION H 0.25-88.44 % SUPPOSITORY DIRECTED RECTAL BIDPRN NOT-TAKING DRISDOL [id number] UNIT CAPSULE 1 CAPSULE ORALLY WEEKLY NOT-TAKING TOPAMAX 200 MG TABLET 1 TABLET ORALLY BEFORE BEDTIME NOT-TAKING SERTRALINE HCL 100 MG TABLET 2 TABLETS ORALLY ONCE A DAY NOT-TAKING LEVOTHROYXINE 200 MCG 1 TAB ORALLY DAILY NOT-TAKING TRIAMCINOLONE ACETONIDE 0.5 % CREAM 1 APPLICATION TO AFFECTED AREA EXTERNALLY TWICE A DAY NOT-TAKING LYRICA 75 MG CAPSULE 1 CAPSULE ORALLY THREE TIMES DAILY. CODE D. DX: M79.7 NOT-TAKING PHENTERMINE HCL 15 MG CAPSULE 1 CAPSULE ORALLY ONCE A DAY NOT-TAKING LYRICA 75 MG CAPSULE 1 CAPSULE ORALLY THREE TIMES A DAY, NOTES: DUPLICATE NOT-TAKING SUCRALFATE 1 GM TABLET 1 TABLET AT BEDTIME ON AN EMPTY STOMACH BEFORE MEALS ORALLY QID, NOTES: DR. MORELAND NOT-TAKING BUPROPION HCL ER (XL) 150 MG TABLET EXTENDED RELEASE 24 HOUR 1 TABLET IN THE MORNING ORALLY ONCE A DAY NOT-TAKING FLUTICASONE PROPIONATE 50 MCG/ACT SUSPENSION 1 SPRAY IN EACH NOSTRIL NASALLY ONCE A DAY NOT-TAKING OXYCODONE HCL 15 MG TABLET 1 TABLET ORALLY EVERY 12H PRN MDD2 NOT-TAKING VERAPAMIL HCL 40 MG TABLET 1 TABLET ORALLY 1/2 TAB TWICE A DAY FOR 1 WEEK, THEN 1 TAB TWICE A DAY NOT-TAKING AMOXICILLIN-POT CLAVULANATE 875-125 MG TABLET 1 TABLET ORALLY EVERY 12 HRS NOT-TAKING VENOFER 20 MG/ML SOLUTION INFUSE 21ML PER HOSPITAL PROTOCOL INTRAVENOUS ONCE MEDICATION LIST REVIEWED AND RECONCILED WITH THE PATIENT PAST MEDICAL HISTORY THYROID CANCER X 2, FIRST OPERATION 2010, SECOND ONE 2014 (?TYPE) RIGHT LUNG NODULE (WATCHING IT FOR NOW) L4 HERNIATED DISC FATTY LIVER DIABETES MIGRAINES ANXIETY OSTEOPENIA CHRONIC PAIN ALLERGIES GLIPIZIDE XL: RASH - ALLERGY CIPRO: RASH - ALLERGY HYDROXYCHLOROQUINE SULFATE: INCREASED LIVER ENZYMES - ALLERGY NSAIDS : HAD PREVIOUS GASTRIC BYPASS - ALLERGY SOCIAL HISTORY GENERAL: TOBACCO USE ARE YOU A:FORMER SMOKER HOW LONG HAS IT BEEN SINCE YOU LAST SMOKED?5-10 YEARS LATEX QUESTIONNAIRE LATEX ALLERGY : HAVE YOU EVER DEVELOPED ANY TYPE OF REACTION AFTER HANDLING LATEX PRODUCTS SUCH RUBBER GLOVES, CONDOMS, DIAPHRAGMS, BALLOONS, SOCKS, OR UNDERWEAR?NO LATEX ALLERGY : HAVE YOU EVER DEVELOPED ANY TYPE OF REACTION DURING OR AFTER DENTAL APPOINTMENT, VAGINAL/RECTAL EXAMINATION, SURGICAL PROCEDURE, OR ANY OTHER EXPOSURE?NO LATEX RISK : HAVE YOU EVER HAD ANY DIFFICULTY BREATHING OR HIVES AFTER EATING OR HANDLING ANY FRUITS, OR VEGETABLES; SUCH KIWI, BANANAS, STONE FRUITS, OR CHESTNUTSNO LATEX RISK : DO YOU HAVE A PREVIOUS PERSONAL HISTORY OF MORE THAN NINE SURGERIES, SPINA BIFIDA, OR REPEATED CATHERIZATIONS? YES - PLEASE INDICATE : > 9 SURGERIES LATEX RISK : ARE YOU FREQUENTLY EXPOSED TO LATEX PRODUCTS IN YOUR OCCUPATION?NO DATE ASKED : 06/16/2020 ALCOHOL USE: NO. LUNG CANCER SCREENING SMOKING STATUS:FORMER SMOKER BMI CARE GOAL FOLLOW-UP ABOVE NORMAL BMI FOLLOW-UPDIETARY MANAGEMENT EDUCATION, GUIDANCE, AND COUNSELING ALCOHOL SCREENING DID YOU HAVE A DRINK CONTAINING ALCOHOL IN THE PAST YEAR?NO POINTS0 INTERPRETATIONNEGATIVE RECREATIONAL DRUG USE DRUG USE?NO CAFFEINE CAFFEINE USE?YES HOW OFTEN AND HOW MUCH? 4 TEAS A DAY SEXUAL HX HAD SEX IN THE LAST 12 MONTHS (VAGINAL, ORAL, OR ANAL)?NO HAVE YOU EVER HAD AN STD?NO HIV / HEP-C SCREENING HIV TEST OFFERED TO PATIENT:YES DATE OFFERED:07/16/2016 TEST ACCEPTED:NO HEP-C TEST OFFERED TO PATIENT:YES DATE OFFERED:07/16/2016 REASON:PATIENT DECLINED TEST ACCEPTED:NO REASON:PATIENT DECLINED [id number] LANGUAGES SPOKEN:[place] EDUCATION LEVEL OF EDUCATION:HIGH SCHOOL LEARNING BARRIERS / SPECIAL NEEDS CHANGE FROM LAST VISIT?YES BARRIERS TO LEARNING?NO HEARING IMPAIRED?NO VISION IMPAIRED?YES :CORRECTIVE LENSES COGNITIVELY IMPAIRED?NO READINESS TO LEARN?YES LEARNING PREFERENCES?NO LEARNING CAPABILITIES PRESENT?YES EMOTIONAL BARRIERS?NO SPECIAL DEVICES?YES :CANE, BRACE BRACE ON BOTH KNEES 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 DIET: REGULAR. EXERCISE: WALKS. MARITAL STATUS: . OTHERS AT HOME: MOTHER, CHILDREN. TODAY'S VISIT NOTES 05/23/2019, PATIENT DESCRIBES PAIN : ACHING, HAVE IT ALL THE TIME, FROM 0-10, WHAT LEVEL IS YOUR PAIN TODAY? 6. - PFS REFERRAL NEEDED?NO CLERGY REFERRAL NEEDED?NO PUBLIC HEALTH REFERRAL NEEDED?NO WAS THE PROVIDER NOTIFIED OF ANY PERTINENT INFO?YES HAS THE PATIENT BEEN EDUCATED REGARDING HIS/HER PLAN OF CARE?YES HAS THE PATIENT BEEN EDUCATED REGARDING PAIN, THE RISK FOR PAIN, THE IMPORTANCE OF EFFECTIVE PAIN MANAGEMENT, AND THE PAIN ASSESSMENT PROCESS?YES ADVANCE DIRECTIVE ADVANCE DIRECTIVE DISCUSSED WITH PATIENT:YES HCP - EVERARDO SANTA (MOTHER) REVIEW OF SYSTEMS CONSTITUTIONAL: ANY RECENT FEVER NO . CHILLS NO . WEIGHT CHANGE OF UNKNOWN REASONS NO . GASTROENTEROLOGY: NEW UNEXPLAINABLE CHANGES IN BOWEL CONTROL NO . CONSTIPATION NO . GENITOURINARY: ANY NEW CHANGE IN BLADDER CONTROL? NO . NEUROLOGY: NEW ONSET DIZZINESS OR NEUROLOGICAL CHANGES NOT MENTIONED NO . NEW NUMBNESS OR PAIN PATTERNS NOT MENTIONED AND PERTINENT TO TODAY'S VISIT NO . CARDIOLOGY: NEW CHEST PRESSURE NO . PATIENT DENIES NO . RESPIRATORY: UNEXPLAINABLE COUGH NO . NEW SHORTNESS OF BREATH NO . VITAL SIGNS WT 269.8 LBS, HT 70 IN, BMI 38.71 INDEX, BP 119/72 MM HG, HR 84 /MIN, RR 18 /MIN, TEMP 98%, OXYGEN SAT % 98%, SAFE IN ENV? (Y/N) YES, NA INITIALS SC 09;30T.SHANI KHAN. EXAMINATION GENERAL EXAMINATION: GENERALAWAKE,ALERT ,PLEASANT . PSYCHAFFECT NORMAL . LUNGS:LUNG CHAN ARE CLEAR TO AUSCULTATION BILATERALLY. GOOD MOVEMENT OF AIR . HEART:S1, S2 IN A REGULAR RATE AND RHYTHM. NO SIGNIFICANT MURMURS, RUBS OR GALLOPS NOTED . ASSESSMENTS CHRONIC PRESCRIPTION OPIATE USE - Z79.899 (PRIMARY) INFLAMMATORY ARTHROPATHY - M19.90 TREATMENT CHRONIC PRESCRIPTION OPIATE USE LAB: URINE TEST GROUP LUCIAN MCLEOD 06/16/2020 10:09:55 AM > LAST DOSE : NUCYNTA 06/16/2020 @6AM ,ATIVAN 06/15/2020 @7AM, METHYLPENIDATE 06/16/2020 @6AM INFLAMMATORY ARTHROPATHY CONTINUE NUCYNTA ER TABLET EXTENDED RELEASE 12 HOUR, 250 MG, 1 TABLET, ORALLY, EVERY 12 HRS MDD2, 30 DAY(S), 60, REFILLS 0 CONTINUE BACLOFEN TABLET, 10 MG, 1 TABLET WITH FOOD OR MILK, ORALLY, Q6H PRN STOP NUCYNTA TABLET, 100 MG, 1 TABLET, ORALLY, Q8H PRN MDD3 START TRAMADOL HCL TABLET, 50 MG, 1 TO 2 TAB, ORALLY, Q6H PRN MDD6, 30 DAYS, 180, REFILLS 1 NOTES: ISTOP REGISTRY REVIEWED AND DEMONSTRATES COMPLLIANCE. BRINGS IN MEDICATIONS WHICH IS APPROPRIATE FOR WHAT WAS DISPENSED. RECENT URINE TOXICOLOGY REVIEWED. NO UNAUTHORIZED MEDICATIONS. NO ILLICIT SUBSTANCES AND PRESCRIBED MEDICATIONS WERE PRESENT. , RISKS OF NARCOTIC/OPIOD MEDICATIONS INCLUDES BUT IS NOT LIMITED TO RISK OF DEPENDANCE/DEVELOPMENT OF ADDICTION, MOOD DISTURBANCE AND DEPRESSION, OSTEOPOROSIS, HORMONAL AND LABIDAL CHANGES, RESPIRATORY DEPRESSION AND . PATIENT IS ADVISED NOT TO DRIVE OR DRINK ALCOHOL WHILE ON THESE MEDICATIONS. PROCEDURE CODES FA211 ESTABILISHED PATIENT [facility] CHARGE DISPOSITION & COMMUNICATION FOLLOW UP 3 MONTHS (REASON: MED MGMNT/STOPPED NUCYNTA 100MG AND STARTED TRAMADOL,REVIEW UTOX) ELECTRONICALLY SIGNED BY NED DIEZ ON 06/17/2020 AT 03:11 PM EDT DISCLAIMER : THIS IS A VISIT SUMMARY EXTRACTED FROM THE [employer] CHART. IT IS NOT A COPY OF THE [employer] PROGRESS NOTE. JAMIE
== END ==
LOC: M PAIN 09:30
PROVIDERS: ATTEND Nurse Practitioner Family
DX: M19.90 Unspecified osteoarthritis, unspecified site (principal); G89.29 Other chronic pain; G43.909 Migraine, unspecified, not intractable, without status migrainosus; Z86.59 Personal history of other mental and behavioral disorders; Z87.891 Personal history of nicotine dependence; Z88.1 Allergy status to other antibiotic agents; Z88.6 Allergy status to analgesic agent; Z88.8 Allergy status to other drugs, medicaments and biological substances; Z98.84 Bariatric surgery status; Z79.891 Long term (current) use of opiate analgesic; Z79.899 Other long term (current) drug therapy

== ENCOUNTER → 2020-07-03 | Outpatient (REF) | payer MEDICARE ==
[2020-07-03 13:27] LABS: BASO % 0.5 % (0.0-1.0); HEMATOCRIT 40.9 % (36.0-47.0); HEMOGLOBIN 12.9 g/dl (12.0-15.5); LYMPH # 1.9 10^3/uL (1.5-5.0); LYMPH % 30.6 % (24.0-44.0); MEAN CORPUSCULAR HEMOGLOBIN 27.4 pg (27.0-33.0); MEAN CORPUSCULAR HGB CONC 31.5 g/dl (32.0-36.5); MONO # 0.5 10^3/uL (0.0-0.8); MONO % 8.6 % (2.0-8.0); NEUTROPHILS # 3.8 10^3/uL (1.5-8.5); PLATELET COUNT, AUTOMATED 182 10^3/uL (150-450); WHITE BLOOD COUNT 6.3 10^3/uL (4.0-10.0)
[2020-07-03 13:53] LABS: CREATININE,RANDOM URINE 83.8 MG/DL
[2020-07-03 13:53] LABS: BLOOD UREA NITROGEN 10 MG/DL (7-18); CALCIUM LEVEL 8.7 MG/DL (8.5-10.1); CARBON DIOXIDE LEVEL 27 MEQ/L (21-32); CHLORIDE LEVEL 107 MEQ/L (98-107); COMPLEMENT C3 96 MG/DL (90-180); COMPLEMENT C4 10 MG/DL (10-40); CPK CREATINE PHOSPHOKINASE 62 U/L (26-192); CREATININE FOR GFR 0.73 MG/DL (0.55-1.30); GLOMERULAR FILTRATION RATE > 60.0 (>58); GLUCOSE, FASTING 91 MG/DL (70-100); MAGNESIUM LEVEL 2.7 MG/DL (1.8-2.4); PHOSPHORUS LEVEL 4.2 MG/DL (2.5-4.9); POTASSIUM SERUM 3.8 MEQ/L (3.5-5.1); RHEUMATOID FACTOR QUANT < 10.0 IU/ML (<15.0); SODIUM LEVEL 140 MEQ/L (136-145); TOTAL PROTEIN 6.9 GM/DL (6.4-8.2)
[2020-07-03 14:17] LABS: APPEARANCE, URINE CLEAR (CLEAR); BACTERIA, URINE AUTO NEGATIVE (NEGATIVE); BILIRUBIN, URINE AUTO NEGATIVE (NEGATIVE); BLOOD, URINE BLOOD 1+ (NEGATIVE); COLOR, URINE YELLOW (YELLOW); GLUCOSE, URINE (UA) AUTO NEGATIVE (NEGATIVE); KETONE, URINE AUTO NEGATIVE (NEGATIVE); LEUKOCYTE ESTERASE, URINE AUTO 3+ (NEGATIVE); NITRITE, URINE AUTO NEGATIVE (NEGATIVE); PROTEIN, URINE AUTO NEGATIVE (NEGATIVE); RBC, URINE AUTO 2 /HPF (0-3); SPECIFIC GRAVITY URINE AUTO 1.009 (1.002-1.035); SQUAMOUS EPITHELIAL CELL UR AU 2 /HPF (0-6); UROBILINOGEN, URINE AUTO 0.2 mg/dL (0.0-2.0); WBC, URINE AUTO 13 /HPF (0-3)
[2020-07-03 14:21] LABS: ERYTHROCYTE SEDIMENTATION RATE 33 mm/hr (0-20)
[2020-07-04 12:50] LABS: DRVV SCREEN 51.9 SEC
[2020-07-04 12:51] LABS: PTT LUPUS TYPE ANTICOAG SCREEN 1.3 (0-1.2)
[2020-07-04 12:59] LABS: DRVV CONFIRM 34.9 SEC; LUPUS CONFIRM RATIO 0.9
[2020-07-04 13:05] LABS: NORMALIZED RATIO 1.44 (0.00-1.20)
[2020-07-07 13:39] LABS: ALBUMIN 4.03 GM/DL (3.29-5.55); ALBUMIN % 58.4 % (55.8-66.1); ALPHA-1-GLOBULIN % 5.7 % (2.9-4.9); ALPHA-1-GLOBULINS 0.39 GM/DL (0.17-0.41); ALPHA-2-GLOBULINS 0.77 GM/DL (0.42-0.99); ALPHA-2-GLOBULINS % 11.1 % (7.1-11.8); BETA-1-GLOBULINS 0.37 GM/DL (0.28-0.60); BETA-1-GLOBULINS % 5.3 % (4.7-7.2); BETA-2-GLOBULINS 0.37 GM/DL (0.19-0.55); BETA-2-GLOBULINS % 5.3 % (3.2-6.5); GAMMA GLOBULIN % 14.2 % (11.1-18.8); GAMMA GLOBULINS 0.98 GM/DL (0.65-1.58)
[2020-07-08 13:07] LABS: ANA (HEP2) Negative (.); ANTI CENTROMERE ANTIBODY <0.2 AI (0.0-0.9); ANTI DS-DNA AB Negative (Negative); ANTI SCLERODERMA ANTIBODIES <0.2 AI (0.0-0.9); ANTI SMITH(Sm) AB <20 Units (<20); ANTI-HISTONE ANTIBODIES 0.9 Units (0.0-0.9); ANTI-U1 RNP AB <20 Units (<20); BETA-2 GLYCOPROTEIN I ABY IGA 11 (0-25); BETA-2 GLYCOPROTEIN I ABY IGG 13 (0-20); BETA-2 GLYCOPROTEIN I ABY IGM 13 (0-32); CARDIOLIPIN IGA ANTIBODY <9 APL U/mL (0-11); CARDIOLIPIN IGG ANTIBODY 20 GPL U/mL (0-14); CARDIOLIPIN IGM ANTIBODY 29 MPL U/mL (0-12); COMPLEMENT TOTAL (CH50) > 60 U/mL (>41); CYCLIC CITRULLINATED PEPTIDE 4 units (0-19); HEXAGONAL PHASE PHOSPHOLIPID 10 sec (0-11); SSA SJOGRENS A <0.2 AI (0.0-0.9); SSB SJOGRENS B <0.2 AI (0.0-0.9)
== END ==
LOC: M SFHCRHEU 10:43
PROVIDERS: ATTEND Internal Medicine
DX: R76.8 Other specified abnormal immunological findings in serum (principal); M25.40 Effusion, unspecified joint; M79.10 Myalgia, unspecified site; Z79.899 Other long term (current) drug therapy
CPT/HCPCS: 80048; 81001; 82306; 82550; 82570; 83520; 83735; 84100; 84156; 84165; 85025; 85598; 85613; 85652; 85730; 86038; 86140; 86146; 86147; 86160; 86162; 86200; 86225; 86235; 86255; 86431; G0463

== ENCOUNTER → 2020-07-08 | Outpatient (CLI) | payer MEDICARE ==
--- NOTE | 2020-07-08 09:51 | REP ---
INDICATION: UNILATERAL PRIMARY OSTEOARTHRITIS, UNSPECIFIED KNEE COMPARISON: None. TECHNIQUE: Four views bilateral wrists. FINDINGS: There is no evidence of acute fracture, dislocation, or intrinsic bone disease.There is very mild narrowing of the left radiocarpal joint. IMPRESSION: No fracture or dislocation. Mild narrowing left radiocarpal joint. <Electronically signed by German Carlos > 07/08/20 0921
--- NOTE | 2020-07-08 09:54 | REP ---
INDICATION: UNILATERAL PRIMARY OSTEOARTHRITIS, UNSPECIFIED KNEE COMPARISON: 07/12/2017. TECHNIQUE: Four views bilateral hands. FINDINGS: There is no evidence of acute fracture, dislocation, or intrinsic bone disease.There is mild narrowing of the left radiocarpal joint. No other significant arthritic changes seen. IMPRESSION: No fracture or dislocation. Mild narrowing left radiocarpal joint. <Electronically signed by German Carlos > 07/08/20 0977
--- NOTE | 2020-07-08 09:55 | REP ---
INDICATION: UNILATERAL PRIMARY OSTEOARTHRITIS, UNSPECIFIED KNEE COMPARISON: 07/12/2017. TECHNIQUE: Four views bilateral knees. FINDINGS: There is no evidence of acute fracture, dislocation, or intrinsic bone disease.No significant joint space narrowing is appreciated. There is no radiographic evidence of a joint effusion bilaterally. IMPRESSION: No fracture or dislocation. No significant arthritic changes bilaterally. <Electronically signed by German Carlos > 07/08/20 0951
--- NOTE | 2020-07-08 10:01 | REP ---
INDICATION: UNILATERAL PRIMARY OSTEOARTHRITIS, UNSPECIFIED KNEE COMPARISON: 08/10/2016. TECHNIQUE: Four views bilateral ankles and four views bilateral feet. FINDINGS: There is no evidence of acute fracture, dislocation, or intrinsic bone disease.No significant arthritic change is seen bilaterally. There is no significant joint space narrowing. There is mild posterior calcaneal spurring bilaterally, as well as inferior calcaneal spurring on the right. IMPRESSION: No fracture or dislocation. Bilateral calcaneal spurring as above. No significant joint space narrowing bilaterally. <Electronically signed by German Carlos > 07/08/20 0957
== END ==
LOC: M RAD 08:17 → M LAB 08:17
PROVIDERS: ATTEND Internal Medicine
DX: M17.10 Unilateral primary osteoarthritis, unspecified knee (principal); M25.40 Effusion, unspecified joint; M77.31 Calcaneal spur, right foot; M77.32 Calcaneal spur, left foot

== ENCOUNTER → 2020-09-08 | Outpatient (CLI) | payer MEDICARE ==
[~2020-09-08] MED LIST changes: +ATIV1TAB10 PO; -CYMB60CA3 PO; +CYMB60CA4 PO
== END ==
LOC: M SLEEP HO 09:47
PROVIDERS: ATTEND Internal Medicine
DX: R53.83 Other fatigue (principal)

== ENCOUNTER → 2020-09-15 | Outpatient (CLI) | payer MEDICARE ==
[~2020-09-15] MED LIST changes: +CYMB60CA3 PO; -CYMB60CA4 PO
--- NOTE | 2020-09-17 03:25 | ECWPNPC ---
PATIENT NAME: PADMINI SANTA : 1980 GENDER: FEMALE VISIT DATE: 09/15/2020 DISCHARGE DATE: 09/15/20 1017 VISIT LOCKED DATE TIME: PHYSICIAN: BRIANNA KIMBLE RESOURCE: BRIANNA KIMBLE REASON FOR APPOINTMENT 1. MED MGMNT/STOPPED NUCYNTA 100MG AND STARTED TRAMADOL,REVIEW UTOX HISTORY OF PRESENT ILLNESS GENERAL: HERE FOR FOLLOW-UP OF CHRONIC GENERALIZED PAIN ASSOCIATED WITH INFLAMMATORY ARTHROPATHY. RECENTLY DIAGNOSED WITH LUPUS. WILL BE STARTING PLAQUENIL IN THE NEAR FUTURE. HAVING TROUBLE GETTING NUCYNTA ER THROUGH THE PHARMACY. SINCE SHE HAS BEEN WITHOUT MEDICATION FOR 5 DAYS I HAVE HAD HER ON HYDROCODONE 10/325. HAS BEEN UNDER A LOT OF STRESS LATELY WITH NEW DIAGNOSES AND DIFFICULTY GETTING HER MEDICATIONS FOR CHRONIC PAIN. MENTAL HEALTH HAS CHANGED HER MEDICATIONS DUE TO INCREASE IN ANXIETY OF RECENT. TODAY WE SPOKE WITH OUR SALES PLANNING ANALYST WHO WILL BE HELPING HER CLARIFY THIS. I ALSO SENT NUCYNTA ER TO A DIFFERENT PHARMACY TO SEE IF IT WILL GO THROUGH. -. FALL RISK SCREENING: SCREENING : NO FALLS REPORTED IN THE LAST YEAR. PAIN SCREENING: PATIENT HAS A COMPLAINT OF ACUTE OR CHRONIC PAIN :YES LOCATION OF PAIN:LOW BACK INTENSITY OF PAIN (SCALE OF 1 TO 10):9 WHAT DOES YOUR PAIN FEEL LIKE:CONTINOUS, SHARP, STABBING, SHOOTING DURATION:CONTINOUS, CONSTANT, ALL DAY PAIN IS INCREASED BY:ACTIVITIES, PROLONGED STANDING PAIN IS DECREASED BY:OTHERS NOTHING IS HELPING NURSING NOTE: -. PAIN CENTER INTAKE QUESTIONS: DO YOU HAVE A HISTORY OF MRSA? :NO DO YOU TAKE A BLOOD THINNERS? :NO DO YOU HAVE ANY BLEEDING DISORDERS? :YES CLOTTING DISORDER ANY NEW NUMBNESS OR WEAKNESS IN YOUR LEGS OR ARMS? :NO ANY PACEMAKER,DEFIBRILLATOR, OR DORSAL COLUMN STIMULATOR? :NO DO YOU HAVE ANY RASHES OR OPEN SORES? :NO ARE YOU ALLERGIC TO IV DYE? :NO ARE YOU DIABETIC? :NO ANY NEW PROBLEMS WITH YOUR MEDICATIONS? :YES NUCYNTA ER 250 MG HAVE YOU RECEIVED A VACCINE IN THE PAST 30 DAYS? :NO DO YOU PLAN TO RECEIVE A VACCINE IN THE NEXT 21 DAYS? :NO DO YOU NEED ANY PRESCRIPTION? :YES NUCYNTA AND BACLOFEN, COLACE 100 MG DO YOU TAKE ANY IMMUNOSUPPRESSIVE MEDICATIONS? :NO IS THERE A CHANCE YOU COULD BE ? :NO ARE YOU BREAST FEEDING? :NO CURRENT MEDICATIONS TAKING VENOFER 20 MG/ML SOLUTION DIRECTED INTRAVENOUS NEEDED TAKING MULTI VITAMIN DAILY - TABLET 1 TABLET ORALLY ONCE A DAY TAKING ATIVAN 0.5 MG TABLET 1 TABLET NEEDED ORALLY THREE TIMES A DAY NEEDED TAKING TROKENDI XR 200 MG CAPSULE EXTENDED RELEASE 24 HOUR 1 CAPSULE ORALLY ONCE A DAY TAKING CALCIUM 600 MG TABLET 1 TABLET WITH MEALS ORALLY THREE TIMES A DAY TAKING GAS-X 80 MG TABLET CHEWABLE 1 TABLET AFTER MEALS AND AT BEDTIME NEEDED ORALLY FOUR TIMES A DAY TAKING VITAMIN C 500 MG TABLET CHEWABLE 1 TABLET ORALLY ONCE A DAY TAKING OMEPRAZOLE 20 MG TABLET DELAYED RELEASE 2 TABLETS ORALLY ONCE DAILY, NOTES: DR. MORELAND TAKING REXULTI 1 MG TABLET 1 TABLET ORALLY ONCE A DAY TAKING METFORMIN & DIET MANAGE PROD 500 MG MISCELLANEOUS 1 TAB ORALLY BID, NOTES: FOR WEIGHT LOSS ONLY TAKING WRIST BRACE - MISCELLANEOUS DIRECTED WEAR ON L AND R WRIST NIGHTLY FOR CARPAL TUNNEL. DX: G56.02,G56.01, NOTES: PLEASE DISPENSE LEFT AND RIGHT WRIST BRACES TAKING MIRVASO 0.33% DIRECTED TOPICALLY DAILY IN THE AM THIN LAYER TO WHOLE FACE EXCEPT EYELIDS AND AROUND MOUTH TAKING LIDODERM 5 % PATCH 1 PATCH TO SKIN REMOVE AFTER 12 HOURS EXTERNALLY ONCE A DAY ON 12HR OFF 12HR TAKING TIROSINT-CORTES 175 MCG/ML SOLUTION 1 ML IN THE MORNING BEFORE BREAKFAST ORALLY ONCE A DAY TAKING METHYLPHENIDATE HCL 20 MG TABLET 1 TABLET ON AN EMPTY STOMACH ORALLY THREE A DAY TAKING CYANOCOBALAMIN 1000 MCG/15ML LIQUID 15 ML ORALLY INJECTION ONCE A MONTH TAKING LEVOCETIRIZINE DIHYDROCHLORIDE 5 MG TABLET TAKE ONE TABLET BY MOUTH EVERY EVENING FOR ALLERGIES ORAL TAKING HYDROXYZINE HCL 25 MG TABLET 1 TABLET NEEDED ORALLY EVERY 8 HRS TAKING VITAMIN D (ERGOCALCIFEROL) 1.25 MG (30974 UT) CAPSULE 1 CAPSULE ORALLY WEEKLY TAKING COLACE 100 MG CAPSULE 1 CAP ORALLY BID TAKING BACLOFEN 10 MG TABLET 1 TABLET WITH FOOD OR MILK ORALLY Q6H PRN TAKING TRAMADOL HCL 50 MG TABLET 1-2 TABLETS ORALLY EVERY 6 HOURS NEEDED MAX DAILY DOSE SIX TAKING NUCYNTA ER 250 MG TABLET EXTENDED RELEASE 12 HOUR 1 TABLET ORALLY EVERY 12 HRS MDD2 TAKING HYDROCODONE-ACETAMINOPHEN 10-325 MG TABLET 1 TABLET NEEDED ORALLY EVERY 6 HRS MDD4 NOT-TAKING SOMA 350 MG TABLET 1 TABLET NEEDED ORALLY TWICE DAILY NOT-TAKING DEXMETHYLPHENIDATE HCL 10 MG TABLET 1 TABLET ORALLY TWICE A DAY NOT-TAKING PREDNISOLONE ACETATE 1 % SUSPENSION 1 DROP INTO AFFECTED EYE OPHTHALMIC TWICE A DAY NOT-TAKING KETOROLAC TROMETHAMINE 0.4 % SOLUTION 1 DROP INTO AFFECTED EYE OPHTHALMIC FOUR TIMES A DAY NOT-TAKING METHYLPHENIDATE 20 MG/9HR PATCH 1 PATCH TO SKIN APPLY TO ALTERNATING HIPS TRANSDERMAL ONCE A DAY NOT-TAKING VITAMIN D3 5000 UNIT CAPSULE 1 CAPSULE ORALLY ONCE A DAY NOT-TAKING BACLOFEN 10 MG TABLET 1 TABLET WITH FOOD OR MILK ORALLY THREE TIMES A DAY NOT-TAKING CYCLOBENZAPRINE HCL 10 MG TABLET 1 TABLET NEEDED ORALLY THREE TIMES A DAY NOT-TAKING CETIRIZINE HCL 10 MG TABLET 1 TABLET ORALLY ONCE A DAY, NOTES: USES OTC MED NOT-TAKING LEVOTHYROXINE SODIUM 50 MCG TABLET 1 TABLET ON AN EMPTY STOMACH IN THE MORNING ORALLY ONCE A DAY, NOTES: TOTAL OF 225 MCG NOT-TAKING LEVOTHYROXINE SODIUM 175 MCG TABLET 1 TAB ORALLY DAILY, NOTES: TOTAL OF 200 MCG NOT-TAKING VYVANSE 70 MG CAPSULE 1 CAPSULE IN THE MORNING ORALLY ONCE A DAY NOT-TAKING METHYLPREDNISOLONE 4 MG TABLET THERAPY PACK DIRECTED ORALLY DIRECTED NOT-TAKING HYDROXYZINE PAMOATE 50 MG CAPSULE 1 CAPSULE NEEDED ORALLY EVERY 6 HRS NOT-TAKING MIRVASO 0.33 % GEL APPLY A THIN LAYER DIRECTED DAILY IN THE MORNING TO WHOLE FACE EXCEPT EYELIDS AND AROUND MOUTH NOT-TAKING PROMETHAZINE HCL 12.5 MG TABLET 1 TABLET NEEDED ORALLY EVERY 12 HRS NOT-TAKING PREPARATION H 0.25-88.44 % SUPPOSITORY DIRECTED RECTAL BIDPRN NOT-TAKING DRISDOL 80513 UNIT CAPSULE 1 CAPSULE ORALLY WEEKLY NOT-TAKING TOPAMAX 200 MG TABLET 1 TABLET ORALLY BEFORE BEDTIME NOT-TAKING SERTRALINE HCL 100 MG TABLET 2 TABLETS ORALLY ONCE A DAY NOT-TAKING LEVOTHROYXINE 200 MCG 1 TAB ORALLY DAILY NOT-TAKING TRIAMCINOLONE ACETONIDE 0.5 % CREAM 1 APPLICATION TO AFFECTED AREA EXTERNALLY TWICE A DAY NOT-TAKING LYRICA 75 MG CAPSULE 1 CAPSULE ORALLY THREE TIMES DAILY. CODE D. DX: M79.7 NOT-TAKING PHENTERMINE HCL 15 MG CAPSULE 1 CAPSULE ORALLY ONCE A DAY NOT-TAKING LYRICA 75 MG CAPSULE 1 CAPSULE ORALLY THREE TIMES A DAY, NOTES: DUPLICATE NOT-TAKING SUCRALFATE 1 GM TABLET 1 TABLET AT BEDTIME ON AN EMPTY STOMACH BEFORE MEALS ORALLY QID, NOTES: DR. MORELAND NOT-TAKING BUPROPION HCL ER (XL) 150 MG TABLET EXTENDED RELEASE 24 HOUR 1 TABLET IN THE MORNING ORALLY ONCE A DAY NOT-TAKING FLUTICASONE PROPIONATE 50 MCG/ACT SUSPENSION 1 SPRAY IN EACH NOSTRIL NASALLY ONCE A DAY NOT-TAKING OXYCODONE HCL 15 MG TABLET 1 TABLET ORALLY EVERY 12H PRN MDD2 NOT-TAKING VERAPAMIL HCL 40 MG TABLET 1 TABLET ORALLY 1/2 TAB TWICE A DAY FOR 1 WEEK, THEN 1 TAB TWICE A DAY NOT-TAKING AMOXICILLIN-POT CLAVULANATE 875-125 MG TABLET 1 TABLET ORALLY EVERY 12 HRS NOT-TAKING VENOFER 20 MG/ML SOLUTION INFUSE 21ML PER HOSPITAL PROTOCOL INTRAVENOUS ONCE MEDICATION LIST REVIEWED AND RECONCILED WITH THE PATIENT PAST MEDICAL HISTORY THYROID CANCER X 3, 2011, 2014, 2017 RIGHT LUNG NODULE L4 HERNIATED DISC FATTY LIVER DIABETES MELIITUS MIGRAINES ANXIETY/DEPRESSION OSTEOPENIA CHRONIC PAIN ARTHRITIS MIGRAINES/HEADACHES PSYCHIATRIC CARE CARPAL TUNNEL IN RIGHT HAND LUPUS OSTEOARTHRITIS OSTEOPOROSIS 2ND COVID 05/21/2020 ALLERGIES GLIPIZIDE XL: RASH - ALLERGY CIPRO: RASH - ALLERGY HYDROXYCHLOROQUINE SULFATE: INCREASED LIVER ENZYMES - ALLERGY NSAIDS : HAD PREVIOUS GASTRIC BYPASS - ALLERGY SOMA: BILATERAL PAIN, RESTLESS - SIDE EFFECTS SOCIAL HISTORY GENERAL: TOBACCO USE ARE YOU A:FORMER SMOKER HOW LONG HAS IT BEEN SINCE YOU LAST SMOKED?5-10 YEARS LATEX QUESTIONNAIRE LATEX ALLERGY : HAVE YOU EVER DEVELOPED ANY TYPE OF REACTION AFTER HANDLING LATEX PRODUCTS SUCH RUBBER GLOVES, CONDOMS, DIAPHRAGMS, BALLOONS, SOCKS, OR UNDERWEAR?YES - PLEASE INDICATE :OTHER (DOCUMENT IN NOTES) BANDAID CAUSED RASH LATEX ALLERGY : HAVE YOU EVER DEVELOPED ANY TYPE OF REACTION DURING OR AFTER DENTAL APPOINTMENT, VAGINAL/RECTAL EXAMINATION, SURGICAL PROCEDURE, OR ANY OTHER EXPOSURE?NO LATEX RISK : HAVE YOU EVER HAD ANY DIFFICULTY BREATHING OR HIVES AFTER EATING OR HANDLING ANY FRUITS, OR VEGETABLES; SUCH KIWI, BANANAS, STONE FRUITS, OR CHESTNUTSNO LATEX RISK : DO YOU HAVE A PREVIOUS PERSONAL HISTORY OF MORE THAN NINE SURGERIES, SPINA BIFIDA, OR REPEATED CATHERIZATIONS? YES - PLEASE INDICATE : > 9 SURGERIES LATEX RISK : ARE YOU FREQUENTLY EXPOSED TO LATEX PRODUCTS IN YOUR OCCUPATION?NO DATE ASKED : 09/15/2020 ALCOHOL USE: NO. LUNG CANCER SCREENING SMOKING STATUS:FORMER SMOKER BMI CARE GOAL FOLLOW-UP ABOVE NORMAL BMI FOLLOW-UPDIETARY MANAGEMENT EDUCATION, GUIDANCE, AND COUNSELING ALCOHOL SCREENING DID YOU HAVE A DRINK CONTAINING ALCOHOL IN THE PAST YEAR?NO POINTS0 INTERPRETATIONNEGATIVE RECREATIONAL DRUG USE DRUG USE?NO CAFFEINE CAFFEINE USE?YES HOW OFTEN AND HOW MUCH? 4 TEAS A DAY SEXUAL HX HAD SEX IN THE LAST 12 MONTHS (VAGINAL, ORAL, OR ANAL)?NO HAVE YOU EVER HAD AN STD?NO HIV / HEP-C SCREENING HIV TEST OFFERED TO PATIENT:YES DATE OFFERED:07/16/2016 TEST ACCEPTED:NO HEP-C TEST OFFERED TO PATIENT:YES DATE OFFERED:07/16/2016 REASON:PATIENT DECLINED TEST ACCEPTED:NO REASON:PATIENT DECLINED RELIGIOUS [id number] CONGREGATION LANGUAGE LANGUAGES SPOKEN:PORTUGUESE EDUCATION LEVEL OF EDUCATION:HIGH SCHOOL LEARNING BARRIERS / SPECIAL NEEDS CHANGE FROM LAST VISIT?YES BARRIERS TO LEARNING?YES COMMENTS SOME MEMORY LOST HEARING IMPAIRED?NO VISION IMPAIRED?YES :CORRECTIVE LENSES COGNITIVELY IMPAIRED?NO READINESS TO LEARN?YES LEARNING PREFERENCES?NO LEARNING CAPABILITIES PRESENT?YES EMOTIONAL BARRIERS?YES COMMENTS ANXIETY/DEPRESSION SPECIAL DEVICES?YES :CANE, BRACE BRACE ON BOTH KNEES 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 DIET: REGULAR. EXERCISE: WALKS. MARITAL STATUS: . OTHERS AT HOME: MOTHER, CHILDREN. TODAY'S VISIT NOTES 05/23/2019, PATIENT DESCRIBES PAIN : ACHING, HAVE IT ALL THE TIME, FROM 0-10, WHAT LEVEL IS YOUR PAIN TODAY? 6. - PFS REFERRAL NEEDED?NO CLERGY REFERRAL NEEDED?NO PUBLIC HEALTH REFERRAL NEEDED?NO WAS THE PROVIDER NOTIFIED OF ANY PERTINENT INFO?YES HAS THE PATIENT BEEN EDUCATED REGARDING HIS/HER PLAN OF CARE?YES HAS THE PATIENT BEEN EDUCATED REGARDING PAIN, THE RISK FOR PAIN, THE IMPORTANCE OF EFFECTIVE PAIN MANAGEMENT, AND THE PAIN ASSESSMENT PROCESS?YES ADVANCE DIRECTIVE ADVANCE DIRECTIVE DISCUSSED WITH PATIENT:YES HCP - EVERARDO SANTA (MOTHER) REVIEW OF SYSTEMS CONSTITUTIONAL: ANY RECENT FEVER NO . CHILLS NO . WEIGHT CHANGE OF UNKNOWN REASONS NO . GASTROENTEROLOGY: NEW UNEXPLAINABLE CHANGES IN BOWEL CONTROL NO . CONSTIPATION NO . GENITOURINARY: ANY NEW CHANGE IN BLADDER CONTROL? NO . NEUROLOGY: NEW ONSET DIZZINESS OR NEUROLOGICAL CHANGES NOT MENTIONED NO . NEW NUMBNESS OR PAIN PATTERNS NOT MENTIONED AND PERTINENT TO TODAY'S VISIT NO . CARDIOLOGY: NEW CHEST PRESSURE NO . PATIENT DENIES NO . RESPIRATORY: UNEXPLAINABLE COUGH NO . NEW SHORTNESS OF BREATH NO . VITAL SIGNS WT 278.8 LBS, WT-KG 123.3 KG, HT 70 IN, BMI 40.00 INDEX, BP 136/73 MM HG, HR 78 /MIN, RR 18 /MIN, TEMP 97.5 F, OXYGEN SAT % 97%, SAFE IN ENV? (Y/N) YES, NA INITIALS AW [email or web address].SHANI KHAN. EXAMINATION GENERAL EXAMINATION: GENERALAWAKE,ALERT ,PLEASANT . PSYCHAFFECT NORMAL . LUNGS:LUNG CHAN ARE CLEAR TO AUSCULTATION BILATERALLY. GOOD MOVEMENT OF AIR . HEART:S1, S2 IN A REGULAR RATE AND RHYTHM. NO SIGNIFICANT MURMURS, RUBS OR GALLOPS NOTED . ASSESSMENTS INFLAMMATORY ARTHROPATHY - M19.90 (PRIMARY) TREATMENT INFLAMMATORY ARTHROPATHY START NUCYNTA ER TABLET EXTENDED RELEASE 12 HOUR, 250 MG, 1 TABLET, ORALLY, EVERY 12 HRS MDD2, 30 DAYS, 60, REFILLS 0 NOTES: TODAY I SENT NUCYNTA ER 250 MG TWICE DAILY TO [facility]. WE HAVE NOTIFIED OUR SALES PLANNING ANALYST HERE AT THE CLINIC AND SHE WILL AID PATIENT IN GETTING PRESCRIPTION FILLED. FOLLOW-UP SCHEDULED AT THE PAIN CENTER IN 2 MONTHS. PROCEDURE CODES FA211 ESTABILISHED PATIENT [facility] FAC[facility] CHARGE DISPOSITION & COMMUNICATION FOLLOW UP 2 MONTHS (REASON: MED MANAGEMENT) ELECTRONICALLY SIGNED BY NED DIEZ ON 09/16/2020 AT 07:18 PM EDT DISCLAIMER : THIS IS A VISIT SUMMARY EXTRACTED FROM THE [email or web address] CHART. IT IS NOT A COPY OF THE [email or web address] PROGRESS NOTE. JAMIE
== END ==
LOC: M PAIN 09:15
PROVIDERS: ATTEND Nurse Practitioner Family
DX: M19.90 Unspecified osteoarthritis, unspecified site (principal); G89.29 Other chronic pain; G43.909 Migraine, unspecified, not intractable, without status migrainosus; Z86.59 Personal history of other mental and behavioral disorders; Z87.891 Personal history of nicotine dependence; Z88.1 Allergy status to other antibiotic agents; Z88.6 Allergy status to analgesic agent; Z88.8 Allergy status to other drugs, medicaments and biological substances; E66.01 Morbid (severe) obesity due to excess calories; Z68.41 Body mass index [BMI] 40.0-44.9, adult; Z79.891 Long term (current) use of opiate analgesic; Z79.899 Other long term (current) drug therapy

== ENCOUNTER → 2020-11-14 | Outpatient (CLI) | payer MEDICARE, MEDICAID | LOC: M PAIN 09:00 | PROVIDERS: ATTEND Anesthesiology | DX: M19.90 Unspecified osteoarthritis, unspecified site (principal); M79.7 Fibromyalgia; M32.9 Systemic lupus erythematosus, unspecified; E11.9 Type 2 diabetes mellitus without complications; G43.909 Migraine, unspecified, not intractable, without status migrainosus; Z86.59 Personal history of other mental and behavioral disorders; Z88.1 Allergy status to other antibiotic agents; Z88.6 Allergy status to analgesic agent; Z88.8 Allergy status to other drugs, medicaments and biological substances; E66.01 Morbid (severe) obesity due to excess calories; Z68.41 Body mass index [BMI] 40.0-44.9, adult; Z79.84 Long term (current) use of oral hypoglycemic drugs; Z79.891 Long term (current) use of opiate analgesic; Z79.899 Other long term (current) drug therapy ==

== ENCOUNTER → 2020-12-22 | Outpatient (CLI) | payer MEDICARE, MEDICAID ==
[~2020-12-22] MED LIST changes: -CYMB60CA3 PO; +CYMB60CA4 PO
== END ==
LOC: M LAB 08:12
PROVIDERS: ATTEND Physician Assistant
DX: R63.5 Abnormal weight gain (principal); R74.8 Abnormal levels of other serum enzymes; Z79.899 Other long term (current) drug therapy; E11.9 Type 2 diabetes mellitus without complications; D50.9 Iron deficiency anemia, unspecified; E87.6 Hypokalemia

== ENCOUNTER → 2020-12-22 | Outpatient (CLI) | payer MEDICARE, MEDICAID ==
[2020-12-22 10:01] LABS: ALBUMIN 3.3 GM/DL (3.2-5.2); BILIRUBIN,DIRECT 0.1 MG/DL (0.0-0.2); BILIRUBIN,TOTAL 0.5 MG/DL (0.2-1.0); TOTAL PROTEIN 6.7 GM/DL (6.4-8.2)
== END ==
LOC: M LAB 08:07
PROVIDERS: ATTEND Internal Medicine
DX: R74.8 Abnormal levels of other serum enzymes (principal)

== ENCOUNTER → 2020-12-22 | Outpatient (CLI) | payer MEDICARE, MEDICAID ==
[2020-12-22 09:22] LABS: BASO % 0.7 % (0.0-1.0); HEMATOCRIT 37.2 % (36.0-47.0); HEMOGLOBIN 11.9 g/dl (12.0-15.5); LYMPH # 1.2 10^3/uL (1.5-5.0); LYMPH % 29.5 % (24.0-44.0); MEAN CORPUSCULAR HEMOGLOBIN 27.4 pg (27.0-33.0); MEAN CORPUSCULAR VOLUME 85.7 fl (80.0-96.0); MONO # 0.3 10^3/uL (0.0-0.8); MONO % 6.5 % (2.0-8.0); NEUTROPHILS # 2.6 10^3/uL (1.5-8.5); NEUTROPHILS % 62.6 % (36.0-66.0); PLATELET COUNT, AUTOMATED 155 10^3/uL (150-450); RED BLOOD COUNT 4.34 10^6/uL (4.00-5.40); WHITE BLOOD COUNT 4.1 10^3/uL (4.0-10.0)
[2020-12-22 09:44] LABS: BLOOD UREA NITROGEN 12 MG/DL (7-18); CALCIUM LEVEL 8.6 MG/DL (8.5-10.1); CARBON DIOXIDE LEVEL 26 MEQ/L (21-32); CHLORIDE LEVEL 110 MEQ/L (98-107); CREATININE FOR GFR 0.79 MG/DL (0.55-1.30); GLOMERULAR FILTRATION RATE > 60.0 (>58); GLUCOSE, FASTING 128 MG/DL (70-100); POTASSIUM SERUM 3.7 MEQ/L (3.5-5.1); SODIUM LEVEL 143 MEQ/L (136-145)
[2020-12-22 10:21] LABS: HEMOGLOBIN A1c 5.9 %
== END ==
LOC: M LAB 08:05
PROVIDERS: ATTEND Nurse Practitioner Family
DX: E11.9 Type 2 diabetes mellitus without complications (principal); D50.9 Iron deficiency anemia, unspecified; E87.6 Hypokalemia

== ENCOUNTER → 2021-03-27 | Outpatient (CLI) | payer MEDICARE, MEDICAID | LOC: M PAIN 10:45 → M TMPAIN 10:45 | PROVIDERS: ATTEND Anesthesiology | DX: M54.50 Low back pain, unspecified (principal); M32.9 Systemic lupus erythematosus, unspecified; E11.9 Type 2 diabetes mellitus without complications; G43.909 Migraine, unspecified, not intractable, without status migrainosus; Z86.59 Personal history of other mental and behavioral disorders; Z87.891 Personal history of nicotine dependence; Z88.1 Allergy status to other antibiotic agents; Z88.6 Allergy status to analgesic agent; Z88.8 Allergy status to other drugs, medicaments and biological substances; E66.01 Morbid (severe) obesity due to excess calories; Z68.41 Body mass index [BMI] 40.0-44.9, adult; Z79.84 Long term (current) use of oral hypoglycemic drugs; Z79.891 Long term (current) use of opiate analgesic; Z79.899 Other long term (current) drug therapy ==

== ENCOUNTER → 2021-07-17 | Outpatient (REF) | payer MEDICARE, MEDICAID | LOC: M SFHCRHEU 11:06 | PROVIDERS: ATTEND Internal Medicine | DX: M32.9 Systemic lupus erythematosus, unspecified (principal) ==

== ENCOUNTER → 2021-12-07 | Outpatient (CLI) | payer MEDICARE, MEDICAID | LOC: M PAIN 09:45 | PROVIDERS: ATTEND Nurse Practitioner Family | DX: M19.90 Unspecified osteoarthritis, unspecified site (principal); M79.7 Fibromyalgia; G89.29 Other chronic pain; G43.909 Migraine, unspecified, not intractable, without status migrainosus; Z86.59 Personal history of other mental and behavioral disorders; Z98.84 Bariatric surgery status; Z87.891 Personal history of nicotine dependence; Z88.1 Allergy status to other antibiotic agents; Z88.6 Allergy status to analgesic agent; Z88.8 Allergy status to other drugs, medicaments and biological substances; E66.01 Morbid (severe) obesity due to excess calories; Z68.41 Body mass index [BMI] 40.0-44.9, adult; Z79.84 Long term (current) use of oral hypoglycemic drugs; Z79.891 Long term (current) use of opiate analgesic; Z79.899 Other long term (current) drug therapy ==

== ENCOUNTER → 2021-12-16 | Outpatient (CLI) | payer MEDICARE, MEDICAID | LOC: M PAIN 14:30 | PROVIDERS: ATTEND Anesthesiology | DX: M79.7 Fibromyalgia (principal); G89.29 Other chronic pain; E11.9 Type 2 diabetes mellitus without complications; G43.909 Migraine, unspecified, not intractable, without status migrainosus; Z86.59 Personal history of other mental and behavioral disorders; Z98.84 Bariatric surgery status; Z87.891 Personal history of nicotine dependence; Z88.1 Allergy status to other antibiotic agents; Z88.6 Allergy status to analgesic agent; Z88.8 Allergy status to other drugs, medicaments and biological substances; Z79.84 Long term (current) use of oral hypoglycemic drugs; Z79.891 Long term (current) use of opiate analgesic; Z79.899 Other long term (current) drug therapy ==

== ENCOUNTER → 2022-01-28 | Outpatient (CLI) | payer MEDICARE, MEDICAID | LOC: M PAIN 15:45 | PROVIDERS: ATTEND Anesthesiology | DX: M54.50 Low back pain, unspecified (principal); G89.29 Other chronic pain; M54.2 Cervicalgia; M32.9 Systemic lupus erythematosus, unspecified; E11.9 Type 2 diabetes mellitus without complications; G43.909 Migraine, unspecified, not intractable, without status migrainosus; Z86.59 Personal history of other mental and behavioral disorders; Z87.891 Personal history of nicotine dependence; Z88.1 Allergy status to other antibiotic agents; Z88.6 Allergy status to analgesic agent; Z88.8 Allergy status to other drugs, medicaments and biological substances; E66.01 Morbid (severe) obesity due to excess calories; Z68.41 Body mass index [BMI] 40.0-44.9, adult; Z79.84 Long term (current) use of oral hypoglycemic drugs; Z79.891 Long term (current) use of opiate analgesic; Z79.899 Other long term (current) drug therapy ==

== ENCOUNTER → 2022-02-11 | Outpatient (CLI) | payer MEDICARE, MEDICAID | LOC: M PAIN 09:30 | PROVIDERS: ATTEND Anesthesiology | DX: M54.50 Low back pain, unspecified (principal); G43.909 Migraine, unspecified, not intractable, without status migrainosus; Z86.59 Personal history of other mental and behavioral disorders; Z87.891 Personal history of nicotine dependence; Z88.1 Allergy status to other antibiotic agents; Z88.6 Allergy status to analgesic agent; Z88.8 Allergy status to other drugs, medicaments and biological substances; E66.01 Morbid (severe) obesity due to excess calories; Z68.41 Body mass index [BMI] 40.0-44.9, adult; Z79.899 Other long term (current) drug therapy ==

== ENCOUNTER → 2022-03-02 | Outpatient (CLI) | payer MEDICARE, MEDICAID | LOC: M TMPAIN 13:00 → M PAIN 13:00 | PROVIDERS: ATTEND Anesthesiology | DX: R52 Pain, unspecified (principal); G43.909 Migraine, unspecified, not intractable, without status migrainosus; Z86.59 Personal history of other mental and behavioral disorders; Z98.84 Bariatric surgery status; Z87.891 Personal history of nicotine dependence; Z88.1 Allergy status to other antibiotic agents; Z88.6 Allergy status to analgesic agent; Z88.8 Allergy status to other drugs, medicaments and biological substances; Z79.899 Other long term (current) drug therapy ==

== ENCOUNTER → 2022-03-17 | Outpatient (CLI) | payer MEDICARE, MEDICAID | LOC: M RAD 07:28 | PROVIDERS: ATTEND Anesthesiology | DX: M25.78 Osteophyte, vertebrae (principal) ==

== ENCOUNTER → 2022-05-06 | Outpatient (CLI) | payer MEDICARE, MEDICAID | LOC: M PAIN 10:45 | PROVIDERS: ATTEND Nurse Practitioner Family | DX: G89.29 Other chronic pain (principal); G43.909 Migraine, unspecified, not intractable, without status migrainosus; Z86.59 Personal history of other mental and behavioral disorders; Z87.891 Personal history of nicotine dependence; Z88.1 Allergy status to other antibiotic agents; Z88.5 Allergy status to narcotic agent; Z88.6 Allergy status to analgesic agent; Z88.8 Allergy status to other drugs, medicaments and biological substances; E66.01 Morbid (severe) obesity due to excess calories; Z68.41 Body mass index [BMI] 40.0-44.9, adult; Z79.899 Other long term (current) drug therapy ==

== ENCOUNTER → 2022-10-05 | Outpatient (CLI) | payer MEDICARE, MEDICAID | LOC: M PAIN 14:45 | PROVIDERS: ATTEND Nurse Practitioner Family | DX: G89.29 Other chronic pain (principal); E11.9 Type 2 diabetes mellitus without complications; G43.909 Migraine, unspecified, not intractable, without status migrainosus; Z86.59 Personal history of other mental and behavioral disorders; Z98.84 Bariatric surgery status; Z87.891 Personal history of nicotine dependence; Z88.1 Allergy status to other antibiotic agents; Z88.5 Allergy status to narcotic agent; Z88.6 Allergy status to analgesic agent; Z88.8 Allergy status to other drugs, medicaments and biological substances; E66.01 Morbid (severe) obesity due to excess calories; Z68.41 Body mass index [BMI] 40.0-44.9, adult; Z79.84 Long term (current) use of oral hypoglycemic drugs; Z79.891 Long term (current) use of opiate analgesic; Z79.899 Other long term (current) drug therapy ==

== ENCOUNTER → 2022-10-21 | Outpatient (CLI) | payer MEDICARE, MEDICAID | LOC: M PAIN 10:15 | PROVIDERS: ATTEND Nurse Practitioner Family | DX: G89.29 Other chronic pain (principal); E11.9 Type 2 diabetes mellitus without complications; G43.909 Migraine, unspecified, not intractable, without status migrainosus; Z86.59 Personal history of other mental and behavioral disorders; Z98.84 Bariatric surgery status; Z87.891 Personal history of nicotine dependence; Z88.1 Allergy status to other antibiotic agents; Z88.5 Allergy status to narcotic agent; Z88.6 Allergy status to analgesic agent; Z88.8 Allergy status to other drugs, medicaments and biological substances; Z79.84 Long term (current) use of oral hypoglycemic drugs; Z79.891 Long term (current) use of opiate analgesic; Z79.899 Other long term (current) drug therapy ==

== ENCOUNTER → 2022-10-29 | Outpatient (CLI) | payer MEDICARE, MEDICAID | LOC: M PAIN 10:15 | PROVIDERS: ATTEND Nurse Practitioner Family | DX: G89.29 Other chronic pain (principal); E11.9 Type 2 diabetes mellitus without complications; G43.909 Migraine, unspecified, not intractable, without status migrainosus; Z86.59 Personal history of other mental and behavioral disorders; Z98.84 Bariatric surgery status; Z87.891 Personal history of nicotine dependence; Z88.1 Allergy status to other antibiotic agents; Z88.5 Allergy status to narcotic agent; Z88.6 Allergy status to analgesic agent; Z88.8 Allergy status to other drugs, medicaments and biological substances; Z79.84 Long term (current) use of oral hypoglycemic drugs; Z79.899 Other long term (current) drug therapy ==

== ENCOUNTER → 2022-11-06 | Outpatient (CLI) | payer MEDICARE, MEDICAID ==
[2022-11-06 10:44] LABS: BASO # 0.1 10^3/uL (0.0-0.2); EOS # 0.1 10^3/uL (0.0-0.5); EOS % 1.8 % (0.0-3.0); HEMATOCRIT 36.8 % (36.0-47.0); LYMPH # 1.8 10^3/uL (1.5-5.0); LYMPH % 29.5 % (24.0-44.0); MEAN CORPUSCULAR HEMOGLOBIN 26.5 pg (27.0-33.0); MEAN CORPUSCULAR HGB CONC 32.6 g/dl (32.0-36.5); MEAN CORPUSCULAR VOLUME 81.4 fl (80.0-96.0); MONO # 0.5 10^3/uL (0.0-0.8); MONO % 7.5 % (2.0-8.0); NEUTROPHILS # 3.7 10^3/uL (1.5-8.5); PLATELET COUNT, AUTOMATED 132 10^3/uL (150-450); RED BLOOD COUNT 4.52 10^6/uL (4.00-5.40); WHITE BLOOD COUNT 6.1 10^3/uL (4.0-10.0)
[2022-11-06 10:55] LABS: HEMOGLOBIN A1c 7.4 % (4.0-6.0)
[2022-11-06 11:06] LABS: ALBUMIN 3.3 G/DL (3.2-5.2); ALKALINE PHOSPHATASE 357 U/L (46-116); ALT/SGPT 93 U/L (7.0-40); AST/SGOT 97 U/L (<34); BILIRUBIN,DIRECT 0.6 MG/DL (<0.4); BILIRUBIN,TOTAL 1.2 MG/DL (0.3-1.2); BLOOD UREA NITROGEN 10 MG/DL (9-23); CALCIUM LEVEL 8.7 MG/DL (8.5-10.1); CARBON DIOXIDE LEVEL 24 MMOL/L (20-31); CHLORIDE LEVEL 104 MMOL/L (98-107); CHOLESTEROL LEVEL 160 MG/DL (<200); CHOLESTEROL RISK RATIO 4.11 (<5); CREATININE FOR GFR 0.71 MG/DL (0.55-1.30); GLOMERULAR FILTRATION RATE > 60.0 (>58); GLUCOSE, FASTING 216 MG/DL (60-100); HDL CHOLESTEROL 38.9 MG/DL (>40); LDL CHOLESTEROL 101.1 MG/DL (<100); NON-HDL-C 121.1 MG/DL; SODIUM LEVEL 140 MMOL/L (136-145); TOTAL PROTEIN 6.5 G/DL (5.7-8.2); TRIGLYCERIDES LEVEL 100 MG/DL (<150)
[2022-11-06 11:09] LABS: TOTAL 25(OH) VITAMIN D 17.4 NG/ML (20.0-100.0)
[2022-11-06 11:10] LABS: THYROID STIMULATING HORMONE 20.999 uIU/ML (0.55-4.78)
== END ==
LOC: M LAB 09:33
PROVIDERS: ATTEND Nurse Practitioner Family
DX: R74.01 Elevation of levels of liver transaminase levels (principal); Z13.228 Encounter for screening for other metabolic disorders

== ENCOUNTER → 2023-01-24 | Outpatient (REF) | payer MEDICARE, MEDICAID ==
[2023-01-26 13:50] LABS: CREATININE, URINE 42.3 MG/DL
[2023-01-26 13:51] LABS: MALB URINE SIEMENS < 3.0 MG/L
== END ==
LOC: M LAB REF 11:49
PROVIDERS: ATTEND Nurse Practitioner Family
DX: E11.65 Type 2 diabetes mellitus with hyperglycemia (principal)

== ENCOUNTER → 2023-01-26 | Outpatient (REF) | payer MEDICARE, MEDICAID ==
[2023-01-26 18:02] LABS: BASO # 0.1 10^3/uL (0.0-0.2); BASO % 1.1 % (0.0-1.0); EOS # 0.1 10^3/uL (0.0-0.5); HEMATOCRIT 36.9 % (36.0-47.0); HEMOGLOBIN 11.5 g/dl (12.0-15.5); LYMPH # 1.4 10^3/uL (1.5-5.0); LYMPH % 30.5 % (24.0-44.0); MEAN CORPUSCULAR HEMOGLOBIN 24.8 pg (27.0-33.0); MEAN CORPUSCULAR HGB CONC 31.2 g/dl (32.0-36.5); MEAN CORPUSCULAR VOLUME 79.5 fl (80.0-96.0); MONO # 0.4 10^3/uL (0.0-0.8); MONO % 9.7 % (2.0-8.0); NEUTROPHILS # 2.6 10^3/uL (1.5-8.5); NEUTROPHILS % 56.7 % (36.0-66.0); PLATELET COUNT, AUTOMATED 116 10^3/uL (150-450); RED BLOOD COUNT 4.64 10^6/uL (4.00-5.40); WHITE BLOOD COUNT 4.5 10^3/uL (4.0-10.0)
[2023-01-26 18:30] LABS: IRON (FE) 33 UG/DL (50-170)
[2023-01-26 18:31] LABS: ALBUMIN 3.3 G/DL (3.2-5.2); ALKALINE PHOSPHATASE 342 U/L (46-116); ALT/SGPT 77 U/L (7.0-40); AST/SGOT 83 U/L (<34); BILIRUBIN,TOTAL 1.1 MG/DL (0.3-1.2); BLOOD UREA NITROGEN 9 MG/DL (9-23); CALCIUM LEVEL 8.7 MG/DL (8.5-10.1); CARBON DIOXIDE LEVEL 25 MMOL/L (20-31); CHLORIDE LEVEL 105 MMOL/L (98-107); CREATININE FOR GFR 0.57 MG/DL (0.55-1.30); GLOMERULAR FILTRATION RATE > 60.0 (>58); GLUCOSE, FASTING 257 MG/DL (60-100); MAGNESIUM LEVEL 2.1 MG/DL (1.8-2.4); PERCENT SATURATION 10.2 % (13.2-45.0); POTASSIUM SERUM 3.2 MMOL/L (3.5-5.1); SODIUM LEVEL 141 MMOL/L (136-145); TOTAL IRON BINDING CAPACITY 324 UG/DL (250-425); TOTAL PROTEIN 6.8 G/DL (5.7-8.2)
[2023-01-26 18:32] LABS: FERRITIN 18.5 NG/ML (7.3-270.7)
[2023-01-26 18:33] LABS: FOLATE 12.4 NG/ML (>5.4); VITAMIN B12 LEVEL 628 PG/ML (211-911)
[2023-01-26 19:02] LABS: THYROID STIMULATING HORMONE 3.805 uIU/ML (0.55-4.78)
== END ==
LOC: M LAB REF 16:43
PROVIDERS: ATTEND Nurse Practitioner Family
DX: E03.9 Hypothyroidism, unspecified (principal); E87.6 Hypokalemia; D64.9 Anemia, unspecified

== ENCOUNTER → 2023-02-22 | Outpatient (REF) | payer MEDICARE, MEDICAID ==
[2023-02-22 16:57] LABS: BLOOD UREA NITROGEN 9 MG/DL (9-23); CALCIUM LEVEL 8.9 MG/DL (8.5-10.1); CARBON DIOXIDE LEVEL 24 MMOL/L (20-31); CHLORIDE LEVEL 103 MMOL/L (98-107); CREATININE FOR GFR 0.57 MG/DL (0.55-1.30); GLOMERULAR FILTRATION RATE > 60.0 (>58); GLUCOSE, FASTING 268 MG/DL (60-100); POTASSIUM SERUM 3.6 MMOL/L (3.5-5.1); SODIUM LEVEL 137 MMOL/L (136-145)
== END ==
LOC: M LAB REF 15:58
PROVIDERS: ATTEND Nurse Practitioner Family
DX: Z01.818 Encounter for other preprocedural examination (principal)

== ENCOUNTER → 2023-06-04 | Outpatient (CLI) | payer MEDICARE, MEDICAID ==
[~2023-06-04] MED LIST changes: +DEXM10TA2 PO; -DEXM10TA3 PO
[2023-06-04 14:18] LABS: HEMATOCRIT 37.4 % (36.0-47.0); MEAN CORPUSCULAR HEMOGLOBIN 24.5 pg (27.0-33.0); MEAN CORPUSCULAR HGB CONC 32.1 g/dl (32.0-36.5); MEAN CORPUSCULAR VOLUME 76.5 fl (80.0-96.0); RED BLOOD COUNT 4.89 10^6/uL (4.00-5.40)
[2023-06-04 14:27] LABS: HEMOGLOBIN A1c 9.7 % (4.0-6.0)
[2023-06-04 14:49] LABS: THYROID STIMULATING HORMONE 3.256 uIU/ML (0.55-4.78)
[2023-06-04 14:51] LABS: ALKALINE PHOSPHATASE 436 U/L (46-116); ALT/SGPT 67 U/L (7.0-40); AST/SGOT 79 U/L (<34); BLOOD UREA NITROGEN 9 MG/DL (9-23); CALCIUM LEVEL 8.9 MG/DL (8.5-10.1); CARBON DIOXIDE LEVEL 24 MMOL/L (20-31); CHLORIDE LEVEL 108 MMOL/L (98-107); CHOLESTEROL LEVEL 146 MG/DL (<200); CHOLESTEROL RISK RATIO 5.46 (<5); CREATININE FOR GFR 0.51 MG/DL (0.55-1.30); GLOMERULAR FILTRATION RATE > 60.0 (>58); GLUCOSE, FASTING 190 MG/DL (60-100); HDL CHOLESTEROL 26.7 MG/DL (>40); LDL CHOLESTEROL 74.3 MG/DL (<100); MAGNESIUM LEVEL 1.6 MG/DL (1.8-2.4); NON-HDL-C 119.3 MG/DL; POTASSIUM SERUM 3.7 MMOL/L (3.5-5.1); SODIUM LEVEL 140 MMOL/L (136-145); TRIGLYCERIDES LEVEL 225 MG/DL (<150)
[2023-06-04 14:58] LABS: PLATELET COUNT, AUTOMATED 94 10^3/uL (150-450)
[2023-06-04 15:09] LABS: ATYPICAL LYMPH 6 % (0-5); BASOPHILS 2 % (0-1); EOSINOPHILS 1 % (0-3); LYMPHOCYTES 36 % (16-44); MONOCYTES 7 % (0-5); NEUTROPHILS 48 % (28-66); PLATELET ESTIMATE DECREASED (NORMAL)
== END ==
LOC: M LAB 13:37
PROVIDERS: ATTEND Nurse Practitioner Family
DX: E66.9 Obesity, unspecified (principal); Z79.899 Other long term (current) drug therapy

== ENCOUNTER → 2023-07-14 | Outpatient (CLI) | payer MEDICARE, MEDICAID | LOC: M PAIN 16:30 | PROVIDERS: ATTEND Nurse Practitioner Family | DX: G89.29 Other chronic pain (principal); Z79.891 Long term (current) use of opiate analgesic; E11.9 Type 2 diabetes mellitus without complications; K76.0 Fatty (change of) liver, not elsewhere classified; G43.909 Migraine, unspecified, not intractable, without status migrainosus; F41.9 Anxiety disorder, unspecified; F32.A Depression, unspecified; M85.80 Other specified disorders of bone density and structure, unspecified site; M81.0 Age-related osteoporosis without current pathological fracture; Z87.891 Personal history of nicotine dependence; Z79.4 Long term (current) use of insulin; Z79.899 Other long term (current) drug therapy; Z88.1 Allergy status to other antibiotic agents; Z88.6 Allergy status to analgesic agent; Z88.8 Allergy status to other drugs, medicaments and biological substances ==

== ENCOUNTER 2023-09-30 05:27 | Emergency (ER) | payer MEDICARE, MEDICAID ==
[~2023-09-30] VITALS: Ht 177.8 cm; Wt 112.3 kg
[2023-09-30 05:28] VITALS: BP 190/118; TEMP 97.1; O2SAT 96
[2023-09-30 06:02] LABS: BASO # 0.1 10^3/uL (0.0-0.2); BASO % 0.6 % (0.0-1.0); EOS % 0.4 % (0.0-3.0); HEMATOCRIT 37.5 % (36.0-47.0); HEMOGLOBIN 11.6 g/dl (12.0-15.5); LYMPH # 1.1 10^3/uL (1.5-5.0); MEAN CORPUSCULAR HEMOGLOBIN 22.1 pg (27.0-33.0); MEAN CORPUSCULAR HGB CONC 30.9 g/dl (32.0-36.5); MEAN CORPUSCULAR VOLUME 71.6 fl (80.0-96.0); MONO # 0.4 10^3/uL (0.0-0.8); MONO % 4.9 % (2.0-8.0); NEUTROPHILS # 6.6 10^3/uL (1.5-8.5); NEUTROPHILS % 80.9 % (36.0-66.0); PLATELET COUNT, AUTOMATED 187 10^3/uL (150-450); RED BLOOD COUNT 5.24 10^6/uL (4.00-5.40); WHITE BLOOD COUNT 8.1 10^3/uL (4.0-10.0)
[2023-09-30 06:28] LABS: CK-MB VALUE MASS < 1.0 NG/ML (<3.6); LIPASE 85 U/L (12-53)
[2023-09-30 06:30] LABS: HCG, SERUM QUALITATIVE NEGATIVE (NEGATIVE)
[2023-09-30 06:31] LABS: ALBUMIN 3.4 G/DL (3.2-5.2); ALKALINE PHOSPHATASE 364 U/L (46-116); ALT/SGPT 87 U/L (7.0-40); AST/SGOT 98 U/L (<34); BILIRUBIN,DIRECT 0.6 MG/DL (<0.4); BILIRUBIN,TOTAL 1.4 MG/DL (0.3-1.2); BLOOD UREA NITROGEN 6 MG/DL (9-23); CALCIUM LEVEL 8.4 MG/DL (8.5-10.1); CARBON DIOXIDE LEVEL 20 MMOL/L (20-31); CHLORIDE LEVEL 107 MMOL/L (98-107); CPK CREATINE PHOSPHOKINASE 64 U/L (34-145); CREATININE FOR GFR 0.55 MG/DL (0.55-1.30); GLOMERULAR FILTRATION RATE > 60.0 (>58); GLUCOSE, FASTING 302 MG/DL (60-100); MB/CK RELATIVE INDEX 1.56 (< OR =4); POTASSIUM SERUM 3.6 MMOL/L (3.5-5.1); SODIUM LEVEL 141 MMOL/L (136-145); TOTAL PROTEIN 6.9 G/DL (5.7-8.2)
== END 2023-09-30 06:20 | disposition left against medical advice (07) ==
LOC: M ED 05:27
DX: Z53.21 Procedure and treatment not carried out due to patient leaving prior to being seen by health care provider (principal)

== ENCOUNTER → 2023-10-20 | Outpatient (CLI) | payer MEDICARE, MEDICAID | LOC: M PAIN 14:00 | PROVIDERS: ATTEND Nurse Practitioner Family | DX: M51.17 Intervertebral disc disorders with radiculopathy, lumbosacral region (principal); Z79.891 Long term (current) use of opiate analgesic; M54.6 Pain in thoracic spine; G89.29 Other chronic pain; K76.0 Fatty (change of) liver, not elsewhere classified; R91.1 Solitary pulmonary nodule; E11.9 Type 2 diabetes mellitus without complications; G43.909 Migraine, unspecified, not intractable, without status migrainosus; F32.A Depression, unspecified; F41.9 Anxiety disorder, unspecified; M85.80 Other specified disorders of bone density and structure, unspecified site; L93.0 Discoid lupus erythematosus; M19.90 Unspecified osteoarthritis, unspecified site; M81.0 Age-related osteoporosis without current pathological fracture; Z87.891 Personal history of nicotine dependence; Z79.4 Long term (current) use of insulin; Z79.899 Other long term (current) drug therapy; Z88.1 Allergy status to other antibiotic agents; Z88.8 Allergy status to other drugs, medicaments and biological substances; Z88.6 Allergy status to analgesic agent ==

== ENCOUNTER → 2023-11-03 | Outpatient (REF) | payer MEDICARE, MEDICAID ==
[2023-11-03 14:59] LABS: ALKALINE PHOSPHATASE 312 U/L (46-116); ALT/SGPT 74 U/L (7.0-40); AST/SGOT 73 U/L (<34); BILIRUBIN,TOTAL 0.9 MG/DL (0.3-1.2); BLOOD UREA NITROGEN 7 MG/DL (9-23); CARBON DIOXIDE LEVEL 22 MMOL/L (20-31); CHLORIDE LEVEL 111 MMOL/L (98-107); CHOLESTEROL LEVEL 189 MG/DL (<200); CHOLESTEROL RISK RATIO 4.19 (<5); CREATININE FOR GFR 0.58 MG/DL (0.55-1.30); GLOMERULAR FILTRATION RATE > 60.0 (>58); GLUCOSE, FASTING 151 MG/DL (60-100); HDL CHOLESTEROL 45.1 MG/DL (>40); LDL CHOLESTEROL 120.7 MG/DL (<100); NON-HDL-C 143.9 MG/DL; POTASSIUM SERUM 3.4 MMOL/L (3.5-5.1); SODIUM LEVEL 140 MMOL/L (136-145); TOTAL PROTEIN 6.4 G/DL (5.7-8.2); TRIGLYCERIDES LEVEL 116 MG/DL (<150)
[2023-11-03 15:00] LABS: MALB URINE SIEMENS < 3.0 MG/L
[2023-11-03 15:01] LABS: CREATININE, URINE 178.6 MG/DL; MAU/CREAT RATIO 1.6 MCG/MG (0.0-30.0)
[2023-11-03 15:03] LABS: HEMOGLOBIN A1c 7.3 % (4.0-6.0)
== END ==
LOC: M LAB REF 13:15
PROVIDERS: ATTEND Nurse Practitioner Family
DX: E66.9 Obesity, unspecified (principal); Z79.899 Other long term (current) drug therapy

== ENCOUNTER → 2023-11-04 | Outpatient (CLI) | payer MEDICARE, MEDICAID | LOC: M WUC 09:22 | PROVIDERS: ATTEND Nurse Practitioner Family | DX: K59.00 Constipation, unspecified (principal); M25.512 Pain in left shoulder; R93.7 Abnormal findings on diagnostic imaging of other parts of musculoskeletal system ==

== ENCOUNTER → 2023-11-09 | Outpatient (CLI) | payer MEDICARE, MEDICAID | LOC: M PLAIMG 06:39 | PROVIDERS: ATTEND Nurse Practitioner Family | DX: M51.17 Intervertebral disc disorders with radiculopathy, lumbosacral region (principal); M47.814 Spondylosis without myelopathy or radiculopathy, thoracic region; E53.8 Deficiency of other specified B group vitamins ==

== ENCOUNTER → 2023-11-09 | Outpatient (CLI) | payer MEDICARE, MEDICAID | LOC: M WUC 10:39 | PROVIDERS: ATTEND Nurse Practitioner Family | DX: E53.8 Deficiency of other specified B group vitamins (principal) ==

== ENCOUNTER → 2024-03-15 | Outpatient (REF) | payer MEDICARE, MEDICAID ==
[~2024-03-15] MED LIST changes: -TROK1CAP8 PO; +[UNRECOGNIZED DRUG - CODE] PO
== END ==
LOC: M SFHCRHEU 11:59
PROVIDERS: ATTEND Internal Medicine
DX: E55.9 Vitamin D deficiency, unspecified (principal)

== ENCOUNTER → 2024-03-15 | Outpatient (CLI) | payer MEDICARE, MEDICAID | LOC: M PAIN 10:15 | PROVIDERS: ATTEND Nurse Practitioner Family | DX: Z79.891 Long term (current) use of opiate analgesic (principal); M51.17 Intervertebral disc disorders with radiculopathy, lumbosacral region; M54.6 Pain in thoracic spine; G89.29 Other chronic pain; K76.0 Fatty (change of) liver, not elsewhere classified; R91.1 Solitary pulmonary nodule; E11.9 Type 2 diabetes mellitus without complications; G43.909 Migraine, unspecified, not intractable, without status migrainosus; F32.A Depression, unspecified; F41.9 Anxiety disorder, unspecified; M85.80 Other specified disorders of bone density and structure, unspecified site; L93.0 Discoid lupus erythematosus; M19.90 Unspecified osteoarthritis, unspecified site; M81.0 Age-related osteoporosis without current pathological fracture; Z87.891 Personal history of nicotine dependence; Z79.4 Long term (current) use of insulin; Z79.899 Other long term (current) drug therapy; Z88.1 Allergy status to other antibiotic agents; Z88.8 Allergy status to other drugs, medicaments and biological substances; Z88.6 Allergy status to analgesic agent ==

== ENCOUNTER → 2024-06-16 | Outpatient (REF) | payer MEDICARE, MEDICAID ==
[2024-06-18 18:32] LABS: ALBUMIN 3.6 G/DL (3.2-5.2); ALKALINE PHOSPHATASE 302 U/L (35-104); ALT/SGPT 80 U/L (7.0-40); AST/SGOT 86 U/L (<34); BILIRUBIN,TOTAL 1.7 MG/DL (0.3-1.2); BLOOD UREA NITROGEN 9 MG/DL (9-23); CALCIUM LEVEL 8.9 MG/DL (8.5-10.1); CARBON DIOXIDE LEVEL 22 MMOL/L (20-31); CHLORIDE LEVEL 108 MMOL/L (98-107); CREATININE FOR GFR 0.57 MG/DL (0.55-1.30); FERRITIN 7.2 NG/ML (7.3-270.7); GLOMERULAR FILTRATION RATE > 90.0 (>58); GLUCOSE, FASTING 114 MG/DL (60-100); IRON (FE) 24 UG/DL (50-170); MAGNESIUM LEVEL 2.2 MG/DL (1.8-2.4); PERCENT SATURATION 7.1 % (13.2-45.0); SODIUM LEVEL 139 MMOL/L (136-145); TOTAL IRON BINDING CAPACITY 338 UG/DL (250-425); TOTAL PROTEIN 6.4 G/DL (5.7-8.2)
[2024-06-18 18:34] LABS: VITAMIN B12 LEVEL 701 PG/ML (211-911)
[2024-06-18 18:38] LABS: FOLATE 13.6 NG/ML (>5.4)
== END ==
LOC: M LAB REF 17:37
PROVIDERS: ATTEND Nurse Practitioner Family
DX: D64.9 Anemia, unspecified (principal); E66.9 Obesity, unspecified; Z79.899 Other long term (current) drug therapy

== ENCOUNTER → 2024-06-16 | Outpatient (CLI) | payer MEDICARE, MEDICAID ==
[2024-06-16 11:03] LABS: HEMOGLOBIN A1c 4.4 % (4.0-6.0)
[2024-06-16 11:05] LABS: APPEARANCE, URINE CLOUDY (CLEAR); BACTERIA, URINE AUTO 2+ (NEGATIVE); BILIRUBIN, URINE AUTO NEGATIVE (NEGATIVE); BLOOD, URINE BLOOD NEGATIVE (NEGATIVE); COLOR, URINE AMBER (YELLOW); GLUCOSE, URINE (UA) AUTO NEGATIVE (NEGATIVE); KETONE, URINE AUTO NEGATIVE (NEGATIVE); LEUKOCYTE ESTERASE, URINE AUTO 1+ (NEGATIVE); MUCUS, URINE SMALL (NEGATIVE); NITRITE, URINE AUTO NEGATIVE (NEGATIVE); PROTEIN, URINE AUTO NEGATIVE (NEGATIVE); RBC, URINE AUTO 2 /HPF (0-3); SPECIFIC GRAVITY URINE AUTO 1.011 (1.002-1.035); SQUAMOUS EPITHELIAL CELL UR AU 17 /HPF (0-6); WBC, URINE AUTO 5 /HPF (0-3)
[2024-06-16 11:20] LABS: BLOOD UREA NITROGEN 9 MG/DL (9-23); CALCIUM LEVEL 8.9 MG/DL (8.5-10.1); CARBON DIOXIDE LEVEL 23 MMOL/L (20-31); CHLORIDE LEVEL 108 MMOL/L (98-107); CHOLESTEROL LEVEL 150 MG/DL (<200); CHOLESTEROL RISK RATIO 3.75 (<5); CREATININE FOR GFR 0.57 MG/DL (0.55-1.30); GLOMERULAR FILTRATION RATE > 90.0 (>58); GLUCOSE, FASTING 113 MG/DL (60-100); LDL CHOLESTEROL 95.8 MG/DL (<100); SODIUM LEVEL 142 MMOL/L (136-145); TRIGLYCERIDES LEVEL 71 MG/DL (<150)
[2024-06-16 11:22] LABS: FREE T4 2.27 NG/DL (0.89-1.76); THYROID STIMULATING HORMONE < 0.010 uIU/ML (0.55-4.78)
[2024-06-16 11:25] LABS: FREE T3 4.1 PG/ML (2.3-4.2)
== END ==
LOC: M LAB 09:47
DX: E11.65 Type 2 diabetes mellitus with hyperglycemia (principal); Z79.4 Long term (current) use of insulin; E89.0 Postprocedural hypothyroidism; Z85.850 Personal history of malignant neoplasm of thyroid

== ENCOUNTER → 2024-09-19 | Outpatient (REF) | payer MEDICARE, MEDICAID ==
[~2024-09-19] MED LIST changes: +LAMO-18 PO; -LAMO25TA4 PO; +MORP-138 PO; -MORP15TASA PO; -PREG50CA PO; +PREG50CA87 PO
== END ==
LOC: M LAB REF 11:32
PROVIDERS: ATTEND Student in an Organized Health Care Education/Training Program
DX: R30.0 Dysuria (principal)

== ENCOUNTER → 2024-09-20 | Outpatient (CLI) | payer MEDICARE, MEDICAID | LOC: M RAD 08:12 | PROVIDERS: ATTEND Student in an Organized Health Care Education/Training Program | DX: K70.31 Alcoholic cirrhosis of liver with ascites (principal); R14.0 Abdominal distension (gaseous) ==

== ENCOUNTER → 2024-10-01 | Outpatient (CLI) | payer MEDICARE, MEDICAID ==
[~2024-10-01] MED LIST changes: +ATEN50TA2 PO; +CALC200T15 PO; +CEFD1CAP9 PO; +CYAN100017 INJ; +DENO60SY2 SQ; +FURO20TA2 PO; +GABA-1172 PO; +HYDR50CA2 PO; +INSU100I26 SQ; +LEVO125C2 PO; +LEVOTAB10 PO; +OMEP40CA5 PO; +ONDA-83 PO; +PROBCAP14 PO; +SPIR50TA4 PO; +TIRZ15PE SQ; +TIZA10TA PO; +TRES1INJ2 SQ; +XTAM13.5 PO; +[UNRECOGNIZED DRUG - CODE] MC
[2024-10-01 08:56] LABS: BASO # 0.1 10^3/uL (0.0-0.2); BASO % 1.0 % (0.0-1.0); EOS # 0.1 10^3/uL (0.0-0.5); EOS % 1.9 % (0.0-3.0); LYMPH # 2.5 10^3/uL (1.5-5.0); LYMPH % 40.2 % (24.0-44.0); MONO # 0.6 10^3/uL (0.0-0.8); MONO % 8.9 % (2.0-8.0); NEUTROPHILS # 3.0 10^3/uL (1.5-8.5); NEUTROPHILS % 47.8 % (36.0-66.0); PLATELET COUNT, AUTOMATED 130 10^3/uL (150-450)
[2024-10-01 09:41] LABS: ALT/SGPT 55 U/L (7.0-40); AST/SGOT 92 U/L (<34); CALCIUM LEVEL 8.6 MG/DL (8.5-10.1); CARBON DIOXIDE LEVEL 22 MMOL/L (20-31); CHLORIDE LEVEL 108 MMOL/L (98-107); CHOLESTEROL LEVEL 162 MG/DL (<200); CHOLESTEROL RISK RATIO 4.93 (<5); CREATININE FOR GFR 0.72 MG/DL (0.55-1.30); GLOMERULAR FILTRATION RATE > 90.0 (>58); LDL CHOLESTEROL 112.8 MG/DL (<100); NON-HDL-C 129.2 MG/DL; POTASSIUM SERUM 3.9 MMOL/L (3.5-5.1); SODIUM LEVEL 143 MMOL/L (136-145); TRIGLYCERIDES LEVEL 82 MG/DL (<150)
== END ==
LOC: M LAB 07:29
PROVIDERS: ATTEND Student in an Organized Health Care Education/Training Program
DX: K74.60 Unspecified cirrhosis of liver (principal); Z68.30 Body mass index [BMI] 30.0-30.9, adult; E03.8 Other specified hypothyroidism
CPT/HCPCS: 36415; 80053; 80061; 82607; 82728; 82746; 83550; 84443; 85025; G0463

== ENCOUNTER 2024-10-05 12:17 | Inpatient (IN) | payer MEDICARE, MEDICAID ==
[~2024-10-05] VITALS: Ht 175.3 cm; Wt 101.0 kg
[~2024-10-05 12:17] MED LIST changes: -CALC200T15 PO; -CEFD1CAP9 PO; -DENO60SY2 SQ; -FURO20TA2 PO; -OMEP40CA5 PO; -PROBCAP14 PO; -SPIR50TA4 PO
[2024-10-05] MEDS: traMADol 50 MG TAB PO ONE (13:28)
[2024-10-05 13:52] LABS: BASO # 0.0 10^3/uL (0.0-0.2); BASO % 1.0 % (0.0-1.0); EOS # 0.1 10^3/uL (0.0-0.5); EOS % 1.8 % (0.0-3.0); LYMPH # 1.5 10^3/uL (1.5-5.0); LYMPH % 38.9 % (24.0-44.0); MONO # 0.4 10^3/uL (0.0-0.8); MONO % 8.8 % (2.0-8.0); NEUTROPHILS # 1.9 10^3/uL (1.5-8.5); NEUTROPHILS % 49.0 % (36.0-66.0); PLATELET COUNT, AUTOMATED 110 10^3/uL (150-450)
[2024-10-05] MEDS ORDERED: ISOVUE-370 76% 100 ML VIAL As Ordered ONE (14:01)
[2024-10-05 14:14] LABS: INR 1.18
[2024-10-05 14:36] LABS: ALT/SGPT 64 U/L (7.0-40); AST/SGOT 114 U/L (<34); CALCIUM LEVEL 8.1 MG/DL (8.5-10.1); CARBON DIOXIDE LEVEL 22 MMOL/L (20-31); CHLORIDE LEVEL 108 MMOL/L (98-107); CREATININE FOR GFR 0.70 MG/DL (0.55-1.30); GLOMERULAR FILTRATION RATE > 90.0 (>58); POTASSIUM SERUM 3.9 MMOL/L (3.5-5.1); SODIUM LEVEL 139 MMOL/L (136-145)
[2024-10-05 16:48] LABS: APPEARANCE, BODY FLUID CLEAR (CLEAR); PERITONEAL FL COLOR YELLOW (COLORLESS); SOURCE, BODY FLUID PERITONEAL
[2024-10-05 17:08] LABS: SOURCE, BODY FLUID ALBUMIN ASCITES
[2024-10-05 17:13] LABS: SOURCE, BODY FLUID GLUCOSE ASCITES
[2024-10-05 17:14] LABS: SOURCE, BODY FLUID TOT PROTEIN ASCITES
[2024-10-05] MEDS ORDERED: OMEP40CA5 PO (17:41)
[2024-10-05] MEDS ORDERED: DENO60SY2 SQ (17:43)
[2024-10-05] MEDS ORDERED: HOME MED LIST COMPLETE! XX SCH (17:50)
[2024-10-05] MEDS ORDERED: ONDANSETRON 4MG TAB PO PRN (18:25)
[2024-10-05] MEDS ORDERED: MAALOX 30 ML SUSP *UDC PO PRN (18:30)
[2024-10-05] MEDS ORDERED: MOM 30 ML SUSPENSION UDC PO PRN (18:30)
[2024-10-05] MEDS ORDERED: DEXTROSE 50% 50 ML SYRINGE IV PRN (18:35)
[2024-10-05] MEDS ORDERED: GLUCAGON INJ 1 MG VIAL SC PRN (18:35)
[2024-10-05] MEDS ORDERED: GLUCOSE 4 GM CHEW PO PRN (18:35)
[2024-10-05 20:00] VITALS: BP 138/76; TEMP 99; O2SAT 100
[2024-10-05] MEDS: LACTULOSE 20 GM/30 ML SYRUP UDC PO ONE (20:10)
[2024-10-05] MEDS: INSULIN LISPRO (NovoLOG) PER UNIT SC SCH (21:00)
[2024-10-05] MEDS: cefTRIAXone SOD 2 GM in DEXTROSE 5% (D5W) ADV/MINI-BAG 50 ML IV SCH (21:38)
[2024-10-05] MEDS: oxyCODONE 10 MG CR TAB PO SCH (21:40)
[2024-10-05] MEDS: GABAPENTIN 300 MG CAP PO SCH (21:40)
[2024-10-05] MEDS: LACTULOSE 20 GM/30 ML SYRUP UDC PO SCH (21:40)
[2024-10-05] MEDS: PANTOPRAZOLE 40MG VIAL IV ONE (21:41)
[2024-10-05] MEDS: SCOPOLAMINE 1MG TRANSDERMAL PATCH TOP PRN (21:42)
[2024-10-05] MEDS: LACTULOSE 20 GM/30 ML SYRUP UDC PR STA (23:03)
[2024-10-06 03:03] VITALS: BP_SYST 104; BP_SYST 114; BP_DIAS 60; BP_DIAS 74; TEMP 96.8; TEMP 97.9; O2SAT 97
[2024-10-06] MEDS: LEVOTHYROXINE 125 MCG TABLET (0.125 MG) PO SCH (05:45)
[2024-10-06 06:38] LABS: PLATELET COUNT, AUTOMATED 87 10^3/uL (150-450)
[2024-10-06 07:08] LABS: ALT/SGPT 52 U/L (7.0-40); AST/SGOT 81 U/L (<34); CALCIUM LEVEL 7.6 MG/DL (8.5-10.1); CARBON DIOXIDE LEVEL 22 MMOL/L (20-31); CHLORIDE LEVEL 111 MMOL/L (98-107); CREATININE FOR GFR 0.67 MG/DL (0.55-1.30); GLOMERULAR FILTRATION RATE > 90.0 (>58); MAGNESIUM LEVEL 2.0 MG/DL (1.8-2.4); POTASSIUM SERUM 3.5 MMOL/L (3.5-5.1); SODIUM LEVEL 145 MMOL/L (136-145)
[2024-10-06] MEDS: OMEPRAZOLE 20MG CAP PO SCH (08:30)
[2024-10-06] MEDS: INSULIN LISPRO (NovoLOG) PER UNIT SC SCH (08:31)
[2024-10-06 12:00] VITALS: BP 115/72; TEMP 97.7; O2SAT 100
[2024-10-06 20:09] VITALS: BP 114/71; TEMP 97.9; O2SAT 99
[2024-10-07 03:28] VITALS: BP 126/83; TEMP 97; O2SAT 100
[2024-10-07 06:54] LABS: BASO # 0.0 10^3/uL (0.0-0.2); BASO % 0.8 % (0.0-1.0); EOS # 0.0 10^3/uL (0.0-0.5); EOS % 1.6 % (0.0-3.0); LYMPH # 1.2 10^3/uL (1.5-5.0); LYMPH % 46.9 % (24.0-44.0); MONO # 0.3 10^3/uL (0.0-0.8); MONO % 11.8 % (2.0-8.0); NEUTROPHILS # 1.0 10^3/uL (1.5-8.5); NEUTROPHILS % 38.9 % (36.0-66.0)
[2024-10-07 07:17] LABS: PLATELET COUNT, AUTOMATED 78 10^3/uL (150-450)
[2024-10-07 07:21] LABS: CALCIUM LEVEL 6.8 MG/DL (8.5-10.1); CARBON DIOXIDE LEVEL 23 MMOL/L (20-31); CHLORIDE LEVEL 111 MMOL/L (98-107); CREATININE FOR GFR 0.63 MG/DL (0.55-1.30); GLOMERULAR FILTRATION RATE > 90.0 (>58); MAGNESIUM LEVEL 2.1 MG/DL (1.8-2.4); POTASSIUM SERUM 3.2 MMOL/L (3.5-5.1); SODIUM LEVEL 144 MMOL/L (136-145)
[2024-10-07] MEDS: KCL 10MEQ/100ML SWI (KRUN) 10 MEQ in IV 1 EA IV SCH (08:22)
[2024-10-07 08:38] LABS: BASO # 0.0 10^3/uL (0.0-0.2); BASO % 0.8 % (0.0-1.0); EOS # 0.0 10^3/uL (0.0-0.5); EOS % 1.2 % (0.0-3.0); LYMPH # 1.2 10^3/uL (1.5-5.0); LYMPH % 46.4 % (24.0-44.0); MONO # 0.3 10^3/uL (0.0-0.8); MONO % 10.9 % (2.0-8.0); NEUTROPHILS # 1.0 10^3/uL (1.5-8.5); NEUTROPHILS % 40.3 % (36.0-66.0)
[2024-10-07 08:41] LABS: PLATELET COUNT, AUTOMATED 76 10^3/uL (150-450)
[2024-10-07] MEDS: ENOXAPARIN 40 MG/0.4 ML SYRINGE (J1650 PER 10MG) SC SCH (09:00)
[2024-10-07 12:00] VITALS: BP 108/69; TEMP 97.9; O2SAT 98
[2024-10-07] MEDS: SPIRONOLACTONE 25 MG TAB PO SCH (16:20)
[2024-10-07 19:46] VITALS: BP 111/64; TEMP 96.8; O2SAT 98
[2024-10-08 03:31] VITALS: BP 108/61; TEMP 96.8; O2SAT 100
[2024-10-08 08:03] LABS: CALCIUM LEVEL 6.7 MG/DL (8.5-10.1); CARBON DIOXIDE LEVEL 23 MMOL/L (20-31); CHLORIDE LEVEL 112 MMOL/L (98-107); CREATININE FOR GFR 0.57 MG/DL (0.55-1.30); GLOMERULAR FILTRATION RATE > 90.0 (>58); MAGNESIUM LEVEL 2.2 MG/DL (1.8-2.4); POTASSIUM SERUM 3.5 MMOL/L (3.5-5.1); SODIUM LEVEL 145 MMOL/L (136-145)
[2024-10-08] MEDS: FUROSEMIDE 20 MG TAB PO SCH (08:41)
[2024-10-08] MEDS: CALCIUM CARBONATE 500 MG CHEW U/D PO SCH (08:42)
[2024-10-08] MEDS: MOUNJARO 15 MG/0.5 ML SC SCH (11:34)
[2024-10-08] MEDS: POTASSIUM CHLORIDE 10% LIQ 20MEQ/15ML UDC PO ONE (11:40)
[2024-10-08 12:00] VITALS: BP 107/50; TEMP 97.5; O2SAT 100
[2024-10-08] MEDS: LACTULOSE 20 GM/30 ML SYRUP UDC PO SCH (13:00)
[2024-10-08 20:23] VITALS: BP 105/54; TEMP 97.2; O2SAT 97
[2024-10-09 03:28] VITALS: BP 104/53; TEMP 97.8; O2SAT 99
[2024-10-09 06:58] LABS: CALCIUM LEVEL 6.5 MG/DL (8.5-10.1); CARBON DIOXIDE LEVEL 23 MMOL/L (20-31); CHLORIDE LEVEL 111 MMOL/L (98-107); CREATININE FOR GFR 0.56 MG/DL (0.55-1.30); GLOMERULAR FILTRATION RATE > 90.0 (>58); MAGNESIUM LEVEL 2.0 MG/DL (1.8-2.4); POTASSIUM SERUM 3.5 MMOL/L (3.5-5.1); SODIUM LEVEL 142 MMOL/L (136-145)
[2024-10-09 08:34] LABS: PTH INTACT 100.0 PG/ML (18.5-88.0); TOTAL 25(OH) VITAMIN D 72.9 NG/ML (20.0-100.0)
[2024-10-09 09:14] VITALS: BP 118/69
[2024-10-09] MEDS: CALCIUM GLUCONATE 1,000 MG in DEXTROSE 5% (D5W) MINI-BAG PLU 100 ML IV SCH (09:21)
[2024-10-09] MEDS ORDERED: SPIR50TA4 PO (11:32)
[2024-10-09] MEDS ORDERED: CALC200T15 PO (11:32)
[2024-10-09] MEDS ORDERED: FURO20TA2 PO (11:32)
[2024-10-09] MEDS ORDERED: PROBCAP14 PO (11:34)
[2024-10-09] MEDS ORDERED: CEFD1CAP9 PO (11:34)
[2024-10-09 12:00] VITALS: BP 110/64; TEMP 98.1; O2SAT 100
[2024-10-09 12:15] LABS: CALCIUM LEVEL 7.4 MG/DL (8.5-10.1)
[2024-10-09 15:49] VITALS: BP 88/50; TEMP 97.2; O2SAT 97
== END 2024-10-09 17:26 | disposition home health service (06) | DRG 441 ==
LOC: M ED 12:17 → M ED INP 17:14 → M MSPAV 19:55
PROVIDERS: ADMIT Student in an Organized Health Care Education/Training Program; ATTEND Student in an Organized Health Care Education/Training Program
PROC: 0W9G3ZZ Drainage of Peritoneal Cavity, Percutaneous Approach (ICD-10-PCS; principal; 2024-10-05 16:02)
PROC: B246ZZZ Ultrasonography of Right and Left Heart (ICD-10-PCS; 2024-10-08)
DX: K75.81 Nonalcoholic steatohepatitis (NASH) (principal); K65.2 Spontaneous bacterial peritonitis; K76.6 Portal hypertension; R18.8 Other ascites; K74.60 Unspecified cirrhosis of liver; E11.42 Type 2 diabetes mellitus with diabetic polyneuropathy; D50.9 Iron deficiency anemia, unspecified; D69.6 Thrombocytopenia, unspecified; E87.6 Hypokalemia; M32.9 Systemic lupus erythematosus, unspecified; M06.9 Rheumatoid arthritis, unspecified; E83.51 Hypocalcemia; Z85.850 Personal history of malignant neoplasm of thyroid; Z98.84 Bariatric surgery status; Z90.79 Acquired absence of other genital organ(s); Z87.891 Personal history of nicotine dependence; K59.00 Constipation, unspecified; E03.9 Hypothyroidism, unspecified; Z79.890 Hormone replacement therapy; Z79.4 Long term (current) use of insulin; Z79.899 Other long term (current) drug therapy; Z88.1 Allergy status to other antibiotic agents; Z88.6 Allergy status to analgesic agent; Z88.8 Allergy status to other drugs, medicaments and biological substances

== ENCOUNTER → 2024-10-12 | Outpatient (CLI) | payer MEDICARE, MEDICAID ==
[~2024-10-12] MED LIST changes: +CALC200T15 PO; +CEFD1CAP9 PO; +DENO60SY2 SQ; +FURO20TA2 PO; +OMEP40CA5 PO; +PROBCAP14 PO; +SPIR50TA4 PO
[2024-10-12 07:40] VITALS: TEMP 96.9
[2024-10-12 09:15] VITALS: BP 94/56; O2SAT 97
[2024-10-12 10:18] LABS: APPEARANCE, BODY FLUID HAZY (CLEAR); ASCITES FL COLOR PALE YELLOW (COLORLESS); SOURCE, BODY FLUID ASCITES
[2024-10-12 10:45] LABS: SOURCE, BODY FLUID ALBUMIN ASCITES
[2024-10-12 10:51] LABS: SOURCE, BODY FLUID TOT PROTEIN ASCITES
== END ==
LOC: M IRPRO 07:24
PROVIDERS: ATTEND Student in an Organized Health Care Education/Training Program
DX: R18.8 Other ascites (principal); K74.60 Unspecified cirrhosis of liver

== ENCOUNTER → 2024-10-13 | Outpatient (CLI) | payer MEDICARE, MEDICAID ==
[2024-10-13 09:48] LABS: PLATELET COUNT, AUTOMATED 116 10^3/uL (150-450)
[2024-10-13 10:07] LABS: ALT/SGPT 46 U/L (7.0-40); AST/SGOT 62 U/L (<34); CALCIUM LEVEL 7.1 MG/DL (8.5-10.1); CARBON DIOXIDE LEVEL 23 MMOL/L (20-31); CHLORIDE LEVEL 106 MMOL/L (98-107); CHOLESTEROL LEVEL 152 MG/DL (<200); CHOLESTEROL RISK RATIO 4.21 (<5); CREATININE FOR GFR 0.63 MG/DL (0.55-1.30); FREE T4 1.65 NG/DL (0.89-1.76); GLOMERULAR FILTRATION RATE > 90.0 (>58); IRON (FE) 31 UG/DL (50-170); LDL CHOLESTEROL 98.7 MG/DL (<100); MAGNESIUM LEVEL 1.8 MG/DL (1.8-2.4); NON-HDL-C 115.9 MG/DL; PERCENT SATURATION 12.3 % (13.2-45.0); PHOSPHORUS LEVEL 2.3 MG/DL (2.5-4.9); POTASSIUM SERUM 3.7 MMOL/L (3.5-5.1); PTH INTACT 83.4 PG/ML (18.5-88.0); RHEUMATOID FACTOR QUANT 4.5 IU/ML (<14); SODIUM LEVEL 139 MMOL/L (136-145); TRIGLYCERIDES LEVEL 86 MG/DL (<150)
[2024-10-13 10:08] LABS: TOTAL 25(OH) VITAMIN D 59.4 NG/ML (20.0-100.0)
[2024-10-13 10:17] LABS: VITAMIN B12 LEVEL 962 PG/ML (211-911)
[2024-10-13 10:28] LABS: ESTIMATED AVERAGE GLUCOSE 82.0 MG/DL (60-110)
[2024-10-16 18:32] LABS: SELENIUM LEVEL BLOOD 113 mcg/L (115-240)
[2024-10-16 22:33] LABS: MANGANESE, BLOOD 19.3 mcg/L (4.2-16.5)
[2024-10-17 17:10] LABS: COPPER, RBC 0.69 ug/mL (0.50-1.00); ZINC RBC 1183.0 ug/dL (878-1660)
[2024-10-17 20:22] LABS: VITAMIN A, RETINOL LEVEL < 5 mcg/dL (38-98)
== END ==
LOC: M LAB 08:04
PROVIDERS: ATTEND Family Medicine
DX: M32.9 Systemic lupus erythematosus, unspecified (principal); Z98.84 Bariatric surgery status; E89.0 Postprocedural hypothyroidism; K74.60 Unspecified cirrhosis of liver; M05.79 Rheumatoid arthritis with rheumatoid factor of multiple sites without organ or systems involvement; D64.9 Anemia, unspecified; G47.33 Obstructive sleep apnea (adult) (pediatric)

== ENCOUNTER → 2024-10-19 | Outpatient (CLI) | payer MEDICARE, MEDICAID ==
[2024-10-19 09:05] VITALS: TEMP 97.4
[2024-10-19 10:07] VITALS: BP 98/53; O2SAT 98
== END ==
LOC: M IRPRO 08:54
PROVIDERS: ATTEND Student in an Organized Health Care Education/Training Program
DX: R18.8 Other ascites (principal); K74.69 Other cirrhosis of liver

== ENCOUNTER → 2024-10-31 | Outpatient (CLI) | payer MEDICARE, MEDICAID ==
[~2024-10-31] MED LIST changes: +FLUO60TA; +LACT10SO94; +REXU1TAB4
[2024-10-31 14:45] VITALS: TEMP 97.5
[2024-10-31 16:14] VITALS: BP 107/60; O2SAT 98
== END ==
LOC: M IRPRO 14:34
PROVIDERS: ATTEND Student in an Organized Health Care Education/Training Program
DX: R18.8 Other ascites (principal)

== ENCOUNTER 2024-11-01 12:06 | Inpatient (IN) | payer MEDICARE, MEDICAID ==
[~2024-11-01] VITALS: Ht 175.3 cm; Wt 106.4 kg
[~2024-11-01 12:06] MED LIST changes: -FLUO60TA; -LACT10SO94; -REXU1TAB4
[2024-11-01] MEDS ORDERED: FLUO60TA (12:20)
[2024-11-01] MEDS ORDERED: REXU1TAB4 (12:20)
[2024-11-01] MEDS ORDERED: LACT10SO94 (12:22)
[2024-11-01 13:42] LABS: VENOUS BASE EXCESS -1.1 (-2.0-2.0); VENOUS HCO3 21.0 MMOL/L (23.0-27.0); VENOUS O2 SATURATION 92.1 % (60.0-80.0); VENOUS PARTIAL PRESSURE CO2 27.7 mmHg (38.0-50.0); VENOUS PARTIAL PRESSURE O2 62.9 mmHg (30.0-50.0); VENOUS PH 7.498 UNITS (7.330-7.430); VENOUS STANDARD HCO3 23.5 MMOL/L; VENOUS TOTAL CO2 21.9 MMOL/L (24.0-28.0)
[2024-11-01 13:47] LABS: BASO # 0.0 10^3/uL (0.0-0.2); BASO % 0.4 % (0.0-1.0); EOS # 0.0 10^3/uL (0.0-0.5); EOS % 0.4 % (0.0-3.0); LYMPH # 1.3 10^3/uL (1.5-5.0); LYMPH % 15.4 % (24.0-44.0); MONO # 0.7 10^3/uL (0.0-0.8); MONO % 8.3 % (2.0-8.0); NEUTROPHILS # 6.3 10^3/uL (1.5-8.5); NEUTROPHILS % 75.0 % (36.0-66.0); PLATELET COUNT, AUTOMATED 136 10^3/uL (150-450)
[2024-11-01 13:59] LABS: INR 1.12
[2024-11-01 14:19] LABS: ACETONE/KETONE 0.41 MMOL/L (0.02-0.27); SALICYLATE LEVEL < 3.0 MG/DL (<30)
[2024-11-01 14:21] LABS: ETHYL ALCOHOL (ETHANOL) < 0.003 % (0.000-0.010)
[2024-11-01 14:23] LABS: ALT/SGPT 45 U/L (7.0-40); AST/SGOT 66 U/L (<34); CALCIUM LEVEL 8.0 MG/DL (8.5-10.1); CARBON DIOXIDE LEVEL 21 MMOL/L (20-31); CHLORIDE LEVEL 105 MMOL/L (98-107); CREATININE FOR GFR 0.68 MG/DL (0.55-1.30); FREE T4 1.64 NG/DL (0.89-1.76); GLOMERULAR FILTRATION RATE > 90.0 (>58); POTASSIUM SERUM 3.3 MMOL/L (3.5-5.1); SODIUM LEVEL 140 MMOL/L (136-145)
[2024-11-01] MEDS ORDERED: NS (Normal Saline) 0.9% 1,000 ML IV ONE (17:05)
[2024-11-01] MEDS: LACTULOSE 20 GM/30 ML SYRUP UDC PR ONE (17:29)
[2024-11-01] MEDS ORDERED: GLUCOSE 4 GM CHEW PO PRN (17:55)
[2024-11-01] MEDS ORDERED: DEXTROSE 50% 50 ML SYRINGE IV PRN (17:55)
[2024-11-01] MEDS ORDERED: GLUCAGON INJ 1 MG VIAL SC PRN (17:55)
[2024-11-01] MEDS ORDERED: HOME MED LIST COMPLETE! XX SCH (18:50)
[2024-11-01] MEDS: INSULIN LISPRO (NovoLOG) PER UNIT SC SCH (19:58)
[2024-11-01] MEDS: KCL 40MEQ in NS 1000ML 1,000 ML IV SCH (20:09)
[2024-11-01 20:45] VITALS: BP 172/96; TEMP 98.5; O2SAT 96
[2024-11-01] MEDS ORDERED: HEPARIN SOD 5000 UNITS/ML 1 ML VIAL/SYRINGE SQ SCH (21:00)
[2024-11-01 21:37] LABS: ABG BASE EXCESS -2.5 (-2.0-2.0); ABG HCO3 19.4 MMOL/L (22.0-26.0); ABG O2 SATURATION 98.4 % (95.0-99.0); ABG PARTIAL PRESSURE CO2 25.7 mmHg (35.0-45.0); ABG PARTIAL PRESSURE O2 119.2 mmHg (75.0-100.0); ABG STANDARD HCO3 22.4 MMOL/L. (22.0-26.0); ABG TOTAL CO2 20.2 MMOL/L (22.0-29.0); ABG pH (ARTERIAL) 7.496 UNITS (7.350-7.450)
[2024-11-01] MEDS: cefTRIAXone SOD 2 GM in DEXTROSE 5% (D5W) ADV/MINI-BAG 50 ML IV SCH (23:01)
[2024-11-01] MEDS: HEPARIN SOD 5000 UNITS/ML 1 ML VIAL/SYRINGE SQ SCH (23:02)
[2024-11-01 23:22] VITALS: BP 143/92; TEMP 98.9; O2SAT 95
[2024-11-01] MEDS ORDERED: ISOVUE-370 76% 100 ML VIAL As Ordered ONE (23:24)
[2024-11-02] VITALS (29 sets, daily range): BP systolic 106–195; BP diastolic 57–128; TEMP 98.5–99.1; O2SAT 99–100
[2024-11-02] MEDS: LACTULOSE 20 GM/30 ML SYRUP UDC PR ONE (00:41)
[2024-11-02] MEDS: LACTULOSE 20 GM/30 ML SYRUP UDC PO SCH ×2 (01:57→12:58)
[2024-11-02] MEDS: hydrALAZINE 20 MG/ML 1 ML VIAL IV ONE (03:45)
[2024-11-02] MEDS: ACETAMINOPHEN 325 MG TAB PO ONE (05:23)
[2024-11-02 06:26] LABS: PLATELET COUNT, AUTOMATED 232 10^3/uL (150-450)
[2024-11-02 06:28] LABS: KETONE, URINE AUTO RFX NEGATIVE (NEGATIVE); LEUKOCYTE ESTERASE UR AUTO RFX TRACE (NEGATIVE); MUCUS, URINE RFX SMALL (NEGATIVE); NITRITE, URINE AUTO RFX NEGATIVE (NEGATIVE); RBC, URINE AUTO RFX 1 /HPF (0-3); SQUAM EPITHELIAL CELL UR AURFX 1 /HPF (0-6); WBC, URINE AUTO RFX 39 /HPF (0-3)
[2024-11-02] MEDS: KCL 40MEQ in NS 1000ML 1,000 ML IV SCH (06:30)
[2024-11-02 06:55] LABS: AMPHETAMINES LEVEL URINE NEGATIVE (NEGATIVE); BARBITURATES URINE NEGATIVE (NEGATIVE); BENZODIAZEPINES URINE NEGATIVE (NEGATIVE); CANNABINOIDS URINE NEGATIVE (NEGATIVE); COCAINE METABOLITE URINE NEGATIVE (NEGATIVE); METHADONE URINE NEGATIVE (NEGATIVE); PHENCYCLIDINE URINE NEGATIVE (NEGATIVE)
[2024-11-02 07:02] LABS: ALT/SGPT 45 U/L (7.0-40); AST/SGOT 62 U/L (<34); CALCIUM LEVEL 7.9 MG/DL (8.5-10.1); CARBON DIOXIDE LEVEL 13 MMOL/L (20-31); CHLORIDE LEVEL 112 MMOL/L (98-107); CREATININE FOR GFR 0.67 MG/DL (0.55-1.30); GLOMERULAR FILTRATION RATE > 90.0 (>58); MAGNESIUM LEVEL 2.3 MG/DL (1.8-2.4); POTASSIUM SERUM 3.4 MMOL/L (3.5-5.1); SODIUM LEVEL 146 MMOL/L (136-145)
[2024-11-02 07:02] LABS: OPIATES URINE POSITIVE (NEGATIVE)
[2024-11-02 07:55] LABS: ABG BASE EXCESS -7.6 (-2.0-2.0); ABG HCO3 13.3 MMOL/L (22.0-26.0); ABG O2 SATURATION 98.3 % (95.0-99.0); ABG PARTIAL PRESSURE O2 112.4 mmHg (75.0-100.0); ABG STANDARD HCO3 18.4 MMOL/L. (22.0-26.0); ABG TOTAL CO2 13.8 MMOL/L (22.0-29.0); ABG pH (ARTERIAL) 7.501 UNITS (7.350-7.450)
[2024-11-02 07:57] LABS: ABG PARTIAL PRESSURE CO2 17.4 mmHg (35.0-45.0)
[2024-11-02] MEDS: LR 1,000 ML IV SCH (08:07)
[2024-11-02] MEDS: KCL 20MEQ in NS 1000ML 1,000 ML IV SCH (08:12)
[2024-11-02] MEDS: PIPERACILLIN/TAZOBACTAM SOD 3.375 GM in DEXTROSE 5% (D5W) ADV/MINI-BAG 50 ML IV SCH (08:12)
[2024-11-02] MEDS ORDERED: LEVOTHYROXINE 100 MCG (0.1 MG) 5ML SDV PF (SOLUTION FORM) IV SCH (09:00)
[2024-11-02] MEDS: LEVOTHYROXINE 100 MCG (0.1 MG) 5ML SDV PF (SOLUTION FORM) IV SCH (09:45)
[2024-11-02] MEDS: VANCOMYCIN HCL 1,000 MG, VIAL MATE ADAPTER 1 EACH in NS 250 ML IV ONE (09:46)
[2024-11-02 10:21] LABS: INR 1.57
[2024-11-02 10:41] LABS: CALCIUM LEVEL 7.4 MG/DL (8.5-10.1); CARBON DIOXIDE LEVEL 13 MMOL/L (20-31); CHLORIDE LEVEL 114 MMOL/L (98-107); CREATININE FOR GFR 0.65 MG/DL (0.55-1.30); GLOMERULAR FILTRATION RATE > 90.0 (>58); POTASSIUM SERUM 3.9 MMOL/L (3.5-5.1); SODIUM LEVEL 148 MMOL/L (136-145)
[2024-11-02] MEDS: MORPHINE 2 MG/ML 1 ML VIAL IV STA (10:41)
[2024-11-02] MEDS: METOPROLOL 5 MG/5 ML VIAL IV STA (10:41)
[2024-11-02] MEDS: NS (Normal Saline) 0.9% 1,000 ML IV ONE (10:43)
[2024-11-02] MEDS: MORPHINE 2 MG/ML 1 ML VIAL IV PRN (12:22)
[2024-11-02] MEDS: ACETYLCYSTEINE IV ONE ×3 (12:48→18:08)
[2024-11-02] MEDS: D5W IV ONE ×3 (12:48→18:08)
[2024-11-02] MEDS: METOPROLOL 5 MG/5 ML VIAL IV SCH ×2 (12:58→18:18)
[2024-11-02] MEDS: PANTOPRAZOLE 40MG VIAL IV SCH (12:58)
[2024-11-02] MEDS: hydrALAZINE 20 MG/ML 1 ML VIAL IV SCH (12:59)
[2024-11-02 13:24] LABS: ACETONE/KETONE 0.14 MMOL/L (0.02-0.27)
[2024-11-02] MEDS: METOPROLOL TART 25 MG TABLET PO SCH (14:19)
[2024-11-02] MEDS: MORPHINE 4 MG/ML 1 ML VIAL IV PRN (14:20)
[2024-11-02] MEDS: VANCOMYCIN HCL 1,000 MG, VIAL MATE ADAPTER 1 EACH in NS 250 ML IV SCH (16:28)
[2024-11-02 16:48] LABS: C REACTIVE PROTEIN QUANTITATIV 2.87 MG/DL (<1.0)
[2024-11-02 18:29] LABS: LDH LACTATE DEHYDROGENASE 385 U/L (120-246)
[2024-11-02 18:32] LABS: ALT/SGPT 42 U/L (7.0-40); AST/SGOT 53 U/L (<34); CALCIUM LEVEL 6.9 MG/DL (8.5-10.1); CARBON DIOXIDE LEVEL 18 MMOL/L (20-31); CHLORIDE LEVEL 117 MMOL/L (98-107); CHOLESTEROL LEVEL 144 MG/DL (<200); CPK CREATINE PHOSPHOKINASE 201 U/L (34-145); CREATININE FOR GFR 0.55 MG/DL (0.55-1.30); GLOMERULAR FILTRATION RATE > 90.0 (>58); PHOSPHORUS LEVEL 1.4 MG/DL (2.5-4.9); POTASSIUM SERUM 3.1 MMOL/L (3.5-5.1); SODIUM LEVEL 150 MMOL/L (136-145); TRIGLYCERIDES LEVEL 66 MG/DL (<150)
[2024-11-02] MEDS: K-PHOS NEUTRAL 250 MG TABLET (SOD.PHOSPHATE/POT.PHOSPHATE) PO ONE (20:00)
[2024-11-02] MEDS: KCL 40MEQ IN D5/0.45NS 1000ML 1,000 ML IV SCH (20:27)
[2024-11-03] VITALS (29 sets, daily range): BP systolic 111–189; BP diastolic 58–86; TEMP 96.7–98.9; O2SAT 98–100
[2024-11-03] MEDS: ONDANSETRON 4MG 2ML VIAL IV ONE (02:05)
[2024-11-03 07:15] LABS: PLATELET COUNT, AUTOMATED 166 10^3/uL (150-450)
[2024-11-03 07:43] LABS: C REACTIVE PROTEIN QUANTITATIV 2.94 MG/DL (<1.0); VANCOMYCIN LEVEL TROUGH 13.1 UG/ML (10.0-20.0)
[2024-11-03 07:48] LABS: ALT/SGPT 44 U/L (7.0-40); AST/SGOT 58 U/L (<34); CALCIUM LEVEL 6.6 MG/DL (8.5-10.1); CARBON DIOXIDE LEVEL 20 MMOL/L (20-31); CHLORIDE LEVEL 116 MMOL/L (98-107); CREATININE FOR GFR 0.53 MG/DL (0.55-1.30); GLOMERULAR FILTRATION RATE > 90.0 (>58); MAGNESIUM LEVEL 2.1 MG/DL (1.8-2.4); POTASSIUM SERUM 3.0 MMOL/L (3.5-5.1); SODIUM LEVEL 151 MMOL/L (136-145)
[2024-11-03] MEDS ORDERED: hydrALAZINE 20 MG/ML 1 ML VIAL IV PRN (07:55)
[2024-11-03] MEDS ORDERED: POTASSIUM CHLORIDE 10MEQ SR TABLET PO ONE (09:00)
[2024-11-03] MEDS: PANTOPRAZOLE 40MG VIAL IV SCH (10:15)
[2024-11-03] MEDS: POTASSIUM CHLORIDE 10% LIQ 20MEQ/15ML UDC PO ONE ×2 (11:12→18:01)
[2024-11-03] MEDS: D5W 1,000 ML IV SCH (11:58)
[2024-11-03] MEDS: LACTATED RINGER'S 1000 ML IV ONE ×2 (15:15→16:56)
[2024-11-03] MEDS: NYSTATIN 100,000 UNITS/GM TOPICAL PWD 15 GM TOP SCH (15:18)
[2024-11-03] MEDS: MORPHINE 2 MG/ML 1 ML VIAL IV ONE (16:56)
[2024-11-03 17:15] LABS: ALT/SGPT 47 U/L (7.0-40); AST/SGOT 80 U/L (<34); CALCIUM LEVEL 6.6 MG/DL (8.5-10.1); CARBON DIOXIDE LEVEL 19 MMOL/L (20-31); CHLORIDE LEVEL 116 MMOL/L (98-107); CREATININE FOR GFR 0.58 MG/DL (0.55-1.30); GLOMERULAR FILTRATION RATE > 90.0 (>58); POTASSIUM SERUM 3.4 MMOL/L (3.5-5.1); SODIUM LEVEL 149 MMOL/L (136-145)
[2024-11-03] MEDS ORDERED: LACTULOSE 20 GM/30 ML SYRUP UDC PO SCH (18:00)
[2024-11-04] VITALS (27 sets, daily range): BP systolic 129–174; BP diastolic 62–89; TEMP 97.5–98.5; O2SAT 94–100
[2024-11-04] MEDS: MORPHINE 2 MG/ML 1 ML VIAL IV PRN ×2 (04:11→19:10)
[2024-11-04 07:55] LABS: INR 2.15
[2024-11-04 08:11] LABS: PLATELET COUNT, AUTOMATED 91 10^3/uL (150-450); VANCOMYCIN LEVEL TROUGH 13.4 UG/ML (10.0-20.0)
[2024-11-04 08:16] LABS: ALT/SGPT 45 U/L (7.0-40); AST/SGOT 61 U/L (<34); CALCIUM LEVEL 6.5 MG/DL (8.5-10.1); CARBON DIOXIDE LEVEL 20 MMOL/L (20-31); CHLORIDE LEVEL 115 MMOL/L (98-107); CREATININE FOR GFR 0.48 MG/DL (0.55-1.30); GLOMERULAR FILTRATION RATE > 90.0 (>58); MAGNESIUM LEVEL 2.1 MG/DL (1.8-2.4); POTASSIUM SERUM 2.7 MMOL/L (3.5-5.1); SODIUM LEVEL 148 MMOL/L (136-145)
[2024-11-04] MEDS: POTASSIUM CHLORIDE 10% LIQ 20MEQ/15ML UDC PO ONE ×2 (08:58→13:34)
[2024-11-04] MEDS: LR 1,000 ML IV ONE (08:59)
[2024-11-04] MEDS: KCL 10MEQ/100ML SWI (KRUN) 10 MEQ in IV 1 EA IV SCH (10:13)
[2024-11-04 12:30] LABS: PLATELET COUNT, AUTOMATED 106 10^3/uL (150-450)
[2024-11-04 12:54] LABS: ALT/SGPT 48 U/L (7.0-40); AST/SGOT 66 U/L (<34); CALCIUM LEVEL 6.4 MG/DL (8.5-10.1); CARBON DIOXIDE LEVEL 20 MMOL/L (20-31); CHLORIDE LEVEL 115 MMOL/L (98-107); CREATININE FOR GFR 0.46 MG/DL (0.55-1.30); GLOMERULAR FILTRATION RATE > 90.0 (>58); POTASSIUM SERUM 3.3 MMOL/L (3.5-5.1); SODIUM LEVEL 147 MMOL/L (136-145)
[2024-11-04] MEDS: CALCIUM GLUCONATE 1,000 MG in DEXTROSE 5% (D5W) MINI-BAG PLU 100 ML IV ONE (13:35)
[2024-11-04] MEDS: MORPHINE 2 MG/ML 1 ML VIAL IV ONE (15:00)
[2024-11-05] VITALS (18 sets, daily range): BP systolic 83–158; BP diastolic 51–90; TEMP 97–98.4; O2SAT 97–100
[2024-11-05] MEDS: MORPHINE 2 MG/ML 1 ML VIAL IV PRN (03:16)
[2024-11-05] MEDS: cefTRIAXone SOD 2 GM in DEXTROSE 5% (D5W) ADV/MINI-BAG 50 ML IV SCH (05:56)
[2024-11-05] MEDS ORDERED: LEVOTHYROXINE 125 MCG TABLET (0.125 MG) PO SCH (06:00)
[2024-11-05 06:20] LABS: ALT/SGPT 69 U/L (7.0-40); AST/SGOT 109 U/L (<34); CALCIUM LEVEL 6.6 MG/DL (8.5-10.1); CARBON DIOXIDE LEVEL 20 MMOL/L (20-31); CHLORIDE LEVEL 111 MMOL/L (98-107); CREATININE FOR GFR 0.44 MG/DL (0.55-1.30); GLOMERULAR FILTRATION RATE > 90.0 (>58); MAGNESIUM LEVEL 1.9 MG/DL (1.8-2.4); POTASSIUM SERUM 3.2 MMOL/L (3.5-5.1); SODIUM LEVEL 143 MMOL/L (136-145)
[2024-11-05 06:25] LABS: PLATELET COUNT, AUTOMATED 80 10^3/uL (150-450)
[2024-11-05 06:39] LABS: INR 2.27
[2024-11-05] MEDS: POTASSIUM CHLORIDE 10% LIQ 20MEQ/15ML UDC PO ONE (08:06)
[2024-11-05] MEDS: FLUoxetine 20 MG CAP PO SCH (13:38)
[2024-11-05] MEDS: oxyCODONE 10 MG CR TAB PO SCH (13:39)
[2024-11-05 14:33] LABS: CALCIUM LEVEL 6.6 MG/DL (8.5-10.1); CARBON DIOXIDE LEVEL 18 MMOL/L (20-31); CHLORIDE LEVEL 111 MMOL/L (98-107); CREATININE FOR GFR 0.43 MG/DL (0.55-1.30); GLOMERULAR FILTRATION RATE > 90.0 (>58); POTASSIUM SERUM 3.6 MMOL/L (3.5-5.1); SODIUM LEVEL 143 MMOL/L (136-145)
[2024-11-05] MEDS: LACTATED RINGER'S 1000 ML IV ONE (16:45)
[2024-11-05] MEDS: INSULIN LISPRO (NovoLOG) PER UNIT SC SCH (21:00)
[2024-11-05] MEDS: CALCIUM CARBONATE 500 MG CHEW U/D PO PRN (21:37)
[2024-11-06] VITALS (14 sets, daily range): BP systolic 93–143; BP diastolic 52–71; TEMP 97–98.2; O2SAT 91–100
[2024-11-06] MEDS: LEVOTHYROXINE 125 MCG TABLET (0.125 MG) PO SCH (05:41)
[2024-11-06 05:45] LABS: PLATELET COUNT, AUTOMATED 74 10^3/uL (150-450)
[2024-11-06 06:01] LABS: ALT/SGPT 97 U/L (7.0-40); AST/SGOT 144 U/L (<34); CALCIUM LEVEL 6.4 MG/DL (8.5-10.1); CARBON DIOXIDE LEVEL 21 MMOL/L (20-31); CHLORIDE LEVEL 112 MMOL/L (98-107); CREATININE FOR GFR 0.54 MG/DL (0.55-1.30); GLOMERULAR FILTRATION RATE > 90.0 (>58); MAGNESIUM LEVEL 1.9 MG/DL (1.8-2.4); POTASSIUM SERUM 3.3 MMOL/L (3.5-5.1); SODIUM LEVEL 142 MMOL/L (136-145)
[2024-11-06] MEDS: INSULIN LISPRO (NovoLOG) PER UNIT SC SCH (07:30)
[2024-11-06] MEDS: POTASSIUM CHLORIDE 10MEQ SR TABLET PO ONE (07:35)
[2024-11-06] MEDS: CALCIUM GLUCONATE 1,000 MG in DEXTROSE 5% (D5W) MINI-BAG PLU 100 ML IV ONE (07:35)
[2024-11-06 09:24] LABS: IRON (FE) 22 UG/DL (50-170); PERCENT SATURATION 13.3 % (13.2-45.0)
[2024-11-06] MEDS: GABAPENTIN 100 MG CAP PO SCH (09:58)
[2024-11-06] MEDS: FERRIC CARBOXYMALTOSE INJ 750 MG, VIAL MATE ADAPTER 1 EACH in NS 100 ML IV ONE (14:40)
[2024-11-07] VITALS (11 sets, daily range): BP systolic 122–151; BP diastolic 63–87; TEMP 97.1–98.1; O2SAT 96–99
[2024-11-07 06:14] LABS: PLATELET COUNT, AUTOMATED 78 10^3/uL (150-450)
[2024-11-07 06:39] LABS: ALT/SGPT 105 U/L (7.0-40); AST/SGOT 99 U/L (<34); CALCIUM LEVEL 6.9 MG/DL (8.5-10.1); CARBON DIOXIDE LEVEL 22 MMOL/L (20-31); CHLORIDE LEVEL 109 MMOL/L (98-107); CREATININE FOR GFR 0.53 MG/DL (0.55-1.30); GLOMERULAR FILTRATION RATE > 90.0 (>58); MAGNESIUM LEVEL 2.0 MG/DL (1.8-2.4); POTASSIUM SERUM 3.2 MMOL/L (3.5-5.1); SODIUM LEVEL 141 MMOL/L (136-145)
[2024-11-07] MEDS: POTASSIUM CHLORIDE 10MEQ SR TABLET PO ONE (08:41)
[2024-11-07] MEDS: OMEPRAZOLE 20MG CAP PO SCH (08:41)
[2024-11-07] MEDS: LACTULOSE 20 GM/30 ML SYRUP UDC PO SCH ×2 (09:00→11:52)
[2024-11-07] MEDS: FUROSEMIDE 20 MG TAB PO SCH (11:50)
[2024-11-07] MEDS: SPIRONOLACTONE 50 MG TAB PO SCH (11:50)
[2024-11-07] MEDS ORDERED: PILL CUTTER 1 EACH XX ONE (21:27)
[2024-11-07] MEDS: CETIRIZINE 10 MG TAB PO SCH (21:29)
[2024-11-08 04:18] VITALS: BP 123/65; TEMP 97.9; O2SAT 97
[2024-11-08 05:10] VITALS: O2SAT 95
[2024-11-08 06:25] LABS: BASO # 0.0 10^3/uL (0.0-0.2); BASO % 0.4 % (0.0-1.0); EOS # 0.1 10^3/uL (0.0-0.5); EOS % 1.3 % (0.0-3.0); LYMPH # 1.5 10^3/uL (1.5-5.0); LYMPH % 22.0 % (24.0-44.0); MONO # 0.7 10^3/uL (0.0-0.8); MONO % 10.0 % (2.0-8.0); NEUTROPHILS # 4.5 10^3/uL (1.5-8.5); NEUTROPHILS % 64.9 % (36.0-66.0)
[2024-11-08 06:39] LABS: PLATELET COUNT, AUTOMATED 90 10^3/uL (150-450)
[2024-11-08 06:49] LABS: CALCIUM LEVEL 7.1 MG/DL (8.5-10.1); CARBON DIOXIDE LEVEL 23 MMOL/L (20-31); CHLORIDE LEVEL 107 MMOL/L (98-107); CREATININE FOR GFR 0.50 MG/DL (0.55-1.30); GLOMERULAR FILTRATION RATE > 90.0 (>58); POTASSIUM SERUM 3.2 MMOL/L (3.5-5.1); SODIUM LEVEL 142 MMOL/L (136-145)
[2024-11-08] MEDS ORDERED: POTASSIUM CHLORIDE 10MEQ SR TABLET PO ONE (07:35)
[2024-11-08] MEDS: POTASSIUM CHLORIDE 10MEQ SR TABLET PO ONE (08:01)
[2024-11-08] MEDS: KCL 10MEQ/100ML SWI (KRUN) 10 MEQ in IV 1 EA IV SCH (08:01)
[2024-11-08 08:04] VITALS: BP 122/67
[2024-11-08 09:08] VITALS: BP 127/73; TEMP 98.1; O2SAT 96
[2024-11-08] MEDS ORDERED: XIFA550T PO (10:30)
[2024-11-08] MEDS ORDERED: POTA10CA70 PO (10:30)
[2024-11-08] MEDS ORDERED: POTA-151 PO (10:50)
[2024-11-08] MEDS ORDERED: POTA-298 PO (13:05)
== END 2024-11-08 14:18 | disposition home health service (06) | DRG 432 ==
LOC: M ED 12:06 → M ED INP 17:38 → M PCU 20:42 → M ICU 11-02 08:30 → M MSPAV 11-07 14:23
PROVIDERS: ADMIT Internal Medicine; ATTEND Internal Medicine
PROC: 30233J1 Transfusion of Nonautologous Serum Albumin into Peripheral Vein, Percutaneous Approach (ICD-10-PCS; 2024-11-03)
PROC: 0W9G3ZZ Drainage of Peritoneal Cavity, Percutaneous Approach (ICD-10-PCS; principal; 2024-11-07 12:00)
DX: K74.60 Unspecified cirrhosis of liver (principal); G93.41 Metabolic encephalopathy; A41.9 Sepsis, unspecified organism; K65.2 Spontaneous bacterial peritonitis; K76.6 Portal hypertension; E87.20 Acidosis, unspecified; E87.0 Hyperosmolality and hypernatremia; R18.8 Other ascites; E11.42 Type 2 diabetes mellitus with diabetic polyneuropathy; D50.9 Iron deficiency anemia, unspecified; D69.6 Thrombocytopenia, unspecified; M32.9 Systemic lupus erythematosus, unspecified; M06.9 Rheumatoid arthritis, unspecified; M79.7 Fibromyalgia; M35.00 Sjogren syndrome, unspecified; F41.9 Anxiety disorder, unspecified; E83.51 Hypocalcemia; I10 Essential (primary) hypertension; K72.90 Hepatic failure, unspecified without coma; K21.9 Gastro-esophageal reflux disease without esophagitis; E86.0 Dehydration; R00.0 Tachycardia, unspecified; K76.82 Hepatic encephalopathy; M81.0 Age-related osteoporosis without current pathological fracture; R74.02 Elevation of levels of lactic acid dehydrogenase [LDH]; E87.6 Hypokalemia; E03.9 Hypothyroidism, unspecified; G89.29 Other chronic pain; G47.33 Obstructive sleep apnea (adult) (pediatric); Z79.890 Hormone replacement therapy; Z79.899 Other long term (current) drug therapy; Z90.49 Acquired absence of other specified parts of digestive tract; Z88.6 Allergy status to analgesic agent; Z90.79 Acquired absence of other genital organ(s); Z88.8 Allergy status to other drugs, medicaments and biological substances; Z98.84 Bariatric surgery status

== ENCOUNTER → 2024-11-12 | Outpatient (POV) | payer MEDICARE, MEDICAID ==
[~2024-11-12] VITALS: Ht 177.8 cm; Wt 104.5 kg
[~2024-11-12] MED LIST changes: +FLUO60TA; +LACT10SO94; +POTA-151 PO; +POTA-298 PO; +POTA10CA70 PO; +REXU1TAB4; +XIFA550T PO
[2024-11-12 09:40] VITALS: BP 90/68; O2SAT 99
== END ==
LOC: M IRPOV 09:23
PROVIDERS: ATTEND Registered Nurse School
DX: T81.89XA Other complications of procedures, not elsewhere classified, initial encounter (principal); X58.XXXA Exposure to other specified factors, initial encounter; Z88.1 Allergy status to other antibiotic agents; Z88.6 Allergy status to analgesic agent; Z88.8 Allergy status to other drugs, medicaments and biological substances

== ENCOUNTER → 2024-11-16 | Outpatient (CLI) | payer MEDICARE, MEDICAID ==
[~2024-11-16] MED LIST changes: +ACETAMINOPHEN 325 MG TAB PO PRN
[2024-11-16 10:00] VITALS: TEMP 98
[2024-11-16 11:45] VITALS: BP 108/55; O2SAT 100
== END ==
LOC: M IRPRO 09:49
PROVIDERS: ATTEND Student in an Organized Health Care Education/Training Program
DX: R18.8 Other ascites (principal); K74.69 Other cirrhosis of liver
CPT/HCPCS: 49083; 99496; G0463

== ENCOUNTER → 2024-11-16 | Outpatient (REF) | payer MEDICARE ==
[~2024-11-16] MED LIST changes: -ACETAMINOPHEN 325 MG TAB PO PRN
== END ==
LOC: M SFHCPLAZ 14:05
PROVIDERS: ATTEND Family Medicine
DX: Z53.9 Procedure and treatment not carried out, unspecified reason (principal)

== ENCOUNTER → 2024-11-20 | Outpatient (CLI) | payer MEDICARE ==
[2024-11-20 09:17] LABS: BASO # 0.1 10^3/uL (0.0-0.2); BASO % 1.0 % (0.0-1.0); EOS # 0.1 10^3/uL (0.0-0.5); EOS % 1.8 % (0.0-3.0); LYMPH # 1.9 10^3/uL (1.5-5.0); LYMPH % 27.0 % (24.0-44.0); MONO # 0.6 10^3/uL (0.0-0.8); MONO % 8.3 % (2.0-8.0); NEUTROPHILS # 4.2 10^3/uL (1.5-8.5); NEUTROPHILS % 61.5 % (36.0-66.0)
[2024-11-20 09:56] LABS: ALT/SGPT 71.0 U/L (7.0-40); AST/SGOT 97.0 U/L (<34); CALCIUM LEVEL 8.1 MG/DL (8.5-10.1); CARBON DIOXIDE LEVEL 23.0 MMOL/L (20-31); CHLORIDE LEVEL 101.0 MMOL/L (98-107); CREATININE FOR GFR 0.97 MG/DL (0.55-1.30); GLOMERULAR FILTRATION RATE 73.9 (>58); POTASSIUM SERUM 4.9 MMOL/L (3.5-5.1); SODIUM LEVEL 133.0 MMOL/L (136-145)
[2024-11-20 10:15] LABS: CREATININE, URINE 171.7 MG/DL; ESTIMATED AVERAGE GLUCOSE 77.0 MG/DL (60-110); MALB URINE SIEMENS 4.0 MG/L; MAU/CREAT RATIO 2.3 MCG/MG (0.0-30.0)
== END ==
LOC: M LAB 07:28 → M PLALAB 07:28
DX: K76.82 Hepatic encephalopathy (principal); K72.10 Chronic hepatic failure without coma; E11.8 Type 2 diabetes mellitus with unspecified complications; E89.0 Postprocedural hypothyroidism

== ENCOUNTER → 2024-11-22 | Outpatient (CLI) | payer MEDICARE, MEDICAID ==
[2024-11-22 09:07] VITALS: TEMP 97.3
[2024-11-22 09:37] VITALS: BP 106/45; O2SAT 100
== END ==
LOC: M IRPRO 08:54
PROVIDERS: ATTEND Student in an Organized Health Care Education/Training Program
DX: K74.60 Unspecified cirrhosis of liver (principal)

== ENCOUNTER → 2024-11-23 | Outpatient (REF) | payer MEDICARE | LOC: M SFHCPLAZ 14:01 | PROVIDERS: ATTEND Family Medicine | DX: Z53.9 Procedure and treatment not carried out, unspecified reason (principal) ==

== ENCOUNTER → 2024-11-23 | Outpatient (CLI) | payer MEDICARE ==
[2024-11-23 16:00] LABS: BASO # 0.1 10^3/uL (0.0-0.2); BASO % 0.6 % (0.0-1.0); EOS # 0.0 10^3/uL (0.0-0.5); EOS % 0.3 % (0.0-3.0); LYMPH # 1.7 10^3/uL (1.5-5.0); LYMPH % 16.0 % (24.0-44.0); MONO # 1.0 10^3/uL (0.0-0.8); MONO % 9.0 % (2.0-8.0); NEUTROPHILS # 8.0 10^3/uL (1.5-8.5); NEUTROPHILS % 73.7 % (36.0-66.0); PLATELET COUNT, AUTOMATED 154 10^3/uL (150-450)
[2024-11-23 16:10] LABS: INR 1.25
[2024-11-23 16:28] LABS: ALT/SGPT 91.0 U/L (7.0-40); AST/SGOT 122.0 U/L (<34); CALCIUM LEVEL 7.9 MG/DL (8.5-10.1); CARBON DIOXIDE LEVEL 20.0 MMOL/L (20-31); CHLORIDE LEVEL 105.0 MMOL/L (98-107); CHOLESTEROL LEVEL 150.0 MG/DL (<200); CHOLESTEROL RISK RATIO 6.41 (<5); CREATININE FOR GFR 0.88 MG/DL (0.55-1.30); GLOMERULAR FILTRATION RATE 83.1 (>58); LDL CHOLESTEROL 109.8 MG/DL (<100); NON-HDL-C 126.6 MG/DL; POTASSIUM SERUM 4.2 MMOL/L (3.5-5.1); SODIUM LEVEL 134.0 MMOL/L (136-145); TRIGLYCERIDES LEVEL 84.0 MG/DL (<150)
== END ==
LOC: M LAB 14:54
DX: K72.10 Chronic hepatic failure without coma (principal); Z79.899 Other long term (current) drug therapy

== ENCOUNTER → 2024-12-03 | Outpatient (CLI) | payer MEDICARE ==
[2024-12-03 09:54] VITALS: TEMP 98.1
[2024-12-03 10:55] VITALS: BP 97/58; O2SAT 96
== END ==
LOC: M IRPRO 09:45
PROVIDERS: ATTEND Student in an Organized Health Care Education/Training Program
DX: K74.69 Other cirrhosis of liver (principal)

== ENCOUNTER → 2024-12-04 | Outpatient (CLI) | payer MEDICARE, MEDICAID ==
[~2024-12-04] MED LIST changes: +CARV6.25 PO; -FLUO60TA; +FLUO60TA PO; +INSU100V7 SQ; -LACT10SO94; +LACT10SO94 PO; +MIDO10TA3 PO; +OMEP40CA4 PO; -REXU1TAB4; +REXU1TAB4 PO; +TRES100I SC; +TUMS500C PO
[2024-12-04 09:15] LABS: BASO # 0.1 10^3/uL (0.0-0.2); BASO % 1.2 % (0.0-1.0); EOS # 0.1 10^3/uL (0.0-0.5); EOS % 2.1 % (0.0-3.0); LYMPH # 1.7 10^3/uL (1.5-5.0); LYMPH % 33.1 % (24.0-44.0); MONO # 0.5 10^3/uL (0.0-0.8); MONO % 10.3 % (2.0-8.0); NEUTROPHILS # 2.7 10^3/uL (1.5-8.5); NEUTROPHILS % 53.1 % (36.0-66.0); PLATELET COUNT, AUTOMATED 114 10^3/uL (150-450)
[2024-12-04 09:28] LABS: INR 1.3
[2024-12-04 09:45] LABS: ALT/SGPT 71.0 U/L (7.0-40); AST/SGOT 89.0 U/L (<34); CALCIUM LEVEL 7.8 MG/DL (8.5-10.1); CARBON DIOXIDE LEVEL 22.0 MMOL/L (20-31); CHLORIDE LEVEL 105.0 MMOL/L (98-107); CHOLESTEROL LEVEL 140.0 MG/DL (<200); CHOLESTEROL RISK RATIO 5.36 (<5); CREATININE FOR GFR 0.9 MG/DL (0.55-1.30); GLOMERULAR FILTRATION RATE 80.3 (>58); LDL CHOLESTEROL 97.7 MG/DL (<100); NON-HDL-C 113.9 MG/DL; POTASSIUM SERUM 3.9 MMOL/L (3.5-5.1); SODIUM LEVEL 136.0 MMOL/L (136-145); TRIGLYCERIDES LEVEL 81.0 MG/DL (<150)
== END ==
LOC: M LAB 08:01
DX: K72.10 Chronic hepatic failure without coma (principal); Z79.899 Other long term (current) drug therapy

== ENCOUNTER 2024-12-05 10:48 | Emergency (ER) | payer MEDICARE, MEDICAID ==
[~2024-12-05] VITALS: Ht 175.3 cm; Wt 97.7 kg
[~2024-12-05 10:48] MED LIST changes: -CARV6.25 PO; -INSU100V7 SQ; -MIDO10TA3 PO; -OMEP40CA4 PO; -TRES100I SC; -TUMS500C PO
[2024-12-05 10:51] VITALS: TEMP 97.8
[2024-12-05] MEDS ORDERED: CARV6.25 PO (11:12)
[2024-12-05] MEDS ORDERED: MIDO10TA3 PO (11:12)
[2024-12-05] MEDS ORDERED: INSU100V7 SQ (11:12)
[2024-12-05] MEDS ORDERED: TRES100I SC (11:12)
[2024-12-05 11:57] LABS: VENOUS BASE EXCESS -2.6 (-2.0-2.0); VENOUS HCO3 22.3 MMOL/L (23.0-27.0); VENOUS O2 SATURATION 61.7 % (60.0-80.0); VENOUS PARTIAL PRESSURE CO2 39.0 mmHg (38.0-50.0); VENOUS PARTIAL PRESSURE O2 34.5 mmHg (30.0-50.0); VENOUS PH 7.375 UNITS (7.330-7.430); VENOUS STANDARD HCO3 21.6 MMOL/L; VENOUS TOTAL CO2 23.5 MMOL/L (24.0-28.0)
[2024-12-05 12:01] LABS: BASO # 0.1 10^3/uL (0.0-0.2); BASO % 1.0 % (0.0-1.0); EOS # 0.1 10^3/uL (0.0-0.5); EOS % 2.2 % (0.0-3.0); LYMPH # 1.6 10^3/uL (1.5-5.0); LYMPH % 32.9 % (24.0-44.0); MONO # 0.5 10^3/uL (0.0-0.8); MONO % 9.5 % (2.0-8.0); NEUTROPHILS # 2.7 10^3/uL (1.5-8.5); NEUTROPHILS % 54.2 % (36.0-66.0); PLATELET COUNT, AUTOMATED 103 10^3/uL (150-450)
[2024-12-05] MEDS: NS (Normal Saline) 0.9% 1,000 ML IV ONE ×2 (12:15→13:20)
[2024-12-05 12:36] LABS: ETHYL ALCOHOL (ETHANOL) 0.004 % (0.000-0.010)
[2024-12-05 12:42] LABS: ALT/SGPT 75.0 U/L (7.0-40); AST/SGOT 100.0 U/L (<34); CALCIUM LEVEL 7.6 MG/DL (8.5-10.1); CARBON DIOXIDE LEVEL 23.0 MMOL/L (20-31); CHLORIDE LEVEL 105.0 MMOL/L (98-107); CREATININE FOR GFR 1.03 MG/DL (0.55-1.30); GLOMERULAR FILTRATION RATE 68.3 (>58); OSMOLALITY SERUM 287.0 MOSM/KG (275-295); POTASSIUM SERUM 3.7 MMOL/L (3.5-5.1); SODIUM LEVEL 138.0 MMOL/L (136-145)
[2024-12-05 13:06] LABS: AMPHETAMINES LEVEL URINE NEGATIVE (NEGATIVE); BARBITURATES URINE NEGATIVE (NEGATIVE); BENZODIAZEPINES URINE NEGATIVE (NEGATIVE); COCAINE METABOLITE URINE NEGATIVE (NEGATIVE)
[2024-12-05 13:07] LABS: CANNABINOIDS URINE NEGATIVE (NEGATIVE); METHADONE URINE NEGATIVE (NEGATIVE); PHENCYCLIDINE URINE NEGATIVE (NEGATIVE)
[2024-12-05 13:08] LABS: OPIATES URINE POSITIVE (NEGATIVE)
[2024-12-05 14:42] LABS: KETONE, URINE AUTO RFX NEGATIVE (NEGATIVE); MUCUS, URINE RFX SMALL (NEGATIVE); NITRITE, URINE AUTO RFX NEGATIVE (NEGATIVE); RBC, URINE AUTO RFX 3 /HPF (0-3); SQUAM EPITHELIAL CELL UR AURFX 7 /HPF (0-6)
[2024-12-05 14:43] LABS: LEUKOCYTE ESTERASE UR AUTO RFX 2+ (NEGATIVE); WBC, URINE AUTO RFX 68 /HPF (0-3)
[2024-12-05] MEDS ORDERED: CYAN100017 INJ (15:20)
[2024-12-05] MEDS ORDERED: OMEP40CA4 PO (15:20)
[2024-12-05] MEDS ORDERED: XIFA550T PO (15:20)
[2024-12-05] MEDS ORDERED: TUMS500C PO (15:20)
[2024-12-05] MEDS ORDERED: SPIR50TA4 PO (15:20)
[2024-12-05] MEDS ORDERED: POTA-298 PO (15:20)
[2024-12-05] MEDS ORDERED: FURO20TA2 PO (15:20)
[2024-12-05] MEDS: LACTULOSE 20 GM/30 ML SYRUP UDC PO ONE (15:23)
[2024-12-05] MEDS: cefTRIAXone SOD 1 GM in DEXTROSE 5% (D5W) ADV/MINI-BAG 50 ML IV ONE (15:24)
[2024-12-05] MEDS ORDERED: HOME MED LIST COMPLETE! XX SCH (15:25)
[2024-12-05 16:00] VITALS: BP 118/58
[2024-12-05 16:03] VITALS: O2SAT 99
== END 2024-12-05 16:49 | disposition home or self-care (01) ==
LOC: M ED 10:48
DX: N30.00 Acute cystitis without hematuria (principal); E86.0 Dehydration; K75.81 Nonalcoholic steatohepatitis (NASH); K21.9 Gastro-esophageal reflux disease without esophagitis; G43.909 Migraine, unspecified, not intractable, without status migrainosus; F41.9 Anxiety disorder, unspecified; F32.A Depression, unspecified; Z79.899 Other long term (current) drug therapy; Z88.6 Allergy status to analgesic agent; Z88.1 Allergy status to other antibiotic agents; Z88.8 Allergy status to other drugs, medicaments and biological substances
CPT/HCPCS: 51702; 70450; 80048; 80076; 80307; 81001; 82077; 82140; 82803; 83605; 83930; 84443; 85025; 87088; 87186; 93005; 96361; 96365; 99285; J0696

== ENCOUNTER → 2024-12-10 | Outpatient (CLI) | payer MEDICARE ==
[~2024-12-10] MED LIST changes: +CARV6.25 PO; +INSU100V7 SQ; +MIDO10TA3 PO; +OMEP40CA4 PO; +TRES100I SC; +TUMS500C PO
[2024-12-10 10:46] VITALS: TEMP 98
[2024-12-10 11:35] VITALS: BP 114/74; O2SAT 99
== END ==
LOC: M IRPRO 10:36
PROVIDERS: ATTEND Student in an Organized Health Care Education/Training Program
DX: R18.8 Other ascites (principal); K74.60 Unspecified cirrhosis of liver

== ENCOUNTER → 2024-12-17 | Outpatient (CLI) | payer MEDICARE ==
[2024-12-17 09:03] VITALS: TEMP 98
[2024-12-17 10:03] VITALS: BP 114/68; O2SAT 99
== END ==
LOC: M IRPRO 08:46
PROVIDERS: ATTEND Student in an Organized Health Care Education/Training Program
DX: R18.8 Other ascites (principal); K74.60 Unspecified cirrhosis of liver

== ENCOUNTER 2024-12-22 13:38 | Inpatient (IN) | payer MEDICARE, MEDICAID ==
[~2024-12-22] VITALS: Ht 177.8 cm; Wt 103.4 kg
[2024-12-22 14:47] LABS: BASO # 0.1 10^3/uL (0.0-0.2); BASO % 0.2 % (0.0-1.0); EOS # 0.2 10^3/uL (0.0-0.5); EOS % 1.0 % (0.0-3.0); LYMPH # 1.1 10^3/uL (1.5-5.0); LYMPH % 4.7 % (24.0-44.0); MONO # 1.2 10^3/uL (0.0-0.8); MONO % 5.5 % (2.0-8.0); NEUTROPHILS # 19.9 10^3/uL (1.5-8.5); NEUTROPHILS % 88.2 % (36.0-66.0); PLATELET COUNT, AUTOMATED 265 10^3/uL (150-450)
[2024-12-22] MEDS: NS (Normal Saline) 0.9% 1,000 ML IV ONE (15:00)
[2024-12-22 15:08] LABS: ETHYL ALCOHOL (ETHANOL) < 0.003 % (0.000-0.010)
[2024-12-22 15:10] LABS: SALICYLATE LEVEL 6.3 MG/DL (<30)
[2024-12-22 15:16] LABS: ALT/SGPT 90 U/L (7.0-40); AST/SGOT 101 U/L (<34); CALCIUM LEVEL 8.0 MG/DL (8.5-10.1); CARBON DIOXIDE LEVEL 17 MMOL/L (20-31); CHLORIDE LEVEL 96 MMOL/L (98-107); CREATININE FOR GFR 1.40 MG/DL (0.55-1.30); GLOMERULAR FILTRATION RATE 47.3 (>58); POTASSIUM SERUM 4.9 MMOL/L (3.5-5.1); SODIUM LEVEL 128 MMOL/L (136-145)
[2024-12-22 15:19] LABS: VENOUS BASE EXCESS -5.4 (-2.0-2.0); VENOUS HCO3 17.8 MMOL/L (23.0-27.0); VENOUS O2 SATURATION 81.9 % (60.0-80.0); VENOUS PARTIAL PRESSURE CO2 29.0 mmHg (38.0-50.0); VENOUS PARTIAL PRESSURE O2 46.8 mmHg (30.0-50.0); VENOUS PH 7.407 UNITS (7.330-7.430); VENOUS STANDARD HCO3 19.7 MMOL/L; VENOUS TOTAL CO2 18.7 MMOL/L (24.0-28.0)
[2024-12-22 15:39] LABS: OSMOLALITY SERUM 285 MOSM/KG (275-295)
[2024-12-22] MEDS: PIPERACILLIN/TAZOBACTAM SOD 4.5 GM in DEXTROSE 5% (D5W) ADV/MINI-BAG 50 ML IV ONE (16:40)
[2024-12-22 16:41] LABS: KETONE, URINE AUTO RFX NEGATIVE (NEGATIVE); LEUKOCYTE ESTERASE UR AUTO RFX TRACE (NEGATIVE); MUCUS, URINE RFX SMALL (NEGATIVE); NITRITE, URINE AUTO RFX NEGATIVE (NEGATIVE); RBC, URINE AUTO RFX 1 /HPF (0-3); SQUAM EPITHELIAL CELL UR AURFX 3 /HPF (0-6); WBC, URINE AUTO RFX 16 /HPF (0-3)
[2024-12-22 16:42] LABS: INR 1.28
[2024-12-22] MEDS: SODIUM CHLORIDE 0.9% 1000 ML IV STA (16:50)
[2024-12-22 17:08] LABS: AMPHETAMINES LEVEL URINE NEGATIVE (NEGATIVE); BARBITURATES URINE NEGATIVE (NEGATIVE); BENZODIAZEPINES URINE NEGATIVE (NEGATIVE); CANNABINOIDS URINE NEGATIVE (NEGATIVE); COCAINE METABOLITE URINE NEGATIVE (NEGATIVE); METHADONE URINE NEGATIVE (NEGATIVE); PHENCYCLIDINE URINE NEGATIVE (NEGATIVE)
[2024-12-22] MEDS ORDERED: ISOVUE-370 76% 100 ML VIAL As Ordered ONE (17:10)
[2024-12-22 17:14] LABS: OPIATES URINE POSITIVE (NEGATIVE)
[2024-12-22] MEDS: VANCOMYCIN HCL 1,000 MG, VIAL MATE ADAPTER 1 EACH in NS 250 ML IV ONE (18:26)
[2024-12-22] MEDS: ONDANSETRON 4MG/2ML VIAL IV ONE (19:24)
[2024-12-22] MEDS ORDERED: MOM 30 ML SUSPENSION UDC PO PRN (20:05)
[2024-12-22 20:39] LABS: APPEARANCE, BODY FLUID HAZY (CLEAR); PERITONEAL FL COLOR YELLOW (COLORLESS); SOURCE, BODY FLUID PERITONEAL
[2024-12-22] MEDS: INSULIN LISPRO (NovoLOG) PER UNIT SC SCH (21:00)
[2024-12-22] MEDS: cefTRIAXone SOD 2 GM in DEXTROSE 5% (D5W) ADV/MINI-BAG 50 ML IV ONE (22:32)
[2024-12-22] MEDS ORDERED: GLUCAGON INJ 1 MG VIAL SC PRN (22:45)
[2024-12-22] MEDS ORDERED: DEXTROSE 50% 50 ML SYRINGE IV PRN (22:45)
[2024-12-22] MEDS ORDERED: GLUCOSE 4 GM CHEW PO PRN (22:45)
[2024-12-23] VITALS (15 sets, daily range): BP systolic 66–136; BP diastolic 38–80; TEMP 96–100.7; O2SAT 92–100
[2024-12-23] MEDS ORDERED: DICL100G10 TOP (00:16)
[2024-12-23] MEDS ORDERED: HOME MED LIST COMPLETE! XX SCH (00:20)
[2024-12-23] MEDS ORDERED: LACTULOSE 20 GM/30 ML SYRUP UDC PO PRN (02:11)
[2024-12-23] MEDS: ONDANSETRON 4MG TAB PO ONE (03:21)
[2024-12-23 06:26] LABS: PLATELET COUNT, AUTOMATED 105 10^3/uL (150-450)
[2024-12-23 06:50] LABS: ALT/SGPT 56.0 U/L (7.0-40); AST/SGOT 66.0 U/L (<34); CALCIUM LEVEL 6.2 MG/DL (8.5-10.1); CARBON DIOXIDE LEVEL 21.0 MMOL/L (20-31); CHLORIDE LEVEL 103.0 MMOL/L (98-107); CREATININE FOR GFR 1.23 MG/DL (0.55-1.30); GLOMERULAR FILTRATION RATE 55.2 (>58); MAGNESIUM LEVEL 2.0 MG/DL (1.8-2.4); POTASSIUM SERUM 4.3 MMOL/L (3.5-5.1); SODIUM LEVEL 131.0 MMOL/L (136-145)
[2024-12-23] MEDS: INSULIN LISPRO (NovoLOG) PER UNIT SC SCH (07:30)
[2024-12-23] MEDS ORDERED: SPIRONOLACTONE 50 MG TAB PO SCH (09:00)
[2024-12-23] MEDS ORDERED: FUROSEMIDE 20 MG TAB PO SCH (09:00)
[2024-12-23] MEDS: FLUoxetine 20 MG CAP PO SCH (09:16)
[2024-12-23] MEDS: POTASSIUM CHLORIDE 10MEQ SR TABLET PO SCH (09:17)
[2024-12-23] MEDS: ACETAMINOPHEN 325 MG TAB PO PRN (09:18)
[2024-12-23] MEDS: GABAPENTIN 300 MG CAP PO PRN (09:18)
[2024-12-23] MEDS: OMEPRAZOLE 20MG CAP PO SCH (09:19)
[2024-12-23] MEDS: cefTRIAXone SOD 2 GM in DEXTROSE 5% (D5W) ADV/MINI-BAG 50 ML IV SCH (09:19)
[2024-12-23] MEDS: LACTULOSE 20 GM/30 ML SYRUP UDC PO SCH (10:37)
[2024-12-23] MEDS: ENOXAPARIN 40 MG/0.4 ML SYRINGE (J1650 PER 10MG) SC SCH (10:38)
[2024-12-23] MEDS: ONDANSETRON 4MG/2ML VIAL IV PRN (10:38)
[2024-12-23] MEDS: LEVOTHYROXINE 125 MCG TABLET (0.125 MG) PO SCH (11:03)
[2024-12-23] MEDS: NS 500 ML IV ONE (11:46)
[2024-12-23] MEDS: MIDODRINE 5 MG TAB PO SCH (12:09)
[2024-12-24] VITALS (10 sets, daily range): BP systolic 98–107; BP diastolic 54–66; TEMP 97–97.7; O2SAT 97–100
[2024-12-24 06:22] LABS: BASO # 0.0 10^3/uL (0.0-0.2); BASO % 0.3 % (0.0-1.0); EOS # 0.1 10^3/uL (0.0-0.5); EOS % 1.0 % (0.0-3.0); LYMPH # 2.2 10^3/uL (1.5-5.0); LYMPH % 30.6 % (24.0-44.0); MONO # 0.7 10^3/uL (0.0-0.8); MONO % 9.9 % (2.0-8.0); NEUTROPHILS # 4.1 10^3/uL (1.5-8.5); NEUTROPHILS % 57.9 % (36.0-66.0)
[2024-12-24 06:26] LABS: PLATELET COUNT, AUTOMATED 90 10^3/uL (150-450)
[2024-12-24 06:48] LABS: ALT/SGPT 50.0 U/L (7.0-40); AST/SGOT 53.0 U/L (<34); CALCIUM LEVEL 6.4 MG/DL (8.5-10.1); CARBON DIOXIDE LEVEL 19.0 MMOL/L (20-31); CHLORIDE LEVEL 105.0 MMOL/L (98-107); CREATININE FOR GFR 1.22 MG/DL (0.55-1.30); GLOMERULAR FILTRATION RATE 55.8 (>58); POTASSIUM SERUM 3.7 MMOL/L (3.5-5.1); SODIUM LEVEL 134.0 MMOL/L (136-145)
[2024-12-24] MEDS: CEFEPIME HCL 2 GM in DEXTROSE 5% (D5W) ADV/MINI-BAG 50 ML IV SCH (10:22)
[2024-12-24] MEDS: SCOPOLAMINE 1MG TRANSDERMAL PATCH TOP SCH (10:22)
[2024-12-24] MEDS: FLUZONE VACCINE TRI PF(25-26) 0.5ML SYRINGE IM.IMMUN ONE (10:25)
[2024-12-24] MEDS: SODIUM BICARBONATE 325 MG TAB PO SCH (11:07)
[2024-12-24] MEDS: CALCIUM CARBONATE 500 MG CHEW U/D PO PRN (18:41)
[2024-12-25 04:03] VITALS: BP 108/60; TEMP 97.2; O2SAT 97
[2024-12-25 05:57] LABS: BASO # 0.0 10^3/uL (0.0-0.2); BASO % 0.4 % (0.0-1.0); EOS # 0.1 10^3/uL (0.0-0.5); EOS % 1.0 % (0.0-3.0); LYMPH # 2.5 10^3/uL (1.5-5.0); LYMPH % 21.8 % (24.0-44.0); MONO # 1.3 10^3/uL (0.0-0.8); MONO % 11.4 % (2.0-8.0); NEUTROPHILS # 7.3 10^3/uL (1.5-8.5); NEUTROPHILS % 64.8 % (36.0-66.0); PLATELET COUNT, AUTOMATED 134 10^3/uL (150-450)
[2024-12-25 06:26] LABS: ALT/SGPT 51.0 U/L (7.0-40); AST/SGOT 50.0 U/L (<34); CALCIUM LEVEL 7.8 MG/DL (8.5-10.1); CARBON DIOXIDE LEVEL 20.0 MMOL/L (20-31); CHLORIDE LEVEL 108.0 MMOL/L (98-107); CREATININE FOR GFR 0.87 MG/DL (0.55-1.30); GLOMERULAR FILTRATION RATE 83.7 (>58); MAGNESIUM LEVEL 2.4 MG/DL (1.8-2.4); POTASSIUM SERUM 3.8 MMOL/L (3.5-5.1); SODIUM LEVEL 139.0 MMOL/L (136-145)
[2024-12-25 07:42] VITALS: BP 119/58; TEMP 97.2; O2SAT 96
[2024-12-25 08:07] LABS: INR 1.3
[2024-12-25] MEDS: LACTULOSE 20 GM/30 ML SYRUP UDC PO SCH (08:59)
[2024-12-25] MEDS ORDERED: CIPR250T3 PO (10:51)
[2024-12-25] MEDS ORDERED: BACT800T5 PO (12:14)
[2024-12-25 12:53] VITALS: BP 122/78
== END 2024-12-25 12:59 | disposition home health service (06) | DRG 872 ==
LOC: M ED 13:38 → M ED INP 12-23 00:40 → M PCU 12-23 02:22
PROVIDERS: ADMIT Internal Medicine; ATTEND Internal Medicine
PROC: 0W9G3ZZ Drainage of Peritoneal Cavity, Percutaneous Approach (ICD-10-PCS; 2024-12-22)
PROC: 30233J1 Transfusion of Nonautologous Serum Albumin into Peripheral Vein, Percutaneous Approach (ICD-10-PCS; principal; 2024-12-23)
DX: A41.9 Sepsis, unspecified organism (principal); R18.8 Other ascites; N17.9 Acute kidney failure, unspecified; N39.0 Urinary tract infection, site not specified; K76.6 Portal hypertension; E11.42 Type 2 diabetes mellitus with diabetic polyneuropathy; D50.9 Iron deficiency anemia, unspecified; D69.6 Thrombocytopenia, unspecified; M32.9 Systemic lupus erythematosus, unspecified; M06.9 Rheumatoid arthritis, unspecified; I10 Essential (primary) hypertension; K75.81 Nonalcoholic steatohepatitis (NASH); M35.00 Sjogren syndrome, unspecified; R33.9 Retention of urine, unspecified; M79.7 Fibromyalgia; F32.A Depression, unspecified; K21.9 Gastro-esophageal reflux disease without esophagitis; D63.8 Anemia in other chronic diseases classified elsewhere; E03.9 Hypothyroidism, unspecified; F41.9 Anxiety disorder, unspecified; M81.0 Age-related osteoporosis without current pathological fracture; G89.4 Chronic pain syndrome; R65.20 Severe sepsis without septic shock; Z98.84 Bariatric surgery status; Z90.79 Acquired absence of other genital organ(s); Z90.49 Acquired absence of other specified parts of digestive tract; Z79.890 Hormone replacement therapy; Z79.899 Other long term (current) drug therapy; Z79.85 Long-term (current) use of injectable non-insulin antidiabetic drugs; Z88.1 Allergy status to other antibiotic agents; Z88.6 Allergy status to analgesic agent; Z88.8 Allergy status to other drugs, medicaments and biological substances; Z85.850 Personal history of malignant neoplasm of thyroid

== ENCOUNTER 2024-12-27 11:11 | Inpatient (IN) | payer MEDICARE, MEDICAID ==
[~2024-12-27] VITALS: Ht 175.3 cm; Wt 103.0 kg
[~2024-12-27 11:11] MED LIST changes: +BACT800T5 PO; +CIPR250T3 PO; +DICL100G10 TOP
[2024-12-27] MEDS: NS (Normal Saline) 0.9% 1,000 ML IV ONE ×2 (12:05→13:35)
[2024-12-27 12:15] LABS: BASO # 0.0 10^3/uL (0.0-0.2); BASO % 0.5 % (0.0-1.0); EOS # 0.2 10^3/uL (0.0-0.5); EOS % 2.0 % (0.0-3.0); LYMPH # 1.2 10^3/uL (1.5-5.0); LYMPH % 16.0 % (24.0-44.0); MONO # 0.8 10^3/uL (0.0-0.8); MONO % 11.5 % (2.0-8.0); NEUTROPHILS # 5.1 10^3/uL (1.5-8.5); NEUTROPHILS % 69.0 % (36.0-66.0)
[2024-12-27 12:17] LABS: PLATELET COUNT, AUTOMATED 98 10^3/uL (150-450)
[2024-12-27] MEDS: ONDANSETRON 4MG/2ML VIAL IV ONE (12:46)
[2024-12-27] MEDS: CALCIUM CARBONATE 500 MG CHEW U/D PO ONE (12:46)
[2024-12-27 13:06] LABS: INR 1.39
[2024-12-27 13:11] LABS: VENOUS BASE EXCESS -6.5 (-2.0-2.0); VENOUS HCO3 18.1 MMOL/L (23.0-27.0); VENOUS O2 SATURATION 90.3 % (60.0-80.0); VENOUS PARTIAL PRESSURE CO2 32.6 mmHg (38.0-50.0); VENOUS PARTIAL PRESSURE O2 64.7 mmHg (30.0-50.0); VENOUS PH 7.362 UNITS (7.330-7.430); VENOUS STANDARD HCO3 19.0 MMOL/L; VENOUS TOTAL CO2 19.1 MMOL/L (24.0-28.0)
[2024-12-27 13:12] LABS: ALT/SGPT 56.0 U/L (7.0-40); AST/SGOT 74.0 U/L (<34); CALCIUM LEVEL 7.4 MG/DL (8.5-10.1); CARBON DIOXIDE LEVEL 20.0 MMOL/L (20-31); CHLORIDE LEVEL 105.0 MMOL/L (98-107); CREATININE FOR GFR 1.81 MG/DL (0.55-1.30); GLOMERULAR FILTRATION RATE 34.7 (>58); POTASSIUM SERUM 3.8 MMOL/L (3.5-5.1); SODIUM LEVEL 135.0 MMOL/L (136-145)
[2024-12-27] MEDS ORDERED: LACT10SO94 PO (13:52)
[2024-12-27] MEDS: MIDODRINE 5 MG TAB PO ONE (14:08)
[2024-12-27] MEDS: LACTULOSE 20 GM/30 ML SYRUP UDC PO ONE (14:08)
[2024-12-27] MEDS ORDERED: ISOVUE-370 76% 100 ML VIAL As Ordered ONE (15:12)
[2024-12-27] MEDS: PIPERACILLIN/TAZOBACTAM SOD 4.5 GM in DEXTROSE 5% (D5W) ADV/MINI-BAG 50 ML IV ONE (16:56)
[2024-12-27 17:21] LABS: KETONE, URINE AUTO RFX NEGATIVE (NEGATIVE); LEUKOCYTE ESTERASE UR AUTO RFX NEGATIVE (NEGATIVE); MUCUS, URINE RFX SMALL (NEGATIVE); NITRITE, URINE AUTO RFX NEGATIVE (NEGATIVE); RBC, URINE AUTO RFX 3 /HPF (0-3); SQUAM EPITHELIAL CELL UR AURFX 4 /HPF (0-6); WBC, URINE AUTO RFX 7 /HPF (0-3)
[2024-12-27] MEDS: NS 500 ML IV ONE (19:08)
[2024-12-27] MEDS: MIDODRINE 5 MG TAB PO SCH (19:08)
[2024-12-27] MEDS: VANCOMYCIN HCL 1,000 MG, VIAL MATE ADAPTER 1 EACH in NS 250 ML IV ONE (20:43)
[2024-12-27] MEDS ORDERED: HOME MED LIST COMPLETE! XX SCH (21:20)
[2024-12-27 22:51] VITALS: BP 98/52; TEMP 98.4; O2SAT 96
[2024-12-27 23:15] VITALS: BP 99/51; TEMP 98.6; O2SAT 97
[2024-12-28 00:50] VITALS: BP 108/55; TEMP 98; O2SAT 99
[2024-12-28] MEDS: GABAPENTIN 300 MG CAP PO SCH (01:08)
[2024-12-28] MEDS: cefTRIAXone SOD 2 GM in DEXTROSE 5% (D5W) ADV/MINI-BAG 50 ML IV SCH (01:08)
[2024-12-28] MEDS: LACTULOSE 20 GM/30 ML SYRUP UDC PO SCH (01:08)
[2024-12-28] MEDS: LR 500 ML IV ONE (02:25)
[2024-12-28] MEDS: NS 500 ML IV ONE ×2 (05:39→09:17)
[2024-12-28] MEDS ORDERED: MIDODRINE 5 MG TAB PO SCH (08:00)
[2024-12-28] MEDS: FUROSEMIDE 40 MG/4 ML VIAL IV SCH (08:20)
[2024-12-28] MEDS: SPIRONOLACTONE 50 MG TAB PO SCH (08:20)
[2024-12-28] MEDS: POTASSIUM CHLORIDE 10MEQ SR TABLET PO SCH (08:48)
[2024-12-28] MEDS: PANTOPRAZOLE 40MG VIAL IV SCH (08:48)
[2024-12-28] MEDS: MIDODRINE 5 MG TAB PO SCH (08:48)
[2024-12-28] MEDS ORDERED: HEPARIN SOD 5000 UNITS/ML 1 ML VIAL/SYRINGE SC SCH (09:00)
[2024-12-28 09:29] LABS: PLATELET COUNT, AUTOMATED 87 10^3/uL (150-450)
[2024-12-28] MEDS ORDERED: PILL CUTTER 1 EACH XX ONE (10:00)
[2024-12-28 10:05] LABS: ALT/SGPT 57.0 U/L (7.0-40); AST/SGOT 80.0 U/L (<34); CALCIUM LEVEL 6.7 MG/DL (8.5-10.1); CARBON DIOXIDE LEVEL 19.0 MMOL/L (20-31); CHLORIDE LEVEL 107.0 MMOL/L (98-107); CREATININE FOR GFR 1.44 MG/DL (0.55-1.30); GLOMERULAR FILTRATION RATE 45.7 (>58); MAGNESIUM LEVEL 2.4 MG/DL (1.8-2.4); POTASSIUM SERUM 3.4 MMOL/L (3.5-5.1); SODIUM LEVEL 135.0 MMOL/L (136-145)
[2024-12-28] MEDS ORDERED: PILL CUTTER 1 EACH XX PRN (20:25)
[2024-12-28 21:08] VITALS: BP 123/76; TEMP 97; O2SAT 96
[2024-12-28 21:24] VITALS: BP 124/59; TEMP 97; O2SAT 96
[2024-12-28] MEDS: FUROSEMIDE 100 MG/10 ML VIAL IV SCH (22:04)
[2024-12-28] MEDS: RAMELTEON 8 MG TAB PO SCH (23:17)
[2024-12-29] VITALS (17 sets, daily range): BP systolic 100–124; BP diastolic 54–72; TEMP 97.3–98.2; O2SAT 95–100
[2024-12-29 08:09] LABS: PLATELET COUNT, AUTOMATED 81 10^3/uL (150-450)
[2024-12-29 08:28] LABS: ALT/SGPT 54.0 U/L (7.0-40); AST/SGOT 75.0 U/L (<34); CALCIUM LEVEL 6.9 MG/DL (8.5-10.1); CARBON DIOXIDE LEVEL 20.0 MMOL/L (20-31); CHLORIDE LEVEL 106.0 MMOL/L (98-107); CREATININE FOR GFR 1.04 MG/DL (0.55-1.30); GLOMERULAR FILTRATION RATE 67.6 (>58); MAGNESIUM LEVEL 2.2 MG/DL (1.8-2.4); POTASSIUM SERUM 3.6 MMOL/L (3.5-5.1); SODIUM LEVEL 136.0 MMOL/L (136-145)
[2024-12-29] MEDS: MIDODRINE 5 MG TAB PO SCH (08:42)
[2024-12-29] MEDS: ONDANSETRON 4MG/2ML VIAL IV PRN (12:59)
[2024-12-29 15:29] LABS: APPEARANCE, BODY FLUID CLEAR (CLEAR); ASCITES FL COLOR PALE YELLOW (COLORLESS)
[2024-12-29 15:47] LABS: SOURCE, BODY FLUID ASCITES
[2024-12-29] MEDS: SPIRONOLACTONE 50 MG TAB PO SCH (17:24)
[2024-12-29] MEDS: CALCIUM CARBONATE 500 MG CHEW U/D PO SCH (20:38)
[2024-12-30] VITALS (14 sets, daily range): BP systolic 95–131; BP diastolic 51–74; TEMP 97–98.1; O2SAT 95–99
[2024-12-30 04:57] LABS: PLATELET COUNT, AUTOMATED 95 10^3/uL (150-450)
[2024-12-30 05:03] LABS: ALT/SGPT 51.0 U/L (7.0-40); AST/SGOT 64.0 U/L (<34); CALCIUM LEVEL 7.7 MG/DL (8.5-10.1); CARBON DIOXIDE LEVEL 21.0 MMOL/L (20-31); CHLORIDE LEVEL 109.0 MMOL/L (98-107); CREATININE FOR GFR 0.83 MG/DL (0.55-1.30); GLOMERULAR FILTRATION RATE 88.5 (>58); MAGNESIUM LEVEL 2.0 MG/DL (1.8-2.4); POTASSIUM SERUM 3.3 MMOL/L (3.5-5.1); SODIUM LEVEL 142.0 MMOL/L (136-145)
[2024-12-30] MEDS: POTASSIUM CHLORIDE 10MEQ SR TABLET PO ONE (08:11)
[2024-12-30] MEDS: FUROSEMIDE 40 MG/4 ML VIAL IV SCH (16:25)
[2024-12-31] VITALS: BP 93/55; TEMP 98; O2SAT 96
[2024-12-31 04:00] VITALS: BP 91/50; TEMP 98.3; O2SAT 95
[2024-12-31 04:43] VITALS: BP 92/54; O2SAT 96
[2024-12-31 04:59] LABS: PLATELET COUNT, AUTOMATED 72 10^3/uL (150-450)
[2024-12-31 05:27] LABS: ALT/SGPT 37 U/L (7.0-40); AST/SGOT 46 U/L (<34); CALCIUM LEVEL 7.3 MG/DL (8.5-10.1); CARBON DIOXIDE LEVEL 22 MMOL/L (20-31); CHLORIDE LEVEL 109 MMOL/L (98-107); CREATININE FOR GFR 0.81 MG/DL (0.55-1.30); GLOMERULAR FILTRATION RATE > 90.0 (>58); MAGNESIUM LEVEL 1.8 MG/DL (1.8-2.4); POTASSIUM SERUM 3.9 MMOL/L (3.5-5.1); SODIUM LEVEL 141 MMOL/L (136-145)
[2024-12-31 08:00] VITALS: BP 100/59; TEMP 99.1; O2SAT 99
[2024-12-31] MEDS: MAG SULF 1GM/100ML (MAG RUN) 1 GM in IV 1 EA IV ONE (08:53)
[2024-12-31] MEDS: FUROSEMIDE 40 MG/4 ML VIAL IV SCH (08:54)
[2024-12-31] MEDS: DERMABOND TOPICAL SKIN ADHESIVE TOP ONE (10:24)
[2024-12-31 11:55] VITALS: BP 91/50
[2024-12-31 12:00] VITALS: BP 91/50; TEMP 97; O2SAT 96
== END 2024-12-31 14:17 | disposition short-term general hospital (02) | DRG 432 ==
LOC: EDBD 11:11 → M ED 11:33 → M ED INP 12-29 07:02 → M ICU 12-29 09:56
PROVIDERS: ADMIT Student in an Organized Health Care Education/Training Program; ATTEND Student in an Organized Health Care Education/Training Program
PROC: 0W9G3ZZ Drainage of Peritoneal Cavity, Percutaneous Approach (ICD-10-PCS; principal; 2024-12-29)
DX: K74.69 Other cirrhosis of liver (principal); K72.00 Acute and subacute hepatic failure without coma; R18.8 Other ascites; K76.6 Portal hypertension; N17.9 Acute kidney failure, unspecified; E89.0 Postprocedural hypothyroidism; I10 Essential (primary) hypertension; E11.40 Type 2 diabetes mellitus with diabetic neuropathy, unspecified; K75.81 Nonalcoholic steatohepatitis (NASH); M79.7 Fibromyalgia; K21.9 Gastro-esophageal reflux disease without esophagitis; I95.9 Hypotension, unspecified; M16.0 Bilateral primary osteoarthritis of hip; F41.9 Anxiety disorder, unspecified; M81.0 Age-related osteoporosis without current pathological fracture; D50.9 Iron deficiency anemia, unspecified; D63.8 Anemia in other chronic diseases classified elsewhere; Z85.850 Personal history of malignant neoplasm of thyroid; Z85.828 Personal history of other malignant neoplasm of skin; Z79.890 Hormone replacement therapy; F32.A Depression, unspecified; G89.29 Other chronic pain; Z88.6 Allergy status to analgesic agent

== ENCOUNTER → 2025-02-18 | Outpatient (CLI) | payer MEDICARE, MEDICAID ==
[~2025-02-18] MED LIST changes: +B-650TAB2 PO; +D3-5CAP PO; +DOXY100C3 PO; +FLUO-365 PO; +FOLI1TAB11 PO; +FURO40TA2 PO; +LACT20EL PO; +LANTINJ4 SC; +LEVO175T2 PO; +MELA5TAB36 PO; +MIDO5TA PO; +MULT-193 PO; +OXYC-517 PO; +OYST500T16 PO; +PHYS1KIT3 IM; +POLY510P14 PO; +SYNT150T PO; +TIRZ15PE SC; +TIZA1TAB12 PO; +VITA100T89 PO; +VITA500C24 PO; +ZINC220T6 PO; +[UNRECOGNIZED DRUG - CODE] PO; +[UNRECOGNIZED DRUG - CODE] TP
== END ==
LOC: M LAB 13:12
DX: K72.10 Chronic hepatic failure without coma (principal)

== ENCOUNTER → 2025-02-18 | Outpatient (CLI) | payer MEDICARE, MEDICAID ==
[~2025-02-18] MED LIST changes: +ACETAMINOPHEN 325 MG TAB PO PRN; +LIDOCAINE 1% MDV 20 ML VIAL SC STA
[2025-02-18 14:05] LABS: BASO # 0.1 10^3/uL (0.0-0.2); BASO % 0.5 % (0.0-1.0); EOS # 0.1 10^3/uL (0.0-0.5); EOS % 0.5 % (0.0-3.0); LYMPH # 1.7 10^3/uL (1.5-5.0); LYMPH % 18.2 % (24.0-44.0); MONO # 0.8 10^3/uL (0.0-0.8); MONO % 8.5 % (2.0-8.0); NEUTROPHILS # 6.6 10^3/uL (1.5-8.5); NEUTROPHILS % 71.8 % (36.0-66.0); PLATELET COUNT, AUTOMATED 138 10^3/uL (150-450)
[2025-02-18 14:33] LABS: ALT/SGPT 60.0 U/L (7.0-40); AST/SGOT 75.0 U/L (<34); CALCIUM LEVEL 8.1 MG/DL (8.5-10.1); CARBON DIOXIDE LEVEL 23.0 MMOL/L (20-31); CHLORIDE LEVEL 96.0 MMOL/L (98-107); CREATININE FOR GFR 1.39 MG/DL (0.55-1.30); GLOMERULAR FILTRATION RATE 47.7 (>58); POTASSIUM SERUM 3.6 MMOL/L (3.5-5.1); SODIUM LEVEL 130.0 MMOL/L (136-145)
[2025-02-18 14:39] LABS: INR 1.4
[2025-02-18 15:50] VITALS: BP 113/60; TEMP 98; O2SAT 99
[2025-02-18 15:58] VITALS: BP 114/62; TEMP 98.2; O2SAT 99
[2025-02-18 16:10] VITALS: BP 109/57; O2SAT 99
== END ==
LOC: M IRPRO 12:57
PROVIDERS: ATTEND Internal Medicine
DX: R18.8 Other ascites (principal); K72.10 Chronic hepatic failure without coma
CPT/HCPCS: 49083; 80053; 82140; 82248; 85025; 85610; 96365; C1729; P9047

== ENCOUNTER 2025-02-21 11:44 | Observation (INO) | payer MEDICARE, MEDICAID ==
[~2025-02-21] VITALS: Ht 177.8 cm; Wt 96.8 kg
[~2025-02-21 11:44] MED LIST changes: -ACETAMINOPHEN 325 MG TAB PO PRN; -LIDOCAINE 1% MDV 20 ML VIAL SC STA; -TIRZ15PE SC
[2025-02-21 12:33] LABS: BASO # 0.1 10^3/uL (0.0-0.2); BASO % 0.7 % (0.0-1.0); EOS # 0.0 10^3/uL (0.0-0.5); EOS % 0.3 % (0.0-3.0); LYMPH # 2.1 10^3/uL (1.5-5.0); LYMPH % 21.1 % (24.0-44.0); MONO # 0.5 10^3/uL (0.0-0.8); MONO % 5.0 % (2.0-8.0); NEUTROPHILS # 7.1 10^3/uL (1.5-8.5); NEUTROPHILS % 72.6 % (36.0-66.0); PLATELET COUNT, AUTOMATED 198 10^3/uL (150-450)
[2025-02-21 12:59] LABS: ALT/SGPT 86.0 U/L (7.0-40); AST/SGOT 202.0 U/L (<34); CALCIUM LEVEL 8.5 MG/DL (8.5-10.1); CARBON DIOXIDE LEVEL 20.0 MMOL/L (20-31); CHLORIDE LEVEL 97.0 MMOL/L (98-107); CREATININE FOR GFR 1.15 MG/DL (0.55-1.30); GLOMERULAR FILTRATION RATE 59.9 (>58); POTASSIUM SERUM 6.5 MMOL/L (3.5-5.1); SODIUM LEVEL 128.0 MMOL/L (136-145)
[2025-02-21 13:28] LABS: INR 1.25
[2025-02-21 13:53] LABS: CALCIUM LEVEL 7.9 MG/DL (8.5-10.1); CARBON DIOXIDE LEVEL 21.0 MMOL/L (20-31); CHLORIDE LEVEL 99.0 MMOL/L (98-107); CREATININE FOR GFR 1.14 MG/DL (0.55-1.30); GLOMERULAR FILTRATION RATE 60.5 (>58); POTASSIUM SERUM 4.6 MMOL/L (3.5-5.1); SODIUM LEVEL 131.0 MMOL/L (136-145)
[2025-02-21] MEDS: LACTULOSE 20 GM/30 ML SYRUP UDC PO ONE (13:59)
[2025-02-21] MEDS: cefTRIAXone SOD 2 GM in DEXTROSE 5% (D5W) ADV/MINI-BAG 50 ML IV SCH (16:37)
[2025-02-21] MEDS ORDERED: REXU1TAB4 PO (16:50)
[2025-02-21] MEDS ORDERED: TIRZ15PE SC (16:59)
[2025-02-21] MEDS ORDERED: XTAM13.5 PO (16:59)
[2025-02-21] MEDS ORDERED: HOME MED LIST COMPLETE! XX SCH (17:00)
[2025-02-21 17:15] VITALS: BP 116/70; TEMP 98.9; O2SAT 98
[2025-02-21] MEDS: THIAMINE 100 MG TAB PO SCH (18:29)
[2025-02-21] MEDS: FLUoxetine 20 MG CAP PO SCH (18:29)
[2025-02-21] MEDS: LACTULOSE 20 GM/30 ML SYRUP UDC PO SCH (18:29)
[2025-02-21] MEDS: PYRIDOXINE 50 MG TAB PO SCH (18:38)
[2025-02-21] MEDS ORDERED: DEXTROSE 50% 50 ML SYRINGE IV PRN (19:20)
[2025-02-21] MEDS ORDERED: GLUCAGON INJ 1 MG VIAL SC PRN (19:20)
[2025-02-21] MEDS ORDERED: GLUCOSE 4 GM CHEW PO PRN (19:20)
[2025-02-21 19:44] VITALS: BP 121/68; TEMP 98.6; O2SAT 99
[2025-02-21] MEDS ORDERED: LACTULOSE 20 GM/30 ML SYRUP UDC PO PRN (20:00)
[2025-02-21 22:25] LABS: KETONE, URINE AUTO RFX NEGATIVE (NEGATIVE); LEUKOCYTE ESTERASE UR AUTO RFX NEGATIVE (NEGATIVE); MUCUS, URINE RFX SMALL (NEGATIVE); NITRITE, URINE AUTO RFX NEGATIVE (NEGATIVE); RBC, URINE AUTO RFX 1 /HPF (0-3); SQUAM EPITHELIAL CELL UR AURFX 0 /HPF (0-6)
[2025-02-21 22:26] LABS: WBC, URINE AUTO RFX 14 /HPF (0-3)
[2025-02-21] MEDS: ONDANSETRON 4MG/2ML VIAL IV PRN (23:54)
[2025-02-22 03:45] VITALS: BP 102/60; TEMP 97.9; O2SAT 98
[2025-02-22 06:13] LABS: BASO # 0.1 10^3/uL (0.0-0.2); BASO % 0.9 % (0.0-1.0); EOS # 0.3 10^3/uL (0.0-0.5); EOS % 3.5 % (0.0-3.0); LYMPH # 2.4 10^3/uL (1.5-5.0); LYMPH % 32.0 % (24.0-44.0); MONO # 0.9 10^3/uL (0.0-0.8); MONO % 11.6 % (2.0-8.0); NEUTROPHILS # 3.8 10^3/uL (1.5-8.5); NEUTROPHILS % 51.6 % (36.0-66.0); PLATELET COUNT, AUTOMATED 126 10^3/uL (150-450)
[2025-02-22 06:37] LABS: C REACTIVE PROTEIN QUANTITATIV 3.63 MG/DL (<1.0)
[2025-02-22 06:41] LABS: ALT/SGPT 61.0 U/L (7.0-40); AST/SGOT 93.0 U/L (<34); CALCIUM LEVEL 8.3 MG/DL (8.5-10.1); CARBON DIOXIDE LEVEL 24.0 MMOL/L (20-31); CHLORIDE LEVEL 98.0 MMOL/L (98-107); CREATININE FOR GFR 1.11 MG/DL (0.55-1.30); GLOMERULAR FILTRATION RATE 62.5 (>58); POTASSIUM SERUM 2.9 MMOL/L (3.5-5.1); SODIUM LEVEL 132.0 MMOL/L (136-145)
[2025-02-22] MEDS: LEVOTHYROXINE 125 MCG TABLET (0.125 MG) PO SCH (07:40)
[2025-02-22] MEDS ORDERED: FUROSEMIDE 20 MG TAB PO SCH (09:00)
[2025-02-22] MEDS ORDERED: POTASSIUM CHLORIDE 10MEQ SR TABLET PO ONE (09:00)
[2025-02-22] MEDS: POTASSIUM CHLORIDE 10MEQ SR TABLET PO ONE ×2 (09:19→13:33)
[2025-02-22] MEDS: FOLIC ACID 1 MG TAB PO SCH (09:19)
[2025-02-22 09:20] VITALS: BP 101/59
[2025-02-22] MEDS: FUROSEMIDE 40 MG TAB PO SCH (09:20)
[2025-02-22] MEDS: MIDODRINE 5 MG TAB PO SCH (09:20)
[2025-02-22] MEDS: SPIRONOLACTONE 50 MG TAB PO SCH (09:20)
[2025-02-22] MEDS: INSULIN LISPRO (NovoLOG) PER UNIT SC SCH (09:25)
[2025-02-22 12:00] VITALS: BP 109/57; TEMP 98.4; O2SAT 98
[2025-02-22] MEDS: KCL 10MEQ/100ML SWI (KRUN) 10 MEQ in IV 1 EA IV SCH (13:33)
[2025-02-22] MEDS: FOSFOMYCIN TROMETHAMINE 3 GM POWDER PACKET PO ONE (17:23)
== END 2025-02-22 17:46 | disposition home or self-care (01) ==
LOC: EDBD 11:44 → M ED 13:17 → M ED INP 13:18 → M MSPAV 16:59
PROVIDERS: ADMIT Student in an Organized Health Care Education/Training Program; ATTEND Student in an Organized Health Care Education/Training Program
DX: K76.82 Hepatic encephalopathy (principal); K75.81 Nonalcoholic steatohepatitis (NASH); E11.42 Type 2 diabetes mellitus with diabetic polyneuropathy; D50.9 Iron deficiency anemia, unspecified; D69.6 Thrombocytopenia, unspecified; E87.6 Hypokalemia; Z85.850 Personal history of malignant neoplasm of thyroid; G89.4 Chronic pain syndrome; K21.9 Gastro-esophageal reflux disease without esophagitis; F32.A Depression, unspecified; F41.9 Anxiety disorder, unspecified; E03.9 Hypothyroidism, unspecified; Z79.890 Hormone replacement therapy; Z79.891 Long term (current) use of opiate analgesic; Z79.899 Other long term (current) drug therapy; Z88.1 Allergy status to other antibiotic agents; Z88.6 Allergy status to analgesic agent; Z88.8 Allergy status to other drugs, medicaments and biological substances; Z91.040 Latex allergy status; Z90.79 Acquired absence of other genital organ(s); Z98.84 Bariatric surgery status; Z90.49 Acquired absence of other specified parts of digestive tract
CPT/HCPCS: 36415; 71045; 74176; 80048; 80053; 81001; 82140; 84132; 84145; 85025; 85610; 86140; 87088; 87186; 93005; 93041; 94760; 96374; 96375; 96376; 97161; 97530; 99285; G0378; J0696; J2405

== ENCOUNTER → 2025-02-25 | Outpatient (CLI) | payer MEDICARE, MEDICAID ==
[~2025-02-25] MED LIST changes: +ACETAMINOPHEN 325 MG TAB PO PRN; +TIRZ15PE SC
[2025-02-25 12:13] VITALS: TEMP 97.1
[2025-02-25 13:49] VITALS: BP 100/55; O2SAT 99
[2025-02-25 13:53] VITALS: BP 96/51; O2SAT 99
[2025-02-25 14:01] VITALS: BP 94/51; O2SAT 98
== END ==
LOC: M IRPRO 12:05
PROVIDERS: ATTEND Internal Medicine
DX: R18.8 Other ascites (principal)
CPT/HCPCS: 49083; P9047